=== PATIENT | male | born 1935 | race Caucasian/White ===

== ENCOUNTER 2017-12-08 12:46 | Inpatient (IN) | payer OTHER ==
[2017-12-08 13:51] LABS: Absolute Lymphocytes (CBC) 1.2 K/uL (0.7-4.9); Absolute Monocytes 0.6 K/uL (0.1-1.3); Absolute Neutrophil 3.5 K/uL (1.8-8.0); Eosinophils % 0.8 % (0-4.4); Hematocrit 43.1 % (39.6-49.0); Lymphocytes % 22.5 % (15.3-44.8); MCH 30.4 pg (27.0-35.0); MCV 91.9 fL (80-100); MPV 6.5 fL (7.6-11.3); RBC Red Blood Cell Count 4.69 M/uL (4.33-5.43)
[2017-12-08 13:57] LABS: Albumin 3.7 g/dL (3.2-5.5); Bilirubin Direct 0.2 mg/dL (0-0.2); Bilirubin Total 0.8 mg/dL (0.3-1.2); Magnesium 1.9 mg/dL (1.8-2.5)
[2017-12-08 13:59] LABS: Protime INR 1.08
[2017-12-08 14:00] LABS: CKMB Creatine Kinase MB 1.2 ng/ml (0.3-4.0)
--- NOTE | 2017-12-08 14:28 | EKG ---
Test Date: 2017-12-08 Test Time: 13:14:16 Mother'S Helper: DANE MEASUREMENT RESULTS: Intervals: Rate: 88 IA: 222 QRSD: 142 QT: 430 QTc: 520 [place]: P: 69 IA: 222 QRS: -45 T: 91 INTERPRETIVE STATEMENTS: Sinus rhythm with marked sinus arrhythmia with 1st degree AV block Left axis deviation Left bundle branch block Abnormal ECG Compared to ECG 07/06/2015 02:46:15 First degree AV block now present Left-axis deviation now present Left bundle-branch block now present Atrial premature complex(es) no longer present Electronically Signed On 12-08-17 14:27:32 RISK MANAGEMENT SPECIALIST by Chon Penn
[2017-12-08] MEDS ORDERED: VALPROATE SODIUM INJ 500 MG in NA CHLORIDE 0.9% 100 ML IV ONE ×2 (15:00→19:00)
[2017-12-08] MEDS ORDERED: VALPROATE NA 500 MG/5 ML INJ IV ONE (15:08)
[2017-12-08] MEDS ORDERED: FOLIC ACID 5 MG/ML VIAL ONE (15:09)
--- NOTE | 2017-12-08 15:10 | RAD REPORT ---
EXAM DESCRIPTION: RAD - Chest Single View - 12/08/2017 1:43 pm CLINICAL HISTORY: Cough, shortness of breath COMPARISON: February 2017 TECHNIQUE: AP portable chest image was obtained 1337 hour . FINDINGS: Lung volumes are low accentuating heart, vasculature and lung markings. No peripheral mass , consolidation or significant failure. The very poor inspiratory effort could mask early stages of i nterstitial edema or infiltrate. Vasculature within normal limits. Heart size within normal limits fo r shallow inspiration. No measurable pleural effusion and no pneumothorax. No gross bony abnormality seen. No acute aortic findings suspected. IMPRESSION: Significantly limited examination due to poor inspiratory effort. True or significant change from the prior study is doubtful.
[2017-12-08 15:20] LABS: Urine Blood NEGATIVE (NEG); Urine Glucose NEGATIVE (NEG); Urine Protein 2+ (NEG); Urine pH 5.5 (5.0-7.0)
--- NOTE | 2017-12-08 15:51 | ER ---
Nurse's Notes [facility] Name: Caleb Lemus Age: 82 yrs Sex: Male : 1935 Arrival Date: 12/08/2017 Time: 12:50 Bed 4 Private MD: Bruno Valadez V Diagnosis: Aphasia;Epileptic seizures related to external causes;Weakness Presentation: 12/08 12:51 Presenting complaint: states: "pt was confused that started 48 hours, still could hj not speak, went to [facility] and they ran a head CT and showed negative findings; visited neurology today, states, soul probably be seizure, was sent here for eval; reports frontal headache; pt on triage pt was A\\T\\O x 0;. Transition of care: patient was not received from another setting of care. Onset of symptoms was December 08, 2017. Care prior to arrival: None. 12:51 Method Of Arrival: Ambulatory hj 12:51 Acuity: WILLY 3 hj Triage Assessment: 12:58 General: Appears in no apparent distress. uncomfortable, Behavior is calm, cooperative, hj appropriate for age. Pain: Complains of pain in head. Neuro: Level of Consciousness is awake, alert, obeys commands, Oriented to none. Historical: - Allergies: 12:58 PENICILLINS; hj 12:58 Morphine; hj 12:58 Codeine; hj 12:58 Clindamycin; hj 12:58 Fentanyl; hj 12:58 Hydromorphone; hj - PMHx: 12:58 Hypertension; CHF; hj - PSHx: 12:58 Knee surgery; feet; Hernia repair; hj - Immunization history:: Adult Immunizations up to date. - Social history:: Smoking status: Patient/guardian denies using alcohol, tobacco products. - Family history:: not pertinent. Screenin:30 Abuse screen: Denies threats or abuse. Nutritional screening: No deficits noted. tl3 Tuberculosis screening: No symptoms or risk factors identified. Fall Risk Secondary diagnosis (15 points) seizures. Assessment: 13:30 General: Appears in no apparent distress. comfortable, well groomed, well developed, tl3 well nourished, Behavior is calm, cooperative, pt not able to always access the right words for questions asked, two word answers are generally correct. 13:30 Neuro: Level of Consciousness is awake, alert, obeys commands. Cardiovascular: Heart tl3 tones S1 S2 present Capillary refill < 3 seconds. Respiratory: Airway is patent Trachea midline Respiratory effort is even, unlabored, Respiratory pattern is regular, symmetrical, Breath sounds are clear bilaterally. GI: No signs and/or symptoms were reported involving the gastrointestinal system. Abdomen is round Bowel sounds present X 4 quads. : No signs and/or symptoms were reported regarding the genitourinary system. EENT: No signs and/or symptoms were reported regarding the EENT system. Oral mucosa is moist. Derm: No signs and/or symptoms reported regarding the dermatologic system. Musculoskeletal: No signs and/or symptoms reported regarding the musculoskeletal system. 14:43 Reassessment: Patient appears in no apparent distress at this time. No changes from tl3 previously documented assessment. Patient and/or family updated on plan of care and expected duration. Pain level reassessed. Patient is alert, oriented x 3, equal unlabored respirations, skin warm/dry/pink. Dr Castellanos at bedside. 16:20 Reassessment: Patient appears in no apparent distress at this time. No changes from tl3 previously documented assessment. Patient and/or family updated on plan of care and expected duration. Pain level reassessed. Patient is alert, oriented x 3, equal unlabored respirations, skin warm/dry/pink. 18:01 Reassessment: Patient appears in no apparent distress at this time. No changes from tl3 previously documented assessment. Patient and/or family updated on plan of care and expected duration. Pain level reassessed. Patient is alert, oriented x 3, equal unlabored respirations, skin warm/dry/pink. pt returned from MRI, resting quietly, family at bedside. 18:04 Reassessment: attempting to call report twice, no answer. tl3 18:12 Reassessment: attempting to call report no answer. tl3 19:19 Reassessment: Patient appears in no apparent distress at this time. No changes from ak1 previously documented assessment. Patient and/or family updated on plan of care and expected duration. Pain level reassessed. Patient is alert, oriented x 3, equal unlabored respirations, skin warm/dry/pink. pt and family informed of wait for shift change prior to going up to room 218. General:. 19:54 Reassessment: report called to Lea HARE, pt is alert, resting quietly, family at bedside, IV intact. Vital Signs: 12:59 BP 100 / 66; Pulse 85; Resp 18; Temp 97.8(O); Pulse Ox 95% on R/A; Weight 99.79 kg; hj Height 5 ft. 6 in. (167.64 cm); 13:30 BP 120 / 75; Pulse 82; Resp 16; Pulse Ox 95% on R/A; tl3 14:43 BP 141 / 98; Pulse 80; Resp 15; Pulse Ox 94% on R/A; tl3 16:39 BP 154 / 101; Pulse 71; Resp 18; Pulse Ox 95% on R/A; tl3 18:01 BP 125 / 89; Pulse 68; Resp 18; Pulse Ox 95% on R/A; tl3 18:18 BP 125 / 75; Pulse 59; Resp 16; Pulse Ox 99% ; tl3 12:59 Body Mass Index 35.51 (99.79 kg, 167.64 cm) hj Tal Coma Score: 12:58 Eye Response: spontaneous(4). Verbal Response: confused(4). Motor Response: obeys commands(6). Total: 14. ED Course: 12:50 Patient arrived in ED. mr 12:50 Bruno Valadez MD is Private Physician. mr 12:57 Triage completed. hj 12:59 Arm band placed on right wrist. hj 13:09 Bruce Castellanos MD is Attending Physician. megan 13:30 Patient has correct armband on for positive identification. Placed in gown. Bed in low tl3 position. Call light in reach. Side rails up X2. Adult w/ patient. Seizure precautions initiated. 13:30 No provider procedures requiring assistance completed. Urine collected: clean catch tl3 specimen, clear. 13:33 Mell Alvares, RN is Primary Nurse. tl3 13:33 EKG done, by telegraph repeater technician. reviewed by Bruce Castellanos MD. at1 13:34 equipment maintenance supervisor on. Pulse ox on. NIBP on. family at bedside. Door closed. Lights tl3 dimmed. Warm blanket given. 13:34 Inserted saline lock: 20 gauge in left antecubital area, using aseptic technique. Blood tl3 collected. 13:38 X-ray completed. Portable x-ray completed in exam room. Patient tolerated procedure jb2 well. 13:43 XRAY Chest (1 view) In Process Unspecified. EDMS 15:48 Bruno Valadez MD is Hospitalizing Provider. megan 16:36 Patient moved to MRI via stretcher. tl3 17:07 MRI completed. Patient tolerated well. Patient moved back from MRI. ka 19:00 Patient admitted, IV remains in place. ak1 19:08 Report given to PAYAM Beard. tl3 Administered Medications: 13:46 Drug: NS 0.9% 1000 ml Route: IV; Rate: 75 ml/hr; Site: left antecubital; Delivery: tl3 Primary tubing; 19:30 Follow up: IV Intake: 500ml tl3 14:59 Drug: foLIC Acid 1 mg Route: IVPB; Infused Over: 3 mins; Site: left antecubital; tl3 15:24 Follow up: Response: No adverse reaction tl3 14:59 Drug: NS 0.9% 500 ml Route: IV; Rate: bolus; Site: left antecubital; tl3 15:24 Follow up: Response: No adverse reaction; IV Status: Completed infusion; IV Intake: tl3 500ml 15:25 Drug: Depacon 500 mg Volume: 5 ml; Route: IV; Rate: calculated rate; Site: left tl3 antecubital; Delivery: Primary tubing; 16:25 Follow up: Response: No adverse reaction; IV Status: Completed infusion tl3 18:17 Drug: Aspirin Chewable Tablet 162 mg Route: PO; tl3 Intake: 15:24 IV: 500ml; Total: 500ml. tl3 19:30 IV: 500ml; Total: 1000ml. tl3 Outcome: 15:50 Decision to Hospitalize by Provider. megan 16:38 Condition: stable tl3 19:01 Instructed on the need for admit. ak1 19:54 Admitted to Tele accompanied by camille, family with patient, via stretcher, room 218, bb with chart, Report called to Lea HARE 20:07 Patient left the ED. bb Signatures: Dispatcher [employer] EDBruce Sharpe MD MD cha Rivera, Maria mr [email or web address] Madisyn Nolasco, RN RN Taryn acevedo, synchronous motor assembler EKG Tat1 Mary Villarreal RN RN ak1 Joshua Lucero RN RN Barrett, Gilda ka Dia, Mell, RN RN tl3
--- NOTE | 2017-12-08 15:51 | EDPHYS ---
Physician Documentation [facility] Name: Caleb Lemus Age: 82 yrs Sex: Male : 1935 Arrival Date: 12/08/2017 Time: 12:50 Bed 4 Private MD: Bruno Valadez V ED Physician Bruce Castellanos HPI: 12/08 14:43 This 82 yrs old Male presents to ER via Ambulatory with complaints of megan Probable Seizure. 14:43 This 82 yrs old Male presents to ER via Ambulatory with complaints of megan Probable Seizure. 14:43 The patient presents. Character of seizure(s): Loss of consciousness: the patient did megan not lose consciousness. Seizure onset: the onset is not known. Context: the seizure(s) was witnessed, by family. Seizure Hx: the patient has no previous seizure history. Associated injury: The patient did not suffer any apparent associated injury. Current symptoms: dysphasia. The patient has not experienced similar symptoms in the past. Historical: - Allergies: 12:58 PENICILLINS; hj 12:58 Morphine; hj 12:58 Codeine; hj 12:58 Clindamycin; hj 12:58 Fentanyl; hj 12:58 Hydromorphone; hj - PMHx: 12:58 Hypertension; CHF; hj - PSHx: 12:58 Knee surgery; feet; Hernia repair; hj - Immunization history:: Adult Immunizations up to date. - Social history:: Smoking status: Patient/guardian denies using alcohol, tobacco products. - Family history:: not pertinent. ROS: 14:43 Constitutional: Negative for fever, chills, and weight loss, Eyes: Negative for injury, megan pain, redness, and discharge, ENT: Negative for injury, pain, and discharge, Neck: Negative for injury, pain, and swelling, Cardiovascular: Negative for chest pain, palpitations, and edema, Respiratory: Negative for shortness of breath, cough, wheezing, and pleuritic chest pain, Abdomen/GI: Negative for abdominal pain, nausea, vomiting, diarrhea, and constipation, Back: Negative for injury and pain, : Negative for injury, bleeding, discharge, and swelling, MS/Extremity: Negative for injury and deformity, Skin: Negative for injury, rash, and discoloration, Psych: Negative for depression, anxiety, suicide ideation, homicidal ideation, and hallucinations, Allergy/Immunology: Negative for hives, rash, and allergies, Endocrine: Negative for neck swelling, polydipsia, polyuria, polyphagia, and marked weight changes, Hematologic/Lymphatic: Negative for swollen nodes, abnormal bleeding, and unusual bruising. 14:43 Neuro: Positive for altered mental status, dizziness, speech changes, weakness. Exam: 14:43 Constitutional: This is a well developed, well nourished patient who is awake, alert, megan and in no acute distress. Head/Face: Normocephalic, atraumatic. Eyes: Pupils equal round and reactive to light, extra-ocular motions intact. Lids and lashes normal. Conjunctiva and sclera are non-icteric and not injected. Cornea within normal limits. Periorbital areas with no swelling, redness, or edema. ENT: Nares patent. No nasal discharge, no septal abnormalities noted. Tympanic membranes are normal and external auditory canals are clear. Oropharynx with no redness, swelling, or masses, exudates, or evidence of obstruction, uvula midline. Mucous membranes moist. Neck: Trachea midline, no thyromegaly or masses palpated, and no cervical lymphadenopathy. Supple, full range of motion without nuchal rigidity, or vertebral point tenderness. No Meningismus. Chest/axilla: Normal chest wall appearance and motion. Nontender with no deformity. No lesions are appreciated. Cardiovascular: Regular rate and rhythm with a normal S1 and S2. No gallops, murmurs, or rubs. Normal PMI, no JVD. No pulse deficits. Respiratory: Lungs have equal breath sounds bilaterally, clear to auscultation and percussion. No rales, rhonchi or wheezes noted. No increased work of breathing, no retractions or nasal flaring. Abdomen/GI: Soft, non-tender, with normal bowel sounds. No distension or tympany. No guarding or rebound. No evidence of tenderness throughout. Back: No spinal tenderness. No costovertebral tenderness. Full range of motion. Male : Normal genitalia with no discharge or lesions. Skin: Warm, dry with normal turgor. Normal color with no rashes, no lesions, and no evidence of cellulitis. Psych: Awake, alert, with orientation to person, place and time. Behavior, mood, and affect are within normal limits. 14:43 Musculoskeletal/extremity: Extremities: all appear grossly normal, with no appreciated pain with palpation, grossly normal except: ROM: full active range of motion, full passive range of motion, Circulation is intact in all extremities. Sensation intact. Compartment Syndrome exam of affected extremity: is normal. no pain, no numbness, no tingling, no sensation deficit, no palor, no weak pulses, DVT Exam: No signs of deep vein thrombosis. no pain, no swelling, no tenderness, negative Homans' sign noted on exam, no appreciated bluish discoloration, no erythema, no increased warmth. Vital Signs: 12:59 BP 100 / 66; Pulse 85; Resp 18; Temp 97.8(O); Pulse Ox 95% on R/A; Weight 99.79 kg; Height 5 ft. 6 in. (167.64 cm); 13:30 BP 120 / 75; Pulse 82; Resp 16; Pulse Ox 95% on R/A; tl3 14:43 BP 141 / 98; Pulse 80; Resp 15; Pulse Ox 94% on R/A; tl3 16:39 BP 154 / 101; Pulse 71; Resp 18; Pulse Ox 95% on R/A; tl3 18:01 BP 125 / 89; Pulse 68; Resp 18; Pulse Ox 95% on R/A; tl3 18:18 BP 125 / 75; Pulse 59; Resp 16; Pulse Ox 99% ; tl3 12:59 Body Mass Index 35.51 (99.79 kg, 167.64 cm) Tal Coma Score: 12:58 Eye Response: spontaneous(4). Verbal Response: confused(4). Motor Response: obeys commands(6). Total: 14. MDM: 13:09 Patient medically screened. [facility] 14:48 Data reviewed: vital signs, nurses notes, EMS record, lab test result(s), EKG, [facility] radiologic studies, CT scan, MRI, plain films. 12/08 13:11 Order name: Basic Metabolic Panel; Complete Time: 14:38 [facility] 12/08 13:11 Order name: BNP; Complete Time: 14:38 [facility] 12/08 13:11 Order name: CBC with Diff; Complete Time: 14:38 [facility] 12/08 13:11 Order name: Ckmb; Complete Time: 14:38 [facility] 12/08 13:11 Order name: CPK; Complete Time: 14:38 [facility] 12/08 13:11 Order name: LFT's; Complete Time: 14:38 [facility] 12/08 13:11 Order name: Magnesium; Complete Time: 14:38 [facility] 12/08 13:11 Order name: PT-INR; Complete Time: 14:38 [facility] 12/08 13:11 Order name: Ptt, Activated; Complete Time: 14:38 [facility] 12/08 13:11 Order name: Troponin (emerg Dept Use Only); Complete Time: 14:38 [facility] 12/08 13:11 Order name: Lipase; Complete Time: 14:38 [facility] 12/08 13:11 Order name: Urine Culture [facility] 12/08 15:17 Order name: Urine Dipstick--Ancillary (enter results); Complete Time: 15:41 12/08 16:04 Order name: Basic Metabolic Panel [facility] 12/08 13:11 Order name: XRAY Chest (1 view); Complete Time: 15:41 [facility] 12/08 14:38 Order name: MRI Stroke Protocol [facility] 12/08 16:04 Order name: Basic Metabolic Panel [facility] 12/08 16:04 Order name: Troponin I [facility] 12/08 16:05 Order name: CBC with Automated Diff [facility] 12/08 16:05 Order name: CBC with Automated Diff [facility] 12/08 16:05 Order name: Chest Single View [facility] 12/08 16:05 Order name: Chest Single View [facility] 12/08 16:06 Order name: Troponin I [facility] 12/08 16:06 Order name: Troponin I [facility] 12/08 17:14 Order name: MRI; Complete Time: 17:31 [facility] 12/08 13:11 Order name: EKG; Complete Time: 13:12 [facility] 12/08 13:11 Order name: Cardiac monitoring; Complete Time: 13:33 [facility] 12/08 13:11 Order name: EKG - Nurse/Tech; Complete Time: 13:33 [facility] 12/08 13:11 Order name: IV Saline Lock; Complete Time: 13:33 [facility] 12/08 13:11 Order name: Labs collected and sent; Complete Time: 13:34 [facility] 12/08 13:11 Order name: O2 Per Protocol; Complete Time: 13:34 [facility] 12/08 13:11 Order name: O2 Sat Monitoring; Complete Time: 13:34 [facility] 12/08 13:11 Order name: Urine Dipstick-Ancillary (obtain specimen); Complete Time: 14:46 [facility] 12/08 13:11 Order name: Seizure Precautions; Complete Time: 14:46 [facility] 12/08 16:05 Order name: Carb Control (ADA) [address] EDAK 12/08 16:05 Order name: CONS Physician Consult [facility] 12/08 16:06 Order name: EKG Electrocardiogram [facility] 12/08 16:06 Order name: EKG Electrocardiogram [facility] 12/08 16:06 Order name: EKG Electrocardiogram [facility] 12/08 16:06 Order name: EKG Electrocardiogram EDAK Administered Medications: 13:46 Drug: NS 0.9% 1000 ml Route: IV; Rate: 75 ml/hr; Site: left antecubital; Delivery: tl3 Primary tubing; 19:30 Follow up: IV Intake: 500ml tl3 14:59 Drug: foLIC Acid 1 mg Route: IVPB; Infused Over: 3 mins; Site: left antecubital; tl3 15:24 Follow up: Response: No adverse reaction tl3 14:59 Drug: NS 0.9% 500 ml Route: IV; Rate: bolus; Site: left antecubital; tl3 15:24 Follow up: Response: No adverse reaction; IV Status: Completed infusion; IV Intake: tl3 500ml 15:25 Drug: Depacon 500 mg Volume: 5 ml; Route: IV; Rate: calculated rate; Site: left tl3 antecubital; Delivery: Primary tubing; 16:25 Follow up: Response: No adverse reaction; IV Status: Completed infusion tl3 18:17 Drug: Aspirin Chewable Tablet 162 mg Route: PO; tl3 Disposition: 12/08/17 15:50 Hospitalization ordered by Bruno Valadez for Inpatient Admission. Preliminary diagnosis are Aphasia, Epileptic seizures related to external causes, Weakness. - Bed requested for Telemetry/MedSurg (Inpatient). - Status is Inpatient Admission. bb - Condition is Fair. - Problem is new. - Symptoms have improved. UTI on Admission? No Signatures: Dispatcher [employer] EDAK Bruce Castellanos MD MD cha Ballard, Brenda, RN RN Lana Gould Henry, RN RN hj Lowrey, Tammy, RN RN tl3
[2017-12-08] MEDS ORDERED: ONDANSETRON 4 MG/2 ML VIAL IV PRN (16:00)
[2017-12-08] MEDS ORDERED: ACETAMINOPHEN 500 MG TAB PO PRN (16:00)
[2017-12-08] MEDS: NA CHLORIDE 0.9% 1,000 ML IV SCH (17:00)
--- NOTE | 2017-12-08 17:13 | RAD REPORT ---
EXAM DESCRIPTION: MRI - Brain Wo Cont - 12/08/2017 4:48 pm CLINICAL HISTORY: Seizure, headache COMPARISON: 07/06/2015, 09/24/2009 TECHNIQUE: Multi-sequence, multiplanar MR imaging of the brain was performed without contrast. FINDINGS: No intracranial hemorrhage, hydrocephalus or extra-axial fluid collections.Moderate genera lized brain atrophy is present with moderate periventricular and deep white matter chronic microvascu lar ischemic changes. No edema or shift of midline structures. No findings to suspect brain mass. DWI is negative for acute CVA. Postsurgical changes are present in the sella turcica, stable since comparative study. Mastoid air cells and paranasal sinuses are clear. IMPRESSION: No acute or concerning intracranial abnormalities. Postsurgical changes involving the sella turcica, the stable since 07/06/2015 and more remote studies .
[2017-12-08] MEDS ORDERED: ASPIRIN 81 MG CHEWABLE TABLET ONE (18:35)
[2017-12-08] MEDS: DIVALPROEX DR 500MG TAB PO SCH (21:00)
--- NOTE | 2017-12-08 21:17 | P.HP ---
Certification for Inpatient Patient admitted to: Inpatient With expected LOS: >2 Midnights Practitioner: I am a practitioner with admitting privileges, knowledge of patient current condition, hospital course, and medical plan of care. Services: Services provided to patient in accordance with Admission requirements found in Title 42 Section 412.3 of the Code of Federal Regulations Patient History Date of Service: 12/08/17 Reason for admission: LOST SPEECH AND COMPREHENSION History of Present Illness: MR. MORENO HAS LOST ABILITY TO COMPRHEND AND COULD NOT SPEAK FOR TWO DAYS. HIS TOOK HIM TO [facility] ER WITH NO DIAGNOSIS. SHE HAS BEEN IN [facility] WITH HIM FOR FULL EVAL. NOTHING HAS PANNED OUT AND NOW HE IS HERE FOR THE SAME EPISODE. HIS MRI DOES NOT SHOW STROKE. Allergies codeine Allergy (Verified 05/04/14 12:00) Rash fentanyl Allergy (Verified 08/04/14 20:16) confusion hydromorphone [Hydromorphone] Allergy (Verified 08/04/14 20:15) Anaphylaxis morphine Allergy (Verified 05/04/14 12:00) Anaphylaxis Penicillins Allergy (Verified 05/04/14 12:00) Hives clindamycin Adverse Reaction (Verified 05/04/14 12:00) Nausea/Vomiting opiates Allergy (Uncoded 07/06/15 05:10) Unknown Home Medications: Atorvastatin Calcium [Lipitor*] 40 mg PO BEDTIME #30 tab 08/20/14 Metoprolol Tartrate [Lopressor*] 12.5 mg PO BID 6AM 6PM #60 tab 08/20/14 Dipyridamole/Aspirin [Aggrenox Extend Release] 1 cap PO BID #60 cap 07/07/15 - Past Medical/Surgical History Diabetic: No -: HX OF CVA -: CAD -: HTN -: GOUT -: DYSLIPIDEMIA -: RENAL CYST -: PVC -: 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 moist/pink, EOMI, Sclerae nonicteric Neck: Supple, 2+ carotid pulse no bruit, No LAD, Without JVD or thyroid abnormality Respiratory: Clear to auscultation bilaterally, Normal air movement Cardiovascular: Regular rate/rhythm, Normal S1 S2 Gastrointestinal: Normal bowel sounds, No tenderness Musculoskeletal: No tenderness Integumentary: No rashes Neurological: Normal speech (BUT LIMITED SENTENCES. TOLD ME HE HAD JIBBERISH SPEECH BEFORE DEPAKOTE.), Normal strength at 5/5 x4 extr, Normal tone , Other (HE IS ALERT BUT NOT ABLE TO RCOGNIZE HIS AND OTHER FAMIY. HE IS NOT ORIENTED TO TIME , PLACE AND PERSON. HE HAS LOST ABILTY TO COMPREHEND SIMPELE QUESTIONS.) Lymphatics: No axilla or inguinal lymphadenopathy - Studies Laboratory Data (last 24 hrs) 12/08/17 13:26: PT 12.7 H, INR 1.08, APTT 26.9 12/08/17 13:26: WBC 5.5, Hgb 14.3, Hct 43.1, Plt Count 286 12/08/17 13:26: B-Natriuretic Peptide 135 H 12/08/17 13:26: Sodium 135, Potassium 4.0, BUN 14, Creatinine 0.87, Glucose 140 H, Magnesium 1.9, Total Bilirubin 0.8, AST 17, ALT 10, Alkaline Phosphatase 54, Lipase 20 L Assessment and Plan - Problems (Diagnosis) (1) Altered mental status Current Visit: Yes Status: Acute Plan: HIS MRI IS NEGATIVE FRONTAL LOBE STATUS EPILEPTICUS IS LIKELY HE MAY BENEFIT FROM [facility] SEIZURE MEDS HIS NEUROLOGIST DR. HOWELL HAS BEEN AWARE. - Advance Directives Does patient have a Living Will: No Does patient have a Durable POA for Healthcare: Yes
[2017-12-08 22:56] VITALS: BMI 34.4
[2017-12-09] MEDS: NA CHLORIDE 0.9% 1,000 ML IV SCH ×2 (03:00→14:07)
[2017-12-09 05:08] LABS: Absolute Lymphocytes (CBC) 1.2 K/uL (0.7-4.9); Absolute Monocytes 0.6 K/uL (0.1-1.3); Absolute Neutrophil 2.8 K/uL (1.8-8.0); Basophils % 1.1 % (0-1.3); Eosinophils % 1.9 % (0-4.4); Hematocrit 39.4 % (39.6-49.0); Lymphocytes % 25.2 % (15.3-44.8); MCH 31.7 pg (27.0-35.0); MCV 91.7 fL (80-100); MPV 6.4 fL (7.6-11.3); Monocytes % 12.6 % (3.3-12.3)
[2017-12-09 05:24] LABS: BUN Blood Urea Nitrogen 13 mg/dL (6-20); Bicarbonate 27 mEq/L (21-31); Glucose Level 99 mg/dL (65-120); Sodium Level 137 mEq/L (135-145)
--- NOTE | 2017-12-09 08:35 | EKG ---
Test Date: 2017-12-09 Test Time: 07:57:32 Parachute Harness Rigger: JOHNNY MEASUREMENT RESULTS: Intervals: Rate: 69 VA: 212 QRSD: 144 QT: 494 QTc: 529 Fletcher: P: VA: 212 QRS: -28 T: 98 INTERPRETIVE STATEMENTS: Sinus rhythm with 1st degree AV block with premature atrial complexes Left bundle branch block Abnormal ECG Compared to ECG 12/08/2017 13:14:16 Atrial premature complex(es) now present Sinus arrhythmia no longer present Left-axis deviation no longer present Electronically Signed On 12-09-17 08:34:53 MATCHING MACHINE OPERATOR by Gary Chapin
[2017-12-09] MEDS: DIVALPROEX DR 500MG TAB PO SCH ×2 (08:39→21:06)
[2017-12-09] MEDS: TAMSULOSIN 0.4 MG SR CAP PO SCH (08:39)
[2017-12-09] MEDS: FOLIC ACID 1 MG TABLET PO SCH (08:39)
[2017-12-09] MEDS: DONEPEZIL HCL 5 MG TAB PO SCH (08:39)
--- NOTE | 2017-12-09 08:42 | RAD REPORT ---
EXAM DESCRIPTION: RAD - Chest Single View - 12/09/2017 6:26 am CLINICAL HISTORY: Chest pain COMPARISON: December 08 TECHNIQUE: AP portable chest image was obtained 0613 hours . FINDINGS: Lung ricardo are relatively low but similar to the comparison. No new mass, infiltrate or f ailure finding. Lung markings are fractionally less prominent. Trachea is midline. Heart and vasculat ure are normal. No measurable pleural effusion and no pneumothorax. No gross bony abnormality seen. N o acute aortic findings suspected. IMPRESSION: No worrisome or progressive cardiopulmonary finding. Shallow inspiration exam shows slightly decreased prominence of the lung markings.
[2017-12-09] MEDS: DIPYRIDAMOLE/ASPIRIN CAP ER PO SCH ×2 (08:43→21:06)
[2017-12-09] MEDS ORDERED: INFLUENZA VACCINE (for 3y+) 0.5 ML DOSE IMVAC ONE (09:00)
[2017-12-09] MEDS: METOPROLOL TAR 25 MG TAB PO SCH (16:52)
[2017-12-09] MEDS ORDERED: VALPROATE SODIUM INJ 500 MG in NA CHLORIDE 0.9% 100 ML IV ONE (18:45)
--- NOTE | 2017-12-09 21:25 | P.PN ---
Subjective Date of Service: 12/09/17 Chief Complaint: LOST SPEECH AND COMPREHENSION Subjective: Improving (LOT MORE AWAKE, RECOGNIZED PEOPLE) Review of Systems 10-point ROS is otherwise unremarkable General: Weakness, Malaise Physical Examination - Vital Signs Temperature: 97.5 F Blood Pressure: 102/68 Pulse: 67 Respirations: 20 Pulse Ox (%): 0 - Physical Exam General: Oriented x3, Mild distress, Obese HEENT: Atraumatic, PERRLA, EOMI Neck: Supple, JVD not distended Respiratory: Clear to auscultation bilaterally, Normal air movement Cardiovascular: Regular rate/rhythm, Normal S1 S2 Gastrointestinal: Normal bowel sounds, No tenderness Musculoskeletal: No tenderness Integumentary: No rashes Neurological: Normal speech, Normal tone, Normal affect Lymphatics: No axilla or inguinal lymphadenopathy - Studies Medications List Reviewed: Yes Assessment And Plan - Current Problems (Diagnosis) (1) Altered mental status Onset Date: 12/09/17 Current Visit: Yes Status: Acute Plan: HIS MRI IS NEGATIVE FRONTAL LOBE STATUS EPILEPTICUS IS LIKELY HE MAY BENEFIT FROM [facility] SEIZURE MEDS HIS NEUROLOGIST DR. HOWELL HAS BEEN AWARE. AIME HOWELL WORKED EEG TODAY WILL DC HIM I AM.
[2017-12-10 01:49] VITALS: O2SAT 95
[2017-12-10] MEDS: METOPROLOL TAR 25 MG TAB PO SCH (06:21)
[2017-12-10] MEDS: TAMSULOSIN 0.4 MG SR CAP PO SCH (09:00)
[2017-12-10] MEDS: DIPYRIDAMOLE/ASPIRIN CAP ER PO SCH (09:00)
[2017-12-10] MEDS: DONEPEZIL HCL 5 MG TAB PO SCH (09:00)
[2017-12-10] MEDS: FOLIC ACID 1 MG TABLET PO SCH (09:01)
[2017-12-10] MEDS: DIVALPROEX DR 500MG TAB PO SCH (09:01)
[2017-12-10 11:05] VITALS: BP 135/76; TEMP 96.9
--- NOTE | 2017-12-10 11:16 | EEG ---
CHART: [id number] TEST ID#: [id number] DATE OF STUDY: 12/09/2017 THE EEG WAS RECORDED PORTABLE IN THE PATIENT'S ROOM ON A 17 CHANNEL MACHINE. ELECTRODES WERE APPLIED IN THE USUAL MANNER USING THE INTERNATIONAL 10-20 SYSTEM. THE WAKING BACKGROUND RHYTHM IN THIS RECORD CONSISTS OF WELL DEVELOPED AND WELL ORGANIZED WAVES OF 8.5 HZ., MAXIMAL IN THE POSTERIOR HEAD REGIONS WHICH ATTENUATE NORMALLY WITH EYE OPENING. LOW-VOLTAGE 18-22 HZ ACTIVITY IS EXPRESSED IN THE FRONTAL REGIONS. THERE ARE NO FOCAL OR LATERALIZING FEATURES. NO EPILEPTIFORM ACTIVITY APPEARS. SLEEP OCCURRED NATURALLY. IN ADDITION NORMAL SLEEP PATTERNS ARE PRESENT. HYPERVENTILATION WAS NOT PERFORMED. PHOTIC STIMULATION PRODUCED FAIR DRIVING BILATERALLY. IMPRESSION: NORMAL EEG FOR THE AGE OF THE PATIENT IN [place], DROWSINESS AND SLEEP.
--- NOTE | 2017-12-10 20:33 | P.DS ---
Admission Date: 12/08/17 Discharge Date: 12/10/17 Disposition: ROUTINE DISCHARGE Discharge Condition: FAIR Reason for Admission: LOST SPEECH AND COMPREHENSION - Problems (1) Altered mental status Onset Date: 12/09/17 Status: Acute Brief History of Present Illness: MR. MORENO HAS LOST ABILITY TO COMPRHEND AND COULD NOT SPEAK FOR TWO DAYS. HIS TOOK HIM TO [facility] ER WITH NO DIAGNOSIS. SHE HAS BEEN IN [facility] WITH HIM FOR FULL EVAL. NOTHING HAS PANNED OUT AND NOW HE IS HERE FOR THE SAME EPISODE. HIS MRI DOES NOT SHOW STROKE. PATIENT IS LOT MORE AWAKE. BACK TO HIS BASELINE. HE IS NOT POST ICTAL ANY LONGER. HE IS DCED HOME ON DEPAKOTE FOR FRONTAL LOBE SEIZURES LIKE SYMPTOMS. Vital Signs/Physical Exam: Temp Pulse Resp BP Pulse Ox 96.9 F 64 18 135/76 97 12/10/17 08:00 12/10/17 08:00 12/10/17 08:00 12/10/17 08:00 12/10/17 08:00 Laboratory Data at Discharge: WBC 4.8 K/uL (4.3-10.9) 12/09/17 04:25 Hgb 13.6 g/dL (13.6-17.9) 12/09/17 04:25 Hct 39.4 % (39.6-49.0) L 12/09/17 04:25 Plt Count 241 K/uL (152-406) 12/09/17 04:25 PT 12.7 SECONDS (9.5-12.5) H 12/08/17 13:26 INR 1.08 12/08/17 13:26 APTT 26.9 SECONDS (24.3-36.9) 12/08/17 13:26 Sodium 137 mEq/L (135-145) 12/09/17 04:25 Potassium 4.0 mEq/L (3.6-5.0) 12/09/17 04:25 BUN 13 mg/dL (6-20) 12/09/17 04:25 Creatinine 0.75 mg/dL (0.61-1.24) 12/09/17 04:25 Glucose 99 mg/dL (65-120) 12/09/17 04:25 Magnesium 1.9 mg/dL (1.8-2.5) 12/08/17 13:26 Total Bilirubin 0.8 mg/dL (0.3-1.2) 12/08/17 13:26 AST 17 IU/L (10-42) 12/08/17 13:26 ALT 10 IU/L (10-60) 12/08/17 13:26 Alkaline Phosphatase 54 IU/L (42-121) 12/08/17 13:26 Troponin I < 0.03 ng/mL (<0.03) 12/08/17 21:43 B-Natriuretic Peptide 135 pg/ml (<=100) H 12/08/17 13:26 Lipase 20 U/L (22-51) L 12/08/17 13:26 Home Medications: Atorvastatin Calcium [Lipitor*] 40 mg PO BEDTIME #30 tab 08/20/14 Metoprolol Tartrate [Lopressor*] 12.5 mg PO BID 6AM 6PM #60 tab 08/20/14 Dipyridamole/Aspirin [Aggrenox Extend Release] 1 cap PO BID #60 cap 07/07/15 Donepezil HCl [Donepezil HCl] 5 mg PO DAILY 12/09/17 Tamsulosin HCl [Tamsulosin HCl] 0.4 mg PO DAILY 12/09/17 Divalproex Sodium [Depakote ER] 500 mg PO BID #60 tab.sr.24h 12/10/17 New Medications: Divalproex Sodium [Depakote ER] 500 mg PO BID #60 tab.sr.24h
== END 2017-12-10 10:57 | disposition home or self-care (01) | DRG 101 ==
LOC: ER 12:46 → ERHOLD 15:52 → 2ND 19:33
PROVIDERS: ADMIT Internal Medicine; ATTEND Internal Medicine
DX: R56.9 Unspecified convulsions (principal); E66.9 Obesity, unspecified; I25.10 Atherosclerotic heart disease of native coronary artery without angina pectoris; I10 Essential (primary) hypertension; Z86.73 Personal history of transient ischemic attack (TIA), and cerebral infarction without residual deficits; I25.2 Old myocardial infarction; Z68.35 Body mass index [BMI] 35.0-35.9, adult; M10.9 Gout, unspecified; E78.5 Hyperlipidemia, unspecified; Z86.711 Personal history of pulmonary embolism; Z88.0 Allergy status to penicillin
CPT/HCPCS: 36415; 70551; 71045; 80048; 80076; 81003; 82550; 82553; 83690; 83735; 83880; 84484; 85025; 85610; 85730; 87077; 87086; 87088; 87186; 93005; 95819; 96365; 96375; 99285; J7030

== ENCOUNTER 2018-03-10 12:44 | Inpatient (IN) | payer OTHER ==
[2018-03-10 16:10] VITALS: BMI 35.5
[2018-03-10] MEDS ORDERED: METOPROLOL TAR 25 MG TAB PO ONE (20:34)
[2018-03-10] MEDS: DIVALPROEX DR 250 MG TAB PO SCH (20:40)
[2018-03-10 23:01] LABS: Urine Appearance CLEAR; Urine Bilirubin NEGATIVE (NEG); Urine Blood NEGATIVE (NEG); Urine Color YELLOW; Urine Glucose NEGATIVE (NEG); Urine Protein NEGATIVE (NEG)
[2018-03-11 00:11] LABS: Urine Bacteria <20 /HPF (NONE SEEN); Urine Culture Reflex Order NOT NEEDED; Urine RBC NONE SEEN /HPF (NONE SEEN)
[2018-03-11] MEDS ORDERED: METOPROLOL TAR 25 MG TAB PO SCH ×2 (06:00)
[2018-03-11 06:26] LABS: Absolute Lymphocytes (CBC) 1.2 K/uL (0.7-4.9); Absolute Monocytes 0.6 K/uL (0.1-1.3); Basophils % 1.3 % (0-1.3); Hematocrit 42.8 % (39.6-49.0); Lymphocytes % 29.4 % (15.3-44.8); MCH 29.8 pg (27.0-35.0); MCV 89.9 fL (80-100); MPV 6.5 fL (7.6-11.3); Monocytes % 15.4 % (3.3-12.3); RBC Red Blood Cell Count 4.76 M/uL (4.33-5.43)
[2018-03-11 06:53] LABS: Albumin 3.4 g/dL (3.2-5.5); BUN Blood Urea Nitrogen 12 mg/dL (6-20); Bicarbonate 34 mEq/L (21-31); Glucose Level 102 mg/dL (65-120); Magnesium 1.9 mg/dL (1.8-2.5); Potassium 4.2 mEq/L (3.6-5.0); Prealbumin 21.5 mg/dl (18-38); Sodium Level 137 mEq/L (135-145)
[2018-03-11] MEDS: METOPROLOL TAR 25 MG TAB PO SCH ×2 (07:18→20:08)
[2018-03-11] MEDS: DIVALPROEX DR 250 MG TAB PO SCH (07:19)
[2018-03-11 07:23] LABS: Blood Morphology Comment NOT SEEN (NOT SEEN); Platelet Estimate ADEQ; Urine White Blood Cell Casts OK
--- NOTE | 2018-03-11 17:08 | P.HP ---
Certification for Inpatient Patient admitted to: Inpatient With expected LOS: >2 Midnights Practitioner: I am a practitioner with admitting privileges, knowledge of patient current condition, hospital course, and medical plan of care. Services: Services provided to patient in accordance with Admission requirements found in Title 42 Section 412.3 of the Code of Federal Regulations Patient History Date of Service: 03/11/18 Reason for admission: DIFFUSE WEAKNESS History of Present Illness: MR. MORENO HAS MYOPATHY FOR LONG DURATION. FULL RIVERA HAS BEEN DONE BY MANY NEUROLOGISTS. LATELY HE GETS EPISODES OF DISORIENTATION. HE WAS GIVEN DEPAKOT ON LAST VISIT TO ER HERE HE HAD STIFFNESS IN ADDITION TO ABSENCE SEIZURES LIKE PICTURE. HE BECAME LETHARGIC PER AND SHE REDUCED THE DOSE TO HALF. HE HAS NOT BEEN ABLE TO WALK WITH WALKER SINCE HE CAME BACK FROM MULTIPLE ADMISSIONS LATELY TO MANY HOSPITALS. HE DOES NOT HAVE STROKE PER MRI. WANTS DR. NICOLE TO OPINE ON HIS DISORIENTATION TO TIME, PLACE AND PERSON. Allergies clindamycin Allergy (Verified 03/10/18 14:19) Nausea/Vomiting codeine Allergy (Verified 03/10/18 14:19) Rash egg Allergy (Verified 03/10/18 14:19) Rash fentanyl Allergy (Verified 03/10/18 14:19) confusion hydromorphone [Hydromorphone] Allergy (Verified 03/10/18 14:19) Anaphylaxis methadone Allergy (Verified 03/10/18 14:19) Anaphylaxis morphine Allergy (Verified 03/10/18 14:19) Anaphylaxis Penicillins Allergy (Verified 03/10/18 14:19) Hives opiates Allergy (Uncoded 03/10/18 14:19) Anaphylaxis Home Medications: Divalproex Sodium [Depakote ER] 250 mg PO BID 03/10/18 Metoprolol Tartrate [Lopressor*] 25 mg PO DAILY 03/10/18 - Past Medical/Surgical History Has patient received pneumonia vaccine in the past: Yes Diabetic: No -: Muscular dystrophy -: HTN -: Seizure -: GOUT -: DYSLIPIDEMIA -: RENAL CYST -: PVC -: 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 -: Pulmonary Embolism -: [place] STEMI -: Non sustained V-tach -: 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 -: Stainless steel surgery knees -: hernia surgery -: CATARACT -: Cardiac catheterization 08/04/14 - Family History Father History Unknown: Yes Notes: Unknown family history as per Mother History Unknown: Yes Notes: Unknown family history as per - Social History Smoking Status: Never smoker Alcohol use: Yes CD- Drugs: No Caffeine use: No Place of Residence: Home Review of Systems 10-point ROS is otherwise unremarkable General: Weakness, Malaise Neurological: Weakness, Incoordination, Confusion Physical Examination - Vital Signs Temperature: 96.7 F Blood Pressure: 97/65 Pulse: 75 Respirations: 16 Pulse Ox (%): 94 - Physical Exam General: Alert, Mild distress, Obese HEENT: Atraumatic, PERRLA, Mucous membr. moist/pink, EOMI, Sclerae nonicteric Neck: Supple, 2+ carotid pulse no bruit, No LAD, Without JVD or thyroid abnormality Respiratory: Clear to auscultation bilaterally, Normal air movement Cardiovascular: Regular rate/rhythm, Normal S1 S2 Gastrointestinal: Normal bowel sounds, No tenderness Musculoskeletal: No tenderness Integumentary: No rashes Neurological: Normal speech, Other ( ABOVE DISORIENTED. HE IS WAITING IN [place] TO MEET SOMEONE. BUT ACTUALLY HE IS IN [facility].) Lymphatics: No axilla or inguinal lymphadenopathy - Studies Laboratory Data (last 24 hrs) 03/11/18 06:01: Sodium 137, Potassium 4.2, BUN 12, Creatinine 0.72, Glucose 102 , Magnesium 1.9 03/11/18 06:01: WBC 3.9 L, Hgb 14.2, Hct 42.8, Plt Count 190 Assessment and Plan - Problems (Diagnosis) (1) Non-refractory atypical absence seizures Current Visit: Yes Status: Acute Plan: DR. NICOLE CONSULT START THIAMINE EEG HAS BEEN DONE . (2) Altered mental status Onset Date: 12/09/17 Current Visit: No Status: Chronic Plan: THIAMINE PO DAILY. DR. NICOLE TO INVESTIGATE IF THIS IS SEIZURES OR NOT. Qualifiers: Altered mental status type: disorientation Qualified Code(s): R41.0 - Disorientation, unspecified (3) Muscular dystrophies Onset Date: 08/10/14 Current Visit: No Status: Chronic - Advance Directives Does patient have a Living Will: No Does patient have a Durable POA for Healthcare: No
[2018-03-11] MEDS: THIAMINE HCL 100 MG TABLET PO SCH (18:40)
[2018-03-11] MEDS ORDERED: TRAZODONE 50 MG TABLET PO PRN (19:24)
[2018-03-11] MEDS: DIVALPROEX ER 250 MG TAB PO SCH (20:09)
[2018-03-11] MEDS: MELATONIN 3 MG TABLET PO PRN (20:09)
--- NOTE | 2018-03-12 08:29 | RAD REPORT ---
EXAM DESCRIPTION: CT - Head Brain Wo Cont - 03/12/2018 8:04 am CLINICAL HISTORY: Altered mental status, seizure history COMPARISON: MRI November 2017, CT head June 2015 TECHNIQUE: Axial 5 mm thick images of the head were obtained without IV contrast. All CT scans are performed using dose optimization technique as appropriate and may include automated exposure control or mA/KV adjustment according to patient size. FINDINGS: No intracranial hemorrhage, mass, edema or shift of mid-line structures. No acute cortical based infarction identified. Patient has prominent atrophy and prominent chronic ischemic change. Ve ntricular size is in proportion to volume loss. Physiologic and arterial calcifications are present. Patient has a dilated sella turcica with fat and soft tissue attenuation filling the sella. This is a long-standing, stable finding. No acute component identifiable. No abnormal extra-axial fluid collec tions. Ventricles are in proportion to volume loss. Mastoid air cells and visualized portions of the paranasal sinuses are clear. No acute bony findings. IMPRESSION: Prominent atrophy and chronic ischemic change with no acute intracranial process seen. The above detailed findings are stable from prior imaging.
[2018-03-12] MEDS: THIAMINE HCL 100 MG TABLET PO SCH (08:46)
[2018-03-12] MEDS: METOPROLOL TAR 25 MG TAB PO SCH ×2 (08:46→19:23)
[2018-03-12] MEDS: DIVALPROEX ER 250 MG TAB PO SCH ×2 (08:46→19:23)
--- NOTE | 2018-03-12 10:01 | P.RH.PN ---
Estimated Length of Stay: 16 Expected Discharge Date: 03/26/18 Discharge Disposition Plan: Home Family Support: Yes Fdc Goal: Mobility, Transfers, Self Care Vital Signs: Last Vital Signs Temp 98.1 F 03/11/18 20:15 Pulse 71 03/11/18 20:15 Resp 18 03/11/18 20:15 BP 118/62 03/11/18 21:00 Pulse Ox 92 03/11/18 20:15 Laboratory: Laboratory Last Values WBC 3.9 K/uL (4.3-10.9) L 03/11/18 06:01 RBC 4.76 M/uL (4.33-5.43) 03/11/18 06:01 Hgb 14.2 g/dL (13.6-17.9) 03/11/18 06:01 Hct 42.8 % (39.6-49.0) 03/11/18 06:01 MCV 89.9 fL (80-100) 03/11/18 06:01 MCH 29.8 pg (27.0-35.0) 03/11/18 06:01 MCHC 33.2 g/dL (32.0-36.0) 03/11/18 06:01 RDW 14.7 % (12.1-15.2) 03/11/18 06:01 Plt Count 190 K/uL (152-406) 03/11/18 06:01 MPV 6.5 fL (7.6-11.3) L 03/11/18 06:01 Neutrophils % 51.9 % (41.7-73.7) 03/11/18 06:01 Lymphocytes % 29.4 % (15.3-44.8) 03/11/18 06:01 Monocytes % 15.4 % (3.3-12.3) H 03/11/18 06:01 Eosinophils % 2.0 % (0-4.4) 03/11/18 06:01 Basophils % 1.3 % (0-1.3) 03/11/18 06:01 Absolute Neutrophils 2.0 K/uL (1.8-8.0) 03/11/18 06:01 Absolute Lymphocytes 1.2 K/uL (0.7-4.9) 03/11/18 06:01 Absolute Monocytes 0.6 K/uL (0.1-1.3) 03/11/18 06:01 Absolute Eosinophils 0.1 K/uL (0-0.5) 03/11/18 06:01 Absolute Basophils 0.1 K/uL (0-0.5) 03/11/18 06:01 Morphology Comment Not seen (NOT SEEN) 03/11/18 06:01 Sodium 137 mEq/L (135-145) 03/11/18 06:01 Potassium 4.2 mEq/L (3.6-5.0) 03/11/18 06:01 Chloride 98 mEq/L (101-111) L 03/11/18 06:01 Carbon Dioxide 34 mEq/L (21-31) H 03/11/18 06:01 BUN 12 mg/dL (6-20) 03/11/18 06:01 Creatinine 0.72 mg/dL (0.61-1.24) 03/11/18 06:01 Estimated GFR > 90 mL/min (=/>90) 03/11/18 06:01 Glucose 102 mg/dL (65-120) 03/11/18 06:01 Calcium 9.0 mg/dL (8.5-10.5) 03/11/18 06:01 Magnesium 1.9 mg/dL (1.8-2.5) 03/11/18 06:01 Albumin 3.4 g/dL (3.2-5.5) 03/11/18 06:01 Prealbumin 21.5 mg/dl (18-38) 03/11/18 06:01 Urine Color Yellow 03/10/18 22:38 Urine Appearance Clear 03/10/18 22:38 Urine pH 7.0 (5.0-7.0) 03/10/18 22:38 Ur Specific Llewellyn 1.010 (1.005-1.030) 03/10/18 22:38 Urine Ketones Negative (NEG) 03/10/18 22:38 Urine Blood Negative (NEG) 03/10/18 22:38 Urine Nitrite Negative (NEG) 03/10/18 22:38 Urine Bilirubin Negative (NEG) 03/10/18 22:38 Urine Urobilinogen 1.0 mg/dL (0.2-1.0) 03/10/18 22:38 Ur Leukocyte Esterase Negative (NEG) 03/10/18 22:38 Urine RBC None seen /HPF (NONE SEEN) 03/10/18 22:38 Urine WBC <5 /HPF (<5) 03/10/18 22:38 Ur Squamous Epith Cells ELECTRONICS SCALE TESTER 03/10/18 22:38 Urine Bacteria <20 /HPF (NONE SEEN) 03/10/18 22:38 Urine Culture Reflexed Not needed 03/10/18 22:38 Urine Glucose Negative (NEG) 03/10/18 22:38 Urine Total Protein Negative (NEG) 03/10/18 22:38 Valproic Acid 37.7 ug/ml (50-100) L 03/11/18 14:40 Weight: 226 lb 14.4 oz Wound Present: No Closed Surgical Incision Present: No Negative Pressure Wound Therapy Present: No Physician Update: His blood work is essentially normal. However, given the possiblity of chronic alcohol use had liver function studies, thiamine, folate, ammonia level and vitamin B12 levels should be ordered by primary care physician Dr. Valadez. He did well but he is debilitated and requires minimum assistance with activities of daily living. Functional Improvement: Patient is currently SBA w/ gait and CGA w/ transfers. Patient presents w/ cognition deficits and expressive issues. Functional Improvement Occupational Therapy: PATIENT HAS GREAT DIFFICULTIES WITH ORIENTATION, COGNITION, INITIATION, PROBLEM SOLVING, AND SLOW PROCESSING. Speech Therapy Update: Patient presents with a significant cognitive linguistic impairment. Pt. scored 3 of [address] [facility] Mental Status Examination (UMS). Significant deficits were noted with immediate recall, short term memory, orientation, attention, problem solving, verbal expression, and auditory comprehension. Pragmatic language deficits were also noted via reduced affect and atypical eyecontact. Safety awareness is significantly reduced and he frequently attempts to stand without locking breaks. Summary: Patient's care plan and roasterman goals have been reviewed and revised as necessary. Please see the Rehabilitation Signature page for all necessary signatures.
--- NOTE | 2018-03-12 12:57 | P.PN ---
Subjective Date of Service: 03/12/18 Chief Complaint: DIFFUSE WEAKNESS Subjective: Improving Review of Systems 10-point ROS is otherwise unremarkable General: Weakness Neurological: Weakness, Incoordination, Confusion (LOT BETTER TODAY. HE IS ORIENTED TODAY. HE DID NOT REMEMBER MY NAME. BUT HE KNOW TIME PLACE , PRESIDENT ETC) Physical Examination - Vital Signs Temperature: 96.7 F Blood Pressure: 169/93 Pulse: 61 Respirations: 18 Pulse Ox (%): 94 - Physical Exam General: Alert, Obese HEENT: Atraumatic, PERRLA, EOMI Neck: Supple, JVD not distended Respiratory: Clear to auscultation bilaterally, Normal air movement Cardiovascular: Regular rate/rhythm, Normal S1 S2 Gastrointestinal: Normal bowel sounds, No tenderness Musculoskeletal: No tenderness Integumentary: No rashes Neurological: Normal speech, Abnormal gait (NOT WALKE DMUCH FOR LONG TIME) Lymphatics: No axilla or inguinal lymphadenopathy - Studies Medications List Reviewed: Yes Assessment And Plan - Current Problems (Diagnosis) (1) Non-refractory atypical absence seizures Current Visit: Yes Status: Acute Plan: DR. NICOLE CONSULT START THIAMINE EEG HAS BEEN DONE . DR NICOLE IS AWARE OF HISTORY. (2) Altered mental status Onset Date: 12/09/17 Current Visit: No Status: Chronic Plan: THIAMINE PO DAILY. DR. NICOLE TO INVESTIGATE IF THIS IS SEIZURES OR NOT. Qualifiers: Altered mental status type: disorientation Qualified Code(s): R41.0 - Disorientation, unspecified (3) Muscular dystrophies Onset Date: 08/10/14 Current Visit: No Status: Chronic
[2018-03-12 15:09] LABS: Albumin 3.3 g/dL (3.2-5.5); Bilirubin Direct 0.2 mg/dL (0-0.2); Bilirubin Total 0.6 mg/dL (0.3-1.2); Protein, Total 6.5 g/dL (6.0-8.3)
[2018-03-12] MEDS: MELATONIN 3 MG TABLET PO PRN (22:10)
[2018-03-12] MEDS: LACOSAMIDE 50 MG TABLET PO SCH (22:10)
--- NOTE | 2018-03-13 01:03 | CON ---
Reason: Confusion. History: An 83-year-old gentleman who I have seen intermittently since 2002. 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 He has a remote history of seizures dating back for 10+ years and he gets episodes of disorientation. He does have a history of alcohol use. He was placed on Depakote recently, but felt like it made him tired and lethargic, so she cut the dose down to 250 twice daily. Brain MRI done this year when he had a seizure-like episode was negative for stroke. Multiple EEGs including 1 today demonstrated generalized slowing but no epileptiform abnormalities. Depakote level 37. Had another confusional episode yesterday, he is much better today. Consultation was requested. Past Medical History: Neurologic history is noted, hypertension. Allergies: CLINDAMYCIN, CODEINE, FENTANYL, METHADONE, MORPHINE, PENICILLIN, OPIATES. Social History: . Does drink. Does not smoke. Requiring increasing assistance with activities of daily living. Family History: Negative for muscle disease. Review of Systems: General: Good health given his other active issues. Eyes: Denies. Ears, Nose, and Throat: No dysphagia. Cardiovascular: Hypertension. Pulmonary: Negative. Gastrointestinal: Negative. Genitourinary: Negative. Musculoskeletal: Proximal muscle weakness as alluded to. Neurologic: As noted. Psychiatric: Negative. Endocrine: Negative. Hematologic: Negative. Physical Examination: Vital Signs: 97.6, 61, 18, 140/83. General: Pleasant gentleman, lying in bed, awake, alert, lucid, knows my name, knows he is in the hospital, knows it is Thursday. Can identify objects, parts of objects, colors. Speech is fluent. No aphasia. Repetition is intact. HEENT: Pupils reactive. Ocular motion full. Lewis full. Facial strength, sensation normal. Tongue protrudes evenly. Soft palate elevates symmetrically bilaterally. Extremities: Examination of his extremities reveals 4/5 weakness to the deltoids and 5 minus hip flexor weakness, otherwise full strength. Sensation intact. Reflexes are trace. Toes are downgoing. No [id number] ataxia. Pertinent Laboratory Data: White count 3.9; hemoglobin, hematocrit, and platelets normal. Thiamine level pending. B12 normal. Folate normal. Depakote 37. Impression: Possible seizures. EEG today; generalized slowing [address] scan negative for acute events. Plan: Thiamine level seems reasonable. He is on oral thiamine replacement, would continue. We will check a prolactin, but it may be a little bit far out from the episode that he had yesterday. Did review the ER evaluation on admission, when his problem was being managed by looks like a different neurologist, Dr. Dowling. The patient is having side effects on Depakote. It should be changed to a different agent. I think Vimpat would probably give reasonable anticonvulsant control without excessive sedation. We will start that tonight and titrate that up over the weekend in the Depakote similarly ammonia level was normal, so was likely not to be Depakote induced hyperammonemia. If he has another event, prolactin level during the event will probably give us more information and we can compare that back to the baseline 1 being drawn this evening. Thank you for the consult. We will continue to follow with you. JACINDA Voice ID: [id number] Report ID: [id number] TYLER
[2018-03-13] MEDS: THIAMINE HCL 100 MG TABLET PO SCH (07:56)
[2018-03-13] MEDS: METOPROLOL TAR 25 MG TAB PO SCH ×2 (07:56→20:02)
[2018-03-13] MEDS: DIVALPROEX ER 250 MG TAB PO SCH ×2 (07:56→20:03)
[2018-03-13] MEDS: LACOSAMIDE 50 MG TABLET PO SCH ×2 (07:57→20:03)
--- NOTE | 2018-03-13 17:28 | PN ---
Reason: Possible seizures. History: The patient is stable, awake, lucid. No rash on the Vimpat. Denies any dizziness or other side effects on that medication. No new complaints. Physical Examination: General: He is awake, alert, oriented. Identifies 6/6 objects accurately. HEENT: Pupils reactive. Ocular motion full. Lewis full. Neurologic: Proximal weakness unchanged. Sensation decreased distally. Reflexes suppressed. Toes are downgoing. Cerebellar exam demonstrates no ataxia. Impression: Possible seizures. Plan: We will continue to titrate anti-epileptic drugs, increase the Vimpat to 100 twice daily, star ting this evening and decrease the Depakote to 250 at night. We will stop the Depakote completely he re in the next 2-3 days, 100-200 mg twice daily. Vimpat should be adequate anticonvulsant dose. Thank you for the consult. We will continue to follow with you. JACINDA Voice ID: [id number] Report ID: [id number]
[2018-03-13] MEDS: MELATONIN 3 MG TABLET PO PRN (20:03)
--- NOTE | 2018-03-13 21:28 | P.PN ---
Subjective Date of Service: 03/13/18 Chief Complaint: DIFFUSE WEAKNESS Subjective: Improving Review of Systems 10-point ROS is otherwise unremarkable General: Weakness Physical Examination - Vital Signs Temperature: 97.3 F Blood Pressure: 149/65 Pulse: 64 Respirations: 16 Pulse Ox (%): 95 - Physical Exam General: Alert, In no apparent distress HEENT: Atraumatic, PERRLA, EOMI Neck: Supple, JVD not distended Respiratory: Clear to auscultation bilaterally, Normal air movement Cardiovascular: Regular rate/rhythm, Normal S1 S2 Gastrointestinal: Normal bowel sounds, No tenderness Musculoskeletal: No tenderness Integumentary: No rashes Neurological: Abnormal strength (LIMB GIRDLE DYSTROPHY. GETS WEAK OFF AND ON) Lymphatics: No axilla or inguinal lymphadenopathy - Studies Microbiology Data (last 24 hrs): 03/10/18 22:38 Clean Catch Urine [place] Count - Final <10,000 CFU/ML. 03/10/18 22:38 Clean Catch Urine - Final Medications List Reviewed: Yes Assessment And Plan - Current Problems (Diagnosis) (1) Non-refractory atypical absence seizures Current Visit: Yes Status: Acute Plan: DR. NICOLE CONSULT START THIAMINE EEG HAS BEEN DONE . DR NICOLE IS AWARE OF HISTORY. (2) Altered mental status Onset Date: 12/09/17 Current Visit: No Status: Chronic Plan: THIAMINE PO DAILY. DR. NICOLE TO INVESTIGATE IF THIS IS SEIZURES OR NOT. 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
[2018-03-14] MEDS: METOPROLOL TAR 25 MG TAB PO SCH ×2 (07:52→20:00)
[2018-03-14] MEDS: LACOSAMIDE 50 MG TABLET PO SCH ×2 (07:52→20:29)
[2018-03-14] MEDS: THIAMINE HCL 100 MG TABLET PO SCH (07:52)
--- NOTE | 2018-03-14 09:58 | P.PN ---
Subjective Date of Service: 03/14/18 Chief Complaint: DIFFUSE WEAKNESS Subjective: No new changes (CONFUSION OFF AND ON, GETS DISORIENTED WITH PLACE AND PERSON) Review of Systems 10-point ROS is otherwise unremarkable General: Weakness (CHRONIC) Physical Examination - Vital Signs Temperature: 97.8 F Blood Pressure: 142/83 Pulse: 69 Respirations: 16 Pulse Ox (%): 95 - Physical Exam General: Alert, In no apparent distress, Obese HEENT: Atraumatic, PERRLA, EOMI Neck: Supple, JVD not distended Respiratory: Clear to auscultation bilaterally, Normal air movement Cardiovascular: Regular rate/rhythm, Normal S1 S2 Gastrointestinal: Normal bowel sounds, No tenderness Musculoskeletal: No tenderness Integumentary: No rashes Neurological: Normal speech, Other (TRANSIENT RECURRENT DISORIENTATION), Abnormal tone (CHR) Lymphatics: No axilla or inguinal lymphadenopathy - Studies Microbiology Data (last 24 hrs): 03/10/18 22:38 Clean Catch Urine [place] Count - Final <10,000 CFU/ML. 03/10/18 22:38 Clean Catch Urine - Final Medications List Reviewed: Yes Assessment And Plan - Current Problems (Diagnosis) (1) Non-refractory atypical absence seizures Current Visit: Yes Status: Acute Plan: DR. NICOLE CONSULT START THIAMINE EEG HAS BEEN DONE . DR INCOLE IS AWARE OF HISTORY. DR. NICOLE AND DR BRICENO ARE WORKING ON THIS IF HE HAS SEIZURES OR NOT. HE DOES SEEM LIKE HE HAS RECURRENT EPISODES LIKE SEIZURES WOULD DO- ATYPICAL. (2) Altered mental status Onset Date: 12/09/17 Current Visit: No Status: Chronic Plan: THIAMINE PO DAILY. DR. NICOLE TO INVESTIGATE IF THIS IS SEIZURES OR NOT. 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
[2018-03-14] MEDS: DIVALPROEX ER 250 MG TAB PO SCH (20:29)
[2018-03-14] MEDS: MELATONIN 3 MG TABLET PO PRN (20:29)
[2018-03-15] MEDS: METOPROLOL TAR 25 MG TAB PO SCH ×2 (08:23→19:48)
[2018-03-15] MEDS: LACOSAMIDE 50 MG TABLET PO SCH ×2 (08:24→19:49)
[2018-03-15] MEDS: THIAMINE HCL 100 MG TABLET PO SCH (08:24)
--- NOTE | 2018-03-15 08:41 | EEG ---
CHART: [id number] TEST ID#: [id number] DATE OF STUDY: 03/12/2018 THE EEG WAS RECORDED PORTABLE IN THE PATIENTS ROOM ON A 17 CHANNEL MACHINE. ELECTRODES WERE APPLIED IN THE USUAL MANNER USING THE INTERNATIONAL 10-20 SYSTEM. THE WAKING BACKGROUND RHYTHM IN THIS RECORD CONSISTS OF FAIRLY WELL DEVELOPED AND FAIRLY WELL ORGANIZED WAVES OF 8 HZ., MAXIMAL IN THE POSTERIOR HEAD REGIONS WHICH ATTENUATE NORMALLY WITH EYE OPENING. IN DROWSINESS THE BACKGROUND DROPS TO 7 HZ. THERE ARE NO FOCAL OR LATERALIZING FEATURES. NO EPILEPTIFORM ACTIVITY APPEARS. SLEEP OCCURRED NATURALLY. HYPERVENTILATION WAS NOT PERFORMED. PHOTIC STIMULATION PRODUCED FAIR DRIVING BILATERALLY. IMPRESSION: ABNORMAL EEG BECAUSE OF GENERALIZED SLOWING OF THE BACKGROUND. THE ABOVE SUGGEST DIFFUSE CEREBRAL DYSFUNCTION.
[2018-03-15] MEDS: DIVALPROEX ER 250 MG TAB PO SCH (21:01)
[2018-03-15] MEDS: MELATONIN 3 MG TABLET PO PRN (21:01)
[2018-03-16] MEDS: THIAMINE HCL 100 MG TABLET PO SCH (07:56)
[2018-03-16] MEDS: METOPROLOL TAR 25 MG TAB PO SCH ×2 (07:56→20:23)
[2018-03-16] MEDS: LACOSAMIDE 50 MG TABLET PO SCH ×2 (07:58→20:24)
[2018-03-16] MEDS: MELATONIN 3 MG TABLET PO PRN (20:23)
[2018-03-16] MEDS: DIVALPROEX ER 250 MG TAB PO SCH (20:23)
[2018-03-17 06:33] LABS: Absolute Lymphocytes (CBC) 1.6 K/uL (0.7-4.9); Absolute Monocytes 0.7 K/uL (0.1-1.3); Absolute Neutrophil 2.4 K/uL (1.8-8.0); Basophils % 0.8 % (0-1.3); Eosinophils % 2.5 % (0-4.4); Hematocrit 44.7 % (39.6-49.0); Lymphocytes % 33.9 % (15.3-44.8); MCH 29.8 pg (27.0-35.0); MPV 6.7 fL (7.6-11.3); Monocytes % 13.9 % (3.3-12.3); RBC Red Blood Cell Count 5.02 M/uL (4.33-5.43)
[2018-03-17 06:59] LABS: Albumin 3.6 g/dL (3.2-5.5); BUN Blood Urea Nitrogen 13 mg/dL (6-20); Bicarbonate 31 mEq/L (21-31); Glucose Level 102 mg/dL (65-120); Potassium 4.3 mEq/L (3.6-5.0); Prealbumin 23.1 mg/dl (18-38); Sodium Level 136 mEq/L (135-145)
[2018-03-17] MEDS: THIAMINE HCL 100 MG TABLET PO SCH (07:14)
[2018-03-17] MEDS: METOPROLOL TAR 25 MG TAB PO SCH ×2 (07:14→19:33)
[2018-03-17] MEDS: LACOSAMIDE 50 MG TABLET PO SCH ×2 (07:14→19:51)
[2018-03-17] MEDS: MELATONIN 3 MG TABLET PO PRN (19:51)
--- NOTE | 2018-03-17 21:33 | P.PN ---
Subjective Date of Service: 03/17/18 Chief Complaint: DIFFUSE WEAKNESS Subjective: Improving (recognized me today. I had give him my name yesterday. I have taken care of him for about 10 years.) Review of Systems 10-point ROS is otherwise unremarkable Physical Examination - Vital Signs Temperature: 98.0 F Blood Pressure: 116/69 Pulse: 82 Respirations: 20 Pulse Ox (%): 94 - Physical Exam General: Mild distress, Obese HEENT: Atraumatic, PERRLA, EOMI Neck: Supple, JVD not distended Respiratory: Clear to auscultation bilaterally, Normal air movement Cardiovascular: Regular rate/rhythm, Normal S1 S2 Gastrointestinal: Normal bowel sounds, No tenderness Musculoskeletal: No tenderness Integumentary: No rashes Neurological: Abnormal strength (no changes in diffuse weakness since admission. ) Lymphatics: No axilla or inguinal lymphadenopathy - Studies Laboratory Data (last 24 hrs) 03/17/18 05:58: Sodium 136, Potassium 4.3, BUN 13, Creatinine 0.76, Glucose 102 , Magnesium 2.0 03/17/18 05:58: WBC 4.8 D, Hgb 15.0, Hct 44.7, Plt Count 195 Medications List Reviewed: Yes Assessment And Plan - Current Problems (Diagnosis) (1) Non-refractory atypical absence seizures Onset Date: 03/15/18 Current Visit: Yes Status: Acute Plan: DR. NICOLE CONSULT START THIAMINE EEG HAS BEEN DONE . DR NICOLE IS AWARE OF HISTORY. DR. NICOLE AND DR BRICENO ARE WORKING ON THIS IF HE HAS SEIZURES OR NOT. HE DOES SEEM LIKE HE HAS RECURRENT EPISODES LIKE SEIZURES WOULD DO- ATYPICAL. DR. NICOLE GAVE NWE MEDS- LACOSAMIDE. BP HAS COME DOWN WITHOUT ANY NEEW MEDS. (2) Altered mental status Onset Date: 12/09/17 Current Visit: No Status: Chronic Plan: THIAMINE PO DAILY. DR. NICOLE TO INVESTIGATE IF THIS IS SEIZURES OR NOT. 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
--- NOTE | 2018-03-17 21:34 | P.PN ---
Subjective Date of Service: 03/15/18 Chief Complaint: DIFFUSE WEAKNESS Subjective: Improving (NOTE DONE LATE, SAW PATIENT DAILY.) Review of Systems 10-point ROS is otherwise unremarkable General: Weakness Neurological: Incoordination, Confusion Physical Examination - Vital Signs Temperature: 98.0 F Blood Pressure: 116/69 Pulse: 82 Respirations: 20 Pulse Ox (%): 94 - Physical Exam General: Alert, Confused, Obese HEENT: Atraumatic, PERRLA, EOMI Neck: Supple, JVD not distended Respiratory: Clear to auscultation bilaterally, Normal air movement Cardiovascular: Regular rate/rhythm, Normal S1 S2 Gastrointestinal: Normal bowel sounds, No tenderness Musculoskeletal: No tenderness Integumentary: No rashes Neurological: Normal speech, Abnormal strength, Abnormal tone Lymphatics: No axilla or inguinal lymphadenopathy - Studies Laboratory Data (last 24 hrs) 03/17/18 05:58: Sodium 136, Potassium 4.3, BUN 13, Creatinine 0.76, Glucose 102 , Magnesium 2.0 03/17/18 05:58: WBC 4.8 D, Hgb 15.0, Hct 44.7, Plt Count 195 Medications List Reviewed: Yes Assessment And Plan - Current Problems (Diagnosis) (1) Non-refractory atypical absence seizures Onset Date: 03/15/18 Current Visit: Yes Status: Acute Plan: DR. NICOLE CONSULT START THIAMINE EEG HAS BEEN DONE . DR NICOLE IS AWARE OF HISTORY. DR. NICOLE AND DR BRICENO ARE WORKING ON THIS IF HE HAS SEIZURES OR NOT. HE DOES SEEM LIKE HE HAS RECURRENT EPISODES LIKE SEIZURES WOULD DO- ATYPICAL. DR. NICOLE GAVE NWE MEDS- LACOSAMIDE. BP HAS COME DOWN WITHOUT ANY NEEW MEDS. (2) Altered mental status Onset Date: 12/09/17 Current Visit: No Status: Chronic Plan: THIAMINE PO DAILY. DR. NICOLE TO INVESTIGATE IF THIS IS SEIZURES OR NOT. 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
--- NOTE | 2018-03-17 21:35 | P.PN ---
Subjective Date of Service: 03/17/18 Chief Complaint: CONFUSION OFF AND ON Subjective: No C/O voiced Review of Systems 10-point ROS is otherwise unremarkable General: Weakness Physical Examination - Vital Signs Temperature: 98.0 F Blood Pressure: 116/69 Pulse: 82 Respirations: 20 Pulse Ox (%): 94 - Physical Exam General: Alert, Mild distress, Confused, Obese HEENT: Atraumatic, PERRLA, EOMI Neck: Supple, JVD not distended Respiratory: Clear to auscultation bilaterally, Normal air movement Cardiovascular: Regular rate/rhythm, Normal S1 S2 Gastrointestinal: Normal bowel sounds, No tenderness Musculoskeletal: No tenderness Integumentary: No rashes Neurological: Normal speech, Dementia Lymphatics: No axilla or inguinal lymphadenopathy - Studies Laboratory Data (last 24 hrs) 03/17/18 05:58: Sodium 136, Potassium 4.3, BUN 13, Creatinine 0.76, Glucose 102 , Magnesium 2.0 03/17/18 05:58: WBC 4.8 D, Hgb 15.0, Hct 44.7, Plt Count 195 Medications List Reviewed: Yes Assessment And Plan - Current Problems (Diagnosis) (1) Non-refractory atypical absence seizures Onset Date: 03/15/18 Current Visit: Yes Status: Acute Plan: DR. NICOLE CONSULT START THIAMINE EEG HAS BEEN DONE . DR NICOLE IS AWARE OF HISTORY. DR. NICOEL AND DR BRICENO ARE WORKING ON THIS IF HE HAS SEIZURES OR NOT. HE DOES SEEM LIKE HE HAS RECURRENT EPISODES LIKE SEIZURES WOULD DO- ATYPICAL. DR. NICOLE GAVE NWE MEDS- LACOSAMIDE. BP HAS COME DOWN WITHOUT ANY NEEW MEDS. UNCLEAR ONLY SYMPTOMS ARE CONFUSION THAT IS SPORADIC (2) Altered mental status Onset Date: 12/09/17 Current Visit: No Status: Chronic Plan: THIAMINE PO DAILY. DR. NICOLE TO INVESTIGATE IF THIS IS SEIZURES OR NOT. 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
--- NOTE | 2018-03-18 00:17 | PN ---
Date of Progress Note: 03/17/2018 Time: 1909. Reason: Confusional episode, possible seizures. Interval History: The patient is stable. He recognizes me. He forgot my name, but he knows he is i n the hospital. He knows the month. He knows the day of the week. He does not seem nearly as drows y on the Vimpat as he was on the Depakote. Reviewed symptom complex with his as well over the p corey. We will stop the Depakote today. Continue the Vimpat 100 twice daily. Check a Vimpat level i n the morning that is thinned out and will not be back in any kind of timely fashion. The patient brown s never had a prolonged EEG, so I suggested that once he is discharged from the hospital, he gets guillermo eduled for a 48 to 72 hour outpatient ambulatory EEG to help further characterize the episodes in mor e detail. Physical Examination: General: In exam he is awake, alert, oriented, pleasant, lucid. Knows he is in the hospital. Knows the month. Knows the day of the week. HEENT: Pupils reactive. Ocular motion full. Lewis full. Neurologic: Bilateral deltoid weakness is unchanged. Reflexes suppressed. Toes bilaterally downgoi ng. Impression: 1.Generalized disability in rehab. Continue rehab. 2.Confusional episodes, possible seizures. Plan as eluted. 3.History limb-girdle muscular dystrophy. As well continue rehab. We will continue to follow with you. JACINDA Voice ID: [id number] Report ID: [id number]
[2018-03-18] MEDS: ASPIRIN EC 81 MG TAB PO SCH (07:46)
[2018-03-18] MEDS: METOPROLOL TAR 25 MG TAB PO SCH ×2 (07:46→19:23)
[2018-03-18] MEDS: THIAMINE HCL 100 MG TABLET PO SCH (07:46)
[2018-03-18] MEDS: LACOSAMIDE 50 MG TABLET PO SCH ×2 (07:46→19:22)
--- NOTE | 2018-03-18 09:54 | P.RH.PN ---
Estimated Length of Stay: 17 Expected Discharge Date: 03/26/18 Discharge Disposition Plan: Home Family Support: Yes Intermediate Goal: Mobility, Transfers, Self Care Vital Signs: Last Vital Signs Temp 97.8 F 03/18/18 07:27 Pulse 71 03/18/18 07:46 Resp 16 03/18/18 07:27 BP 167/84 H 03/18/18 07:46 Pulse Ox 97 03/18/18 07:27 Laboratory: Laboratory Last Values WBC 4.8 K/uL (4.3-10.9) D 03/17/18 05:58 RBC 5.02 M/uL (4.33-5.43) 03/17/18 05:58 Hgb 15.0 g/dL (13.6-17.9) 03/17/18 05:58 Hct 44.7 % (39.6-49.0) 03/17/18 05:58 MCV 89.0 fL (80-100) 03/17/18 05:58 MCH 29.8 pg (27.0-35.0) 03/17/18 05:58 MCHC 33.5 g/dL (32.0-36.0) 03/17/18 05:58 RDW 15.1 % (12.1-15.2) 03/17/18 05:58 Plt Count 195 K/uL (152-406) 03/17/18 05:58 MPV 6.7 fL (7.6-11.3) L 03/17/18 05:58 Neutrophils % 48.9 % (41.7-73.7) 03/17/18 05:58 Lymphocytes % 33.9 % (15.3-44.8) 03/17/18 05:58 Monocytes % 13.9 % (3.3-12.3) H 03/17/18 05:58 Eosinophils % 2.5 % (0-4.4) 03/17/18 05:58 Basophils % 0.8 % (0-1.3) 03/17/18 05:58 Absolute Neutrophils 2.4 K/uL (1.8-8.0) 03/17/18 05:58 Absolute Lymphocytes 1.6 K/uL (0.7-4.9) 03/17/18 05:58 Absolute Monocytes 0.7 K/uL (0.1-1.3) 03/17/18 05:58 Absolute Eosinophils 0.1 K/uL (0-0.5) 03/17/18 05:58 Absolute Basophils 0.0 K/uL (0-0.5) 03/17/18 05:58 Morphology Comment Not seen (NOT SEEN) 03/11/18 06:01 Sodium 136 mEq/L (135-145) 03/17/18 05:58 Potassium 4.3 mEq/L (3.6-5.0) 03/17/18 05:58 Chloride 100 mEq/L (101-111) L 03/17/18 05:58 Carbon Dioxide 31 mEq/L (21-31) 03/17/18 05:58 BUN 13 mg/dL (6-20) 03/17/18 05:58 Creatinine 0.76 mg/dL (0.61-1.24) 03/17/18 05:58 Estimated GFR > 90 mL/min (=/>90) 03/17/18 05:58 Glucose 102 mg/dL (65-120) 03/17/18 05:58 Calcium 9.4 mg/dL (8.5-10.5) 03/17/18 05:58 Magnesium 2.0 mg/dL (1.8-2.5) 03/17/18 05:58 Total Bilirubin 0.6 mg/dL (0.3-1.2) 03/12/18 13:42 Direct Bilirubin 0.2 mg/dL (0-0.2) 03/12/18 13:42 AST 25 IU/L (10-42) 03/12/18 13:42 ALT 15 IU/L (10-60) 03/12/18 13:42 Alkaline Phosphatase 41 IU/L (42-121) L 03/12/18 13:42 Ammonia 30 umol/L (10-45) 03/12/18 13:42 Serum Total Protein 6.5 g/dL (6.0-8.3) 03/12/18 13:42 Albumin 3.6 g/dL (3.2-5.5) 03/17/18 05:58 Globulin 3.2 g/dL (2.3-3.5) 03/12/18 13:42 Albumin/Globulin Ratio 1.0 (1.1-1.8) L 03/12/18 13:42 Prealbumin 23.1 mg/dl (18-38) 03/17/18 05:58 Vitamin B12 678 pg/ml (180-914) 03/12/18 13:42 Serum Folate 11.0 ng/ml (>5.21) 03/12/18 13:42 Prolactin 5.9 ng/mL () 03/12/18 19:50 Urine Color Yellow 03/10/18 22:38 Urine Appearance Clear 03/10/18 22:38 Urine pH 7.0 (5.0-7.0) 03/10/18 22:38 Ur Specific [place] 1.010 (1.005-1.030) 03/10/18 22:38 Urine Ketones Negative (NEG) 03/10/18 22:38 Urine Blood Negative (NEG) 03/10/18 22:38 Urine Nitrite Negative (NEG) 03/10/18 22:38 Urine Bilirubin Negative (NEG) 03/10/18 22:38 Urine Urobilinogen 1.0 mg/dL (0.2-1.0) 03/10/18 22:38 Ur Leukocyte Esterase Negative (NEG) 03/10/18 22:38 Urine RBC None seen /HPF (NONE SEEN) 03/10/18 22:38 Urine WBC <5 /HPF (<5) 03/10/18 22:38 Ur Squamous Epith Cells BABY COUNSELOR 03/10/18 22:38 Urine Bacteria <20 /HPF (NONE SEEN) 03/10/18 22:38 Urine Culture Reflexed Not needed 03/10/18 22:38 Urine Glucose Negative (NEG) 03/10/18 22:38 Urine Total Protein Negative (NEG) 03/10/18 22:38 Valproic Acid 37.7 ug/ml (50-100) L 03/11/18 14:40 Miscellaneous Test Sent 03/12/18 13:42 Weight: 223 lb 6.4 oz Wound Present: No Closed Surgical Incision Present: No Negative Pressure Wound Therapy Present: No Physician Update: He is medically managed by Dr. Valadez and Dr. Zimmerman. He is doing fairly well with physical and occupational therapy. His blood work is essentially normal. Functional Improvement: Patient is currently SBA w/ gait and CGA w/ transfers. Patient presents w/ cognition deficits and expressive issues. Functional Improvement Occupational Therapy: PATIENT HAS GREAT DIFFICULTIES WITH ORIENTATION, COGNITION, INITIATION, PROBLEM SOLVING, AND SLOW PROCESSING. Speech Therapy Update: Patient presents with a significant cognitive linguistic impairment. Pt. scored 3 of 30 points on the [facility] Mental Status Examination (SLUMS). Significant deficits were noted with immediate recall, short term memory, orientation, attention, problem solving, verbal expression, and auditory comprehension. Pragmatic language deficits were also noted via reduced affect and atypical eyecontact. Safety awareness is significantly reduced and he frequently attempts to stand without locking breaks. Summary: Patient's care plan and usp goals have been reviewed and revised as necessary. Please see the Rehabilitation Signature page for all necessary signatures.
[2018-03-18] MEDS: MELATONIN 3 MG TABLET PO PRN (19:22)
--- NOTE | 2018-03-18 21:41 | P.PN ---
Subjective Date of Service: 03/18/18 Chief Complaint: LOT MORE CLEAR TODAY Subjective: Improving (HE READILY RECOGNIZED PEOPLE TODAY.) Review of Systems 10-point ROS is otherwise unremarkable General: Weakness, Malaise Physical Examination - Vital Signs Temperature: 98.0 F Blood Pressure: 168/82 Pulse: 62 Respirations: 16 Pulse Ox (%): 96 - Physical Exam General: Alert HEENT: Atraumatic, PERRLA, EOMI Neck: Supple, JVD not distended Respiratory: Clear to auscultation bilaterally, Normal air movement Cardiovascular: Regular rate/rhythm, Normal S1 S2 Gastrointestinal: Normal bowel sounds, No tenderness Musculoskeletal: No tenderness Integumentary: No rashes Neurological: Normal speech, Normal tone, Normal affect Lymphatics: No axilla or inguinal lymphadenopathy - Studies Medications List Reviewed: Yes Assessment And Plan - Current Problems (Diagnosis) (1) Non-refractory atypical absence seizures Onset Date: 03/15/18 Current Visit: Yes Status: Acute Plan: DR. NICOLE CONSULT START THIAMINE EEG HAS BEEN DONE . DR NICOLE IS AWARE OF HISTORY. DR. NICOLE AND DR BRICENO ARE WORKING ON THIS IF HE HAS SEIZURES OR NOT. HE DOES SEEM LIKE HE HAS RECURRENT EPISODES LIKE SEIZURES WOULD DO- ATYPICAL. DR. NICOLE GAVE NWE MEDS- LACOSAMIDE. BP HAS COME DOWN WITHOUT ANY NEEW MEDS. UNCLEAR ONLY SYMPTOMS ARE CONFUSION THAT IS SPORADIC NEW ANTISEIZURE MEDICINE SEEMS TO WORK GREAT ] HE HAS CLEAR THOUGHTS, AND LOT BETTER COGNITIVE FUNCTION NOW. (2) Altered mental status Onset Date: 12/09/17 Current Visit: No Status: Chronic Plan: THIAMINE PO DAILY. DR. NICOLE TO INVESTIGATE IF THIS IS SEIZURES OR NOT. 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
[2018-03-19] MEDS: LOSARTAN POTASSIUM 50 MG TABLET PO SCH (08:03)
[2018-03-19] MEDS: THIAMINE HCL 100 MG TABLET PO SCH (08:03)
[2018-03-19] MEDS: METOPROLOL TAR 25 MG TAB PO SCH ×2 (08:03→19:14)
[2018-03-19] MEDS: ASPIRIN EC 81 MG TAB PO SCH (08:03)
[2018-03-19] MEDS: LACOSAMIDE 50 MG TABLET PO SCH ×2 (08:03→19:13)
--- NOTE | 2018-03-19 09:22 | RAD REPORT ---
EXAM DESCRIPTION: RAD - Barium Swallow Modified - 03/19/2018 9:05 am CLINICAL HISTORY: Evaluate for aspiration. COMPARISON: None. TECHNIQUE: The patient was given liquid, semi-solid and solid forms of barium. Lateral view fluorosc opic imaging was performed in conjunction with speech pathology service. FINDINGS: LARYNGEAL PENETRATION NOT CLEARED WITH NECTAR ASPIRATION: NO COUGH WITH THIN MILD TO MODERATE PHARYNGEAL RESIDUE: VALLECULAR, PYRIFORM WITH THIN AND NECTAR DELAYED SWALLOW REFLEX REDUCED HYOLARYNGEAL EXCURSION
[2018-03-19] MEDS: MELATONIN 3 MG TABLET PO PRN (19:17)
--- NOTE | 2018-03-20 03:40 | P.PN ---
Subjective Date of Service: 03/19/18 Chief Complaint: LOT MORE CLEAR TODAY Subjective: Improving (MR TIFFANIE IS LOT MORE TALKTIVE AND CLEAR TODAY. I SAW HIM AT [facility].) Review of Systems 10-point ROS is otherwise unremarkable Physical Examination - Vital Signs Temperature: 97.4 F Blood Pressure: 106/54 Pulse: 75 Respirations: 16 Pulse Ox (%): 94 - Physical Exam General: Alert, In no apparent distress, Obese HEENT: Atraumatic, PERRLA, EOMI Neck: Supple, JVD not distended Respiratory: Clear to auscultation bilaterally, Normal air movement Cardiovascular: Regular rate/rhythm, Normal S1 S2 Gastrointestinal: Normal bowel sounds, No tenderness Musculoskeletal: No tenderness Integumentary: No rashes Neurological: Normal speech, Abnormal strength (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 NICOLE CONSULT START THIAMINE EEG HAS BEEN DONE . DR NICOLE IS AWARE OF HISTORY. DR. NICOLE AND DR BRICENO ARE WORKING ON THIS IF HE HAS SEIZURES OR NOT. HE DOES SEEM LIKE HE HAS RECURRENT EPISODES LIKE SEIZURES WOULD DO- ATYPICAL. DR. NICOLE GAVE NWE MEDS- LACOSAMIDE. BP HAS COME DOWN WITHOUT ANY NEEW MEDS. UNCLEAR ONLY SYMPTOMS ARE CONFUSION THAT IS SPORADIC NEW ANTISEIZURE MEDICINE SEEMS TO WORK GREAT ] HE HAS CLEAR THOUGHTS, AND LOT BETTER COGNITIVE FUNCTION NOW. (2) Altered mental status Onset Date: 12/09/17 Current Visit: No Status: Chronic Plan: THIAMINE PO DAILY. DR. NICOLE TO INVESTIGATE IF THIS IS SEIZURES OR NOT. 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 NO CHANGES THERAPY MAY HELP TEMPORARILY.
[2018-03-20] MEDS: THIAMINE HCL 100 MG TABLET PO SCH (07:04)
[2018-03-20] MEDS: ASPIRIN EC 81 MG TAB PO SCH (07:04)
[2018-03-20] MEDS: LOSARTAN POTASSIUM 50 MG TABLET PO SCH (07:04)
[2018-03-20] MEDS: METOPROLOL TAR 25 MG TAB PO SCH ×2 (07:04→19:41)
[2018-03-20] MEDS: LACOSAMIDE 50 MG TABLET PO SCH ×2 (07:04→19:41)
--- NOTE | 2018-03-20 11:23 | P.PN ---
Subjective Date of Service: 03/20/18 Chief Complaint: STABLE , NO CHANGES Subjective: Improving (FAILED BARIUM SWALLOW. WILL BE ON THICKENED LIQUIDS NOW) Review of Systems 10-point ROS is otherwise unremarkable General: Weakness (CHRONIC UNCHANGED.) Physical Examination - Vital Signs Temperature: 96.8 F Blood Pressure: 144/86 Pulse: 73 Respirations: 16 Pulse Ox (%): 96 - Physical Exam General: Alert, Mild distress, Obese HEENT: Atraumatic, PERRLA, EOMI Neck: Supple, JVD not distended Respiratory: Clear to auscultation bilaterally, Normal air movement Cardiovascular: Regular rate/rhythm, Normal S1 S2 Gastrointestinal: Normal bowel sounds, No tenderness Musculoskeletal: No tenderness Integumentary: No rashes Neurological: Normal speech, Normal affect, Other (DIFFUSE WASTING OF MUSCLE MASS, GENERAL AND NOT CHANGED.), Abnormal tone, Abnormal reflexes (NEG) Lymphatics: No axilla or inguinal lymphadenopathy - Studies Medications List Reviewed: Yes Assessment And Plan - Current Problems (Diagnosis) (1) Non-refractory atypical absence seizures Onset Date: 03/15/18 Current Visit: Yes Status: Acute Plan: DR. NICOLE CONSULT START THIAMINE EEG HAS BEEN DONE . DR NICOLE IS AWARE OF HISTORY. DR. NICOLE AND DR BRICENO ARE WORKING ON THIS IF HE HAS SEIZURES OR NOT. HE DOES SEEM LIKE HE HAS RECURRENT EPISODES LIKE SEIZURES WOULD DO- ATYPICAL. DR. NICOLE GAVE NWE MEDS- LACOSAMIDE. BP HAS COME DOWN WITHOUT ANY NEEW MEDS. UNCLEAR ONLY SYMPTOMS ARE CONFUSION THAT IS SPORADIC NEW ANTISEIZURE MEDICINE SEEMS TO WORK GREAT ] HE HAS CLEAR THOUGHTS, AND LOT BETTER COGNITIVE FUNCTION NOW. (2) Altered mental status Onset Date: 12/09/17 Current Visit: No Status: Chronic Plan: THIAMINE PO DAILY. DR. NICOLE TO INVESTIGATE IF THIS IS SEIZURES OR NOT. IMPROVED CLINICALLY AFTER NEW SEIZURE MEDS. 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 NO CHANGES THERAPY MAY HELP TEMPORARILY. NO SIGNS OF CARDIAC ISSUES ON EXAMINATION. (4) Dysphagia Current Visit: Yes Status: Acute Plan: FROM [facility]. WILL BE ON THICKED LIQUIDS. 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
[2018-03-20] MEDS: ACETAMINOPHEN 325 MG TABLET PO PRN (18:15)
[2018-03-20] MEDS: MELATONIN 3 MG TABLET PO PRN ×2 (19:41→21:56)
[2018-03-21] MEDS ORDERED: ENSURE ENLIVE 237 ML CAN PO SCH (08:00)
[2018-03-21] MEDS: ASPIRIN EC 81 MG TAB PO SCH (08:18)
[2018-03-21] MEDS: THIAMINE HCL 100 MG TABLET PO SCH (08:18)
[2018-03-21] MEDS: METOPROLOL TAR 25 MG TAB PO SCH ×2 (08:18→20:00)
[2018-03-21] MEDS: ENSURE ENLIVE 237 ML CAN PO SCH (08:19)
[2018-03-21] MEDS: LACOSAMIDE 50 MG TABLET PO SCH ×2 (08:19→20:28)
[2018-03-21] MEDS: LOSARTAN POTASSIUM 50 MG TABLET PO SCH (08:20)
--- NOTE | 2018-03-21 12:16 | P.PN ---
Subjective Date of Service: 03/21/18 Chief Complaint: STABLE , NO CHANGES Subjective: No C/O voiced Review of Systems 10-point ROS is otherwise unremarkable General: Weakness Neurological: Weakness, Incoordination (NOT WALKE ALONE FOR LONG DURATION, HAS WHEELCHAIR.) Physical Examination - Vital Signs Temperature: 96.9 F Blood Pressure: 146/103 Pulse: 74 Respirations: 20 Pulse Ox (%): 94 - Physical Exam General: Alert, In no apparent distress, Obese HEENT: Atraumatic, PERRLA, EOMI Neck: Supple, JVD not distended Respiratory: Clear to auscultation bilaterally, Normal air movement Cardiovascular: Regular rate/rhythm, Normal S1 S2 Gastrointestinal: Normal bowel sounds, No tenderness Musculoskeletal: No tenderness Integumentary: No rashes Neurological: Normal speech, Abnormal tone (WASTED MUSCLES, BUT MASS IS STILL OKAY) Lymphatics: No axilla or inguinal lymphadenopathy - Studies Medications List Reviewed: Yes Assessment And Plan - Current Problems (Diagnosis) (1) Non-refractory atypical absence seizures Onset Date: 03/15/18 Current Visit: Yes Status: Acute Plan: DR. NICOLE CONSULT START THIAMINE EEG HAS BEEN DONE . DR NICOLE IS AWARE OF HISTORY. DR. NICOLE AND DR BRICENO ARE WORKING ON THIS IF HE HAS SEIZURES OR NOT. HE DOES SEEM LIKE HE HAS RECURRENT EPISODES LIKE SEIZURES WOULD DO- ATYPICAL. DR. NICOLE GAVE NWE MEDS- LACOSAMIDE. BP HAS COME DOWN WITHOUT ANY NEEW MEDS. UNCLEAR ONLY SYMPTOMS ARE CONFUSION THAT IS SPORADIC NEW ANTISEIZURE MEDICINE SEEMS TO WORK GREAT ] HE HAS CLEAR THOUGHTS, AND LOT BETTER COGNITIVE FUNCTION NOW. ALTERED MENTAL STATUS HAS IMPROVED. IT SEEMS LIKE HE HAS NORMAL REACTION TIME AND ANSWERS. (2) Altered mental status Onset Date: 12/09/17 Current Visit: No Status: Chronic Plan: THIAMINE PO DAILY. DR. NICOLE TO INVESTIGATE IF THIS IS SEIZURES OR NOT. IMPROVED CLINICALLY AFTER NEW SEIZURE MEDS. 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 NO CHANGES THERAPY MAY HELP TEMPORARILY. NO SIGNS OF CARDIAC ISSUES ON EXAMINATION. (4) Dysphagia Current Visit: Yes Status: Acute Plan: FROM [facility]. WILL BE ON THICKED LIQUIDS. 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
[2018-03-21] MEDS: SUMATRIPTAN SUCCI 50 MG TAB PO PRN (14:33)
[2018-03-21] MEDS ORDERED: NAPROXEN 250 MG TAB PO SCH (20:00)
[2018-03-21] MEDS: MELATONIN 3 MG TABLET PO PRN (20:28)
[2018-03-22] MEDS: THIAMINE HCL 100 MG TABLET PO SCH (07:54)
[2018-03-22] MEDS: ASPIRIN EC 81 MG TAB PO SCH (07:54)
[2018-03-22] MEDS: METOPROLOL TAR 25 MG TAB PO SCH ×2 (07:54→19:13)
[2018-03-22] MEDS: LOSARTAN POTASSIUM 50 MG TABLET PO SCH (07:55)
[2018-03-22] MEDS: LACOSAMIDE 50 MG TABLET PO SCH ×2 (07:55→19:44)
[2018-03-22] MEDS: ENSURE ENLIVE 237 ML CAN PO SCH (08:27)
[2018-03-22] MEDS: SUMATRIPTAN SUCCI 50 MG TAB PO PRN (10:08)
--- NOTE | 2018-03-22 18:22 | P.PN ---
Subjective Date of Service: 03/22/18 Chief Complaint: STABLE , NO CHANGES Subjective: Improving (MENTALLY.) Review of Systems 10-point ROS is otherwise unremarkable Physical Examination - Vital Signs Temperature: 97.8 F Blood Pressure: 145/74 Pulse: 62 Respirations: 16 Pulse Ox (%): 95 - Physical Exam General: Alert, In no apparent distress, Obese HEENT: Atraumatic, PERRLA, EOMI Neck: Supple, JVD not distended Respiratory: Clear to auscultation bilaterally, Normal air movement Cardiovascular: Regular rate/rhythm, Normal S1 S2 Gastrointestinal: Normal bowel sounds, No tenderness Musculoskeletal: No tenderness Integumentary: No rashes Neurological: Other (NO CHANGES.) Lymphatics: No axilla or inguinal lymphadenopathy - Studies Medications List Reviewed: Yes Assessment And Plan - Current Problems (Diagnosis) (1) Non-refractory atypical absence seizures Onset Date: 03/15/18 Current Visit: Yes Status: Acute Plan: DR. NICOLE CONSULT START THIAMINE EEG HAS BEEN DONE . DR NICOLE IS AWARE OF HISTORY. DR. NICOLE AND DR BRICENO ARE WORKING ON THIS IF HE HAS SEIZURES OR NOT. HE DOES SEEM LIKE HE HAS RECURRENT EPISODES LIKE SEIZURES WOULD DO- ATYPICAL. DR. NICOLE GAVE NWE MEDS- LACOSAMIDE. BP HAS COME DOWN WITHOUT ANY NEEW MEDS. UNCLEAR ONLY SYMPTOMS ARE CONFUSION THAT IS SPORADIC NEW ANTISEIZURE MEDICINE SEEMS TO WORK GREAT ] HE HAS CLEAR THOUGHTS, AND LOT BETTER COGNITIVE FUNCTION NOW. ALTERED MENTAL STATUS HAS IMPROVED. IT SEEMS LIKE HE HAS NORMAL REACTION TIME AND ANSWERS. STABLE, MENTALLY LOT BETTER. (2) Altered mental status Onset Date: 12/09/17 Current Visit: No Status: Chronic Plan: THIAMINE PO DAILY. DR. NICOLE TO INVESTIGATE IF THIS IS SEIZURES OR NOT. IMPROVED CLINICALLY AFTER NEW SEIZURE MEDS. 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 NO CHANGES THERAPY MAY HELP TEMPORARILY. NO SIGNS OF CARDIAC ISSUES ON EXAMINATION. (4) Dysphagia Current Visit: Yes Status: Acute Plan: FROM [facility]. WILL BE ON THICKED LIQUIDS. 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
[2018-03-22] MEDS: MELATONIN 3 MG TABLET PO PRN (19:44)
[2018-03-23] MEDS: METOPROLOL TAR 25 MG TAB PO SCH ×2 (07:54→20:05)
[2018-03-23] MEDS: THIAMINE HCL 100 MG TABLET PO SCH (07:58)
[2018-03-23] MEDS: ASPIRIN EC 81 MG TAB PO SCH (07:58)
[2018-03-23] MEDS: LACOSAMIDE 50 MG TABLET PO SCH ×2 (07:58→20:04)
[2018-03-23] MEDS: LOSARTAN POTASSIUM 50 MG TABLET PO SCH (07:58)
[2018-03-23] MEDS: ENSURE ENLIVE 237 ML CAN PO SCH (07:59)
--- NOTE | 2018-03-23 18:30 | P.PN ---
Subjective Date of Service: 03/23/18 Chief Complaint: STABLE , NO CHANGES Subjective: No new changes, No C/O voiced Review of Systems 10-point ROS is otherwise unremarkable General: Weakness Physical Examination - Vital Signs Temperature: 97.2 F Blood Pressure: 145/88 Pulse: 72 Respirations: 18 Pulse Ox (%): 96 - Physical Exam General: Alert, Mild distress HEENT: Atraumatic, PERRLA, EOMI Neck: Supple, JVD not distended Respiratory: Clear to auscultation bilaterally, Normal air movement Cardiovascular: Regular rate/rhythm, Normal S1 S2 Gastrointestinal: Normal bowel sounds, No tenderness Musculoskeletal: No tenderness Integumentary: No rashes Neurological: Normal speech, Abnormal strength, Abnormal tone Lymphatics: No axilla or inguinal lymphadenopathy - Studies Medications List Reviewed: Yes Assessment And Plan - Current Problems (Diagnosis) (1) Non-refractory atypical absence seizures Onset Date: 03/15/18 Current Visit: Yes Status: Acute Plan: DR. NICOLE CONSULT START THIAMINE EEG HAS BEEN DONE . DR NICOLE IS AWARE OF HISTORY. DR. NICOLE AND DR BRICENO ARE WORKING ON THIS IF HE HAS SEIZURES OR NOT. HE DOES SEEM LIKE HE HAS RECURRENT EPISODES LIKE SEIZURES WOULD DO- ATYPICAL. DR. NICOLE GAVE NWE MEDS- LACOSAMIDE. BP HAS COME DOWN WITHOUT ANY NEEW MEDS. UNCLEAR ONLY SYMPTOMS ARE CONFUSION THAT IS SPORADIC NEW ANTISEIZURE MEDICINE SEEMS TO WORK GREAT ] HE HAS CLEAR THOUGHTS, AND LOT BETTER COGNITIVE FUNCTION NOW. ALTERED MENTAL STATUS HAS IMPROVED. IT SEEMS LIKE HE HAS NORMAL REACTION TIME AND ANSWERS. STABLE, MENTALLY LOT BETTER. (2) Altered mental status Onset Date: 12/09/17 Current Visit: No Status: Chronic Plan: THIAMINE PO DAILY. DR. NICOLE TO INVESTIGATE IF THIS IS SEIZURES OR NOT. IMPROVED CLINICALLY AFTER NEW SEIZURE MEDS. 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 NO CHANGES THERAPY MAY HELP TEMPORARILY. NO SIGNS OF CARDIAC ISSUES ON EXAMINATION. (4) Dysphagia Current Visit: Yes Status: Acute Plan: FROM [facility]. WILL BE ON THICKED LIQUIDS. HE HAS NO SYMPTOMS FROM FAILED MBS NO CHANGES TOLERATES FOOD SO FAR
[2018-03-23] MEDS: ACETAMINOPHEN 325 MG TABLET PO PRN (20:05)
[2018-03-23] MEDS: MELATONIN 3 MG TABLET PO PRN (20:05)
--- NOTE | 2018-03-24 08:49 | FAST ---
ENCOUNTER DATE AND TIME: 03/23/2018 08:00 (CDT) NAME Caleb Lemus DATE OF : 1935 DATE OF ADMISSION: 03/10/2018 12:44 (CDT) PHONE: AGE: 83 N# [id number] GENDER: Male ENCOUNTER PHYSICIAN: Dr. Wes Crawford M.D. ADMISSION DIAGNOSIS: - Debility 16 - Debility (16) Muscular Dystrophy. EATING: Activity did not occur on this shift EATING - SCORE: 0-UNK GROOMING: Activity did not occur on this shift GROOMING - SCORE: 0-UNK BATHING: Activity did not occur on this shift BATHING - SCORE: 0-UNK DRESSING - UPPER BODY: Activity did not occur on this shift Patient is not dressing in public clothing ARTICLES SCORE Total number of steps: 0 DRESSING - UPPER BODY - SCORE: 0-UNK DRESSING - LOWER BODY: Activity did not occur on this shift Patient is not dressing in public clothing ARTICLES SCORE Total number of steps: 0 DRESSING - LOWER BODY - SCORE: 0-UNK TOILETING: Activity did not occur on this shift TOILETING - SCORE: 0-UNK BLADDER MANAGEMENT: Activity did not occur on this shift BLADDER MANAGEMENT - SCORE: 7-IND BOWEL MANAGEMENT: Activity did not occur on this shift BOWEL MANAGEMENT - SCORE: 7-IND TRANSFERS: BED, CHAIR, WHEELCHAIR: TRANSFERS: BED, CHAIR, WHEELCHAIR - STEP 1: Does the patient require assistance with bed, chair, or wheelchair transfers? Yes. TRANSFERS: BED, CHAIR, WHEELCHAIR - STEP 2: Does the patient require the assistance of a helper? Yes. TRANSFERS: BED, CHAIR, WHEELCHAIR - STEP 3: How much assistance does the patient require from the helper? Only supervision TRANSFERS: BED, CHAIR, WHEELCHAIR - SCORE: 5-SUP TRANSFERS: TOILET: Activity did not occur on this shift TRANSFERS: TOILET - SCORE: 0-UNK TRANSFERS: SHOWER: Activity did not occur on this shift TRANSFERS: SHOWER - SCORE: 0-UNK TRANSFERS: TUB: Activity did not occur on this shift TRANSFERS: TUB - SCORE: 0-UNK LOCOMOTION: WALK: LOCOMOTION: WALK - STEP 1: Does the patient need help to walk 150 feet? Yes. LOCOMOTION: WALK - STEP 2: How much assistance does the patient require to walk a minimum of 150 feet? Only incidental help such as contact guarding or steadying LOCOMOTION: WALK - SCORE: 4-MIN LOCOMOTION: WHEELCHAIR: LOCOMOTION: WHEELCHAIR - STEP 1: Does the patient need help to go 150 feet in a wheelchair? Yes. LOCOMOTION: WHEELCHAIR - STEP 2: How much assistance does the patient need from the helper? Only supervision, cuing, or coaxing LOCOMOTION: WHEELCHAIR - SCORE: 5-SUP LOCOMOTION: STAIRS: LOCOMOTION: STAIRS - STEP 1: Does the patient need help to go up and down 12 to 14 stairs? Yes. LOCOMOTION: STAIRS - STEP 2: How much assistance does the patient need from the helper to go a minimum of 12 to 14 stairs? Only in cidental help such as contact guarding or steadying LOCOMOTION: STAIRS - SCORE: 4-MIN COMPREHENSION: COMPREHENSION - SCORE: 0-UNK EXPRESSION EXPRESSION - SCORE: 0-UNK SOCIAL INTERACTION: SOCIAL INTERACTION - SCORE: 0-UNK PROBLEM SOLVING: PROBLEM SOLVING - SCORE: 0-UNK MEMORY: MEMORY - SCORE: 0-UNK SIGNATURE PANEL: The following modified sections: Transfers: Bed, Chair, Wheelchair - Score, Transfers: Toilet - Score , Locomotion: Walk - Score, Locomotion: Wheelchair - Score, Locomotion: Stairs - Score were [electron [email or web address]] signed by Dennis Ceravntes PTA on ThuMar 24 2018 07:50:00 GMT-0500 (Central Daylight Time)
[2018-03-24] MEDS: ASPIRIN EC 81 MG TAB PO SCH (09:05)
[2018-03-24] MEDS: THIAMINE HCL 100 MG TABLET PO SCH (09:05)
[2018-03-24] MEDS: ACETAMINOPHEN 325 MG TABLET PO PRN (09:06)
[2018-03-24] MEDS: METOPROLOL TAR 25 MG TAB PO SCH ×2 (09:06→20:00)
[2018-03-24] MEDS: LACOSAMIDE 50 MG TABLET PO SCH ×2 (09:06→20:11)
[2018-03-24] MEDS: LOSARTAN POTASSIUM 50 MG TABLET PO SCH (09:07)
[2018-03-24] MEDS: ENSURE ENLIVE 237 ML CAN PO SCH (09:07)
--- NOTE | 2018-03-24 12:41 | FAST ---
ENCOUNTER DATE AND TIME: 03/24/2018 08:00 (CDT) NAME Caleb Lemus DATE OF : 1935 DATE OF ADMISSION: 03/10/2018 12:44 (CDT) PHONE: AGE: 83 N# [id number] GENDER: Male ENCOUNTER PHYSICIAN: Dr. Wes Crawford M.D. ADMISSION DIAGNOSIS: - Debility 16 - Debility (16) Muscular Dystrophy. EATING: Activity did not occur on this shift EATING - SCORE: 0-UNK GROOMING: Activity did not occur on this shift GROOMING - SCORE: 0-UNK BATHING: Activity did not occur on this shift BATHING - SCORE: 0-UNK DRESSING - UPPER BODY: Activity did not occur on this shift Patient is not dressing in public clothing ARTICLES SCORE Total number of steps: 0 DRESSING - UPPER BODY - SCORE: 0-UNK DRESSING - LOWER BODY: Activity did not occur on this shift Patient is not dressing in public clothing ARTICLES SCORE Total number of steps: 0 DRESSING - LOWER BODY - SCORE: 0-UNK TOILETING: Activity did not occur on this shift TOILETING - SCORE: 0-UNK BLADDER MANAGEMENT: Activity did not occur on this shift BLADDER MANAGEMENT - SCORE: 7-IND BOWEL MANAGEMENT: Activity did not occur on this shift BOWEL MANAGEMENT - SCORE: 7-IND TRANSFERS: BED, CHAIR, WHEELCHAIR: TRANSFERS: BED, CHAIR, WHEELCHAIR - STEP 1: Does the patient require assistance with bed, chair, or wheelchair transfers? Yes. TRANSFERS: BED, CHAIR, WHEELCHAIR - STEP 2: Does the patient require the assistance of a helper? Yes. TRANSFERS: BED, CHAIR, WHEELCHAIR - STEP 3: How much assistance does the patient require from the helper? Steadying/guiding assistance TRANSFERS: BED, CHAIR, WHEELCHAIR - SCORE: 4-MIN TRANSFERS: TOILET: Activity did not occur on this shift TRANSFERS: TOILET - SCORE: 0-UNK TRANSFERS: SHOWER: Activity did not occur on this shift TRANSFERS: SHOWER - SCORE: 0-UNK TRANSFERS: TUB: Activity did not occur on this shift TRANSFERS: TUB - SCORE: 0-UNK LOCOMOTION: WALK: LOCOMOTION: WALK - STEP 1: Does the patient need help to walk 150 feet? Yes. LOCOMOTION: WALK - STEP 2: How much assistance does the patient require to walk a minimum of 150 feet? Only incidental help such as contact guarding or steadying LOCOMOTION: WALK - SCORE: 4-MIN LOCOMOTION: WHEELCHAIR: LOCOMOTION: WHEELCHAIR - STEP 1: Does the patient need help to go 150 feet in a wheelchair? Yes. LOCOMOTION: WHEELCHAIR - STEP 2: How much assistance does the patient need from the helper? Only supervision, cuing, or coaxing LOCOMOTION: WHEELCHAIR - SCORE: 5-SUP LOCOMOTION: STAIRS: Activity did not occur on this shift LOCOMOTION: STAIRS - SCORE: 0-UNK COMPREHENSION: COMPREHENSION - SCORE: 0-UNK EXPRESSION EXPRESSION - SCORE: 0-UNK SOCIAL INTERACTION: SOCIAL INTERACTION - SCORE: 0-UNK PROBLEM SOLVING: PROBLEM SOLVING - SCORE: 0-UNK MEMORY: MEMORY - SCORE: 0-UNK SIGNATURE PANEL: The following modified sections: Transfers: Bed, Chair, Wheelchair - Score, Transfers: Toilet - Score , Locomotion: Walk - Score, Locomotion: Wheelchair - Score, Locomotion: Stairs - Score were [electron elizabeth] signed by Krystle Frias PTA on ThuMar 24 2018 11:41:44 T-0500 (Central Daylight Time)
--- NOTE | 2018-03-24 17:03 | FAST ---
ENCOUNTER DATE AND TIME: 03/24/2018 08:00 (CDT) NAME Caleb Lemus DATE OF : 1935 DATE OF ADMISSION: 03/10/2018 12:44 (CDT) PHONE: AGE: 83 N# [id number] GENDER: Male ENCOUNTER PHYSICIAN: Dr. Wes Crawford M.D. ADMISSION DIAGNOSIS: - Debility 16 - Debility (16) Muscular Dystrophy. EATING: Activity did not occur on this shift EATING - SCORE: 0-UNK GROOMING: Comb/brush hair Wash, rinse, and dry face Wash, rinse, and dry hands GROOMING - STEP 1: Does the patient require assistance when grooming? Yes. GROOMING - STEP 2: Does the patient require the assistance of a helper? No. The patient only requires an assistive devic e, OR takes more than reasonable time to groom, OR there is a concern for safety as the patient groom s GROOMING - SCORE: 6-MITRA BATHING: Abdomen Buttocks Chest Left arm Left lower leg and foot Left upper leg Perineal area Right arm Right lower leg and foot Right upper leg BATHING - STEP 1: Does the patient require assistance when bathing? Yes. BATHING - STEP 2: Does the patient require the assistance of a helper? Yes. BATHING - STEP 3: How much assistance does the patient require from the helper? Only supervision, cuing, coaxing, instr uctions, encouragement BATHING - SCORE: 5-SUP DRESSING - UPPER BODY: Button down shirt or blouse - NOT tucked in (four steps) ARTICLES SCORE Total number of steps: 4 DRESSING - UPPER BODY - STEP 1: Does the patient require help when dressing above the waist? Yes. DRESSING - UPPER BODY - STEP 2: Does the patient require the assistance of a helper? No. Patient only requires an assistive device, s uch as a button hook, velcro, or trampoline team coach. OR s/he takes more than reasonable time as s/he dresses the upper body. OR there is a concern for safety when s/he dresses the upper body DRESSING - UPPER BODY - SCORE: 6-MITRA DRESSING - LOWER BODY: Slip-on shoe - Left foot (one step) Slip-on shoe - Right foot (one step) Underwear (three steps) Zippered pants (four steps) ARTICLES SCORE Total number of steps: 9 DRESSING - LOWER BODY - STEP 1: Does the patient require help when dressing below the waist? Yes. DRESSING - LOWER BODY - STEP 2: Does the patient require the assistance of a helper? Yes. DRESSING - LOWER BODY - STEP 3: Does the helper touch the patient while dressing? No. DRESSING - LOWER BODY - SCORE: 5-SUP TOILETING: Activity did not occur on this shift TOILETING - SCORE: 0-UNK BLADDER MANAGEMENT: Activity did not occur on this shift BLADDER MANAGEMENT - SCORE: 7-IND BOWEL MANAGEMENT: Activity did not occur on this shift BOWEL MANAGEMENT - SCORE: 7-IND TRANSFERS: BED, CHAIR, WHEELCHAIR: Activity did not occur on this shift TRANSFERS: BED, CHAIR, WHEELCHAIR - SCORE: 0-UNK TRANSFERS: TOILET: Activity did not occur on this shift TRANSFERS: TOILET - SCORE: 0-UNK TRANSFERS: SHOWER: TRANSFERS: SHOWER - STEP 1: Does the patient require assistance with shower transfers? Yes. TRANSFERS: SHOWER - STEP 2: Does the patient require the assistance of a helper? Yes. TRANSFERS: SHOWER - STEP 3: How much assistance does the patient require from the helper? Only supervision, cuing, coaxing, or he lp to set out transfer equipment or to lock brakes and/or lift foot rests TRANSFERS: SHOWER - SCORE: 5-SUP TRANSFERS: TUB: Activity did not occur on this shift TRANSFERS: TUB - SCORE: 0-UNK LOCOMOTION: WALK: Activity did not occur on this shift LOCOMOTION: WALK - SCORE: 0-UNK LOCOMOTION: WHEELCHAIR: Activity did not occur on this shift LOCOMOTION: WHEELCHAIR - SCORE: 0-UNK LOCOMOTION: STAIRS: Activity did not occur on this shift LOCOMOTION: STAIRS - SCORE: 0-UNK COMPREHENSION: COMPREHENSION - SCORE: 0-UNK EXPRESSION EXPRESSION - SCORE: 0-UNK SOCIAL INTERACTION: SOCIAL INTERACTION - SCORE: 0-UNK PROBLEM SOLVING: PROBLEM SOLVING - SCORE: 0-UNK MEMORY: MEMORY - SCORE: 0-UNK SIGNATURE PANEL: The following modified sections: Eating - Score, Grooming - Score, Bathing - Score, Dressing - Upper Body - Score, Dressing - Lower Body - Score, Toileting - Score, Transfers: Bed, Chair, Wheelchair - S core, Transfers: Toilet - Score, Transfers: Shower - Score, Transfers: Tub - Score, Comprehension - S core, Expression - Score, Social Interaction - Score, Problem Solving - Score, Memory - Score were [e lectronically] signed by BAYRON Sauceda on ThuMar 24 2018 16:03:25 [facility]-0500 ([facility] Time)
--- NOTE | 2018-03-24 18:56 | R.PN ---
ENCOUNTER DATE AND TIME: 03/24/2018 17:52 (CDT) NAME Caleb Lemus DATE OF : 1935 DATE OF ADMISSION: 03/10/2018 12:44 (CDT) Muscular DystrophyCHIEF COMPLAINT: Diffuse weakness and fatigue SUBJECTIVE: Pt denied any Shortness of Breath. Pt denied any depression. Ambulated 500' using a rolling walker with standby assistance. Self-propelled wheelchair 250' with st andby assistance. Up and down 15 steps with contact guard assistance. Mr. Lemus has persistently elevated blood pressures. Will increase metoprolol to 25 mg bid from 12.5 mg bid. VITAL SIGNS Temperature: 97.2 F SBP/DBP: 183/83 Pulse: 59 Resp: 16 MEDICATION ALLERGIES: Morphine Sulfate Codeine Penicillin G sodium Trileptal Neurontin Lyrica ENVIRONMENTAL ALLERGIES: None Known - Substance Allergies None Known - Other Allergies None Known NURSING: - Shower allowing shower PRECAUTIONS: - Fall Precaution Bed and chair alarm ACTIVITIES OOB only with supervision THERAPIES: - Occupational Therapy Evaluate and Treat. - Physical Therapy Evaluate and Treat. - Speech Therapy Cognitive Training. PHYSICAL EXAM - Gen Alert and awake Lying in bed No apparent distress Oriented to: person, time, and place - Skin No breakdowns No abnormalities - Eyes No abnormalities - ENMT No abnormalities - Neck No abnormalities - CVS RRR - Chest Clear - Abd +BS No abnormalities - No abnormalities - Ext no edema - MSK 4+/5 weakness in both lower extremities. - Neuro No focal deficits, his cognitive assessment test 01/08. - Psych No abnormalities ASSESSMENT: Pt. is a 83 yo Right-handed white male.On 03/09/2018 he was admitted to [facility] with diagnosis Muscular Dystrophy.His impairment category is Debility 16 - Debility (16).Pre-mor bidly, Pt. was independent/mod-I in Locomotion, Sphincter Control, Transfers Control, Communication, Social Cognition, and Self-Care; and he had good Sphincter Control.Currently, he has deficits of [place] motion, Endurance, Safety Awareness, Transfers Control, Communication, Social Cognition, Balance, and Self-Care.Pt. is now referred to [facility] for acute in-patient rehabilitati on in order to maximize patient's functional independence in activities of daily living, strength, RO M, and mobility.- Rehab Goal Patient has realistic goal of being discharged at assistance level 6-Humberto to reside at Home with Fam rudolph/Relatives. MDM/PLAN: - Diet Type Continue Regular - Physical Therapy Gait dysfunction - to improve, our physical therapists will perform initial evaluation of pt's statu s upon admission and devise an individualized program for Gait Training, and Wheel Chair mobility Inability to transfer - to improve, our physical therapists will perform initial evaluation of pt's status upon admission and devise an individualized program for Bed mobility Need for home safety evaluation - to improve, our physical therapists will perform initial evaluatio n of pt's status upon admission and devise an individualized program for Home Evaluation Need in caregiver upon discharge - to improve, our physical therapists will perform initial evaluati on of pt's status upon admission and devise an individualized program for Caregiver Training New precaution - to improve, our physical therapists will perform initial evaluation of pt's status upon admission and devise an individualized program for Patient precaution education Poor balance - to improve, our physical therapists will perform initial evaluation of pt's status up on admission and devise an individualized program for Balance Training Poor endurance - to improve, our physical therapists will perform initial evaluation of pt's status upon admission and devise an individualized program for Endurance Training Weakness - to improve, our physical therapists will perform initial evaluation of pt's status upon a dmission and devise an individualized program for Aquatic Therapy, Neuromuscular Reeducation, and Str engthening Achieving independence - to improve, our physical therapists will perform initial evaluation of pt's status upon admission and devise an individualized program for Community Reintegration Activities - Diet - Liquid Texture Continue Regular - Tube Feed Continue N/A - Fall Precaution Bed and chair alarm - Diet - Solid Texture Continue Regular - Shower allowing shower - Occupational Therapy ADL deficits - to improve, our occupation therapists will perform initial evaluation of pt's status upon admission and devise an individualized program for Bathing, Bed mobility, Community Reintegratio n, Cooking, Dressing, Eating, Fine Motor Skills, Grooming, Homemaking, Kitchen Mobility, Laundry, Pat ient Education, Safety Awareness, Splinting - Positioning, Transfers(Toilet, Tub, Shower), and Wheel Chair Management Cognitive deficits - to improve, our occupation therapists will perform initial evaluation of pt's s tatus upon admission and devise an individualized program for Cognition - orientation Need for manager intensive care - to improve, our occupation therapists will perform initial evaluation of pt's status upon admission and devise an individualized program for Caregiver Training Weakness - to improve, our occupation therapists will perform initial evaluation of pt's status upon admission and devise an individualized program for Aquatic Therapy, Balance, Endurance, UE ROM, and UE strengthening FUNCTIONAL STATUS: UPDATED AT WEEKLY TEAM CONFERENCE - Bladder Same accident frequency: 7-Ind - No accidents in the past 7 days - Bowel Same accident frequency: 7-Ind - No accidents in the past 7 days - Walking Same score based on distance walked: 0(N/A) - Wheelchair Same score based on distance traveled: 0(N/A) FUNCTIONAL STATUS: - Self-Care A. Eating Humberto B. Grooming Humberto C. Bathing Dalia D. Dressing - Upper sup E. Dressing - Lower Dalia F. Toileting Dalia - Sphincter Control G: Bladder control Ind H: Bowel control Ind - Transfers Control I. Bed/Chair/Wheelchair Dalia J. Toilet Dalia K. Tub/Shower Dalia - Locomotion L. Walk/Wheelchair (C) Dalia L. Walk/Wheelchair (W) Daila M. Stairs ADNO - Communication N. Comprehension (B) sup O. Expression (B) sup - Social Cognition P. Social Interaction sup Q. Problem Solving sup R. Memory sup - Endurance Fair - Balance Fair - Safety Awareness Fair CURRENT FUNC. DEFICITS: Locomotion, Endurance, Safety Awareness, Transfers Control, Communication, Social Cognition, Balance, and Self-Care SIGNATURE PANEL: (CDT)
--- NOTE | 2018-03-24 19:14 | FAST ---
ENCOUNTER DATE AND TIME: 03/24/2018 08:00 (CDT) NAME Caleb Lemus DATE OF : 1935 DATE OF ADMISSION: 03/10/2018 12:44 (CDT) PHONE: AGE: 83 N# [id number] GENDER: Male ENCOUNTER PHYSICIAN: Dr. Wes Crawford M.D. ADMISSION DIAGNOSIS: - Debility 16 - Debility (16) Muscular Dystrophy. EATING: Activity did not occur on this shift EATING - SCORE: 0-UNK GROOMING: Activity did not occur on this shift GROOMING - SCORE: 0-UNK BATHING: Activity did not occur on this shift BATHING - SCORE: 0-UNK DRESSING - UPPER BODY: Activity did not occur on this shift Patient is not dressing in public clothing ARTICLES SCORE Total number of steps: 0 DRESSING - UPPER BODY - SCORE: 0-UNK DRESSING - LOWER BODY: Activity did not occur on this shift Patient is not dressing in public clothing ARTICLES SCORE Total number of steps: 0 DRESSING - LOWER BODY - SCORE: 0-UNK TOILETING: Activity did not occur on this shift TOILETING - SCORE: 0-UNK BLADDER MANAGEMENT: Activity did not occur on this shift BLADDER MANAGEMENT - SCORE: 7-IND BOWEL MANAGEMENT: Activity did not occur on this shift BOWEL MANAGEMENT - SCORE: 7-IND TRANSFERS: BED, CHAIR, WHEELCHAIR: Activity did not occur on this shift TRANSFERS: BED, CHAIR, WHEELCHAIR - SCORE: 0-UNK TRANSFERS: TOILET: Activity did not occur on this shift TRANSFERS: TOILET - SCORE: 0-UNK TRANSFERS: SHOWER: Activity did not occur on this shift TRANSFERS: SHOWER - SCORE: 0-UNK TRANSFERS: TUB: Activity did not occur on this shift TRANSFERS: TUB - SCORE: 0-UNK LOCOMOTION: WALK: Activity did not occur on this shift LOCOMOTION: WALK - SCORE: 0-UNK LOCOMOTION: WHEELCHAIR: Activity did not occur on this shift LOCOMOTION: WHEELCHAIR - SCORE: 0-UNK LOCOMOTION: STAIRS: Activity did not occur on this shift LOCOMOTION: STAIRS - SCORE: 0-UNK COMPREHENSION: COMPREHENSION - STEP 1: Does the patient require help to understand complex and abstract ideas (such as current events, finan lynette, discharge planning, medical issues, relationships, etc)? Yes. COMPREHENSION - STEP 2: Does the patient require help to understand questions or statements about basic needs or ideas (such as hunger, thirst, sleep, safety, daily schedule, room location, or discomfort) half or more of the t los? No. COMPREHENSION - STEP 3: How often does the patient need help to understand directions and conversation about basic needs? Les s than 10% of the time COMPREHENSION - SCORE: 5-SUP EXPRESSION EXPRESSION - STEP 1: Does the patient require help expressing complex and abstract ideas (such as current events, finances , discharge planning, medical issues, relationships, etc)? Yes. EXPRESSION - STEP 2: Does the patient require help to express basic necessities or ideas (such as hunger, thirst, sleep, s afety, daily schedule, room location, or discomfort) half or more of the time? No. EXPRESSION - STEP 3: How often does the patient need help to express directions and conversation about basic needs? Less t hilliard 10% of the time EXPRESSION - SCORE: 5-SUP SOCIAL INTERACTION: SOCIAL INTERACTION - STEP 1: Does the patient require a helper to interact with others in social and therapeutic situations? No. SOCIAL INTERACTION - STEP 2: Does the patient need extra time in social situations, OR does s/he interact with staff, other patien ts, and family members ONLY in structured environments, OR does s/he require medication for social in teraction? Yes, patient needs extra time SOCIAL INTERACTION - SCORE: 6-MITRA PROBLEM SOLVING: PROBLEM SOLVING - STEP 1: Does the patient need help to solve complex problems such as managing a checking account or confronti ng interpersonal problems? Yes. PROBLEM SOLVING - STEP 2: Does the patient solve basic routine problems half or more of the time? No. PROBLEM SOLVING - STEP 3: Does the patient need help to solve problems all the time or is s/he unable to solve problems? No. Abdoulaye ibrahim can sometimes solve problems PROBLEM SOLVING - SCORE: 2-MAX MEMORY: MEMORY - STEP 1: Does the patient need help to remember frequently encountered people, daily routines, and executing r equests? Yes. MEMORY - STEP 2: How often does the patient need help to remember frequently encountered people, daily routines, and e xecuting requests? More than 50% of the time MEMORY - STEP 3: Does the patient need help to remember all of the time OR does s/he not effectively recognize and rem ember? No. Patient does not need help all the time MEMORY - SCORE: 2-MAX SIGNATURE PANEL: The following modified sections: Comprehension - Score, Expression - Score, Social Interaction - Scor e, Problem Solving - Score, Memory - Score were [electronically] signed by JULIO Mathis on Thu 18:14:53 T-0500 (Central Daylight Time)
[2018-03-24] MEDS: MELATONIN 3 MG TABLET PO PRN (20:11)
--- NOTE | 2018-03-24 21:28 | P.PN ---
Subjective Date of Service: 03/24/18 Chief Complaint: STABLE , NO CHANGES Subjective: Improving (GETTING PT.) Review of Systems 10-point ROS is otherwise unremarkable Neurological: Weakness, Confusion (LOT BETTER.) Physical Examination - Vital Signs Temperature: 97.8 F Blood Pressure: 118/66 Pulse: 83 Respirations: 16 Pulse Ox (%): 93 - Physical Exam General: Alert, In no apparent distress, Obese HEENT: Atraumatic, PERRLA, EOMI Neck: Supple, JVD not distended Respiratory: Clear to auscultation bilaterally, Normal air movement Cardiovascular: Regular rate/rhythm, Normal S1 S2 Gastrointestinal: Normal bowel sounds, No tenderness Musculoskeletal: No tenderness Integumentary: No rashes Neurological: Normal speech, Abnormal strength, Abnormal tone (NO CHANGES) Lymphatics: No axilla or inguinal lymphadenopathy - Studies Medications List Reviewed: Yes Assessment And Plan - Current Problems (Diagnosis) (1) Non-refractory atypical absence seizures Onset Date: 03/15/18 Current Visit: Yes Status: Acute Plan: DR. NICOLE CONSULT START THIAMINE EEG HAS BEEN DONE . DR NICOLE IS AWARE OF HISTORY. DR. NICOLE AND DR BRICENO ARE WORKING ON THIS IF HE HAS SEIZURES OR NOT. HE DOES SEEM LIKE HE HAS RECURRENT EPISODES LIKE SEIZURES WOULD DO- ATYPICAL. DR. NICOLE GAVE NWE MEDS- LACOSAMIDE. BP HAS COME DOWN WITHOUT ANY NEEW MEDS. UNCLEAR ONLY SYMPTOMS ARE CONFUSION THAT IS SPORADIC NEW ANTISEIZURE MEDICINE SEEMS TO WORK GREAT ] HE HAS CLEAR THOUGHTS, AND LOT BETTER COGNITIVE FUNCTION NOW. ALTERED MENTAL STATUS HAS IMPROVED. IT SEEMS LIKE HE HAS NORMAL REACTION TIME AND ANSWERS. STABLE, MENTALLY LOT BETTER. (2) Altered mental status Onset Date: 12/09/17 Current Visit: No Status: Chronic Plan: THIAMINE PO DAILY. DR. NICOLE TO INVESTIGATE IF THIS IS SEIZURES OR NOT. IMPROVED CLINICALLY AFTER NEW SEIZURE MEDS. 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 NO CHANGES THERAPY MAY HELP TEMPORARILY. NO SIGNS OF CARDIAC ISSUES ON EXAMINATION. (4) Dysphagia Current Visit: Yes Status: Acute Plan: FROM [facility]. WILL BE ON THICKED LIQUIDS. HE HAS NO SYMPTOMS FROM FAILED MBS NO CHANGES TOLERATES FOOD SO FAR
--- NOTE | 2018-03-25 03:31 | FAST ---
SHIFT START DATE/TIME: 03/24/2018 19:00 (CDT) SHIFT END DATE/TIME: 03/25/2018 07:00 (CDT) NAME Caleb Lemus DATE OF : 1935 DATE OF ADMISSION: 03/10/2018 12:44 (CDT) PHONE: AGE: 83 [facility]# [id number] GENDER: Male ENCOUNTER PHYSICIAN: Dr. Wes Crawford M.D. ADMISSION DIAGNOSIS: - Debility 16 - Debility (16) Muscular Dystrophy. EATING: Activity did not occur on this shift EATING - SCORE: 0-UNK GROOMING: Wash, rinse, and dry hands GROOMING - STEP 1: Does the patient require assistance when grooming? Yes. GROOMING - STEP 2: Does the patient require the assistance of a helper? Yes. GROOMING - STEP 3: How much assistance does the patient require from the helper? Only prior equipment preparation/set up from the helper GROOMING - SCORE: 5-SUP BATHING: Activity did not occur on this shift BATHING - SCORE: 0-UNK DRESSING - UPPER BODY: Patient is not dressing in public clothing ARTICLES SCORE Total number of steps: 0 DRESSING - UPPER BODY - SCORE: 0-UNK DRESSING - LOWER BODY: Patient is not dressing in public clothing ARTICLES SCORE Total number of steps: 0 DRESSING - LOWER BODY - SCORE: 0-UNK TOILETING: TOILETING - STEP 1: Does the patient require assistance with toileting? Yes. TOILETING - STEP 2: Does the patient require the assistance of a helper? Yes. TOILETING - STEP 3: How much assistance does the patient require from the helper? Hands-on assistance from the helper TOILETING - STEP 4: Of the 3 tasks: 1) Adjusting clothing prior to use, 2) Cleansing of perineal area, 3) Adjusting clot jessica after use; How many tasks does the patient perform WITHOUT assistance of the helper? Three tasks with steadying assistance from the helper TOILETING - SCORE: 4-MIN BLADDER MANAGEMENT: BLADDER MANAGEMENT - STEP 1: Does the patient control the bladder completely and intentionally without equipment or devices or med ications, and is always continent? No. BLADDER MANAGEMENT - STEP 2: Does the patient require the assistance of a helper? Yes. BLADDER MANAGEMENT - STEP 3: How much assistance does the patient require from the helper? Patient requires contact assistance fro m the helper BLADDER MANAGEMENT - STEP 4: How much contact assistance does the patient require from the helper? Patient requires minimal assist ance to maintain an external device - by positioning, and the patient performs 75% or more of bladder management tasks, while the helper provides less than 25% of the assistance to position patient on / off bedpan BLADDER MANAGEMENT - SCORE: 4-MIN BOWEL MANAGEMENT: Activity did not occur on this shift BOWEL MANAGEMENT - SCORE: 7-IND TRANSFERS: BED, CHAIR, WHEELCHAIR: TRANSFERS: BED, CHAIR, WHEELCHAIR - STEP 1: Does the patient require assistance with bed, chair, or wheelchair transfers? Yes. TRANSFERS: BED, CHAIR, WHEELCHAIR - STEP 2: Does the patient require the assistance of a helper? Yes. TRANSFERS: BED, CHAIR, WHEELCHAIR - STEP 3: How much assistance does the patient require from the helper? Steadying/guiding assistance TRANSFERS: BED, CHAIR, WHEELCHAIR - SCORE: 4-MIN TRANSFERS: TOILET: TRANSFERS: TOILET - STEP 1: Does the patient require assistance with toilet transfers? Yes. TRANSFERS: TOILET - STEP 2: Does the patient require the assistance of a helper? Yes. TRANSFERS: TOILET - STEP 3: How much assistance does the patient require from the helper? Patient performs half or more of the tr ansferring tasks TRANSFERS: TOILET - STEP 4: Does the patient need only incidental help such as contact guard or steadying during toilet transfer? No. Patient needs more than incidental help TRANSFERS: TOILET - SCORE: 3-MOD TRANSFERS: SHOWER: Activity did not occur on this shift TRANSFERS: SHOWER - SCORE: 0-UNK TRANSFERS: TUB: Activity did not occur on this shift TRANSFERS: TUB - SCORE: 0-UNK LOCOMOTION: WALK: Activity did not occur on this shift LOCOMOTION: WALK - SCORE: 0-UNK LOCOMOTION: WHEELCHAIR: Activity did not occur on this shift LOCOMOTION: WHEELCHAIR - SCORE: 0-UNK COMPREHENSION: COMPREHENSION: TYPE: Both COMPREHENSION - STEP 1: Does the patient require help to understand complex and abstract ideas (such as current events, finan lynette, discharge planning, medical issues, relationships, etc)? Yes. COMPREHENSION - STEP 2: Does the patient require help to understand questions or statements about basic needs or ideas (such as hunger, thirst, sleep, safety, daily schedule, room location, or discomfort) half or more of the t los? No. COMPREHENSION - STEP 3: How often does the patient need help to understand directions and conversation about basic needs? Les s than 10% of the time COMPREHENSION - SCORE: 5-SUP EXPRESSION EXPRESSION: TYPE: Both EXPRESSION - STEP 1: Does the patient require help expressing complex and abstract ideas (such as current events, finances , discharge planning, medical issues, relationships, etc)? Yes. EXPRESSION - STEP 2: Does the patient require help to express basic necessities or ideas (such as hunger, thirst, sleep, s afety, daily schedule, room location, or discomfort) half or more of the time? No. EXPRESSION - STEP 3: How often does the patient need help to express directions and conversation about basic needs? Less t hilliard 10% of the time EXPRESSION - SCORE: 5-SUP SOCIAL INTERACTION: SOCIAL INTERACTION - STEP 1: Does the patient require a helper to interact with others in social and therapeutic situations? Yes. SOCIAL INTERACTION - STEP 2: Does the patient interact appropriately half or more of the time? Yes. SOCIAL INTERACTION - STEP 3: How often does the patient need help to interact appropriately? Less than 10% of the time SOCIAL INTERACTION - SCORE: 5-SUP PROBLEM SOLVING: PROBLEM SOLVING - STEP 1: Does the patient need help to solve complex problems such as managing a checking account or confronti ng interpersonal problems? Yes. PROBLEM SOLVING - STEP 2: Does the patient solve basic routine problems half or more of the time? Yes. PROBLEM SOLVING - STEP 3: How often does the patient need help to solve basic routine problems? Less than 10% of the time PROBLEM SOLVING - SCORE: 5-SUP MEMORY: MEMORY - STEP 1: Does the patient need help to remember frequently encountered people, daily routines, and executing r equests? Yes. MEMORY - STEP 2: How often does the patient need help to remember frequently encountered people, daily routines, and e xecuting requests? Less than 10% of the time MEMORY - SCORE: 5-SUP
[2018-03-25 06:32] LABS: Absolute Lymphocytes (CBC) 1.3 K/uL (0.7-4.9); Absolute Monocytes 0.6 K/uL (0.1-1.3); Absolute Neutrophil 2.7 K/uL (1.8-8.0); Basophils % 0.9 % (0-1.3); Eosinophils % 2.8 % (0-4.4); Hematocrit 41.3 % (39.6-49.0); Lymphocytes % 27.8 % (15.3-44.8); MCH 29.9 pg (27.0-35.0); MCV 89.6 fL (80-100); MPV 6.7 fL (7.6-11.3); Monocytes % 11.8 % (3.3-12.3)
[2018-03-25 07:11] LABS: Albumin 3.4 g/dL (3.2-5.5); BUN Blood Urea Nitrogen 17 mg/dL (6-20); Bicarbonate 33 mEq/L (21-31); Glucose Level 114 mg/dL (65-120); Potassium 4.3 mEq/L (3.6-5.0); Prealbumin 19.4 mg/dl (18-38); Sodium Level 138 mEq/L (135-145)
[2018-03-25] MEDS: METOPROLOL TAR 25 MG TAB PO SCH ×2 (07:46→20:00)
[2018-03-25] MEDS: ENSURE ENLIVE 237 ML CAN PO SCH (07:46)
[2018-03-25] MEDS: LOSARTAN POTASSIUM 50 MG TABLET PO SCH (07:46)
[2018-03-25] MEDS: ASPIRIN EC 81 MG TAB PO SCH (07:46)
[2018-03-25] MEDS: THIAMINE HCL 100 MG TABLET PO SCH (07:46)
[2018-03-25] MEDS: LACOSAMIDE 50 MG TABLET PO SCH ×2 (07:46→20:12)
--- NOTE | 2018-03-25 13:11 | P.PN ---
Subjective Date of Service: 03/25/18 Chief Complaint: STABLE , NO CHANGES Subjective: Improving (DC PLAN IN AM.) Review of Systems 10-point ROS is otherwise unremarkable Physical Examination - Vital Signs Temperature: 97.1 F Blood Pressure: 154/76 Pulse: 62 Respirations: 16 Pulse Ox (%): 95 - Physical Exam General: Alert, In no apparent distress, Obese HEENT: Atraumatic, PERRLA, EOMI Neck: Supple, JVD not distended Respiratory: Clear to auscultation bilaterally, Normal air movement Cardiovascular: Regular rate/rhythm, Normal S1 S2 Gastrointestinal: Normal bowel sounds, No tenderness Musculoskeletal: No tenderness Integumentary: No rashes Neurological: Normal speech, Normal tone, Normal affect, Abnormal tone (NO CHANGES.) Lymphatics: No axilla or inguinal lymphadenopathy - Studies Laboratory Data (last 24 hrs) 03/25/18 06:02: Sodium 138, Potassium 4.3, BUN 17, Creatinine 0.73, Glucose 114 03/25/18 06:02: WBC 4.7, Hgb 13.8, Hct 41.3, Plt Count 207 Medications List Reviewed: Yes Assessment And Plan - Current Problems (Diagnosis) (1) Non-refractory atypical absence seizures Onset Date: 03/15/18 Current Visit: Yes Status: Acute Plan: DR. NICOLE CONSULT START THIAMINE EEG HAS BEEN DONE . DR NICOLE IS AWARE OF HISTORY. DR. NICOLE AND DR BRICENO ARE WORKING ON THIS IF HE HAS SEIZURES OR NOT. HE DOES SEEM LIKE HE HAS RECURRENT EPISODES LIKE SEIZURES WOULD DO- ATYPICAL. DR. NICOLE GAVE NWE MEDS- LACOSAMIDE. BP HAS COME DOWN WITHOUT ANY NEEW MEDS. UNCLEAR ONLY SYMPTOMS ARE CONFUSION THAT IS SPORADIC NEW ANTISEIZURE MEDICINE SEEMS TO WORK GREAT ] HE HAS CLEAR THOUGHTS, AND LOT BETTER COGNITIVE FUNCTION NOW. ALTERED MENTAL STATUS HAS IMPROVED. IT SEEMS LIKE HE HAS NORMAL REACTION TIME AND ANSWERS. STABLE, MENTALLY LOT BETTER. (2) Altered mental status Onset Date: 12/09/17 Current Visit: No Status: Chronic Plan: THIAMINE PO DAILY. DR. NICOLE TO INVESTIGATE IF THIS IS SEIZURES OR NOT. IMPROVED CLINICALLY AFTER NEW SEIZURE MEDS. 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 NO CHANGES THERAPY MAY HELP TEMPORARILY. NO SIGNS OF CARDIAC ISSUES ON EXAMINATION. (4) Dysphagia Current Visit: Yes Status: Acute Plan: FROM [facility]. WILL BE ON THICKED LIQUIDS. HE HAS NO SYMPTOMS FROM FAILED MBS NO CHANGES TOLERATES FOOD SO FAR
--- NOTE | 2018-03-25 15:39 | FAST ---
ENCOUNTER DATE AND TIME: 03/25/2018 08:00 (CDT) NAME Caleb Lemus DATE OF : 1935 DATE OF ADMISSION: 03/10/2018 12:44 (CDT) PHONE: AGE: 83 N# [id number] GENDER: Male ENCOUNTER PHYSICIAN: Dr. Wes Crawford M.D. ADMISSION DIAGNOSIS: - Debility 16 - Debility (16) Muscular Dystrophy. EATING: Activity did not occur on this shift EATING - SCORE: 0-UNK GROOMING: Comb/brush hair Wash, rinse, and dry face Wash, rinse, and dry hands GROOMING - STEP 1: Does the patient require assistance when grooming? Yes. GROOMING - STEP 2: Does the patient require the assistance of a helper? No. The patient only requires an assistive devic e, OR takes more than reasonable time to groom, OR there is a concern for safety as the patient groom s GROOMING - SCORE: 6-MITRA BATHING: Abdomen Buttocks Chest Left arm Left lower leg and foot Left upper leg Perineal area Right arm Right lower leg and foot Right upper leg BATHING - STEP 1: Does the patient require assistance when bathing? Yes. BATHING - STEP 2: Does the patient require the assistance of a helper? Yes. BATHING - STEP 3: How much assistance does the patient require from the helper? Only supervision, cuing, coaxing, instr uctions, encouragement BATHING - SCORE: 5-SUP DRESSING - UPPER BODY: Button down shirt or blouse - NOT tucked in (four steps) ARTICLES SCORE Total number of steps: 4 DRESSING - UPPER BODY - STEP 1: Does the patient require help when dressing above the waist? Yes. DRESSING - UPPER BODY - STEP 2: Does the patient require the assistance of a helper? No. Patient only requires an assistive device, s uch as a button hook, velcro, or adult neuropsychologist. OR s/he takes more than reasonable time as s/he dresses the upper body. OR there is a concern for safety when s/he dresses the upper body DRESSING - UPPER BODY - SCORE: 6-MITRA DRESSING - LOWER BODY: Slip-on shoe - Left foot (one step) Slip-on shoe - Right foot (one step) Underwear (three steps) Zippered pants (four steps) ARTICLES SCORE Total number of steps: 9 DRESSING - LOWER BODY - STEP 1: Does the patient require help when dressing below the waist? Yes. DRESSING - LOWER BODY - STEP 2: Does the patient require the assistance of a helper? Yes. DRESSING - LOWER BODY - STEP 3: Does the helper touch the patient while dressing? No. DRESSING - LOWER BODY - SCORE: 5-SUP TOILETING: Activity did not occur on this shift TOILETING - SCORE: 0-UNK BLADDER MANAGEMENT: Activity did not occur on this shift BLADDER MANAGEMENT - SCORE: 7-IND BOWEL MANAGEMENT: Activity did not occur on this shift BOWEL MANAGEMENT - SCORE: 7-IND TRANSFERS: BED, CHAIR, WHEELCHAIR: Activity did not occur on this shift TRANSFERS: BED, CHAIR, WHEELCHAIR - SCORE: 0-UNK TRANSFERS: TOILET: Activity did not occur on this shift TRANSFERS: TOILET - SCORE: 0-UNK TRANSFERS: SHOWER: TRANSFERS: SHOWER - STEP 1: Does the patient require assistance with shower transfers? Yes. TRANSFERS: SHOWER - STEP 2: Does the patient require the assistance of a helper? Yes. TRANSFERS: SHOWER - STEP 3: How much assistance does the patient require from the helper? Only supervision, cuing, coaxing, or he lp to set out transfer equipment or to lock brakes and/or lift foot rests TRANSFERS: SHOWER - SCORE: 5-SUP TRANSFERS: TUB: Activity did not occur on this shift TRANSFERS: TUB - SCORE: 0-UNK LOCOMOTION: WALK: Activity did not occur on this shift LOCOMOTION: WALK - SCORE: 0-UNK LOCOMOTION: WHEELCHAIR: Activity did not occur on this shift LOCOMOTION: WHEELCHAIR - SCORE: 0-UNK LOCOMOTION: STAIRS: Activity did not occur on this shift LOCOMOTION: STAIRS - SCORE: 0-UNK COMPREHENSION: COMPREHENSION - SCORE: 0-UNK EXPRESSION EXPRESSION - SCORE: 0-UNK SOCIAL INTERACTION: SOCIAL INTERACTION - SCORE: 0-UNK PROBLEM SOLVING: PROBLEM SOLVING - SCORE: 0-UNK MEMORY: MEMORY - SCORE: 0-UNK SIGNATURE PANEL: The following modified sections: Eating - Score, Grooming - Score, Bathing - Score, Dressing - Upper Body - Score, Dressing - Lower Body - Score, Toileting - Score, Transfers: Bed, Chair, Wheelchair - S core, Transfers: Toilet - Score, Transfers: Shower - Score, Transfers: Tub - Score, Comprehension - S core, Expression - Score, Social Interaction - Score, Problem Solving - Score, Memory - Score were [e lectronically] signed by BAYRON Sauceda on ThuMar 25 2018 14:39:25 [facility]-0500 (Critical access hospital Time)
--- NOTE | 2018-03-25 16:13 | FAST ---
ENCOUNTER DATE AND TIME: 03/25/2018 08:00 (CDT) NAME Caleb Lemus DATE OF : 1935 DATE OF ADMISSION: 03/10/2018 12:44 (CDT) PHONE: AGE: 83 N# [id number] GENDER: Male ENCOUNTER PHYSICIAN: Dr. Wes Crawford M.D. ADMISSION DIAGNOSIS: - Debility 16 - Debility (16) Muscular Dystrophy. EATING: Activity did not occur on this shift EATING - SCORE: 0-UNK GROOMING: Activity did not occur on this shift GROOMING - SCORE: 0-UNK BATHING: Activity did not occur on this shift BATHING - SCORE: 0-UNK DRESSING - UPPER BODY: Activity did not occur on this shift Patient is not dressing in public clothing ARTICLES SCORE Total number of steps: 0 DRESSING - UPPER BODY - SCORE: 0-UNK DRESSING - LOWER BODY: Activity did not occur on this shift Patient is not dressing in public clothing ARTICLES SCORE Total number of steps: 0 DRESSING - LOWER BODY - SCORE: 0-UNK TOILETING: Activity did not occur on this shift TOILETING - SCORE: 0-UNK BLADDER MANAGEMENT: Activity did not occur on this shift BLADDER MANAGEMENT - SCORE: 7-IND BOWEL MANAGEMENT: Activity did not occur on this shift BOWEL MANAGEMENT - SCORE: 7-IND TRANSFERS: BED, CHAIR, WHEELCHAIR: TRANSFERS: BED, CHAIR, WHEELCHAIR - STEP 1: Does the patient require assistance with bed, chair, or wheelchair transfers? Yes. TRANSFERS: BED, CHAIR, WHEELCHAIR - STEP 2: Does the patient require the assistance of a helper? Yes. TRANSFERS: BED, CHAIR, WHEELCHAIR - STEP 3: How much assistance does the patient require from the helper? Only supervision TRANSFERS: BED, CHAIR, WHEELCHAIR - SCORE: 5-SUP TRANSFERS: TOILET: Activity did not occur on this shift TRANSFERS: TOILET - SCORE: 0-UNK TRANSFERS: SHOWER: Activity did not occur on this shift TRANSFERS: SHOWER - SCORE: 0-UNK TRANSFERS: TUB: Activity did not occur on this shift TRANSFERS: TUB - SCORE: 0-UNK LOCOMOTION: WALK: LOCOMOTION: WALK - STEP 1: Does the patient need help to walk 150 feet? Yes. LOCOMOTION: WALK - STEP 2: How much assistance does the patient require to walk a minimum of 150 feet? Only supervision, cuing, or coaxing LOCOMOTION: WALK - SCORE: 5-SUP LOCOMOTION: WHEELCHAIR: LOCOMOTION: WHEELCHAIR - STEP 1: Does the patient need help to go 150 feet in a wheelchair? Yes. LOCOMOTION: WHEELCHAIR - STEP 2: How much assistance does the patient need from the helper? Only supervision, cuing, or coaxing LOCOMOTION: WHEELCHAIR - SCORE: 5-SUP LOCOMOTION: STAIRS: Activity did not occur on this shift LOCOMOTION: STAIRS - SCORE: 0-UNK COMPREHENSION: COMPREHENSION - SCORE: 0-UNK EXPRESSION EXPRESSION - SCORE: 0-UNK SOCIAL INTERACTION: SOCIAL INTERACTION - SCORE: 0-UNK PROBLEM SOLVING: PROBLEM SOLVING - SCORE: 0-UNK MEMORY: MEMORY - SCORE: 0-UNK SIGNATURE PANEL: The following modified sections: Transfers: Bed, Chair, Wheelchair - Score, Transfers: Toilet - Score , Locomotion: Walk - Score, Locomotion: Wheelchair - Score, Locomotion: Stairs - Score were [electron ically] signed by Dennis Cervantes PTA on ThuMar 25 2018 15:13:33 T-0500 (Central Daylight Time)
--- NOTE | 2018-03-25 18:01 | R.PN ---
ENCOUNTER DATE AND TIME: 03/25/2018 16:58 (CDT) NAME Caleb Lemus DATE OF : 1935 DATE OF ADMISSION: 03/10/2018 12:44 (CDT) Muscular DystrophyCHIEF COMPLAINT: Diffuse weakness and fatigue SUBJECTIVE: Pt denied any Shortness of Breath. Pt denied any depression. Ambulated 250' using a rolling walker with standby assistance. Self-propelled wheelchair 160' with st andby assistance. Up and down 15 steps with contact guard assistance. Mr. Lemus has persistently elevated blood pressures. Will increase metoprolol to 25 mg bid from 12.5 mg bid. VITAL SIGNS Temperature: 97.2 F SBP/DBP: 154/76 Pulse: 62 Resp: 16 MEDICATION ALLERGIES: Morphine Sulfate Codeine Penicillin G sodium Trileptal Neurontin Lyrica ENVIRONMENTAL ALLERGIES: None Known - Substance Allergies None Known - Other Allergies None Known NURSING: - Shower allowing shower PRECAUTIONS: - Fall Precaution Bed and chair alarm ACTIVITIES OOB only with supervision THERAPIES: - Occupational Therapy Evaluate and Treat. - Physical Therapy Evaluate and Treat. - Speech Therapy Cognitive Training. PHYSICAL EXAM - Gen Alert and awake Lying in bed No apparent distress Oriented to: person, time, and place - Skin No breakdowns No abnormalities - Eyes No abnormalities - ENMT No abnormalities - Neck No abnormalities - CVS RRR - Chest Clear - Abd +BS No abnormalities - No abnormalities - Ext no edema - MSK 4+/5 weakness in both lower extremities. - Neuro No focal deficits, his cognitive assessment test 01/08. - Psych No abnormalities ASSESSMENT: Pt. is a 83 yo Right-handed white male.On 03/09/2018 he was admitted to [facility] with diagnosis Muscular Dystrophy.His impairment category is Debility 16 - Debility (16).Pre-mor bidly, Pt. was independent/mod-I in Locomotion, Sphincter Control, Transfers Control, Communication, Social Cognition, and Self-Care; and he had good Sphincter Control.Currently, he has deficits of [place] motion, Endurance, Safety Awareness, Transfers Control, Communication, Social Cognition, Balance, and Self-Care.Pt. is now referred to [facility] for acute in-patient rehabilitati on in order to maximize patient's functional independence in activities of daily living, strength, RO M, and mobility.- Rehab Goal Patient has realistic goal of being discharged at assistance level 6-Humberto to reside at Home with Fam rudolph/Relatives. MDM/PLAN: - Diet Type Continue Regular - Physical Therapy Gait dysfunction - to improve, our physical therapists will perform initial evaluation of pt's statu s upon admission and devise an individualized program for Gait Training, and Wheel Chair mobility Inability to transfer - to improve, our physical therapists will perform initial evaluation of pt's status upon admission and devise an individualized program for Bed mobility Need for home safety evaluation - to improve, our physical therapists will perform initial evaluatio n of pt's status upon admission and devise an individualized program for Home Evaluation Need in caregiver upon discharge - to improve, our physical therapists will perform initial evaluati on of pt's status upon admission and devise an individualized program for Caregiver Training New precaution - to improve, our physical therapists will perform initial evaluation of pt's status upon admission and devise an individualized program for Patient precaution education Poor balance - to improve, our physical therapists will perform initial evaluation of pt's status up on admission and devise an individualized program for Balance Training Poor endurance - to improve, our physical therapists will perform initial evaluation of pt's status upon admission and devise an individualized program for Endurance Training Weakness - to improve, our physical therapists will perform initial evaluation of pt's status upon a dmission and devise an individualized program for Aquatic Therapy, Neuromuscular Reeducation, and Str engthening Achieving independence - to improve, our physical therapists will perform initial evaluation of pt's status upon admission and devise an individualized program for Community Reintegration Activities - Diet - Liquid Texture Continue Regular - Tube Feed Continue N/A - Fall Precaution Bed and chair alarm - Diet - Solid Texture Continue Regular - Shower allowing shower - Occupational Therapy ADL deficits - to improve, our occupation therapists will perform initial evaluation of pt's status upon admission and devise an individualized program for Bathing, Bed mobility, Community Reintegratio n, Cooking, Dressing, Eating, Fine Motor Skills, Grooming, Homemaking, Kitchen Mobility, Laundry, Pat ient Education, Safety Awareness, Splinting - Positioning, Transfers(Toilet, Tub, Shower), and Wheel Chair Management Cognitive deficits - to improve, our occupation therapists will perform initial evaluation of pt's s tatus upon admission and devise an individualized program for Cognition - orientation Need for career development facilitator - to improve, our occupation therapists will perform initial evaluation of pt's status upon admission and devise an individualized program for Caregiver Training Weakness - to improve, our occupation therapists will perform initial evaluation of pt's status upon admission and devise an individualized program for Aquatic Therapy, Balance, Endurance, UE ROM, and UE strengthening FUNCTIONAL STATUS: UPDATED AT WEEKLY TEAM CONFERENCE - Bladder Same accident frequency: 7-Ind - No accidents in the past 7 days - Bowel Same accident frequency: 7-Ind - No accidents in the past 7 days - Walking Same score based on distance walked: 0(N/A) - Wheelchair Same score based on distance traveled: 0(N/A) FUNCTIONAL STATUS: - Self-Care A. Eating Humberto B. Grooming Humberto C. Bathing Dalia D. Dressing - Upper sup E. Dressing - Lower Dalia F. Toileting Dalia - Sphincter Control G: Bladder control Ind H: Bowel control Ind - Transfers Control I. Bed/Chair/Wheelchair Dalia J. Toilet Dalia K. Tub/Shower Dalia - Locomotion L. Walk/Wheelchair (C) Dalia L. Walk/Wheelchair (W) Dalia M. Stairs ADNO - Communication N. Comprehension (B) sup O. Expression (B) sup - Social Cognition P. Social Interaction sup Q. Problem Solving sup R. Memory sup - Endurance Fair - Balance Fair - Safety Awareness Fair CURRENT FUNC. DEFICITS: Locomotion, Endurance, Safety Awareness, Transfers Control, Communication, Social Cognition, Balance, and Self-Care SIGNATURE PANEL: (CDT)
[2018-03-25] MEDS: MELATONIN 3 MG TABLET PO PRN (20:12)
[2018-03-26] MEDS: LOSARTAN POTASSIUM 50 MG TABLET PO SCH (07:26)
[2018-03-26] MEDS: THIAMINE HCL 100 MG TABLET PO SCH (07:26)
[2018-03-26] MEDS: LACOSAMIDE 50 MG TABLET PO SCH (07:26)
[2018-03-26] MEDS: METOPROLOL TAR 25 MG TAB PO SCH (07:26)
[2018-03-26] MEDS: ASPIRIN EC 81 MG TAB PO SCH (07:26)
[2018-03-26] MEDS: ENSURE ENLIVE 237 ML CAN PO SCH (07:27)
[2018-03-26 09:11] VITALS: TEMP 96.9
--- NOTE | 2018-03-26 09:59 | P.RH.PN ---
Estimated Length of Stay: 17 Expected Discharge Date: 03/26/18 Discharge Disposition Plan: Home Family Support: Yes Group Home Goal: Mobility, Transfers, Self Care Vital Signs: Last Vital Signs Temp 96.9 F 03/26/18 07:25 Pulse 69 03/26/18 07:26 Resp 18 03/26/18 07:25 BP 196/88 H 03/26/18 07:26 Pulse Ox 98 03/26/18 07:25 Laboratory: Laboratory Last Values WBC 4.7 K/uL (4.3-10.9) 03/25/18 06:02 RBC 4.60 M/uL (4.33-5.43) 03/25/18 06:02 Hgb 13.8 g/dL (13.6-17.9) 03/25/18 06:02 Hct 41.3 % (39.6-49.0) 03/25/18 06:02 MCV 89.6 fL (80-100) 03/25/18 06:02 MCH 29.9 pg (27.0-35.0) 03/25/18 06:02 MCHC 33.4 g/dL (32.0-36.0) 03/25/18 06:02 RDW 15.3 % (12.1-15.2) H 03/25/18 06:02 Plt Count 207 K/uL (152-406) 03/25/18 06:02 MPV 6.7 fL (7.6-11.3) L 03/25/18 06:02 Neutrophils % 56.7 % (41.7-73.7) 03/25/18 06:02 Lymphocytes % 27.8 % (15.3-44.8) 03/25/18 06:02 Monocytes % 11.8 % (3.3-12.3) 03/25/18 06:02 Eosinophils % 2.8 % (0-4.4) 03/25/18 06:02 Basophils % 0.9 % (0-1.3) 03/25/18 06:02 Absolute Neutrophils 2.7 K/uL (1.8-8.0) 03/25/18 06:02 Absolute Lymphocytes 1.3 K/uL (0.7-4.9) 03/25/18 06:02 Absolute Monocytes 0.6 K/uL (0.1-1.3) 03/25/18 06:02 Absolute Eosinophils 0.1 K/uL (0-0.5) 03/25/18 06:02 Absolute Basophils 0.0 K/uL (0-0.5) 03/25/18 06:02 Morphology Comment Not seen (NOT SEEN) 03/11/18 06:01 ESR Westergren 15 mm/HR (0-20) 03/24/18 06:00 Sodium 138 mEq/L (135-145) 03/25/18 06:02 Potassium 4.3 mEq/L (3.6-5.0) 03/25/18 06:02 Chloride 99 mEq/L (101-111) L 03/25/18 06:02 Carbon Dioxide 33 mEq/L (21-31) H 03/25/18 06:02 BUN 17 mg/dL (6-20) 03/25/18 06:02 Creatinine 0.73 mg/dL (0.61-1.24) 03/25/18 06:02 Estimated GFR > 90 mL/min (=/>90) 03/25/18 06:02 Glucose 114 mg/dL (65-120) 03/25/18 06:02 Calcium 9.0 mg/dL (8.5-10.5) 03/25/18 06:02 Magnesium 2.0 mg/dL (1.8-2.5) 03/17/18 05:58 Total Bilirubin 0.6 mg/dL (0.3-1.2) 03/12/18 13:42 Direct Bilirubin 0.2 mg/dL (0-0.2) 03/12/18 13:42 AST 25 IU/L (10-42) 03/12/18 13:42 ALT 15 IU/L (10-60) 03/12/18 13:42 Alkaline Phosphatase 41 IU/L (42-121) L 03/12/18 13:42 Ammonia 30 umol/L (10-45) 03/12/18 13:42 C-Reactive Protein 10.0 mg/L (<10.0) 03/24/18 06:00 Serum Total Protein 6.5 g/dL (6.0-8.3) 03/12/18 13:42 Albumin 3.4 g/dL (3.2-5.5) 03/25/18 06:02 Globulin 3.2 g/dL (2.3-3.5) 03/12/18 13:42 Albumin/Globulin Ratio 1.0 (1.1-1.8) L 03/12/18 13:42 Prealbumin 19.4 mg/dl (18-38) 03/25/18 06:02 Vitamin B12 678 pg/ml (180-914) 03/12/18 13:42 Serum Folate 11.0 ng/ml (>5.21) 03/12/18 13:42 Prolactin 5.9 ng/mL () 03/12/18 19:50 Urine Color Yellow 03/10/18 22:38 Urine Appearance Clear 03/10/18 22:38 Urine pH 7.0 (5.0-7.0) 03/10/18 22:38 Ur Specific [place] 1.010 (1.005-1.030) 03/10/18 22:38 Urine Ketones Negative (NEG) 03/10/18 22:38 Urine Blood Negative (NEG) 03/10/18 22:38 Urine Nitrite Negative (NEG) 03/10/18 22:38 Urine Bilirubin Negative (NEG) 03/10/18 22:38 Urine Urobilinogen 1.0 mg/dL (0.2-1.0) 03/10/18 22:38 Ur Leukocyte Esterase Negative (NEG) 03/10/18 22:38 Urine RBC None seen /HPF (NONE SEEN) 03/10/18 22:38 Urine WBC <5 /HPF (<5) 03/10/18 22:38 Ur Squamous Epith Cells AIRPORT ELECTRICIAN 03/10/18 22:38 Urine Bacteria <20 /HPF (NONE SEEN) 03/10/18 22:38 Urine Culture Reflexed Not needed 03/10/18 22:38 Urine Glucose Negative (NEG) 03/10/18 22:38 Urine Total Protein Negative (NEG) 03/10/18 22:38 Valproic Acid 37.7 ug/ml (50-100) L 03/11/18 14:40 Miscellaneous Test Sent 03/18/18 06:50 Weight: 223 lb 14.4 oz Wound Present: No Closed Surgical Incision Present: No Negative Pressure Wound Therapy Present: No Physician Update: He is doing well medicall with blood work being esssentially normal. He does well using a rolling walker at standby assistance level. He responds to verbal ques and uses adaptive equipment. He will be discharged home today with outpatient therapy. Comment: abrasions noted to face and both arms from patient scratching. sites scabbed. Bandaid on L arm. Functional Improvement: pt demonstrated progress; however, he did not meet functional goals primarily due to lack of cognitive alertness and safety. pt ambulates better with RW thatn rollator and is recommended to use RW at this time. Functional Improvement Occupational Therapy: PATIENT HAS GREAT DIFFICULTIES WITH ORIENTATION, COGNITION, INITIATION, PROBLEM SOLVING, AND SLOW PROCESSING. Speech Therapy Update: Pt. tolerating honey thickend liquids well and has begun to perform independent practice between sessions. Pt. continues to require Direct supervision to follow instructions to perform tasks adequately. Pt. requires a single cue to utilize dysphagia strategies with meals. Pt. continues to require maximal cuing to recall and utilize basic safety strategies (i.e. press the call button, and lock your breaks). 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 Please see the Rehabilitation Signature page for all necessary signatures.
[2018-03-26 11:09] VITALS: BP 93/54
--- NOTE | 2018-03-26 12:06 | FAST ---
SHIFT START DATE/TIME: 03/26/2018 07:00 (CDT) SHIFT END DATE/TIME: 03/26/2018 19:00 (CDT) NAME Caleb Lemus DATE OF : 1935 DATE OF ADMISSION: 03/10/2018 12:44 (CDT) PHONE: AGE: 83 [facility]# [id number] GENDER: Male ENCOUNTER PHYSICIAN: Dr. Wes Crawford M.D. ADMISSION DIAGNOSIS: - Debility 16 - Debility (16) Muscular Dystrophy. EATING: EATING - STEP 1: Does the patient require assistance when eating? Yes. EATING - STEP 2: Does the patient require the assistance of a helper? Yes. EATING - STEP 3: Does the patient perform half or more of the eating tasks? Yes. EATING - STEP 4: Does the patient need only supervision, cuing, coaxing OR help to apply an orthosis OR help to cut fo od, open containers, pour liquids, or butter bread? Yes. EATING - SCORE: 5-SUP GROOMING: Comb/brush hair Oral care Wash, rinse, and dry face GROOMING - STEP 1: Does the patient require assistance when grooming? Yes. GROOMING - STEP 2: Does the patient require the assistance of a helper? Yes. GROOMING - STEP 3: How much assistance does the patient require from the helper? Only prior equipment preparation/set up from the helper GROOMING - SCORE: 5-SUP BATHING: Activity did not occur on this shift BATHING - SCORE: 0-UNK DRESSING - UPPER BODY: Activity did not occur on this shift ARTICLES SCORE Total number of steps: 0 DRESSING - UPPER BODY - SCORE: 0-UNK DRESSING - LOWER BODY: Slip-on shoe - Left foot (one step) Slip-on shoe - Right foot (one step) Zippered pants (four steps) ARTICLES SCORE Total number of steps: 6 DRESSING - LOWER BODY - STEP 1: Does the patient require help when dressing below the waist? Yes. DRESSING - LOWER BODY - STEP 2: Does the patient require the assistance of a helper? Yes. DRESSING - LOWER BODY - STEP 3: Does the helper touch the patient while dressing? Yes. DRESSING - LOWER BODY - STEP 4: How many of the total steps does the patient complete on his/her own? 4 DRESSING - LOWER BODY - SCORE: 3-MOD TOILETING: TOILETING - STEP 1: Does the patient require assistance with toileting? Yes. TOILETING - STEP 2: Does the patient require the assistance of a helper? Yes. TOILETING - STEP 3: How much assistance does the patient require from the helper? Only supervision TOILETING - SCORE: 5-SUP BLADDER MANAGEMENT: BLADDER MANAGEMENT - STEP 1: Does the patient control the bladder completely and intentionally without equipment or devices or med ications, and is always continent? Yes. BLADDER MANAGEMENT - SCORE: 7-IND BLADDER MANAGEMENT - FREQUENCY OF ACCIDENTS: BLADDER MANAGEMENT(FA) - STEP 1: How many accidents has the patient had during the current shift? 0 BOWEL MANAGEMENT: BOWEL MANAGEMENT - STEP 1: Does the patient control bowels completely and intentionally without equipment devices or medications AND is always continent? Yes. BOWEL MANAGEMENT - SCORE: 7-IND BOWEL MANAGEMENT - FREQUENCY OF ACCIDENTS: BOWEL MANAGEMENT(FA) - STEP 1: How many accidents has the patient had during the current shift? 0 TRANSFERS: BED, CHAIR, WHEELCHAIR: TRANSFERS: BED, CHAIR, WHEELCHAIR - STEP 1: Does the patient require assistance with bed, chair, or wheelchair transfers? Yes. TRANSFERS: BED, CHAIR, WHEELCHAIR - STEP 2: Does the patient require the assistance of a helper? Yes. TRANSFERS: BED, CHAIR, WHEELCHAIR - STEP 3: How much assistance does the patient require from the helper? Steadying/guiding assistance TRANSFERS: BED, CHAIR, WHEELCHAIR - SCORE: 4-MIN TRANSFERS: TOILET: TRANSFERS: TOILET - STEP 1: Does the patient require assistance with toilet transfers? Yes. TRANSFERS: TOILET - STEP 2: Does the patient require the assistance of a helper? Yes. TRANSFERS: TOILET - STEP 3: How much assistance does the patient require from the helper? Only supervision, cuing, coaxing, OR he lp to set out transfer equipment or to lock brakes and/or lift foot rests TRANSFERS: TOILET - SCORE: 5-SUP TRANSFERS: SHOWER: Activity did not occur on this shift TRANSFERS: SHOWER - SCORE: 0-UNK TRANSFERS: TUB: Activity did not occur on this shift TRANSFERS: TUB - SCORE: 0-UNK LOCOMOTION: WALK: Activity did not occur on this shift LOCOMOTION: WALK - SCORE: 0-UNK LOCOMOTION: WHEELCHAIR: Activity did not occur on this shift LOCOMOTION: WHEELCHAIR - SCORE: 0-UNK COMPREHENSION: COMPREHENSION - SCORE: 0-UNK EXPRESSION EXPRESSION - SCORE: 0-UNK SOCIAL INTERACTION: SOCIAL INTERACTION - SCORE: 0-UNK PROBLEM SOLVING: PROBLEM SOLVING - SCORE: 0-UNK MEMORY: MEMORY - SCORE: 0-UNK SIGNATURE PANEL: The following modified sections: Eating - Score, Grooming - Score, Bathing - Score, Dressing - Upper Body - Score, Dressing - Lower Body - Score, Toileting - Score, Bladder Management - Score, Bowel Man agement - Score, Transfers: Bed, Chair, Wheelchair - Score, Transfers: Toilet - Score, Transfers: Beverly wer - Score, Transfers: Tub - Score, Locomotion: Walk - Score, Locomotion: Wheelchair - Score, Compre hension - Score, Expression - Score, Social Interaction - Score, Problem Solving - Score, Memory - Sc ore were [electronically] signed by Yessy Caldwell CNA on ThuMar 26 2018 11:06:49 T-0500 (Cent[place] Daylight Time)
--- NOTE | 2018-04-19 19:21 | R.DS ---
FACILITY [facility] MR# [id number] NAME Caleb Lemus ADDRESS [address], [address] [facility] [place] [address] PHONE DATE OF 1935 AGE 83 SSN# [id number] GENDER Male DEXTERITY Right-handed MARITAL STATUS RACE White ENCOUNTER PHYSICIAN Dr. Wes Crawford M.D. REFERRING DOCTOR Bruno Valadez REFERRING FACILITY [facility] DISCHARGE DIAGNOSIS: - Debility 16 - Debility (16) Muscular Dystrophy. 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 is a 83 yo Right-handed white male.On 03/09/2018 he was admitted to [facility] with diagnosis Muscular Dystrophy.His impairment category is Debility 16 - Debility (16).Pre-mor bidly, Pt. was independent/mod-I in Self-Care and Sphincter Control; and he had good Sphincter Contro l.Currently, he has deficits of Locomotion, Endurance, Safety Awareness, Transfers Control, Communica tion, Social Cognition, Balance, and Self-Care.Pt. is now referred to [facility] for acute in-patient rehabilitation in order to maximize patient's functional independence in acti vities of daily living, strength, ROM, and mobility.- Rehab Goal Patient has realistic goal of being discharged at assistance level 6-Humberto to reside at Home with Fam rudolph/Relatives. HOSPITAL COURSE: On 03/09/2018 the following precautions were added for the patient: Fall Precaution - Bed and chair a larm. On 03/11/2018 the following precautions were added for the patient: Fall Precaution - Bed and chair alarm. On 03/15/2018 the following precautions were removed for the patient: Fall Precaution - Bed and priscilla r alarm. On 03/16/2018 the following precautions were added for the patient: Fall Precaution - Bed and chair alarm. The following precautions were removed for the patient: Fall Precaution - Bed and chair alarm, and F all Precaution - Bed and chair alarm. DIET - LIQUID TEXTURE: On 03/09/2018 Pt was upgraded to Regular Diet - Liquid Texture. DIET - SOLID TEXTURE: On 03/09/2018 Pt was upgraded to Regular Diet - Solid Texture. DIET TYPE: On 03/09/2018 Pt was upgraded to Regular Diet Type. FALL PRECAUTION: TUBE FEED: On 03/09/2018 Pt was changed to N/A Tube Feed. DISCHARGE PHYSICAL EXAM - Gen Alert and awake Lying in bed No apparent distress Oriented to: person, time, and place - Skin No breakdowns No abnormalities - Eyes No abnormalities - ENMT No abnormalities - Neck No abnormalities - CVS RRR - Chest Clear - Abd +BS No abnormalities - No abnormalities - Ext no edema - MSK 4+/5 weakness in both lower extremities. - Neuro No focal deficits, his cognitive assessment test 01/08. - Psych No abnormalities FUNCTIONAL STATUS: - Self-Care A. Eating 6-Humberto 6-Humberto B. Grooming 6-Humberto 7-Ind C. Bathing 4-Dalia 5-sup D. Dressing - Upper 5-sup 6-Humberto E. Dressing - Lower 4-Dalia 5-sup F. Toileting 4-Dalia 5-sup - Sphincter Control G: Bladder control 7-Ind 7-Ind H: Bowel control 7-Ind 7-Ind - Transfers Control I. Bed/Chair/Wheelchair 4-Dalia 5-sup J. Toilet 4-Dalia 5-sup K. Tub/Shower 4-Dalia 5-sup - Locomotion L. Walk/Wheelchair (C) 4-Dalia 5-sup L. Walk/Wheelchair (W) 4-Dalia 6-Humberto M. Stairs 0-ADNO 5-sup - Communication N. Comprehension (B) 5-sup 5-sup O. Expression (B) 5-sup 5-sup - Social Cognition P. Social Interaction 5-sup 5-sup Q. Problem Solving 5-sup 5-sup R. Memory 5-sup 5-sup - Endurance Fair - Balance Fair - Safety Awareness Fair DISCHARGE INSTRUCTIONS: - N/A Aspirin 81 mg daily. DISCHARGE PLAN, FOLLOW UP CARE PROVISIONS: - Estimated Length of Stay (days) 13. - Consensus on plan Discharge plan has been discussed with primary caregiver. Patient/Family is in agreement with the conner n. Primary caregiver is in agreement with the plan. - Patient/Family Goals Return home with assistance. - Planned Living Setting Upon Discharge Home, to live with Family/Relatives. SIGNATURE PANEL: (CDT)
== END 2018-03-26 12:00 | disposition home or self-care (01) | DRG 101 ==
LOC: 5TH 12:44
PROVIDERS: ADMIT Psychiatry & Neurology Neurology with Special Qualifications in Child Neurology; ATTEND Psychiatry & Neurology Neurology with Special Qualifications in Child Neurology
DX: G40.89 Other seizures (principal); G71.0 Muscular dystrophy; R41.0 Disorientation, unspecified; R53.81 Other malaise; R13.10 Dysphagia, unspecified
CPT/HCPCS: 36415; 70450; 74230; 80048; 80076; 80164; 81001; 82040; 82140; 82607; 82746; 83735; 84134; 84146; 85025; 85652; 86140; 87086; 87088; 95819; 97542

== ENCOUNTER 2018-03-27 10:50 | Emergency (ER) | payer OTHER ==
[2018-03-27] MEDS ORDERED: FUROSEMIDE 20 MG/ 2ML VIAL ONE (11:56)
[2018-03-27 12:16] LABS: Absolute Monocytes 0.7 K/uL (0.1-1.3); Absolute Neutrophil 4.8 K/uL (1.8-8.0); Basophils % 0.5 % (0-1.3); Eosinophils % 0.6 % (0-4.4); Hematocrit 41.2 % (39.6-49.0); MCH 30.2 pg (27.0-35.0); MCV 89.3 fL (80-100); MPV 6.8 fL (7.6-11.3); Monocytes % 11.1 % (3.3-12.3); RBC Red Blood Cell Count 4.62 M/uL (4.33-5.43)
[2018-03-27 12:18] LABS: Albumin 3.6 g/dL (3.2-5.5); Bilirubin Direct 0.3 mg/dL (0-0.2); Bilirubin Total 1.1 mg/dL (0.3-1.2); Magnesium 2.1 mg/dL (1.8-2.5); Protein, Total 7.3 g/dL (6.0-8.3); Protime INR 1.02
[2018-03-27 12:37] LABS: Potassium 4.3 mEq/L (3.6-5.0)
--- NOTE | 2018-03-27 12:40 | RAD REPORT ---
EXAM DESCRIPTION: Rubens Single View03/27/2018 11:49 am CLINICAL HISTORY: sob COMPARISON: November 2017 FINDINGS: The lungs appear clear of acute infiltrate. The heart is mildly enlarged. Pacemaker leads are in place. IMPRESSION: No acute abnormalities displayed
--- NOTE | 2018-03-27 13:30 | RAD REPORT ---
EXAM DESCRIPTION: CT - Head Brain Wo Cont - 03/27/2018 1:18 pm CLINICAL HISTORY: Seizure with fall and head injury. COMPARISON: March 12, 2018 TECHNIQUE: Computed axial tomography of the head was obtained. IV contrast was not requested. All CT scans are performed using dose optimization technique as appropriate and may include automated exposure control or mA/KV adjustment according to patient size. FINDINGS: An intracranial bleed is not seen . The ventricles are normal in caliber. 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 No extra-axial fluid collection is noted. Mild to moderate low-density areas within periventricular, deep and subcortical white matter likely represent ischemic changes secondary to small vessel disease . The sella turcica is enlarged. It contains fat. It is unchanged in appearance from multiple prior exa ms. Fluid within the sinuses/ mastoids is not seen. IMPRESSION: No acute intracranial abnormality is seen. If patient's symptoms persist MRI of the bra in would be recommended.
[2018-03-27 13:55] LABS: Urine Blood 2+ (NEG); Urine Glucose NEGATIVE (NEG); Urine Protein 3+ (NEG); Urine pH 7.5 (5.0-7.0)
[2018-03-27 14:04] LABS: Urine Bacteria >50 /HPF (NONE SEEN)
[2018-03-27 14:05] LABS: Urine Culture Reflex Order REFLEXED
[2018-03-27] MEDS ORDERED: CEFTRIAXONE/SWI 1gm 1 GM/10 ML SYR ONE (14:16)
--- NOTE | 2018-03-27 14:17 | EDPHYS ---
Physician Documentation [facility] Name: Caleb Lemus Age: 83 yrs Sex: Male : 1935 Arrival Date: 03/27/2018 Time: 10:54 Bed 17 Private MD: Bruno Valadez V ED Physician John Carter HPI: 03/27 12:11 This 83 yrs old Male presents to ER via Wheelchair with complaints of Fall jr8 Injury. 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 Now has speech problems that they think is seizures on/off. Today was having episode but became generally weak in lower extremities and could not walk. stated that this has never occurred before. Can normally do all daily activities with supervision . Severity of symptoms: At their worst the symptoms were moderate in the emergency department the symptoms have improved. The patient has not experienced similar symptoms in the past. The patient has not recently seen a physician. Historical: - Allergies: 11:03 Clindamycin; sv 11:03 Codeine; sv 11:03 Fentanyl; sv 11:03 Hydromorphone; sv 11:03 Morphine; sv 11:03 PENICILLINS; sv 11:03 narcotics; sv 11:03 Methadone; sv - PMHx: 11:03 CHF; Hypertension; sv - PSHx: 11:03 Knee surgery; feet; Hernia repair; pacemaker with defibrillator; sv - Immunization history:: Adult Immunizations up to date. - Social history:: Smoking status: Patient/guardian denies using tobacco, . - Ebola Screening: : No symptoms or risks identified at this time. ROS: 12:11 Eyes: Negative for injury, pain, redness, and discharge, ENT: Negative for injury, jr8 pain, and discharge, Neck: Negative for injury, pain, and swelling, Cardiovascular: Negative for chest pain, palpitations, and edema, Respiratory: Negative for shortness of breath, cough, wheezing, and pleuritic chest pain, Abdomen/GI: Negative for abdominal pain, nausea, vomiting, diarrhea, and constipation, Back: Negative for injury and pain, MS/Extremity: Negative for injury and deformity, Skin: Negative for injury, rash, and discoloration. 12:11 Neuro: Positive for altered mental status, seizure activity, weakness, Negative for headache, loss of consciousness, numbness, speech changes, syncope, near syncope, tingling, tinnitus, tremor. Exam: 12:11 Eyes: Pupils equal round and reactive to light, extra-ocular motions intact. Lids and jr8 lashes normal. Conjunctiva and sclera are non-icteric and not injected. Cornea within normal limits. Periorbital areas with no swelling, redness, or edema. ENT: Nares patent. No nasal discharge, no septal abnormalities noted. Tympanic membranes are normal and external auditory canals are clear. Oropharynx with no redness, swelling, or masses, exudates, or evidence of obstruction, uvula midline. Mucous membranes moist. Neck: Trachea midline, no thyromegaly or masses palpated, and no cervical lymphadenopathy. Supple, full range of motion without nuchal rigidity, or vertebral point tenderness. No Meningismus. Cardiovascular: Regular rate and rhythm with a normal S1 and S2. No gallops, murmurs, or rubs. Normal PMI, no JVD. No pulse deficits. Respiratory: Lungs have equal breath sounds bilaterally, clear to auscultation and percussion. No rales, rhonchi or wheezes noted. No increased work of breathing, no retractions or nasal flaring. Abdomen/GI: Soft, non-tender, with normal bowel sounds. No distension or tympany. No guarding or rebound. No evidence of tenderness throughout. Back: No spinal tenderness. No costovertebral tenderness. Full range of motion. Skin: Warm, dry with normal turgor. Normal color with no rashes, no lesions, and no evidence of cellulitis. MS/ Extremity: Pulses equal, no cyanosis. Neurovascular intact. Full, normal range of motion. Neuro: Awake and alert, GCS 15, oriented to person, place, time, and situation. Cranial nerves II-XII grossly intact. Motor strength 5/5 in all extremities. Sensory grossly intact. Cerebellar exam normal. Normal gait. Vital Signs: 11:00 BP 132 / 117; Pulse 92; Resp 18; Temp 99.9; Pulse Ox 94% on R/A; Weight 101.15 kg; sv Height 5 ft. 6 in. (167.64 cm); Pain 0/10; 14:11 BP 136 / 91; Pulse 97; Resp 20; Pulse Ox 97% on R/A; aj 14:32 BP 134 / 89; Pulse 89; Resp 19; Pulse Ox 99% on R/A; aj 11:00 Body Mass Index 35.99 (101.15 kg, 167.64 cm) sv MDM: 11:05 Patient medically screened. jr8 14:13 Data reviewed: vital signs, nurses notes, lab test result(s), radiologic studies, CT jr8 scan, and as a result, I will discharge patient. Data interpreted: Pulse oximetry: on room air is 97 %. Interpretation: normal. Counseling: I had a detailed discussion with the patient and/or guardian regarding: the historical points, exam findings, and any diagnostic results supporting the discharge/admit diagnosis, lab results, radiology results, the need for outpatient follow up, a family practitioner, a neurologist, to return to the emergency department if symptoms worsen or persist or if there are any questions or concerns that arise at home. 14:13 ED course: Discussed with patient and that he has urinary tract infection. This jr8 can contribute to both AMS and increased seizures. Will treat with antibiotics and see how he does. If worse to come back. Otherwise Dr. Valadez wants him to f/u on out patient basis with him and Dr. Zimmerman . 03/27 11:25 Order name: Basic Metabolic Panel; Complete Time: 12:59 03/27 11:25 Order name: BNP; Complete Time: 12:25 03/27 11:25 Order name: CBC with Diff; Complete Time: 12:25 03/27 11:25 Order name: CPK; Complete Time: 12:59 03/27 11:25 Order name: LFT's; Complete Time: 12:59 03/27 11:25 Order name: Magnesium; Complete Time: 12:59 03/27 11:25 Order name: PT-INR; Complete Time: 12:40 03/27 11:25 Order name: XRAY Chest (1 view); Complete Time: 12:43 03/27 11:25 Order name: Urine Microscopic Only; Complete Time: 14:17 03/27 12:44 Order name: CT Head Brain wo Cont; Complete Time: 13:31 03/27 13:47 Order name: Urine Dipstick--Ancillary (enter results); Complete Time: 13:56 em1 03/27 14:06 Order name: Urine Culture [facility] 03/27 11:25 Order name: Cardiac monitoring; Complete Time: 11:43 [facility] 03/27 11:25 Order name: EKG - Nurse/Tech [facility] 03/27 11:25 Order name: IV Saline Lock; Complete Time: 11:43 [facility] 03/27 11:25 Order name: Labs collected and sent; Complete Time: 11:43 [facility] 03/27 11:25 Order name: O2 Per Protocol; Complete Time: 11:43 [facility] 03/27 11:25 Order name: O2 Sat Monitoring; Complete Time: 11:44 [facility] 03/27 11:25 Order name: Urine Dipstick-Ancillary (obtain specimen); Complete Time: 13:46 jr Administered Medications: 14:21 Drug: Rocephin 1 grams Route: IV; Rate: calculated rate; Site: right forearm; aj Disposition: 19:01 Co-signature as Attending Physician, John Carter MD. Disposition: 03/27/18 14:16 Discharged to Home. Impression: Urinary tract infection, site not specified. - Condition is Stable. - Discharge Instructions: Urinary Tract Infection. - Prescriptions for Cipro 500 mg Oral Tablet - take 1 tablet by ORAL route every 12 hours for 10 days; 20 tablet. - Medication Reconciliation Form, Thank You Letter, Antibiotic Education, Prescription Opioid Use form. - Follow up: Bruno Valadez MD; When: 2 - 3 days; Reason: Recheck today's complaints, Continuance of care, Re-evaluation by your physician. - Problem is new. - Symptoms are resolved. Signatures: Dispatcher [facility] Wendy Mendez RN RN sv Myers, Amanda, RN RN aj Roszak, Josh, PA PA jr8 John Carter MD MD Corrections: (The following items were deleted from the chart) 14:35 14:16 03/27/2018 14:16 Discharged to Home. Impression: Urinary tract infection, site aj not specified. Condition is Stable. Forms are Medication Reconciliation Form, Thank You Letter, Antibiotic Education, Prescription Opioid Use. Follow up: Bruno Valadez; When: 2 - 3 days; Reason: Recheck today's complaints, Continuance of care, Re-evaluation by your physician. Problem is new. Symptoms are resolved. jr8
--- NOTE | 2018-03-27 14:17 | ER ---
Nurse's Notes [facility] Name: Caleb Lemus Age: 83 yrs Sex: Male : 1935 Arrival Date: 03/27/2018 Time: 10:54 Bed 17 Private MD: Bruno Valadez V Diagnosis: Urinary tract infection, site not specified Presentation: 03/27 11:01 Presenting complaint: states: "He's been falling, twice today and once yesterday. sv He's having seizures right now if you talk to him." Spouse reports he was recently discharged from a rehab place for a brain injury d/t methadone adverse reaction. Transition of care: patient was not received from another setting of care. Onset of symptoms was March 26, 2018. Care prior to arrival: None. 11:01 Method Of Arrival: Wheelchair sv 11:01 Acuity: WILLY 3 sv 14:34 Risk Assessment: Do you want to hurt yourself or someone else? Patient reports no aj desire to harm self or others. Initial Sepsis Screen: Does the patient meet any 2 criteria? No. Patient's initial sepsis screen is negative. Does the patient have a suspected source of infection? No. Patient's initial sepsis screen is negative. Historical: - Allergies: 11:03 Clindamycin; sv 11:03 Codeine; sv 11:03 Fentanyl; sv 11:03 Hydromorphone; sv 11:03 Morphine; sv 11:03 PENICILLINS; sv 11:03 narcotics; sv 11:03 Methadone; sv - PMHx: 11:03 CHF; Hypertension; sv - PSHx: 11:03 Knee surgery; feet; Hernia repair; pacemaker with defibrillator; sv - Immunization history:: Adult Immunizations up to date. - Social history:: Smoking status: Patient/guardian denies using tobacco, . - Ebola Screening: : No symptoms or risks identified at this time. Screenin:19 Abuse screen: Denies threats or abuse. Denies injuries from another. Nutritional aj screening: No deficits noted. Tuberculosis screening: No symptoms or risk factors identified. Fall Risk None identified. Assessment: 11:19 General: Appears in no apparent distress. comfortable, Behavior is calm, cooperative, aj appropriate for age. Pain: Denies pain. Neuro: Level of Consciousness is awake, obeys commands, Oriented to person, place, Airline Pilot Flight Instructor are equal bilaterally Moves all extremities. Full function Gait is shuffling, Speech is normal, Facial symmetry appears normal. Respiratory: Airway is patent Respiratory effort is even, unlabored, Respiratory pattern is regular, symmetrical. Derm: Skin is pink, warm \\T\\ dry. normal. 14:32 Reassessment: Patient appears in no apparent distress at this time. No changes from aj previously documented assessment. Patient and/or family updated on plan of care and expected duration. Pain level reassessed. Patient is alert, oriented x 3, equal unlabored respirations, skin warm/dry/pink. Patient denies pain at this time. Vital Signs: 11:00 BP 132 / 117; Pulse 92; Resp 18; Temp 99.9; Pulse Ox 94% on R/A; Weight 101.15 kg; sv Height 5 ft. 6 in. (167.64 cm); Pain 0/10; 14:11 BP 136 / 91; Pulse 97; Resp 20; Pulse Ox 97% on R/A; aj 14:32 BP 134 / 89; Pulse 89; Resp 19; Pulse Ox 99% on R/A; aj 11:00 Body Mass Index 35.99 (101.15 kg, 167.64 cm) sv ED Course: 10:54 Patient arrived in ED. sb2 10:54 Bruno Valadez MD is Private Physician. sb2 11:02 Triage completed. sv 11:05 Brett Dan PA is PHCP. jr8 11:05 John Carter MD is Attending Physician. jr8 11:13 Taryn Hassan, PAYAM is Primary Nurse. aj 11:19 Patient has correct armband on for positive identification. aj 11:43 Inserted saline lock: 20 gauge in right forearm, using aseptic technique. Blood aj collected. 11:45 X-ray completed. Portable x-ray completed in exam room. Patient tolerated procedure bb2 well. 11:49 XRAY Chest (1 view) In Process Unspecified. EDMS 12:[address] via stretcher. cw1 13:18 CT Head Brain wo Cont In Process Unspecified. EDMS 13:25 CT completed. Patient moved back from CT. cw1 14:15 Bruno Valadez MD is Referral Physician. jr8 14:32 No provider procedures requiring assistance completed. IV discontinued, intact, aj bleeding controlled, No redness/swelling at site. Pressure dressing applied. Administered Medications: 14:21 Drug: Rocephin 1 grams Route: IV; Rate: calculated rate; Site: right forearm; aj Outcome: 14:16 Discharge ordered by MD. fernandez 14:32 Discharged to home via wheelchair, with family. bereket 14:32 Condition: good 14:32 Discharge instructions given to patient, family, Instructed on discharge instructions, follow up and referral plans. medication usage, Demonstrated understanding of instructions, follow-up care, medications, Prescriptions given X 1. 14:35 Patient left the ED. aj Addendum: 03/31/2018 14:20 Addendum: Culture Results: Positive urine culture. No further action required. Bacteria s s sensitive to prescribed antibiotic. Signatures: Dispatcher [employer] Wendy Rueda RN RN sv Myers, Amanda, RN RN aj Smirch, Shelby, RN RN ss Woodley, Crystal cw1 Brett Dan PA PA jr8 Leigh Ann Phan bb2 [place] sb2
[2018-03-27 15:25] VITALS: TEMP 99.9
[2018-03-27 15:27] VITALS: BP 134/89; O2SAT 99
== END 2018-03-27 14:35 | disposition home or self-care (01) ==
LOC: ER 10:50
DX: N39.0 Urinary tract infection, site not specified (principal); I10 Essential (primary) hypertension; Z95.810 Presence of automatic (implantable) cardiac defibrillator; Z88.0 Allergy status to penicillin; Z88.3 Allergy status to other anti-infective agents; Z88.5 Allergy status to narcotic agent; Z88.6 Allergy status to analgesic agent; Z88.8 Allergy status to other drugs, medicaments and biological substances
CPT/HCPCS: 36415; 70450; 71045; 80048; 80076; 82550; 83735; 83880; 85025; 85610; 87077 ×2; 87086; 87088; 87186 ×2; 96374; 99284; J0696; J1940; 81003; 81015

== ENCOUNTER 2019-05-17 19:58 | Inpatient (IN) | payer OTHER ==
--- NOTE | 2019-05-17 15:07 | R.PREADM ---
SCREENING DATE AND TIME 05/17/2019 11:02 (CDT) ANTICIPATED REHAB ADMISSION DATE 05/19/2019 REFERRING FACILITY [facility] REFERRAL DATE AND TIME 05/17/2019 11:02 (CDT) ACUTE ADMIT DATE 04/27/2019 Previous Rehabilitation(s): No. REFERRING PHYSICIAN [facility] CLINICAL LIAISON Gladis Acevedo PHYSICIAN REVIEWER Dr. Wes Crawford M.D. [facility]# [id number] [id number] NAME CALEB LEMUS ADDRESS [address] [place] [address] PHONE [facility] [id number] DATE OF 1935 AGE 84 SSN# [id number] GENDER male MARITAL STATUS RACE white ADMIT FROM [facility] - [facility]) PRE-HOSPITAL LIVING SETTING 01 - Home (private home/apt. board/care, assisted living, chcf, transitional living) HOME TYPE AND DETAILS Type of home: single family house # of steps to enter the residence: 0 # of steps within the residence: 0 # of levels in the residence: 1 PRE-HOSPITAL LIVING WITH Family/Relatives FAMILY SUPPORT Yes PRIMARY FAMILY CONTACT NAME Alan Lemus PRIMARY FAMILY CONTACT PHONE PHONE PRIMARY FAMILY CONTACT ON ADM.? no IS PRIMARY FAMILY CONTACT AUTH. REP.? no 1ST EMERGENCY CONTACT Alan Lemus 1ST CONTACT PHONE PHONE 1ST CONTACT ON ADM. no IS 1ST CONTACT AUTH. REP.? no PHONE 2ND CONTACT ON ADM.? no PATIENT EMPLOYMENT STATUS Retired (for age) PATIENT EMPLOYER No Employer PAYOR INFORMATION: 1ST PAYOR NAME MEDICARE 1ST PAYOR PHONE 1ST PAYOR INJURY/ILLNESS DUE TO ACCIDENT? No ANOTHER LIBERTARIAN RESPONSIBLE? No PRIMARY REHAB/ACUTE DIAGNOSIS: closed left acetabular fx ONSET DATE 04/20/2019 REHAB IMPAIRMENT CATEGORY (RAMU): 07 Fracture of LE (FracLE) MEETS 60% rule AFFECTED EXTREMITIES: LLE PRIMARY DIAGNOSIS-RELATED SURGERIES: Emergency Unilateral Hip Fracture - performed by [facility] on 04/20/2019 COMORBID REHAB/ACUTE DIAGNOSES: - Non-Tiered Malignant neoplasm of pituitary gland (C75.1) - N/A Cereb infrc due to unsp occls or stenos of right cereblr art SUMMARY OF ACUTE HOSPITALIZATION: Pt. is a 84 yo Right-handed white male. On 04/20/2019 he was admitted to [facility] and underwent emergency surgery for closed left acet abular fx (Unilateral Hip Fracture) by [facility]. Pre-morbidly, Pt. was independent/mod-I in Self-Care and Sphincter Control; and he had good Sphincter Control. Currently, he has deficits of Transfers Control, Locomotion, Communication, Social Cognition, Enduran ce, Balance, Safety Awareness, and Self-Care. Pt. is now referred to [facility] for acute in-patient rehabilitation in order to maximize patient's functional independence in activities of daily living, strength, ROM, and mobi lity. Patient has realistic goal of being discharged at assistance level 6-Humberto to reside at Home with Fam rudolph/Relatives. Caleb Lemus is an 84 old male that lives in a single rogers house with his . He needs assistance from his with ADLs and IADLs. On 04/21/2019, he had mechanical fall and had a closed left acetabular fracture and Right Inferior Cerebellar Hemisphere Infarct and was admitted to [facility] and treated. They discharged him to [facility] to continue therapy. He is now medically stable but in need of 24- hour nursing, doctor supervision and oversite while receiving participate in 3hours of therapy a day/15 hours per week and receive care with an intensive interdisciplinary approach. 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) Vascular dementia with behavioral disturbance (F01.51) Epilepsy, unspecified, not intractable, without status epilepticus (G40.909) Anoxic brain damage, not elsewhere classified (G93.1) Encephalopathy, unspecified (G93.40) Patient's other noncompliance with medication regimen (Z91.14) Squamous cell carcinoma of skin, unspecified (C44.92) Encounter for antineoplastic radiation therapy (Z51.0) Fracture of unspecified part of neck of unspecified femur, sequela (S72.009S) Unspecified fracture of left acetabulum, sequela (S32.402S) History of falling (Z91.81) 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 (I63.341) Other seizures (G40.89) Muscle weakness (generalized) (M62.81) Other abnormalities of gait and mobility (R26.89) Other lack of coordination (R27.8) Cognitive communication deficit (R41.841) Left bundle-branch block, unspecified (I44.7) Presence of cardiac pacemaker (Z95.0) Presence of automatic (implantable) cardiac defibrillator (Z95.810) Essential (primary) hypertension (I10) Hyperglycemia, unspecified (R73.9) Hyperlipidemia, unspecified (E78.5) Personal history of pulmonary embolism (Z86.711) Unilateral primary osteoarthritis, 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) Transient cerebral ischemic attack, unspecified (G45.9) MEDICATION ALLERGIES: CODEINE hydromorphone opioid analgesic methadone clindamycin ENVIRONMENTAL ALLERGIES: - Substance Allergies None Known - Other Allergies None Known CODE STATUS: Full code WEIGHT/HEIGHT/BMI: WEIGHT 219 lbs HEIGHT 5' 9" BMI 32.3 DIET: - Diet Type Regular - Diet - Solid Texture Regular - Diet - Liquid Texture Regular - Tube Feed N/A REVIEW OF SYSTEMS: - Gen Alert and awake Lying in bed No apparent distress Oriented to: person, time, and place - Vital Signs Vital signs stable, afebrile - CVS RRR VITAL SIGNS Temperature: 97.6 F SBP/DBP: 144/77 Pulse: 76 Resp: 16 Vital signs stable, afebrile MEDICATIONS/TREATMENT: Other- See attached MAR (Medication Administration Record). CURRENT SPHINCTER CONTROL: Pre-hospital bladder status: incontinent # of bladder accidents in the last 7 days prior to screenin Pre-hospital bowel status: incontinent # of bowel accidents in the last 7 days prior to screenin Last Bowel Movement Date: 05/17/2019 DETAILED CURRENT FUNCTIONAL STATUS: - Bladder Bladder control device used: diaper accident frequency: Ind - No accidents in the past 7 days - Bowel Bowel control device used: diaper accident frequency: Ind - No accidents in the past 7 days - Walking score based on distance walked: 0(N/A) - Wheelchair score based on distance traveled: 0(N/A) FUNCTIONAL STATUS: - Self-Care A. Eating Ind Ind B. Grooming sup modA C. Bathing Dalia maxA D. Dressing - Upper sup modA E. Dressing - Lower Dalia maxA F. Toileting Dep Dep - Sphincter Control G: Bladder control Ind Dep H: Bowel control Ind Dep - Transfers Control I. Bed/Chair/Wheelchair Dalia maxA J. Toilet Dalia Dep K. Tub/Shower Dalia maxA - Locomotion L. Walk/Wheelchair (B) Dep Dep M. Stairs ADNO ADNO - Communication N. Comprehension (B) Dalia maxA O. Expression (B) Dalia modA - Social Cognition P. Social Interaction modA modA Q. Problem Solving modA modA R. Memory modA modA - Endurance Poor - Balance Poor - Safety Awareness Poor CURRENT FUNC. DEFICITS: Transfers Control, Locomotion, Communication, Social Cognition, Endurance, Balance, Safety Awareness, and Self-Care THERAPY NOTES FROM ACUTE CARE: Attached. SPECIAL NEEDS: - Safety Concerns Skin breakdown precautions needed due to skin breakdown risk PRECAUTIONS: - Posterior Hip Precaution No adduction across midline No external rotation No hip flexion >90 degrees No internal rotation No wheel chair propulsion - Weight Bearing Precaution TTWB left LE PATIENT NEEDS ACTIVE AND ONGOING THERAPEUTIC INTERVENTION OF MULTIPLE THERAPY DISCIPLINES, INCLUDING: - Dietary and Nutrition Adequate Nutrition. Nutritional Education. Nutritional Supplements. PATIENT NEEDS CLOSE MEDICAL SUPERVISION BY A REHABILITATION PHYSICIAN FOR: Bowel and Bladder Management Coordination of Treatment Team Medical and Co-Morbidity Management Post-Op Complications PATIENT REQUIRES 24X7 REHAB NURSING FOR MEDICAL AND FUNCTIONAL MGT. OF THE FOLLOWING DEFICITS: ADL's Ambulation Bowel and Bladder Management Cognition Communication Disease Management Medication Management Patient/Family Education Providing Safe Environment Transfers PATIENT REQUIRES INTENSIVE, COORDINATED INTERDISCIPLINARY APPROACH TO REHAB: Arranging Home Equipment/Services Discharge Planning Family Intervention/Training Deburrer Machine/Case Management PATIENT REHAB POTENTIAL: Katelyn LEMUS is able and expected to receive 3 hours of individualized therapy daily on at least 5 of edmund ry 7 days Katelyn LEMUS's prognosis for significant practical improvement within a reasonable period of time appears Good Expected level of measurable improvement will be of a practical value to Katelyn LEMUS's functional capaci ty or adaptations to impairments Has a viable Discharge Plan Medically appropriate; condition is sufficiently stable to participate in intensive rehab program DISCHARGE PLAN: - Estimated Length of Stay (days) 14. - Consensus on plan Discharge plan has been discussed with primary caregiver. Patient/Family is in agreement with the conner n. Primary caregiver is in agreement with the plan. - Patient/Family Goals Return home with assistance. - Planned Living Setting Upon Discharge Home, to live with Family/Relatives. Transitional Living. RECOMMENDED CARE LEVEL: IRF RECOMMENDATION DETAILS: Recommended Admission to Comprehensive Rehabilitation Program to Increase Functional [place] SCREENER'S COMPLETENESS CONFIRMATION: - Screening Confirmation The patient data collection on this preadmission screening form is finished PHYSICIANS REVIEW AND ADMISSION DETERMINATION Admit - Based on my review of the Pre-Admission Screening results, in my medical judgment and experie nce, I concur with the findings and recommend admission to [facility], as this patient requires an IRF level of care. SIGNATURE PANEL: Clinical Liaison - [electronically] signed by Gladis Acevedo on 05/17/2019 at 12:14 (CDT) Laborer Operator - /__/____ at __:__ Physician Reviewer - [electronically] signed by Dr. Wes Crawford M.D. on 05/17/2019 at 15:10 (CDT )
--- OUTSIDE RECORDS SUMMARY | 2019-05-17 20:01 | XMS REPORT | Summary of Care ---
:1935 Author Organization [facility] Address [address] [place] [address]- phone Encounter HQ Encntr_alias(FIN) [id number] Date(s): 09/29/18 - 09/29/18 [facility] [address] [place] [address]- [phone] Attending Physician: Robson Zimmerman MD Referring Physician: Robson Zimmerman MD Vital Signs No data available for this section Problem List Condition Effective Dates Status Health Status Informant Cardiac pacemaker(Confirmed) Active Complex partial seizures(Confirmed) Active HTN - Hypertension(Confirmed) Active LGMD (limb-girdle muscular Active dystrophy)(Confirmed) Allergies, Adverse Reactions, Alerts Substance Reaction Severity Status penicillins Active clindamycin Active morphine Active Medications No data available for this section Results No data available for this section Immunizations No data available for this section Procedures No data available for this section Social History Social History Type Response Smoking Status Never smoker; Exposure to Tobacco Smoke None; Cigarette Smoking Last 365 Days No; Reg Smoking Cessation Counseling No entered on: 06/30/18 Assessment and Plan No data available for this section
--- OUTSIDE RECORDS SUMMARY | 2019-05-17 20:01 | XMS REPORT | Continuity of Care Document ---
:1935 Author Organization [facility] Care Team Providers Name Role Phone [facility] Unavailable Unavailable Problems Problem Status Onset Classification Date Comments Source Date Reported Cardiac Active Problem 04/18/2019 [facility] Complex partial Active Problem 04/18/2019 [facility] seizures [facility] HTN - Active Problem 04/18/2019 [facility] Hypertension [facility] LGMD (Confirmed) Active Problem 04/18/2019 [facility] Medications No Data Provided for This Section Allergies, Adverse Reactions, Alerts Substance Category Reaction Severity Reaction Status Date Comments Source type Reported penicillins Assertion Drug Active [facility] allergy [facility] clindamycin Assertion Drug Active [facility] morphine Assertion Drug Active [facility] Neuro Immunizations No Data Provided for This Section Results No Data Provided for This Section Pathology Reports No Data Provided for This Section Diagnostic Reports No Data Provided for This Section Consultation Notes No Data Provided for This Section Discharge Summaries No Data Provided for This Section History and Physicals No Data Provided for This Section Vital Signs No Data Provided for This Section Encounters Location Location Encounter Encounter Reason Attending ADM DC Status Source Details Type Number For Provider Date Date Visit Outpatient [id number] THONY 03/31 Active [facility] [place] Outpatient [id number] THONY 05/19 Active [facility] [place] Outpatient [id number] THONY 06/30 Active [facility] [place] Out[facility] [id number] THONY 09/29 [facility] [place] [facility] [id number] Thony 09/29 09/29 [facility] [place] Procedures No Data Provided for This Section Assessment and Plan No Data Provided for This Section Plan of Care No Data Provided for This Section Social History Social History Date Source Social History TypeResponse 06/30/2018 [facility] Smoking Status Never smoker; Exposure to Tobacco Smoke None; Cigarette Smoking Last 365 Days No; Reg Smoking Cessation Counseling No entered on: 06/30/18 Family History No Data Provided for This Section Advance Directives No Data Provided for This Section Functional Status No Data Provided for This Section
--- OUTSIDE RECORDS SUMMARY | 2019-05-17 20:01 | XMS REPORT ---
:1935 [facility] Address [address] [place] [address] Dr. Stauffer [address] [place] [address] Care Team Providers Name Role Phone Unavailable Unavailable Unavailable Problems This patient has no known problems. Allergies, Adverse Reactions, Alerts This patient has no known allergies or adverse reactions. Medications This patient has no known medications.
--- NOTE | 2019-05-17 22:15 | PAPE ---
PATIENT: [facility] MR# [id number] REFERRING DOCTOR [facility] EVALUATION DATE AND TIME 05/17/2019 22:12 (CDT) NAME ERICA MORENO DATE OF 1935 AGE 84 PHONE SSN# [id number] GENDER male EVALUATING PHYSICIAN Dr. Shade Guerrero ADMISSION DIAGNOSIS: closed left acetabular fx ONSET DATE 04/20/2019 SECONDARY/COMORBID DIAGNOSES TIERED: - Non-Tiered Malignant neoplasm of pituitary gland (C75.1) - N/A Cereb infrc due to unsp occls or stenos of right cereblr art POST-ADMISSION FUNCTIONAL/MEDICAL STATUS: - Bladder Same Bladder control device used: diaper Same accident frequency: Ind - No accidents in the past 7 days - Bowel Same Bowel control device used: diaper Same accident frequency: Ind - No accidents in the past 7 days - Walking Same score based on distance walked: 0(N/A) - Wheelchair Same score based on distance traveled: 0(N/A) STATUS CHANGE EVALUATION: No change in Functional or Medical Status is identified compared with Pre-Admission screening. PRE-ADMISSION FUNCTIONAL/MEDICAL STATUS: - Bladder Bladder control device used: diaper accident frequency: 7-Ind - No accidents in the past 7 days - Bowel Bowel control device used: diaper accident frequency: 7-Ind - No accidents in the past 7 days - Walking score based on distance walked: 0(N/A) - Wheelchair score based on distance traveled: 0(N/A) PATIENT NEEDS CLOSE MEDICAL SUPERVISION BY A REHABILITATION PHYSICIAN FOR: Bowel and Bladder Management Coordination of Treatment Team Medical and Co-Morbidity Management Post-Op Complications PATIENT REQUIRES 24X7 REHAB NURSING FOR MEDICAL AND FUNCTIONAL MGT. OF THE FOLLOWING DEFICITS: ADL's Ambulation Bowel and Bladder Management Cognition Communication Disease Management Medication Management Patient/Family Education Providing Safe Environment Transfers PATIENT REQUIRES INTENSIVE, COORDINATED INTERDISCIPLINARY APPROACH TO REHAB: Arranging Home Equipment/Services Discharge Planning Family Intervention/Training Director Of Premium Seat Sales/Case Management LIST OF IDENTIFIED AND POTENTIAL PROBLEMS: Alteration in leisure activities Bladder, Incontinence Bowel, Incontinence Infection, Actual or Potential Mobility Impaired Pain, Alteration in Comfort Self Care Deficit Skin Integrity, Actual or Potential Urinary Tract Infection (UTI), Actual or Potential PATIENT COULD BE AT RISK FOR COMPLICATIONS FROM ADVERSE MEDICAL CONDITIONS DUE TO HIS/HER COMORBIDITI ES AND THE RIGORS OF THE INTENSIVE REHABILLITATION PROGRAM. METHODS OR INTERVENTIONS TO AVOID COMPLIC ATIONS INCLUDE: - Infection Clinical staff to assess and manage the signs and symptoms of infection including fever, redness, war mth, etc. - Urinary Tract Infection - Falls Patient will be evaluated for Fall Precautions and will be placed on Fall Precautions as indicated pe r protocol. - Skin Breakdown Nursing will assess skin daily using assessment tool and will place on Skin Breakdown Precautions as indicated per protocol. - Pain Clinical staff may employ non-medication methods such as massage, distraction, decrease stimulus, etc . as needed. Clinical staff will assess patient's pain level every shift per protocol to assess and e nsure pain management effectiveness. Medications will be given and the pain level re-assessed. PRELIMINARY PLAN OF CARE: - Physical Therapy Patient needs Physical Therapy for a daily minimum of 1.5 hours at least 5 out of 7 days, to improve: Mobility, Strengthening, Transfers, Stretching, ROM, Endurance, Ability to manage stairs, Gait, and Balance. - Speech Therapy Patient needs Speech Therapy for a daily minimum of 1 hours at least 5 out of 7 days, to improve: Swa llowing, Cognition, Language Skills, and Compensatory Strategies. - Rehabilitation Nursing Patient requires 24x7 Rehabilitation Nursing for: Pain Issues, Identifying and preventing risk factor s, Monitoring and reporting current medical conditions, Assisting with ambulation and transfer, Yusra ting with all ADL-s, Teaching patients about disease process and medications, Family teaching, Provid ing safe environment, Bowel and Bladder Issues, Skin Integrity, and Medication Management. Patient needs Director Of Premium Seat Sales and/or Case Management for: Discharge Planning, Arranging Home Equipmen t or Services, and Family Interventions. - Dietary and Nutrition Services Patient needs Dietary and Nutrition Services for: Adequate Nutrition, Nutritional Supplements, and Nu tritional Education. - Occupational Therapy Patient needs Occupational Therapy for a daily minimum of 1.5 hours at least 5 out of 7 days, to impr ove Activities of Daily Living, including: Eating, Grooming, Bathing, Dressing, Toileting, Toilet Tra nsfers, Community Reintegration, Higher functional activities, Adaptive Equipment, Splinting, Househo ld Tasks, and Other activities as determined. POTENTIAL FUNCTIONAL GOALS FOR PATIENT TO ACHIEVE BY DISCHARGE: - Safety Precaution Patient will remain free from falls or injury at time of discharge. - Bed Mobility Patient will perform bed mobility at 4-Dalia level of assistance. - Transfers Patient will complete transfers from bed to chair at 4-Dalia level of assistance. - Mobility Patient will ambulate 150 ft with 4-Dalia level of assistance with RW. PATIENT REHAB POTENTIAL Katelyn MORENO is able and expected to receive 3 hours of individualized therapy daily on at least 5 of edmund ry 7 days Katelyn MORENO's prognosis for significant practical improvement within a reasonable period of time appears Good Expected level of measurable improvement will be of a practical value to Katelyn MORENO's functional capaci ty or adaptations to impairments Has a viable Discharge Plan Medically appropriate; condition is sufficiently stable to participate in intensive rehab program DISCHARGE PLAN: - Estimated Length of Stay (days) 14. - Consensus on plan Discharge plan has been discussed with primary caregiver. Patient/Family is in agreement with the conner n. Primary caregiver is in agreement with the plan. - Patient/Family Goals Return home with assistance. - Planned Living Setting Upon Discharge Home, to live with Family/Relatives. Transitional Living. CONCLUSION ON REHABILITATION NECESSITY: I have evaluated patient's pre-admission functional status and, comparing it to the patient's post-ad mission functional status now, I conclude that the pre-admission assessment was accurate. Patient's c ondition on admission supports the medical necessity of admission to IRF. It is safe to proceed with patient's therapy program. SIGNATURE PANEL: (CDT)
--- NOTE | 2019-05-17 22:20 | R.HP ---
FACILITY: [facility] ENCOUNTER DATE AND TIME: 05/17/2019 22:17 (CDT) MR#: [id number] NAME CALEB LEMUS ADDRESS: [address] [place] [address] CITY: [facility] [id number] PHONE: DATE OF : 1935 AGE: 84 SSN# [id number] GENDER: Male DEXTERITY Right-handed MARITAL STATUS RACE White PRE-HOSPITAL LIVING SETTING 01 - Home (private home/apt. board/care, assisted living, residential, transitional living) PRE-HOSPITAL LIVING WITH Family/Relatives ENCOUNTER PHYSICIAN: Dr. Shade Guerrero REFERRING DOCTOR: Angy River DATE OF ADMISSION: 05/17/2019 22:18 (CDT) REFERRING FACILITY [facility] HOME TYPE AND DETAILS: Type of home: single family house # of steps to enter the residence: 0 # of steps within the residence: 0 # of levels in the residence: 1 ADMISSION DIAGNOSIS: closed left acetabular fx ONSET DATE: 04/20/2019 PRIMARY DIAGNOSIS-RELATED SURGERIES: Emergency Unilateral Hip Fracture - performed by Angy River on 04/20/2019 SECONDARY/COMORBID DIAGNOSES (TIERED): - Non-Tiered Malignant neoplasm of pituitary gland (C75.1) - N/A Cereb infrc due to unsp occls or stenos of right cereblr art HISTORY OF PRESENT ILLNESS (HPI): Pt. is a 84 yo Right-handed white male. On 04/20/2019 he was admitted to [facility] and underwent emergency surgery for closed left acet abular fx (Unilateral Hip Fracture) by Angy River. Pre-morbidly, Pt. was independent/mod-I in Self-Care and Sphincter Control; and he had good Sphincter Control. Currently, he has deficits of Transfers Control, Locomotion, Communication, Social Cognition, Enduran ce, Balance, Safety Awareness, and Self-Care. Pt. is now referred to [facility] for acute in-patient rehabilitation in order to maximize patient's functional independence in activities of daily living, strength, ROM, and mobi lity. Patient has realistic goal of being discharged at assistance level 6-Humberto to reside at Home with Fam rudolph/Relatives. Caleb Lemus is an 84 old male that lives in a single rogers house with his . He needs assistance from his with ADLs and IADLs. On 04/21/2019, he had mechanical fall and had a closed left acetabular fracture and Right Inferior Cerebellar Hemisphere Infarct and was admitted to [facility] and treated. They discharged him to [facility] to continue therapy. He is now medically stable but in need of 24- hour nursing, doctor supervision and oversite while receiving participate in 3hours of therapy a day/15 hours per week and receive care with an intensive interdisciplinary approach. 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) Unspecified fracture of left pubis, subsequent encounter for fracture with routine healing (S32.502D) 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) Vascular dementia with behavioral disturbance (F01.51) Epilepsy, unspecified, not intractable, without status epilepticus (G40.909) Anoxic brain damage, not elsewhere classified (G93.1) Encephalopathy, unspecified (G93.40) Patient's other noncompliance with medication regimen (Z91.14) Squamous cell carcinoma of skin, unspecified (C44.92) Encounter for antineoplastic radiation therapy (Z51.0) Fracture of unspecified part of neck of unspecified femur, sequela (S72.009S) Unspecified fracture of left acetabulum, sequela (S32.402S) History of falling (Z91.81) 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 (I63.341) Other seizures (G40.89) Muscle weakness (generalized) (M62.81) Other abnormalities of gait and mobility (R26.89) Other lack of coordination (R27.8) Cognitive communication deficit (R41.841) Left bundle-branch block, unspecified (I44.7) Presence of cardiac pacemaker (Z95.0) Presence of automatic (implantable) cardiac defibrillator (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 SOCIAL HISTORY: - Home Living Family/Relatives REVIEW OF SYSTEMS: - Gen No Chills No Fatigue No Fever - Eyes No Double Vision No itchiness - ENMT No Difficulty Swallowing - CVS No Chest Discomfort No Chest Pain No Fatigue No Weight Gain - Resp No Cough No Shortness of Breath - GI Continent No Abdominal Pain No Constipation No Diarrhea - Continent No Kidney Pain No Painful Urination No Urinary Urgency - MSK No Joint Pain No Muscle Cramps No Stiffness - Skin No Itching No Rash No Suspicious Lesions - Neuro No Coordination Difficulty No Difficulty with Concentration No Memory Loss No Seizures No Weakness - Psych No Anxiety No Depression No HIV Exposure No Persistent Infections No Seasonal Allergies - Endo No Cold/Heat Intolerance No Excessive Hunger No Excessive Thirst No Excessive Urination PHYSICAL EXAM - Gen Alert and awake Lying in bed No apparent distress Oriented to: person, time, and place - Vital Signs Vital signs stable, afebrile - CVS RRR VITAL SIGNS Temperature: 97.6 F SBP/DBP: 144/77 Pulse: 76 Resp: 16 Vital signs stable, afebrile NURSING: - Shower allowing shower - Skin care per protocol PRECAUTIONS: - Posterior Hip Precaution No adduction across midline No external rotation No hip flexion >90 degrees No internal rotation No wheel chair propulsion - Weight Bearing Precaution TTWB left LE ACTIVITIES OOB only with supervision FUNCTIONAL STATUS: - Self-Care A. Eating Ind Ind B. Grooming sup modA C. Bathing Dalia maxA D. Dressing - Upper sup modA E. Dressing - Lower Dalia maxA F. Toileting Dep Dep - Sphincter Control G: Bladder control Ind Dep H: Bowel control Ind Dep - Transfers Control I. Bed/Chair/Wheelchair Dalia maxA J. Toilet Dalia Dep K. Tub/Shower Dalia maxA - Locomotion L. Walk/Wheelchair (B) Dep Dep M. Stairs ADNO ADNO - Communication N. Comprehension (B) Dalia maxA O. Expression (B) Dalia modA - Social Cognition P. Social Interaction modA modA Q. Problem Solving modA modA R. Memory modA modA - Endurance Poor - Balance Poor - Safety Awareness Poor CURRENT FUNC. DEFICITS: Transfers Control, Locomotion, Communication, Social Cognition, Endurance, Balance, Safety Awareness, and Self-Care MEDICATIONS: - Other See attached MAR (Medication Administration Record) ASSESSMENT: Pt. is a 84 yo Right-handed white male.On 04/20/2019 he was admitted to [facility] and underwent emergency surgery for closed left acetabular fx (Unilateral Hip Fracture) by Angy River.Pre-m orbidly, Pt. was independent/mod-I in Self-Care and Sphincter Control; and he had good Sphincter Cont rol.Currently, he has deficits of Transfers Control, Locomotion, Communication, Social Cognition, End urance, Balance, Safety Awareness, and Self-Care.Pt. is now referred to [facility] for acute in-patient rehabilitation in order to maximize patient's functional independence in ac tivities of daily living, strength, ROM, and mobility.- Rehab Goal Patient has realistic goal of being discharged at assistance level 6-Humberto to reside at Home with Fam rudolph/Relatives. Caleb Lemus is an 84 old male that lives in a single rogers house with his . He needs assistance from his with ADLs and IADLs. On 04/21/2019, he had mechanical fall and had a closed left acetabular fracture and Right Inferior Cerebellar Hemisphere Infarct and was admitted to [facility] and treated. They discharged him to [facility] to continue therapy. He is now medically stable but in need of 24- hour nursing, doctor supervision and oversite while receiving participate in 3hours of therapy a day/15 hours per week and receive care with an intensive interdisciplinary approach.REHAB PLAN: - Physical Therapy Decreased range of motion - to improve, our physical therapists will perform initial evaluation of pt 's status upon admission and devise an individualized program for increasing patient's Range of Motio n. Gait dysfunction - to improve, our physical therapists will perform initial evaluation of pt's status upon admission and devise an individualized program for Gait Training, and Wheel Chair mobility Inability to transfer - to improve, our physical therapists will perform initial evaluation of pt's s tatus upon admission and devise an individualized program for Bed mobility Need for home safety evaluation - to improve, our physical therapists will perform initial evaluation of pt's status upon admission and devise an individualized program for Home Evaluation Need in caregiver upon discharge - to improve, our physical therapists will perform initial evaluatio n of pt's status upon admission and devise an individualized program for Caregiver Training New precaution - to improve, our physical therapists will perform initial evaluation of pt's status [place] admission and devise an individualized program for Patient precaution education Poor balance - to improve, our physical therapists will perform initial evaluation of pt's status upo n admission and devise an individualized program for Balance Training Poor endurance - to improve, our physical therapists will perform initial evaluation of pt's status [place] admission and devise an individualized program for Endurance Training Weakness - to improve, our physical therapists will perform initial evaluation of pt's status upon ad mission and devise an individualized program for Aquatic Therapy, Neuromuscular Reeducation, and Stre ngthening Achieving independence - to improve, our physical therapists will perform initial evaluation of pt's status upon admission and devise an individualized program for Community Reintegration Activities - Occupational Therapy ADL deficits - to improve, our occupation therapists will perform initial evaluation of pt's status u [place] admission and devise an individualized program for Bathing, Bed mobility, Community Reintegration , Cooking, Dressing, Eating, Fine Motor Skills, Grooming, Homemaking, Kitchen Mobility, Laundry, Deepali ent Education, Safety Awareness, Splinting - Positioning, Transfers(Toilet, Tub, Shower), and Wheel C hair Management Cognitive deficits - to improve, our occupation therapists will perform initial evaluation of pt's st atus upon admission and devise an individualized program for Cognition - orientation Need for child care center administrator - to improve, our occupation therapists will perform initial evaluation of pt's s tatus upon admission and devise an individualized program for Caregiver Training Weakness - to improve, our occupation therapists will perform initial evaluation of pt's status upon admission and devise an individualized program for Aquatic Therapy, Balance, Endurance, UE ROM, and U E strengthening MEDICAL PLAN: - Anterior Hip Precaution No abduction No active extension No adduction across midline No external rotation No hip flexion >90 degrees No internal rotation - Diet - Liquid Texture Start Regular - Tube Feed Start N/A - Diet Type Start Regular - Posterior Hip Precaution No adduction across midline No external rotation No hip flexion >90 degrees No internal rotation No wheel chair propulsion - Weight Bearing Precaution NWB left LE TTWB left LE - Skin care per protocol - Other See attached MAR (Medication Administration Record) - Diet - Solid Texture Regular - Shower shower DISCHARGE PLAN: - Estimated Length of Stay (days) 14. - Consensus on plan Discharge plan has been discussed with primary caregiver. Patient/Family is in agreement with the conner n. Primary caregiver is in agreement with the plan. - Patient/Family Goals Return home with assistance. - Planned Living Setting Upon Discharge Home, to live with Family/Relatives. Transitional Living. SIGNATURE PANEL: (CDT)
[2019-05-17 23:33] LABS: Urine Appearance CLEAR; Urine Bilirubin NEGATIVE (NEG); Urine Blood NEGATIVE (NEG); Urine Color YELLOW; Urine Glucose NEGATIVE (NEG); Urine Protein NEGATIVE (NEG); Urine Specific Gravity 1.015 (1.005-1.030)
[2019-05-18 00:29] LABS: Urine Bacteria <20 /HPF (NONE SEEN); Urine Culture Reflex Order NOT NEEDED; Urine Mucus LIGHT /HPF (NONE SEEN); Urine RBC NONE SEEN /HPF (NONE SEEN)
[2019-05-18 06:12] LABS: Basophils % 0.8 % (0-1.3); Hematocrit 37.1 % (39.6-49.0); MPV 6.3 fL (7.6-11.3)
[2019-05-18 06:28] LABS: Albumin 2.9 g/dL (3.4-5.0); BUN Blood Urea Nitrogen 9 mg/dL (7-18); Bicarbonate 30 mmol/L (21-32); Glucose Level 90 mg/dL (74-106); Magnesium 2.2 mg/dL (1.8-2.4); Potassium 4.1 mmol/L (3.5-5.1); Sodium Level 140 mmol/L (136-145)
[2019-05-18] MEDS ORDERED: IBUPROFEN 400 MG TAB PO PRN (07:11)
[2019-05-18] MEDS ORDERED: POLYETHYL GLY 3350 17 GM/DOSE PO PRN (07:24)
[2019-05-18] MEDS: METOPROLOL TAR 25 MG TAB PO SCH ×2 (07:30→17:29)
[2019-05-18] MEDS: DOCUSATE NA/SENNA CONC 1 TAB PO SCH ×2 (08:31→21:04)
[2019-05-18] MEDS: ACETAMINOPHEN 325 MG TABLET PO PRN (08:31)
[2019-05-18] MEDS: POTASSIUM CL SA 10 MEQ TAB PO SCH (08:32)
[2019-05-18] MEDS: CYANOCOBALAMIN 1,000 MCG TAB PO SCH (08:33)
[2019-05-18] MEDS: FUROSEMIDE 40 MG TABLET PO SCH (08:33)
[2019-05-18] MEDS: ASPIRIN 81 MG CHEWABLE TABLET PO SCH (08:33)
--- NOTE | 2019-05-18 18:10 | FAST ---
ENCOUNTER DATE AND TIME: 05/18/2019 08:00 (CDT) NAME ERICA MORENO DATE OF : 1935 DATE OF ADMISSION: 05/17/2019 22:18 (CDT) PHONE: AGE: 84 SSN# [id number] GENDER: Male ENCOUNTER PHYSICIAN: Dr. Shade Guerrero ADMISSION DIAGNOSIS: - Orthopaedic Disorders 08 - Unilateral Hip Fracture (05.22) closed left acetabular fx. EATING: Activity did not occur on this shift EATING - SCORE: 0-UNK GROOMING: Activity did not occur on this shift GROOMING - SCORE: 0-UNK BATHING: Activity did not occur on this shift BATHING - SCORE: 0-UNK DRESSING - UPPER BODY: Activity did not occur on this shift Patient is not dressing in public clothing ARTICLES SCORE Total number of steps: 0 DRESSING - UPPER BODY - SCORE: 0-UNK DRESSING - LOWER BODY: Activity did not occur on this shift Patient is not dressing in public clothing ARTICLES SCORE Total number of steps: 0 DRESSING - LOWER BODY - SCORE: 0-UNK TOILETING: Activity did not occur on this shift TOILETING - SCORE: 0-UNK BLADDER MANAGEMENT: Activity did not occur on this shift BLADDER MANAGEMENT - SCORE: 7-IND BOWEL MANAGEMENT: Activity did not occur on this shift BOWEL MANAGEMENT - SCORE: 7-IND TRANSFERS: BED, CHAIR, WHEELCHAIR: Patient requires more than one helper and/or the use of a mechanical lift is utilized TRANSFERS: BED, CHAIR, WHEELCHAIR - SCORE: 1-DEP TRANSFERS: TOILET: Activity did not occur on this shift TRANSFERS: TOILET - SCORE: 0-UNK TRANSFERS: SHOWER: Activity did not occur on this shift TRANSFERS: SHOWER - SCORE: 0-UNK TRANSFERS: TUB: Activity did not occur on this shift TRANSFERS: TUB - SCORE: 0-UNK LOCOMOTION: WALK: Activity did not occur on this shift LOCOMOTION: WALK - SCORE: 0-UNK LOCOMOTION: WHEELCHAIR: LOCOMOTION: WHEELCHAIR - STEP 1: Does the patient need help to go 150 feet in a wheelchair? Yes. LOCOMOTION: WHEELCHAIR - STEP 2: How much assistance does the patient need from the helper? Only supervision, cuing, or coaxing LOCOMOTION: WHEELCHAIR - SCORE: 5-SUP LOCOMOTION: STAIRS: Activity did not occur on this shift LOCOMOTION: STAIRS - SCORE: 0-UNK COMPREHENSION: COMPREHENSION - SCORE: 0-UNK EXPRESSION EXPRESSION - SCORE: 0-UNK SOCIAL INTERACTION: SOCIAL INTERACTION - SCORE: 0-UNK PROBLEM SOLVING: PROBLEM SOLVING - SCORE: 0-UNK MEMORY: MEMORY - SCORE: 0-UNK SIGNATURE PANEL: The following modified sections: Transfers: Bed, Chair, Wheelchair - Score, Transfers: Toilet - Score , Locomotion: Walk - Score, Locomotion: Wheelchair - Score, Locomotion: Stairs - Score were [electron ically] signed by Darien Bailey PT on ThuMay 18 2019 18:10:01 T-0500 (Central Daylight Time)
[2019-05-18] MEDS: PROMOD 30 ML DOSE PO SCH (21:04)
[2019-05-18] MEDS: ATORVASTATIN 40 MG TAB PO SCH (21:04)
--- NOTE | 2019-05-19 03:53 | FAST ---
SHIFT START DATE/TIME: 05/18/2019 19:00 (CDT) SHIFT END DATE/TIME: 05/19/2019 07:00 (CDT) NAME ERICA MORENO DATE OF : 1935 DATE OF ADMISSION: 05/17/2019 22:18 (CDT) PHONE: AGE: 84 SSN# [id number] GENDER: Male ENCOUNTER PHYSICIAN: Dr. Shade Guerrero ADMISSION DIAGNOSIS: - Orthopaedic Disorders 08 - Unilateral Hip Fracture (05.22) closed left acetabular fx. EATING: Activity did not occur on this shift EATING - SCORE: 0-UNK GROOMING: Activity did not occur on this shift GROOMING - SCORE: 0-UNK BATHING: Activity did not occur on this shift BATHING - SCORE: 0-UNK DRESSING - UPPER BODY: Activity did not occur on this shift ARTICLES SCORE Total number of steps: 0 DRESSING - UPPER BODY - SCORE: 0-UNK DRESSING - LOWER BODY: Activity did not occur on this shift ARTICLES SCORE Total number of steps: 0 DRESSING - LOWER BODY - SCORE: 0-UNK TOILETING: TOILETING - SCORE: 0-UNK BLADDER MANAGEMENT: BLADDER MANAGEMENT - STEP 1: Does the patient control the bladder completely and intentionally without equipment or devices or med ications, and is always continent? No. BLADDER MANAGEMENT - STEP 2: Does the patient require the assistance of a helper? Yes. BLADDER MANAGEMENT - STEP 3: How much assistance does the patient require from the helper? Patient requires contact assistance fro m the helper BLADDER MANAGEMENT - STEP 4: How much contact assistance does the patient require from the helper? Patient requires maximal assist ance, and only performs 25% to 49% of bladder management tasks BLADDER MANAGEMENT - SCORE: 2-MAX BLADDER MANAGEMENT - FREQUENCY OF ACCIDENTS: BLADDER MANAGEMENT(FA) - STEP 1: How many accidents has the patient had during the current shift? 0 BOWEL MANAGEMENT: Activity did not occur on this shift BOWEL MANAGEMENT - SCORE: 7-IND BOWEL MANAGEMENT - FREQUENCY OF ACCIDENTS: BOWEL MANAGEMENT(FA) - STEP 1: How many accidents has the patient had during the current shift? 0 TRANSFERS: BED, CHAIR, WHEELCHAIR: Activity did not occur on this shift TRANSFERS: BED, CHAIR, WHEELCHAIR - SCORE: 0-UNK TRANSFERS: TOILET: Activity did not occur on this shift TRANSFERS: TOILET - SCORE: 0-UNK TRANSFERS: SHOWER: Activity did not occur on this shift TRANSFERS: SHOWER - SCORE: 0-UNK TRANSFERS: TUB: Activity did not occur on this shift TRANSFERS: TUB - SCORE: 0-UNK LOCOMOTION: WALK: Activity did not occur on this shift LOCOMOTION: WALK - SCORE: 0-UNK LOCOMOTION: WHEELCHAIR: Activity did not occur on this shift LOCOMOTION: WHEELCHAIR - SCORE: 0-UNK COMPREHENSION: COMPREHENSION: TYPE: Both COMPREHENSION - STEP 1: Does the patient require help from a person or device, or need extra time to understand complex and a bstract ideas (such as current events, finances, discharge planning, medical issues, relationships, e tc)? Yes. COMPREHENSION - STEP 2: Does the patient require help to understand questions or statements about basic needs or ideas (such as hunger, thirst, sleep, safety, daily schedule, room location, or discomfort) half or more of the t los? Yes. COMPREHENSION - STEP 3: Is the patient basically able to understand and respond appropriately and consistently? Yes. COMPREHENSION - SCORE: 2-MAX EXPRESSION EXPRESSION: TYPE: Both EXPRESSION - STEP 1: Does the patient require help from a person or device, or need extra time expressing complex and abst ract ideas (such as current events, finances, discharge planning, medical issues, relationships, etc) ? Yes. EXPRESSION - STEP 2: Does the patient require help to express basic necessities or ideas (such as hunger, thirst, sleep, s afety, daily schedule, room location, or discomfort) half or more of the time? Yes. EXPRESSION - STEP 3: Is the patient basically unable to express or does s/he express inappropriately or inconsistently navdeep pite prompting? No. EXPRESSION - SCORE: 2-MAX SOCIAL INTERACTION: SOCIAL INTERACTION - STEP 1: Does the patient require a helper to interact with others in social and therapeutic situations? Yes. SOCIAL INTERACTION - STEP 2: Does the patient interact appropriately half or more of the time? Yes. SOCIAL INTERACTION - STEP 3: How often does the patient need help to interact appropriately? 10-24% of the time SOCIAL INTERACTION - SCORE: 4-MIN PROBLEM SOLVING: PROBLEM SOLVING - STEP 1: Does the patient need help from a person or device, or need extra time to solve complex problems such as managing a checking account or confronting interpersonal problems? Yes. PROBLEM SOLVING - STEP 2: Does the patient solve basic routine problems half or more of the time? No. PROBLEM SOLVING - STEP 3: Does the patient need help to solve problems all the time or is s/he unable to solve problems? Yes. P atient needs help to solve problems all the time or is unable to solve problems PROBLEM SOLVING - SCORE: 1-DEP MEMORY: MEMORY - STEP 1: Does the patient need help from a person or device, or need extra time to remember frequently encount ered people, daily routines, and executing requests? Yes. MEMORY - STEP 2: How often does the patient need help to remember frequently encountered people, daily routines, and e xecuting requests? More than 50% of the time MEMORY - STEP 3: Does the patient need help to remember all of the time OR does s/he not effectively recognize and rem ember? No. Patient does not need help all the time MEMORY - SCORE: 2-MAX SIGNATURE PANEL: The following modified sections: Eating - Score, Grooming - Score, Bathing - Score, Dressing - Upper Body - Score, Dressing - Lower Body - Score, Bladder Management - Score, Bowel Management - Score, Tr ansfers: Bed, Chair, Wheelchair - Score, Transfers: Toilet - Score, Transfers: Shower - Score, Transf ers: Tub - Score, Locomotion: Walk - Score, Locomotion: Wheelchair - Score, Comprehension - Score, Ex pression - Score, Social Interaction - Score, Problem Solving - Score, Memory - Score were [jeniffer lima] signed by Cira Humphrey RN on ThuMay 19 2019 03:52:26 GMT-0500 (Central Daylight Time)
[2019-05-19] MEDS: METOPROLOL TAR 25 MG TAB PO SCH ×2 (05:13→17:00)
[2019-05-19] MEDS: ASPIRIN 81 MG CHEWABLE TABLET PO SCH (07:52)
[2019-05-19] MEDS: DOCUSATE NA/SENNA CONC 1 TAB PO SCH ×2 (07:52→20:24)
[2019-05-19] MEDS: FUROSEMIDE 40 MG TABLET PO SCH (07:52)
[2019-05-19] MEDS: POTASSIUM CL SA 10 MEQ TAB PO SCH (07:52)
[2019-05-19] MEDS: CYANOCOBALAMIN 1,000 MCG TAB PO SCH (07:56)
[2019-05-19] MEDS: PROMOD 30 ML DOSE PO SCH ×2 (07:56→20:24)
--- NOTE | 2019-05-19 08:01 | RAD REPORT ---
EXAM DESCRIPTION: RAD - Hip Left 2 View - 05/19/2019 7:23 am CLINICAL HISTORY: Left hip pain FINDINGS: Mildly to moderately displaced fracture involves the left acetabulum. Osteoporosis. No dislocation
--- NOTE | 2019-05-19 09:57 | P.RH.PN ---
Estimated Length of Stay: 12 Expected Discharge Date: 05/28/19 Discharge Disposition Plan: Home Family Support: Yes Custodial Goal: Transfers Vital Signs: Last Vital Signs Temp 97 F 05/19/19 07:03 Pulse 84 05/19/19 07:52 Resp 20 05/19/19 07:03 BP 121/61 05/19/19 07:52 Pulse Ox 95 05/19/19 07:03 Laboratory: Laboratory Last Values WBC 3.8 K/uL (4.3-10.9) L 05/18/19 03:00 RBC 4.00 M/uL (4.33-5.43) L 05/18/19 03:00 Hgb 12.3 g/dL (13.6-17.9) L 05/18/19 03:00 Hct 37.1 % (39.6-49.0) L 05/18/19 03:00 MCV 92.7 fL (80-100) 05/18/19 03:00 MCH 30.8 pg (27.0-35.0) 05/18/19 03:00 MCHC 33.2 g/dL (32.0-36.0) 05/18/19 03:00 RDW 16.1 % (12.1-15.2) H 05/18/19 03:00 Plt Count 257 K/uL (152-406) 05/18/19 03:00 MPV 6.3 fL (7.6-11.3) L 05/18/19 03:00 Neutrophils % 55.3 % (41.7-73.7) 05/18/19 03:00 Lymphocytes % 27.0 % (15.3-44.8) 05/18/19 03:00 Monocytes % 13.8 % (3.3-12.3) H 05/18/19 03:00 Eosinophils % 3.1 % (0-4.4) 05/18/19 03:00 Basophils % 0.8 % (0-1.3) 05/18/19 03:00 Absolute Neutrophils 2.1 K/uL (1.8-8.0) 05/18/19 03:00 Absolute Lymphocytes 1.0 K/uL (0.7-4.9) 05/18/19 03:00 Absolute Monocytes 0.5 K/uL (0.1-1.3) 05/18/19 03:00 Absolute Eosinophils 0.1 K/uL (0-0.5) 05/18/19 03:00 Absolute Basophils 0.0 K/uL (0-0.5) 05/18/19 03:00 Sodium 140 mmol/L (136-145) 05/18/19 06:00 Potassium 4.1 mmol/L (3.5-5.1) 05/18/19 06:00 Chloride 105 mmol/L (98-107) 05/18/19 06:00 Carbon Dioxide 30 mmol/L (21-32) 05/18/19 06:00 BUN 9 mg/dL (7-18) 05/18/19 06:00 Creatinine 0.75 mg/dL (0.55-1.3) 05/18/19 06:00 Estimated GFR > 90 mL/min (=/>90) 05/18/19 06:00 Glucose 90 mg/dL (74-106) 05/18/19 06:00 Calcium 8.7 mg/dL (8.5-10.1) 05/18/19 06:00 Magnesium 2.2 mg/dL (1.8-2.4) 05/18/19 06:00 Albumin 2.9 g/dL (3.4-5.0) L 05/18/19 06:00 Prealbumin 12.0 mg/dL (20-40) L 05/18/19 06:00 Urine Color Yellow 05/17/19 21:00 Urine Appearance Clear 05/17/19 21:00 Urine pH 6.0 (5.0-7.0) 05/17/19 21:00 Ur Specific [place] 1.015 (1.005-1.030) 05/17/19 21:00 Urine Ketones Negative (NEG) 05/17/19 21:00 Urine Blood Negative (NEG) 05/17/19 21:00 Urine Nitrite Negative (NEG) 05/17/19 21:00 Urine Bilirubin Negative (NEG) 05/17/19 21:00 Urine Urobilinogen 1.0 mg/dL (0.2-1.0) 05/17/19 21:00 Ur Leukocyte Esterase Negative (NEG) 05/17/19 21:00 Urine RBC None seen /HPF (NONE SEEN) 05/17/19 21:00 Urine WBC <5 /HPF (<5) 05/17/19 21:00 Ur Squamous Epith Cells <5 /HPF (NONE SEEN) 05/17/19 21:00 Urine Bacteria <20 /HPF (NONE SEEN) 05/17/19 21:00 Urine Mucus Light /HPF (NONE SEEN) 05/17/19 21:00 Urine Culture Reflexed Not needed 05/17/19 21:00 Urine Glucose Negative (NEG) 05/17/19 21:00 Urine Total Protein Negative (NEG) 05/17/19 21:00 Weight: 229 lb 4.8 oz Wound Present: No Closed Surgical Incision Present: No Negative Pressure Wound Therapy Present: No Physician Update: Patient is surprisingly able to follow commands; memory impairments; flunctuates with his mentation; PT main goal is transfers Medical Issues: DVT Prophylaxis - Aspirin 81mg Daily PO Pain Issues: Tylenol 650mg Q4H PRN PO Functional Improvement: pt presents with moderate <-> severe strength deficits globally with the L LE exhibiting the greatest deficits. pt demonstrates poor balance and stability during functional mobility. pt exhibits difficulty maintaining TDWB at this time. pt does present with poor memory and difficulty retaining information. pt and pt's spouse will be trained on functional transfers and mobility to ensure safe home discharge. pt experiences poor tolerance to functional activity due to fatigue, and weakness. Skilled PT services are necessary to address the above mentioned impairments and functional limitations. Functional Improvement Occupational Therapy: Patient very participatory with therapy, has good rehab potential to improve functional trf, observing TDWB precautions. Spouse present and very supportive. Speech Therapy Update: MIN A for Auditory Comprehension, MIN to MOD A for Verbal Expression, SUPV to MOD I for Social Interaction, MOD A for Problem Solving, MAX A for MEMORY. Summary: Patient's care plan and intermodal dispatcher goals have been reviewed and revised as necessary. Please see the Rehabilitation Signature page for all necessary signatures.
[2019-05-19] MEDS: ACETAMINOPHEN 325 MG TABLET PO PRN (14:56)
--- NOTE | 2019-05-19 15:29 | FAST ---
ENCOUNTER DATE AND TIME: 05/19/2019 08:00 (CDT) NAME ERICA MORENO DATE OF : 1935 DATE OF ADMISSION: 05/17/2019 22:18 (CDT) PHONE: AGE: 84 SSN# [id number] GENDER: Male ENCOUNTER PHYSICIAN: Dr. Shade Guerrero ADMISSION DIAGNOSIS: - Orthopaedic Disorders 08 - Unilateral Hip Fracture (05.22) closed left acetabular fx. EATING: Activity did not occur on this shift EATING - SCORE: 0-UNK GROOMING: Activity did not occur on this shift GROOMING - SCORE: 0-UNK BATHING: Activity did not occur on this shift BATHING - SCORE: 0-UNK DRESSING - UPPER BODY: Activity did not occur on this shift Patient is not dressing in public clothing ARTICLES SCORE Total number of steps: 0 DRESSING - UPPER BODY - SCORE: 0-UNK DRESSING - LOWER BODY: Activity did not occur on this shift Patient is not dressing in public clothing ARTICLES SCORE Total number of steps: 0 DRESSING - LOWER BODY - SCORE: 0-UNK TOILETING: Activity did not occur on this shift TOILETING - SCORE: 0-UNK BLADDER MANAGEMENT: Activity did not occur on this shift BLADDER MANAGEMENT - SCORE: 7-IND BOWEL MANAGEMENT: Activity did not occur on this shift BOWEL MANAGEMENT - SCORE: 7-IND TRANSFERS: BED, CHAIR, WHEELCHAIR: TRANSFERS: BED, CHAIR, WHEELCHAIR - STEP 1: Does the patient require assistance of a person or device, or need extra time with bed, chair, or whe elchair transfers? Yes. TRANSFERS: BED, CHAIR, WHEELCHAIR - STEP 2: Does the patient require the assistance of a helper? Yes. TRANSFERS: BED, CHAIR, WHEELCHAIR - STEP 3: How much assistance does the patient require from the helper? Lifting of the patient TRANSFERS: BED, CHAIR, WHEELCHAIR - STEP 4: Does the helper lift the patient ONLY up? ONLY down? Up AND Down? Up AND Down. TRANSFERS: BED, CHAIR, WHEELCHAIR - SCORE: 2-MAX TRANSFERS: TOILET: Activity did not occur on this shift TRANSFERS: TOILET - SCORE: 0-UNK TRANSFERS: SHOWER: Activity did not occur on this shift TRANSFERS: SHOWER - SCORE: 0-UNK TRANSFERS: TUB: Activity did not occur on this shift TRANSFERS: TUB - SCORE: 0-UNK LOCOMOTION: WALK: Activity did not occur on this shift LOCOMOTION: WALK - SCORE: 0-UNK LOCOMOTION: WHEELCHAIR: LOCOMOTION: WHEELCHAIR - STEP 1: Does the patient need help to go 150 feet in a wheelchair? Yes. LOCOMOTION: WHEELCHAIR - STEP 2: How much assistance does the patient need from the helper? Only incidental help such as around corner s or over thresholds LOCOMOTION: WHEELCHAIR - SCORE: 4-MIN LOCOMOTION: STAIRS: Activity did not occur on this shift LOCOMOTION: STAIRS - SCORE: 0-UNK COMPREHENSION: COMPREHENSION - SCORE: 0-UNK EXPRESSION EXPRESSION - SCORE: 0-UNK SOCIAL INTERACTION: SOCIAL INTERACTION - SCORE: 0-UNK PROBLEM SOLVING: PROBLEM SOLVING - SCORE: 0-UNK MEMORY: MEMORY - SCORE: 0-UNK SIGNATURE PANEL: The following modified sections: Transfers: Bed, Chair, Wheelchair - Score, Transfers: Toilet - Score , Locomotion: Walk - Score, Locomotion: Wheelchair - Score, Locomotion: Stairs - Score were [electron ically] signed by Dennis Cervantes PTA on ThuMay 19 2019 15:28:52 GMT-0500 (Central Daylight Time)
[2019-05-19] MEDS: ATORVASTATIN 40 MG TAB PO SCH (20:24)
[2019-05-19] MEDS: APIXABAN 2.5 MG TABLET PO SCH (20:24)
--- NOTE | 2019-05-20 03:46 | FAST ---
SHIFT START DATE/TIME: 05/19/2019 19:00 (CDT) SHIFT END DATE/TIME: 05/20/2019 07:00 (CDT) NAME ERICA MORENO DATE OF : 1935 DATE OF ADMISSION: 05/17/2019 22:18 (CDT) PHONE: AGE: 84 SSN# [id number] GENDER: Male ENCOUNTER PHYSICIAN: Dr. Shade Guerrero ADMISSION DIAGNOSIS: - Orthopaedic Disorders 08 - Unilateral Hip Fracture (05.22) closed left acetabular fx. EATING: Activity did not occur on this shift EATING - SCORE: 0-UNK GROOMING: Activity did not occur on this shift GROOMING - SCORE: 0-UNK BATHING: Activity did not occur on this shift BATHING - SCORE: 0-UNK DRESSING - UPPER BODY: Activity did not occur on this shift ARTICLES SCORE Total number of steps: 0 DRESSING - UPPER BODY - SCORE: 0-UNK DRESSING - LOWER BODY: Activity did not occur on this shift ARTICLES SCORE Total number of steps: 0 DRESSING - LOWER BODY - SCORE: 0-UNK TOILETING: Activity did not occur on this shift TOILETING - SCORE: 0-UNK BLADDER MANAGEMENT: [place] removes incontinent device (Depends, pull ups, etc.); cleans the patient after accident / inco ntinent episode; and, applies new incontinent device. BLADDER MANAGEMENT - SCORE: 1-DEP BLADDER MANAGEMENT - FREQUENCY OF ACCIDENTS: BLADDER MANAGEMENT(FA) - STEP 1: How many accidents has the patient had during the current shift? 1 BOWEL MANAGEMENT: Activity did not occur on this shift BOWEL MANAGEMENT - SCORE: 7-IND BOWEL MANAGEMENT - FREQUENCY OF ACCIDENTS: BOWEL MANAGEMENT(FA) - STEP 1: How many accidents has the patient had during the current shift? 0 TRANSFERS: BED, CHAIR, WHEELCHAIR: Activity did not occur on this shift TRANSFERS: BED, CHAIR, WHEELCHAIR - SCORE: 0-UNK TRANSFERS: TOILET: Activity did not occur on this shift TRANSFERS: TOILET - SCORE: 0-UNK TRANSFERS: SHOWER: Activity did not occur on this shift TRANSFERS: SHOWER - SCORE: 0-UNK TRANSFERS: TUB: Activity did not occur on this shift TRANSFERS: TUB - SCORE: 0-UNK LOCOMOTION: WALK: Activity did not occur on this shift LOCOMOTION: WALK - SCORE: 0-UNK LOCOMOTION: WHEELCHAIR: Activity did not occur on this shift LOCOMOTION: WHEELCHAIR - SCORE: 0-UNK COMPREHENSION: COMPREHENSION: TYPE: Both COMPREHENSION - STEP 1: Does the patient require help from a person or device, or need extra time to understand complex and a bstract ideas (such as current events, finances, discharge planning, medical issues, relationships, e tc)? Yes. COMPREHENSION - STEP 2: Does the patient require help to understand questions or statements about basic needs or ideas (such as hunger, thirst, sleep, safety, daily schedule, room location, or discomfort) half or more of the t los? No. COMPREHENSION - STEP 3: How often does the patient need help to understand directions and conversation about basic needs? 25% - 49% of the time COMPREHENSION - SCORE: 3-MOD EXPRESSION EXPRESSION: TYPE: Both EXPRESSION - STEP 1: Does the patient require help from a person or device, or need extra time expressing complex and abst ract ideas (such as current events, finances, discharge planning, medical issues, relationships, etc) ? Yes. EXPRESSION - STEP 2: Does the patient require help to express basic necessities or ideas (such as hunger, thirst, sleep, s afety, daily schedule, room location, or discomfort) half or more of the time? No. EXPRESSION - STEP 3: How often does the patient need help to express directions and conversation about basic needs? 25-49% of the time EXPRESSION - SCORE: 3-MOD SOCIAL INTERACTION: SOCIAL INTERACTION - STEP 1: Does the patient require a helper to interact with others in social and therapeutic situations? Yes. SOCIAL INTERACTION - STEP 2: Does the patient interact appropriately half or more of the time? Yes. SOCIAL INTERACTION - STEP 3: How often does the patient need help to interact appropriately? Less than 10% of the time SOCIAL INTERACTION - SCORE: 5-SUP PROBLEM SOLVING: PROBLEM SOLVING - STEP 1: Does the patient need help from a person or device, or need extra time to solve complex problems such as managing a checking account or confronting interpersonal problems? Yes. PROBLEM SOLVING - STEP 2: Does the patient solve basic routine problems half or more of the time? No. PROBLEM SOLVING - STEP 3: Does the patient need help to solve problems all the time or is s/he unable to solve problems? Yes. P atient needs help to solve problems all the time or is unable to solve problems PROBLEM SOLVING - SCORE: 1-DEP MEMORY: MEMORY - STEP 1: Does the patient need help from a person or device, or need extra time to remember frequently encount ered people, daily routines, and executing requests? Yes. MEMORY - STEP 2: How often does the patient need help to remember frequently encountered people, daily routines, and e xecuting requests? More than 50% of the time MEMORY - STEP 3: Does the patient need help to remember all of the time OR does s/he not effectively recognize and rem ember? No. Patient does not need help all the time MEMORY - SCORE: 2-MAX SIGNATURE PANEL: The following modified sections: Eating - Score, Grooming - Score, Bathing - Score, Dressing - Upper Body - Score, Dressing - Lower Body - Score, Bladder Management - Score, Bowel Management - Score, Tr ansfers: Bed, Chair, Wheelchair - Score, Transfers: Toilet - Score, Transfers: Shower - Score, Transf ers: Tub - Score, Locomotion: Walk - Score, Locomotion: Wheelchair - Score, Comprehension - Score, Ex pression - Score, Social Interaction - Score, Problem Solving - Score, Memory - Score were [jeniffer lima] signed by Cira Humphrey RN on ThuMay 20 2019 03:44:58 GMT-0500 (Central Daylight Time)
[2019-05-20] MEDS: METOPROLOL TAR 25 MG TAB PO SCH ×2 (05:22→17:34)
[2019-05-20] MEDS: APIXABAN 2.5 MG TABLET PO SCH ×2 (09:18→19:23)
[2019-05-20] MEDS: FUROSEMIDE 40 MG TABLET PO SCH (09:18)
[2019-05-20] MEDS: CYANOCOBALAMIN 1,000 MCG TAB PO SCH (09:19)
[2019-05-20] MEDS: ASPIRIN 81 MG CHEWABLE TABLET PO SCH (09:19)
[2019-05-20] MEDS: DOCUSATE NA/SENNA CONC 1 TAB PO SCH ×2 (09:19→19:23)
[2019-05-20] MEDS: POTASSIUM CL SA 10 MEQ TAB PO SCH (09:19)
[2019-05-20] MEDS: PROMOD 30 ML DOSE PO SCH ×2 (09:20→19:23)
--- NOTE | 2019-05-20 15:27 | FAST ---
ENCOUNTER DATE AND TIME: 05/20/2019 08:00 (CDT) NAME ERICA MORENO DATE OF : 1935 DATE OF ADMISSION: 05/17/2019 22:18 (CDT) PHONE: AGE: 84 SSN# [id number] GENDER: Male ENCOUNTER PHYSICIAN: Dr. Shade Guerrero ADMISSION DIAGNOSIS: - Orthopaedic Disorders 08 - Unilateral Hip Fracture (05.22) closed left acetabular fx. EATING: Activity did not occur on this shift EATING - SCORE: 0-UNK GROOMING: Activity did not occur on this shift GROOMING - SCORE: 0-UNK BATHING: Activity did not occur on this shift BATHING - SCORE: 0-UNK DRESSING - UPPER BODY: Activity did not occur on this shift Patient is not dressing in public clothing ARTICLES SCORE Total number of steps: 0 DRESSING - UPPER BODY - SCORE: 0-UNK DRESSING - LOWER BODY: Activity did not occur on this shift Patient is not dressing in public clothing ARTICLES SCORE Total number of steps: 0 DRESSING - LOWER BODY - SCORE: 0-UNK TOILETING: Activity did not occur on this shift TOILETING - SCORE: 0-UNK BLADDER MANAGEMENT: Activity did not occur on this shift BLADDER MANAGEMENT - SCORE: 7-IND BOWEL MANAGEMENT: Activity did not occur on this shift BOWEL MANAGEMENT - SCORE: 7-IND TRANSFERS: BED, CHAIR, WHEELCHAIR: TRANSFERS: BED, CHAIR, WHEELCHAIR - STEP 1: Does the patient require assistance of a person or device, or need extra time with bed, chair, or whe elchair transfers? Yes. TRANSFERS: BED, CHAIR, WHEELCHAIR - STEP 2: Does the patient require the assistance of a helper? Yes. TRANSFERS: BED, CHAIR, WHEELCHAIR - STEP 3: How much assistance does the patient require from the helper? Steadying/guiding assistance TRANSFERS: BED, CHAIR, WHEELCHAIR - SCORE: 4-MIN TRANSFERS: TOILET: Activity did not occur on this shift TRANSFERS: TOILET - SCORE: 0-UNK TRANSFERS: SHOWER: Activity did not occur on this shift TRANSFERS: SHOWER - SCORE: 0-UNK TRANSFERS: TUB: Activity did not occur on this shift TRANSFERS: TUB - SCORE: 0-UNK LOCOMOTION: WALK: Activity did not occur on this shift LOCOMOTION: WALK - SCORE: 0-UNK LOCOMOTION: WHEELCHAIR: LOCOMOTION: WHEELCHAIR - STEP 1: Does the patient need help to go 150 feet in a wheelchair? Yes. LOCOMOTION: WHEELCHAIR - STEP 2: How much assistance does the patient need from the helper? Only incidental help such as around corner s or over thresholds LOCOMOTION: WHEELCHAIR - SCORE: 4-MIN LOCOMOTION: STAIRS: Activity did not occur on this shift LOCOMOTION: STAIRS - SCORE: 0-UNK COMPREHENSION: COMPREHENSION - SCORE: 0-UNK EXPRESSION EXPRESSION - SCORE: 0-UNK SOCIAL INTERACTION: SOCIAL INTERACTION - SCORE: 0-UNK PROBLEM SOLVING: PROBLEM SOLVING - SCORE: 0-UNK MEMORY: MEMORY - SCORE: 0-UNK SIGNATURE PANEL: The following modified sections: Transfers: Bed, Chair, Wheelchair - Score, Transfers: Toilet - Score , Locomotion: Walk - Score, Locomotion: Wheelchair - Score, Locomotion: Stairs - Score were [new johnson] signed by Dennis Cervantes PTA on ThuMay 20 2019 15:26:33 GMT-0500 (Central Daylight Time)
[2019-05-20] MEDS: ATORVASTATIN 40 MG TAB PO SCH (21:35)
--- NOTE | 2019-05-21 02:33 | FAST ---
SHIFT START DATE/TIME: 05/20/2019 19:00 (CDT) SHIFT END DATE/TIME: 05/21/2019 07:00 (CDT) NAME ERICA MORENO DATE OF : 1935 DATE OF ADMISSION: 05/17/2019 22:18 (CDT) PHONE: AGE: 84 SSN# [id number] GENDER: Male ENCOUNTER PHYSICIAN: Dr. Shade Guerrero ADMISSION DIAGNOSIS: - Orthopaedic Disorders 08 - Unilateral Hip Fracture (05.22) closed left acetabular fx. EATING: Activity did not occur on this shift EATING - SCORE: 0-UNK GROOMING: Activity did not occur on this shift GROOMING - SCORE: 0-UNK BATHING: Activity did not occur on this shift BATHING - SCORE: 0-UNK DRESSING - UPPER BODY: Patient is not dressing in public clothing ARTICLES SCORE Total number of steps: 0 DRESSING - UPPER BODY - SCORE: 0-UNK DRESSING - LOWER BODY: Patient is not dressing in public clothing ARTICLES SCORE Total number of steps: 0 DRESSING - LOWER BODY - SCORE: 0-UNK TOILETING: Activity did not occur on this shift TOILETING - SCORE: 0-UNK BLADDER MANAGEMENT: [place] removes incontinent device (Depends, pull ups, etc.); cleans the patient after accident / inco ntinent episode; and, applies new incontinent device. BLADDER MANAGEMENT - SCORE: 1-DEP BOWEL MANAGEMENT: Activity did not occur on this shift BOWEL MANAGEMENT - SCORE: 7-IND TRANSFERS: BED, CHAIR, WHEELCHAIR: Activity did not occur on this shift TRANSFERS: BED, CHAIR, WHEELCHAIR - SCORE: 0-UNK TRANSFERS: TOILET: Activity did not occur on this shift TRANSFERS: TOILET - SCORE: 0-UNK TRANSFERS: SHOWER: Activity did not occur on this shift TRANSFERS: SHOWER - SCORE: 0-UNK TRANSFERS: TUB: Activity did not occur on this shift TRANSFERS: TUB - SCORE: 0-UNK LOCOMOTION: WALK: Activity did not occur on this shift LOCOMOTION: WALK - SCORE: 0-UNK LOCOMOTION: WHEELCHAIR: Activity did not occur on this shift LOCOMOTION: WHEELCHAIR - SCORE: 0-UNK COMPREHENSION: COMPREHENSION: TYPE: Both COMPREHENSION - STEP 1: Does the patient require help from a person or device, or need extra time to understand complex and a bstract ideas (such as current events, finances, discharge planning, medical issues, relationships, e tc)? Yes. COMPREHENSION - STEP 2: Does the patient require help to understand questions or statements about basic needs or ideas (such as hunger, thirst, sleep, safety, daily schedule, room location, or discomfort) half or more of the t los? No. COMPREHENSION - STEP 3: How often does the patient need help to understand directions and conversation about basic needs? 25% - 49% of the time COMPREHENSION - SCORE: 3-MOD EXPRESSION EXPRESSION: TYPE: Both EXPRESSION - STEP 1: Does the patient require help from a person or device, or need extra time expressing complex and abst ract ideas (such as current events, finances, discharge planning, medical issues, relationships, etc) ? Yes. EXPRESSION - STEP 2: Does the patient require help to express basic necessities or ideas (such as hunger, thirst, sleep, s afety, daily schedule, room location, or discomfort) half or more of the time? No. EXPRESSION - STEP 3: How often does the patient need help to express directions and conversation about basic needs? 25-49% of the time EXPRESSION - SCORE: 3-MOD SOCIAL INTERACTION: SOCIAL INTERACTION - STEP 1: Does the patient require a helper to interact with others in social and therapeutic situations? Yes. SOCIAL INTERACTION - STEP 2: Does the patient interact appropriately half or more of the time? Yes. SOCIAL INTERACTION - STEP 3: How often does the patient need help to interact appropriately? Less than 10% of the time SOCIAL INTERACTION - SCORE: 5-SUP PROBLEM SOLVING: PROBLEM SOLVING - STEP 1: Does the patient need help from a person or device, or need extra time to solve complex problems such as managing a checking account or confronting interpersonal problems? Yes. PROBLEM SOLVING - STEP 2: Does the patient solve basic routine problems half or more of the time? No. PROBLEM SOLVING - STEP 3: Does the patient need help to solve problems all the time or is s/he unable to solve problems? Yes. P atient needs help to solve problems all the time or is unable to solve problems PROBLEM SOLVING - SCORE: 1-DEP MEMORY: MEMORY - STEP 1: Does the patient need help from a person or device, or need extra time to remember frequently encount ered people, daily routines, and executing requests? Yes. MEMORY - STEP 2: How often does the patient need help to remember frequently encountered people, daily routines, and e xecuting requests? More than 50% of the time MEMORY - STEP 3: Does the patient need help to remember all of the time OR does s/he not effectively recognize and rem ember? No. Patient does not need help all the time MEMORY - SCORE: 2-MAX
[2019-05-21] MEDS: METOPROLOL TAR 25 MG TAB PO SCH ×2 (05:04→17:17)
[2019-05-21] MEDS: POTASSIUM CL SA 10 MEQ TAB PO SCH (08:58)
[2019-05-21] MEDS: APIXABAN 2.5 MG TABLET PO SCH ×2 (08:59→21:50)
[2019-05-21] MEDS: DOCUSATE NA/SENNA CONC 1 TAB PO SCH ×2 (08:59→21:50)
[2019-05-21] MEDS: FUROSEMIDE 40 MG TABLET PO SCH (08:59)
[2019-05-21] MEDS: ASPIRIN 81 MG CHEWABLE TABLET PO SCH (08:59)
[2019-05-21] MEDS: PROMOD 30 ML DOSE PO SCH ×2 (09:01→21:52)
[2019-05-21] MEDS: CYANOCOBALAMIN 1,000 MCG TAB PO SCH (09:01)
--- NOTE | 2019-05-21 09:25 | FAST ---
SHIFT START DATE/TIME: 05/21/2019 07:00 (CDT) SHIFT END DATE/TIME: 05/21/2019 19:00 (CDT) NAME ERICA MORENO DATE OF : 1935 DATE OF ADMISSION: 05/17/2019 22:18 (CDT) PHONE: AGE: 84 SSN# [id number] GENDER: Male ENCOUNTER PHYSICIAN: Dr. Shade Guerrero ADMISSION DIAGNOSIS: - Orthopaedic Disorders 08 - Unilateral Hip Fracture (05.22) closed left acetabular fx. EATING: EATING - STEP 1: Does the patient require the assistance of a person or device, or need extra time when eating? Yes. EATING - STEP 2: Does the patient require the assistance of a helper? Yes. EATING - STEP 3: Does the patient perform half or more of the eating tasks? Yes. EATING - STEP 4: Does the patient need only supervision, cuing, coaxing OR help to apply an orthosis OR help to cut fo od, open containers, pour liquids, or butter bread? Yes. EATING - SCORE: 5-SUP GROOMING: Activity did not occur on this shift GROOMING - SCORE: 0-UNK BATHING: Activity did not occur on this shift BATHING - SCORE: 0-UNK DRESSING - UPPER BODY: Activity did not occur on this shift ARTICLES SCORE Total number of steps: 0 DRESSING - UPPER BODY - SCORE: 0-UNK DRESSING - UPPER BODY - COMMENTS: dressed patient DRESSING - LOWER BODY: Activity did not occur on this shift ARTICLES SCORE Total number of steps: 0 DRESSING - LOWER BODY - SCORE: 0-UNK DRESSING - LOWER BODY - COMMENTS: dressed patient TOILETING: TOILETING - STEP 1: Does the patient require the assistance of a person or device, or need extra time with toileting? Yes . TOILETING - STEP 2: Does the patient require the assistance of a helper? Yes. TOILETING - STEP 3: How much assistance does the patient require from the helper? Hands-on assistance from the helper TOILETING - STEP 4: Of the 3 tasks: 1) Adjusting clothing prior to use, 2) Cleansing of perineal area, 3) Adjusting clot jessica after use; How many tasks does the patient perform WITHOUT assistance of the helper? One task TOILETING - SCORE: 2-MAX BLADDER MANAGEMENT: BLADDER MANAGEMENT - STEP 1: Does the patient control the bladder completely and intentionally without equipment or devices or med ications, and is always continent? No. BLADDER MANAGEMENT - STEP 2: Does the patient require the assistance of a helper? No, patient requires and independently uses an a ssistive device, such as a urinal, bedpan, bedside commode, catheter, absorbent pad, or collecting de vice BLADDER MANAGEMENT - SCORE: 6-MITRA BOWEL MANAGEMENT: BOWEL MANAGEMENT - STEP 1: Does the patient control bowels completely and intentionally without equipment devices or medications AND is always continent? No. BOWEL MANAGEMENT - STEP 2: Does the patient require the assistance of a helper? No, patient requires and manages independently a n assistive device such as a bedpan, bedside commode, absorbent pad, incontinent device, or collectin g device BOWEL MANAGEMENT - SCORE: 6-MITRA TRANSFERS: BED, CHAIR, WHEELCHAIR: TRANSFERS: BED, CHAIR, WHEELCHAIR - STEP 1: Does the patient require assistance of a person or device, or need extra time with bed, chair, or whe elchair transfers? Yes. TRANSFERS: BED, CHAIR, WHEELCHAIR - STEP 2: Does the patient require the assistance of a helper? Yes. TRANSFERS: BED, CHAIR, WHEELCHAIR - STEP 3: How much assistance does the patient require from the helper? Lifting of the patient TRANSFERS: BED, CHAIR, WHEELCHAIR - STEP 4: Does the helper lift the patient ONLY up? ONLY down? Up AND Down? Up AND Down. TRANSFERS: BED, CHAIR, WHEELCHAIR - SCORE: 2-MAX TRANSFERS: TOILET: TRANSFERS: TOILET - STEP 1: Does the patient require the assistance of a person or device, or need extra time with toilet transfe rs? Yes. TRANSFERS: TOILET - STEP 2: Does the patient require the assistance of a helper? Yes. TRANSFERS: TOILET - STEP 3: How much assistance does the patient require from the helper? Patient performs less than half of the transferring tasks TRANSFERS: TOILET - STEP 4: Does the patient require total assistance for the toilet transfer such as the helper doing basically all the lifting? No. TRANSFERS: TOILET - SCORE: 2-MAX TRANSFERS: SHOWER: Activity did not occur on this shift TRANSFERS: SHOWER - SCORE: 0-UNK TRANSFERS: TUB: Activity did not occur on this shift TRANSFERS: TUB - SCORE: 0-UNK LOCOMOTION: WALK: Activity did not occur on this shift LOCOMOTION: WALK - SCORE: 0-UNK LOCOMOTION: WHEELCHAIR: Activity did not occur on this shift LOCOMOTION: WHEELCHAIR - SCORE: 0-UNK COMPREHENSION: COMPREHENSION: TYPE: Both COMPREHENSION - STEP 1: Does the patient require help from a person or device, or need extra time to understand complex and a bstract ideas (such as current events, finances, discharge planning, medical issues, relationships, e tc)? Yes. COMPREHENSION - STEP 2: Does the patient require help to understand questions or statements about basic needs or ideas (such as hunger, thirst, sleep, safety, daily schedule, room location, or discomfort) half or more of the t los? No. COMPREHENSION - STEP 3: How often does the patient need help to understand directions and conversation about basic needs? Les s than 10% of the time COMPREHENSION - SCORE: 5-SUP EXPRESSION EXPRESSION: TYPE: Both EXPRESSION - STEP 1: Does the patient require help from a person or device, or need extra time expressing complex and abst ract ideas (such as current events, finances, discharge planning, medical issues, relationships, etc) ? Yes. EXPRESSION - STEP 2: Does the patient require help to express basic necessities or ideas (such as hunger, thirst, sleep, s afety, daily schedule, room location, or discomfort) half or more of the time? No. EXPRESSION - STEP 3: How often does the patient need help to express directions and conversation about basic needs? Less t hilliard 10% of the time EXPRESSION - SCORE: 5-SUP SOCIAL INTERACTION: SOCIAL INTERACTION - STEP 1: Does the patient require a helper to interact with others in social and therapeutic situations? Yes. SOCIAL INTERACTION - STEP 2: Does the patient interact appropriately half or more of the time? Yes. SOCIAL INTERACTION - STEP 3: How often does the patient need help to interact appropriately? Less than 10% of the time SOCIAL INTERACTION - SCORE: 5-SUP PROBLEM SOLVING: PROBLEM SOLVING - STEP 1: Does the patient need help from a person or device, or need extra time to solve complex problems such as managing a checking account or confronting interpersonal problems? Yes. PROBLEM SOLVING - STEP 2: Does the patient solve basic routine problems half or more of the time? Yes. PROBLEM SOLVING - STEP 3: How often does the patient need help to solve basic routine problems? Less than 10% of the time PROBLEM SOLVING - SCORE: 5-SUP MEMORY: MEMORY - STEP 1: Does the patient need help from a person or device, or need extra time to remember frequently encount ered people, daily routines, and executing requests? Yes. MEMORY - STEP 2: How often does the patient need help to remember frequently encountered people, daily routines, and e xecuting requests? Less than 10% of the time MEMORY - SCORE: 5-SUP SIGNATURE PANEL: The following modified sections: Eating - Score, Grooming - Score, Bathing - Score, Dressing - Upper Body - Score, Dressing - Upper Body - Comments:, Dressing - Lower Body - Score, Dressing - Lower Body - Comments:, Toileting - Score, Bladder Management - Score, Bowel Management - Score, Transfers: Bed , Chair, Wheelchair - Score, Transfers: Toilet - Score, Transfers: Shower - Score, Transfers: Tub - S core, Locomotion: Walk - Score, Locomotion: Wheelchair - Score, Comprehension - Score, Expression - S core, Social Interaction - Score, Problem Solving - Score, Memory - Score were [electronically] ugo d by Dontrell Maradiaga on Sat May 21 2019 09:24:13 GMT-0500 (Central Daylight Time)
--- NOTE | 2019-05-21 10:03 | FAST ---
ENCOUNTER DATE AND TIME: 05/18/2019 08:00 (CDT) NAME ERICA MORENO DATE OF : 1935 DATE OF ADMISSION: 05/17/2019 22:18 (CDT) PHONE: AGE: 84 SSN# [id number] GENDER: Male ENCOUNTER PHYSICIAN: Dr. Shade Guerrero ADMISSION DIAGNOSIS: - Orthopaedic Disorders 08 - Unilateral Hip Fracture (.) closed left acetabular fx. EATING: Activity did not occur on this shift EATING - SCORE: 0-UNK GROOMING: Comb/brush hair Oral care Wash, rinse, and dry face Wash, rinse, and dry hands GROOMING - STEP 1: Does the patient require the assistance of a person or device, or need extra time when grooming? Yes. GROOMING - STEP 2: Does the patient require the assistance of a helper? Yes. GROOMING - STEP 3: How much assistance does the patient require from the helper? Only prior equipment preparation/set up from the helper GROOMING - SCORE: 5-SUP BATHING: Abdomen Buttocks Chest Left arm Left lower leg and foot Left upper leg Perineal area Right arm Right lower leg and foot Right upper leg BATHING - STEP 1: Does the patient require the assistance of a person or device, or need extra time when bathing? Yes. BATHING - STEP 2: Does the patient require the assistance of a helper? Yes. BATHING - STEP 3: How much assistance does the patient require from the helper? More than just incidental help BATHING - STEP 4: What percent of the body parts did the patient bathe WITHOUT the helper? Half or more of the body par ts BATHING - SCORE: 3-MOD DRESSING - UPPER BODY: T-shirt/pullover shirt (four steps) ARTICLES SCORE Total number of steps: 4 DRESSING - UPPER BODY - STEP 1: Does the patient require help from a person or device, or need extra time when dressing above the marg[address] st? Yes. DRESSING - UPPER BODY - STEP 2: Does the patient require the assistance of a helper? Yes. DRESSING - UPPER BODY - STEP 3: Does the helper touch the patient while dressing? No. DRESSING - UPPER BODY - SCORE: 5-SUP DRESSING - LOWER BODY: Elastic waist pants (three steps) Sock - Left foot (one step) Sock - Right foot (one step) Tied or buckled shoe - Right foot (two steps) Underwear (three steps) ARTICLES SCORE Total number of steps: 10 DRESSING - LOWER BODY - STEP 1: Does the patient require help from a person or device, or need extra time when dressing below the margo st? Yes. DRESSING - LOWER BODY - STEP 2: Does the patient require the assistance of a helper? Yes. DRESSING - LOWER BODY - STEP 3: Does the helper touch the patient while dressing? Yes. DRESSING - LOWER BODY - STEP 4: How many of the total steps does the patient complete on his/her own? 0 DRESSING - LOWER BODY - STEP 5: Does patient require total assistance for dressing below the waist such as the helper holding clothin g and performing basically all the activities? Yes. DRESSING - LOWER BODY - SCORE: 1-DEP TOILETING: Activity did not occur on this shift TOILETING - SCORE: 0-UNK BLADDER MANAGEMENT: Activity did not occur on this shift BLADDER MANAGEMENT - SCORE: 7-IND BOWEL MANAGEMENT: Activity did not occur on this shift BOWEL MANAGEMENT - SCORE: 7-IND TRANSFERS: BED, CHAIR, WHEELCHAIR: Activity did not occur on this shift TRANSFERS: BED, CHAIR, WHEELCHAIR - SCORE: 0-UNK TRANSFERS: TOILET: Activity did not occur on this shift TRANSFERS: TOILET - SCORE: 0-UNK TRANSFERS: SHOWER: TRANSFERS: SHOWER - STEP 1: Does the patient require the assistance of a person or device, or need extra time with shower transfe rs? Yes. TRANSFERS: SHOWER - STEP 2: Does the patient require the assistance of a helper? Yes. TRANSFERS: SHOWER - STEP 3: How much assistance does the patient require from the helper? More than incidental help TRANSFERS: SHOWER - STEP 4: How much more help does the patient require from the helper? Lifting the patient up AND down from the wheelchair onto the shower chair TRANSFERS: SHOWER - SCORE: 2-MAX TRANSFERS: TUB: Activity did not occur on this shift TRANSFERS: TUB - SCORE: 0-UNK LOCOMOTION: WALK: Activity did not occur on this shift LOCOMOTION: WALK - SCORE: 0-UNK LOCOMOTION: WHEELCHAIR: Activity did not occur on this shift LOCOMOTION: WHEELCHAIR - SCORE: 0-UNK LOCOMOTION: STAIRS: Activity did not occur on this shift LOCOMOTION: STAIRS - SCORE: 0-UNK COMPREHENSION: COMPREHENSION: TYPE: Both COMPREHENSION - STEP 1: Does the patient require help from a person or device, or need extra time to understand complex and a bstract ideas (such as current events, finances, discharge planning, medical issues, relationships, e tc)? Yes. COMPREHENSION - STEP 2: Does the patient require help to understand questions or statements about basic needs or ideas (such as hunger, thirst, sleep, safety, daily schedule, room location, or discomfort) half or more of the t los? No. COMPREHENSION - STEP 3: How often does the patient need help to understand directions and conversation about basic needs? Les s than 10% of the time COMPREHENSION - SCORE: 5-SUP EXPRESSION EXPRESSION: TYPE: Both EXPRESSION - STEP 1: Does the patient require help from a person or device, or need extra time expressing complex and abst ract ideas (such as current events, finances, discharge planning, medical issues, relationships, etc) ? Yes. EXPRESSION - STEP 2: Does the patient require help to express basic necessities or ideas (such as hunger, thirst, sleep, s afety, daily schedule, room location, or discomfort) half or more of the time? No. EXPRESSION - STEP 3: How often does the patient need help to express directions and conversation about basic needs? Less t hilliard 10% of the time EXPRESSION - SCORE: 5-SUP SOCIAL INTERACTION: SOCIAL INTERACTION - STEP 1: Does the patient require a helper to interact with others in social and therapeutic situations? No. SOCIAL INTERACTION - STEP 2: Does the patient need extra time in social situations, OR does s/he interact with staff, other patien ts, and family members ONLY in structured environments, OR does s/he require medication for social in teraction? Yes, patient needs extra time SOCIAL INTERACTION - SCORE: 6-MITRA PROBLEM SOLVING: PROBLEM SOLVING - STEP 1: Does the patient need help from a person or device, or need extra time to solve complex problems such as managing a checking account or confronting interpersonal problems? Yes. PROBLEM SOLVING - STEP 2: Does the patient solve basic routine problems half or more of the time? Yes. PROBLEM SOLVING - STEP 3: How often does the patient need help to solve basic routine problems? 10%-24% of the time PROBLEM SOLVING - SCORE: 4-MIN MEMORY: MEMORY - STEP 1: Does the patient need help from a person or device, or need extra time to remember frequently encount ered people, daily routines, and executing requests? Yes. MEMORY - STEP 2: How often does the patient need help to remember frequently encountered people, daily routines, and e xecuting requests? 10% - 24% of the time MEMORY - SCORE: 4-MIN SIGNATURE PANEL: The following modified sections: Memory - Score, Problem Solving - Score, Social Interaction - Score, Expression - Score, Comprehension - Score, Transfers: Bed, Chair, Wheelchair - Score, Transfers: Carl let - Score, Transfers: Tub - Score, Transfers: Shower - Score, Eating - Score, Grooming - Score, Bat jessica - Score, Dressing - Upper Body - Score, Dressing - Lower Body - Score, Toileting - Score were [e lectronically] signed by Monae Mott OT on ThuMay 21 2019 10:02:18 T-0500 (Central Daylight T los)
--- NOTE | 2019-05-21 13:35 | FAST ---
ENCOUNTER DATE AND TIME: 05/21/2019 08:00 (CDT) NAME ERICA MORENO DATE OF : 1935 DATE OF ADMISSION: 05/17/2019 22:18 (CDT) PHONE: AGE: 84 SSN# [id number] GENDER: Male ENCOUNTER PHYSICIAN: Dr. Shade Guerrero ADMISSION DIAGNOSIS: - Orthopaedic Disorders 08 - Unilateral Hip Fracture (05.22) closed left acetabular fx. EATING: Activity did not occur on this shift EATING - SCORE: 0-UNK GROOMING: Activity did not occur on this shift GROOMING - SCORE: 0-UNK BATHING: Activity did not occur on this shift BATHING - SCORE: 0-UNK DRESSING - UPPER BODY: Activity did not occur on this shift Patient is not dressing in public clothing ARTICLES SCORE Total number of steps: 0 DRESSING - UPPER BODY - SCORE: 0-UNK DRESSING - LOWER BODY: Activity did not occur on this shift Patient is not dressing in public clothing ARTICLES SCORE Total number of steps: 0 DRESSING - LOWER BODY - SCORE: 0-UNK TOILETING: Activity did not occur on this shift TOILETING - SCORE: 0-UNK BLADDER MANAGEMENT: Activity did not occur on this shift BLADDER MANAGEMENT - SCORE: 7-IND BOWEL MANAGEMENT: Activity did not occur on this shift BOWEL MANAGEMENT - SCORE: 7-IND TRANSFERS: BED, CHAIR, WHEELCHAIR: TRANSFERS: BED, CHAIR, WHEELCHAIR - STEP 1: Does the patient require assistance of a person or device, or need extra time with bed, chair, or whe elchair transfers? Yes. TRANSFERS: BED, CHAIR, WHEELCHAIR - STEP 2: Does the patient require the assistance of a helper? Yes. TRANSFERS: BED, CHAIR, WHEELCHAIR - STEP 3: How much assistance does the patient require from the helper? Lifting of the legs TRANSFERS: BED, CHAIR, WHEELCHAIR - STEP 4: How many legs does the patient require the helper to lift? one leg TRANSFERS: BED, CHAIR, WHEELCHAIR - SCORE: 4-MIN TRANSFERS: TOILET: Activity did not occur on this shift TRANSFERS: TOILET - SCORE: 0-UNK TRANSFERS: SHOWER: Activity did not occur on this shift TRANSFERS: SHOWER - SCORE: 0-UNK TRANSFERS: TUB: Activity did not occur on this shift TRANSFERS: TUB - SCORE: 0-UNK LOCOMOTION: WALK: Activity did not occur on this shift LOCOMOTION: WALK - SCORE: 0-UNK LOCOMOTION: WHEELCHAIR: LOCOMOTION: WHEELCHAIR - STEP 1: Does the patient need help to go 150 feet in a wheelchair? Yes. LOCOMOTION: WHEELCHAIR - STEP 2: How much assistance does the patient need from the helper? Only incidental help such as around corner s or over thresholds LOCOMOTION: WHEELCHAIR - SCORE: 4-MIN LOCOMOTION: STAIRS: Activity did not occur on this shift LOCOMOTION: STAIRS - SCORE: 0-UNK COMPREHENSION: COMPREHENSION - SCORE: 0-UNK EXPRESSION EXPRESSION - SCORE: 0-UNK SOCIAL INTERACTION: SOCIAL INTERACTION - SCORE: 0-UNK PROBLEM SOLVING: PROBLEM SOLVING - SCORE: 0-UNK MEMORY: MEMORY - SCORE: 0-UNK SIGNATURE PANEL: The following modified sections: Transfers: Bed, Chair, Wheelchair - Score, Transfers: Toilet - Score , Locomotion: Wheelchair - Score, Locomotion: Walk - Score, Locomotion: Stairs - Score were [electron ically] signed by Vince Irving PTA on Sat May 21 2019 13:34:27 T-0500 (Central Daylight Time)
[2019-05-21] MEDS: ATORVASTATIN 40 MG TAB PO SCH (21:50)
[2019-05-22] MEDS: METOPROLOL TAR 25 MG TAB PO SCH ×2 (05:15→17:00)
[2019-05-22] MEDS: POTASSIUM CL SA 10 MEQ TAB PO SCH (08:26)
[2019-05-22] MEDS: DOCUSATE NA/SENNA CONC 1 TAB PO SCH ×2 (08:26→20:35)
[2019-05-22] MEDS: APIXABAN 2.5 MG TABLET PO SCH ×2 (08:27→20:36)
[2019-05-22] MEDS: ASPIRIN 81 MG CHEWABLE TABLET PO SCH (08:27)
[2019-05-22] MEDS: FUROSEMIDE 40 MG TABLET PO SCH (08:27)
[2019-05-22] MEDS: CYANOCOBALAMIN 1,000 MCG TAB PO SCH (08:27)
[2019-05-22] MEDS: PROMOD 30 ML DOSE PO SCH ×2 (08:28→20:39)
--- NOTE | 2019-05-22 11:01 | FAST ---
SHIFT START DATE/TIME: 05/22/2019 07:00 (CDT) SHIFT END DATE/TIME: 05/22/2019 19:00 (CDT) NAME ERICA MORENO DATE OF : 1935 DATE OF ADMISSION: 05/17/2019 22:18 (CDT) PHONE: AGE: 84 SSN# [id number] GENDER: Male ENCOUNTER PHYSICIAN: Dr. Shade Guerrero ADMISSION DIAGNOSIS: - Orthopaedic Disorders 08 - Unilateral Hip Fracture (05.22) closed left acetabular fx. EATING: EATING - STEP 1: Does the patient require the assistance of a person or device, or need extra time when eating? Yes. EATING - STEP 2: Does the patient require the assistance of a helper? Yes. EATING - STEP 3: Does the patient perform half or more of the eating tasks? Yes. EATING - STEP 4: Does the patient need only supervision, cuing, coaxing OR help to apply an orthosis OR help to cut fo od, open containers, pour liquids, or butter bread? Yes. EATING - SCORE: 5-SUP GROOMING: Comb/brush hair Oral care Wash, rinse, and dry face Wash, rinse, and dry hands GROOMING - STEP 1: Does the patient require the assistance of a person or device, or need extra time when grooming? Yes. GROOMING - STEP 2: Does the patient require the assistance of a helper? Yes. GROOMING - STEP 3: How much assistance does the patient require from the helper? Cuing, coaxing, instructions, or encour agement for completion of grooming GROOMING - SCORE: 5-SUP BATHING: Activity did not occur on this shift BATHING - SCORE: 0-UNK DRESSING - UPPER BODY: Button down shirt or blouse - NOT tucked in (four steps) ARTICLES SCORE Total number of steps: 4 DRESSING - UPPER BODY - STEP 1: Does the patient require help from a person or device, or need extra time when dressing above the [address]? Yes. DRESSING - UPPER BODY - STEP 2: Does the patient require the assistance of a helper? Yes. DRESSING - UPPER BODY - STEP 3: Does the helper touch the patient while dressing? Yes. DRESSING - UPPER BODY - STEP 4: How many of the total steps does the patient complete on his/her own? 2 DRESSING - UPPER BODY - SCORE: 3-MOD DRESSING - LOWER BODY: ARTICLES SCORE Total number of steps: 8 DRESSING - LOWER BODY - STEP 1: Does the patient require help from a person or device, or need extra time when dressing below the marg[address] st? Yes. DRESSING - LOWER BODY - STEP 2: Does the patient require the assistance of a helper? Yes. DRESSING - LOWER BODY - STEP 3: Does the helper touch the patient while dressing? Yes. DRESSING - LOWER BODY - STEP 4: How many of the total steps does the patient complete on his/her own? 3 DRESSING - LOWER BODY - STEP 5: Does patient require total assistance for dressing below the waist such as the helper holding clothin g and performing basically all the activities? No. DRESSING - LOWER BODY - SCORE: 2-MAX TOILETING: TOILETING - STEP 1: Does the patient require the assistance of a person or device, or need extra time with toileting? Yes . TOILETING - STEP 2: Does the patient require the assistance of a helper? Yes. TOILETING - STEP 3: How much assistance does the patient require from the helper? Hands-on assistance from the helper TOILETING - STEP 4: Of the 3 tasks: 1) Adjusting clothing prior to use, 2) Cleansing of perineal area, 3) Adjusting clot jessica after use; How many tasks does the patient perform WITHOUT assistance of the helper? One task TOILETING - SCORE: 2-MAX BLADDER MANAGEMENT: BLADDER MANAGEMENT - STEP 1: Does the patient control the bladder completely and intentionally without equipment or devices or med ications, and is always continent? No. BLADDER MANAGEMENT - STEP 2: Does the patient require the assistance of a helper? No, patient requires and independently uses an a ssistive device, such as a urinal, bedpan, bedside commode, catheter, absorbent pad, or collecting de vice BLADDER MANAGEMENT - SCORE: 6-MITRA BOWEL MANAGEMENT: Activity did not occur on this shift BOWEL MANAGEMENT - SCORE: 7-IND TRANSFERS: BED, CHAIR, WHEELCHAIR: TRANSFERS: BED, CHAIR, WHEELCHAIR - STEP 1: Does the patient require assistance of a person or device, or need extra time with bed, chair, or whe elchair transfers? Yes. TRANSFERS: BED, CHAIR, WHEELCHAIR - STEP 2: Does the patient require the assistance of a helper? Yes. TRANSFERS: BED, CHAIR, WHEELCHAIR - STEP 3: How much assistance does the patient require from the helper? Lifting of the patient TRANSFERS: BED, CHAIR, WHEELCHAIR - STEP 4: Does the helper lift the patient ONLY up? ONLY down? Up AND Down? Up AND Down. TRANSFERS: BED, CHAIR, WHEELCHAIR - SCORE: 2-MAX TRANSFERS: TOILET: TRANSFERS: TOILET - STEP 1: Does the patient require the assistance of a person or device, or need extra time with toilet transfe rs? Yes. TRANSFERS: TOILET - STEP 2: Does the patient require the assistance of a helper? Yes. TRANSFERS: TOILET - STEP 3: How much assistance does the patient require from the helper? Patient performs less than half of the transferring tasks TRANSFERS: TOILET - STEP 4: Does the patient require total assistance for the toilet transfer such as the helper doing basically all the lifting? No. TRANSFERS: TOILET - SCORE: 2-MAX TRANSFERS: SHOWER: Activity did not occur on this shift TRANSFERS: SHOWER - SCORE: 0-UNK TRANSFERS: TUB: Activity did not occur on this shift TRANSFERS: TUB - SCORE: 0-UNK LOCOMOTION: WALK: Activity did not occur on this shift LOCOMOTION: WALK - SCORE: 0-UNK LOCOMOTION: WHEELCHAIR: Activity did not occur on this shift LOCOMOTION: WHEELCHAIR - SCORE: 0-UNK COMPREHENSION: COMPREHENSION: TYPE: Both COMPREHENSION - STEP 1: Does the patient require help from a person or device, or need extra time to understand complex and a bstract ideas (such as current events, finances, discharge planning, medical issues, relationships, e tc)? Yes. COMPREHENSION - STEP 2: Does the patient require help to understand questions or statements about basic needs or ideas (such as hunger, thirst, sleep, safety, daily schedule, room location, or discomfort) half or more of the t los? No. COMPREHENSION - STEP 3: How often does the patient need help to understand directions and conversation about basic needs? 10% - 24% of the time COMPREHENSION - SCORE: 4-MIN EXPRESSION EXPRESSION: TYPE: Both EXPRESSION - STEP 1: Does the patient require help from a person or device, or need extra time expressing complex and abst ract ideas (such as current events, finances, discharge planning, medical issues, relationships, etc) ? Yes. EXPRESSION - STEP 2: Does the patient require help to express basic necessities or ideas (such as hunger, thirst, sleep, s afety, daily schedule, room location, or discomfort) half or more of the time? No. EXPRESSION - STEP 3: How often does the patient need help to express directions and conversation about basic needs? 10-24% of the time EXPRESSION - SCORE: 4-MIN SOCIAL INTERACTION: SOCIAL INTERACTION - STEP 1: Does the patient require a helper to interact with others in social and therapeutic situations? Yes. SOCIAL INTERACTION - STEP 2: Does the patient interact appropriately half or more of the time? Yes. SOCIAL INTERACTION - STEP 3: How often does the patient need help to interact appropriately? 10-24% of the time SOCIAL INTERACTION - SCORE: 4-MIN PROBLEM SOLVING: PROBLEM SOLVING - STEP 1: Does the patient need help from a person or device, or need extra time to solve complex problems such as managing a checking account or confronting interpersonal problems? Yes. PROBLEM SOLVING - STEP 2: Does the patient solve basic routine problems half or more of the time? Yes. PROBLEM SOLVING - STEP 3: How often does the patient need help to solve basic routine problems? 10%-24% of the time PROBLEM SOLVING - SCORE: 4-MIN MEMORY: MEMORY - STEP 1: Does the patient need help from a person or device, or need extra time to remember frequently encount ered people, daily routines, and executing requests? Yes. MEMORY - STEP 2: How often does the patient need help to remember frequently encountered people, daily routines, and e xecuting requests? 10% - 24% of the time MEMORY - SCORE: 4-MIN SIGNATURE PANEL: The following modified sections: Eating - Score, Grooming - Score, Bathing - Score, Dressing - Upper Body - Score, Dressing - Lower Body - Score, Toileting - Score, Bladder Management - Score, Bowel Man agement - Score, Transfers: Bed, Chair, Wheelchair - Score, Transfers: Toilet - Score, Transfers: Beverly wer - Score, Transfers: Tub - Score, Locomotion: Walk - Score, Locomotion: Wheelchair - Score, Compre hension - Score, Expression - Score, Social Interaction - Score, Problem Solving - Score, Memory - Sc ore were [electronically] signed by Dontrell Maradiaga on ThuMay 22 2019 11:00:23 GMT-0500 (Central Daylight Time)
[2019-05-22] MEDS: ATORVASTATIN 40 MG TAB PO SCH (20:35)
[2019-05-22] MEDS ORDERED: MAGNES/ALUMIN/SIMET 30ML UCUP PO PRN (22:53)
[2019-05-22] MEDS ORDERED: MAGNES/ALUMIN/SIMET 30ML UCUP ONE (23:03)
[2019-05-22] MEDS ORDERED: ONDANSETRON 4 MG (ODT) TAB PO ONE (23:46)
[2019-05-23] MEDS: ACETAMINOPHEN 325 MG TABLET PO PRN ×2 (01:09→13:31)
--- NOTE | 2019-05-23 02:26 | FAST ---
SHIFT START DATE/TIME: 05/22/2019 19:00 (CDT) SHIFT END DATE/TIME: 05/23/2019 07:00 (CDT) NAME ERICA MORENO DATE OF : 1935 DATE OF ADMISSION: 05/17/2019 19:58 (CDT) PHONE: AGE: 84 SSN# [id number] GENDER: Male ENCOUNTER PHYSICIAN: Dr. Shade Guerrero ADMISSION DIAGNOSIS: - Orthopaedic Disorders 08 - Unilateral Hip Fracture (05.22) closed left acetabular fx. EATING: Activity did not occur on this shift EATING - SCORE: 0-UNK GROOMING: Activity did not occur on this shift GROOMING - SCORE: 0-UNK BATHING: Activity did not occur on this shift BATHING - SCORE: 0-UNK DRESSING - UPPER BODY: Patient is not dressing in public clothing ARTICLES SCORE Total number of steps: 0 DRESSING - UPPER BODY - SCORE: 0-UNK DRESSING - LOWER BODY: Patient is not dressing in public clothing ARTICLES SCORE Total number of steps: 0 DRESSING - LOWER BODY - SCORE: 0-UNK TOILETING: TOILETING - STEP 1: Does the patient require the assistance of a person or device, or need extra time with toileting? Yes . TOILETING - STEP 2: Does the patient require the assistance of a helper? Yes. TOILETING - STEP 3: How much assistance does the patient require from the helper? Hands-on assistance from the helper TOILETING - STEP 4: Of the 3 tasks: 1) Adjusting clothing prior to use, 2) Cleansing of perineal area, 3) Adjusting clot jessica after use; How many tasks does the patient perform WITHOUT assistance of the helper? Two tasks TOILETING - SCORE: 3-MOD BLADDER MANAGEMENT: BLADDER MANAGEMENT - STEP 1: Does the patient control the bladder completely and intentionally without equipment or devices or med ications, and is always continent? No. BLADDER MANAGEMENT - STEP 2: Does the patient require the assistance of a helper? Yes. BLADDER MANAGEMENT - STEP 3: How much assistance does the patient require from the helper? Only set-up of equipment - such as plac ing it within reach of the patient or emptying a device - to maintain either satisfactory voiding pat tern or managing an external device, such as an absorbent pad, ileal device, or catheter BLADDER MANAGEMENT - SCORE: 5-SUP BOWEL MANAGEMENT: BOWEL MANAGEMENT - STEP 1: Does the patient control bowels completely and intentionally without equipment devices or medications AND is always continent? No. BOWEL MANAGEMENT - STEP 2: Does the patient require the assistance of a helper? No, patient requires medication for control such as stool softeners, suppositories, laxatives, enemas, or OTC medications BOWEL MANAGEMENT - SCORE: 6-MITRA TRANSFERS: BED, CHAIR, WHEELCHAIR: TRANSFERS: BED, CHAIR, WHEELCHAIR - STEP 1: Does the patient require assistance of a person or device, or need extra time with bed, chair, or whe elchair transfers? Yes. TRANSFERS: BED, CHAIR, WHEELCHAIR - STEP 2: Does the patient require the assistance of a helper? Yes. TRANSFERS: BED, CHAIR, WHEELCHAIR - STEP 3: How much assistance does the patient require from the helper? Lifting of the patient TRANSFERS: BED, CHAIR, WHEELCHAIR - STEP 4: Does the helper lift the patient ONLY up? ONLY down? Up AND Down? Up AND Down. TRANSFERS: BED, CHAIR, WHEELCHAIR - SCORE: 2-MAX TRANSFERS: TOILET: Activity did not occur on this shift TRANSFERS: TOILET - SCORE: 0-UNK TRANSFERS: SHOWER: Activity did not occur on this shift TRANSFERS: SHOWER - SCORE: 0-UNK TRANSFERS: TUB: Activity did not occur on this shift TRANSFERS: TUB - SCORE: 0-UNK LOCOMOTION: WALK: Activity did not occur on this shift LOCOMOTION: WALK - SCORE: 0-UNK LOCOMOTION: WHEELCHAIR: Activity did not occur on this shift LOCOMOTION: WHEELCHAIR - SCORE: 0-UNK COMPREHENSION: COMPREHENSION: TYPE: Both COMPREHENSION - STEP 1: Does the patient require help from a person or device, or need extra time to understand complex and a bstract ideas (such as current events, finances, discharge planning, medical issues, relationships, e tc)? Yes. COMPREHENSION - STEP 2: Does the patient require help to understand questions or statements about basic needs or ideas (such as hunger, thirst, sleep, safety, daily schedule, room location, or discomfort) half or more of the t los? No. COMPREHENSION - STEP 3: How often does the patient need help to understand directions and conversation about basic needs? 25% - 49% of the time COMPREHENSION - SCORE: 3-MOD EXPRESSION EXPRESSION: TYPE: Both EXPRESSION - STEP 1: Does the patient require help from a person or device, or need extra time expressing complex and abst ract ideas (such as current events, finances, discharge planning, medical issues, relationships, etc) ? No. EXPRESSION - STEP 2: Does the patient need extra time, require an assistive device (such as augmentive communication syste m or a communication board), OR does s/he have mild difficulty expressing complex and abstract ideas (including mild dysarthria or mild word-find problems)? Yes. EXPRESSION - SCORE: 6-MITRA SOCIAL INTERACTION: SOCIAL INTERACTION - STEP 1: Does the patient require a helper to interact with others in social and therapeutic situations? No. SOCIAL INTERACTION - STEP 2: Does the patient need extra time in social situations, OR does s/he interact with staff, other patien ts, and family members ONLY in structured environments, OR does s/he require medication for social in teraction? Yes, patient needs extra time SOCIAL INTERACTION - SCORE: 6-MITRA PROBLEM SOLVING: PROBLEM SOLVING - STEP 1: Does the patient need help from a person or device, or need extra time to solve complex problems such as managing a checking account or confronting interpersonal problems? Yes. PROBLEM SOLVING - STEP 2: Does the patient solve basic routine problems half or more of the time? Yes. PROBLEM SOLVING - STEP 3: How often does the patient need help to solve basic routine problems? 25%-49% of the time PROBLEM SOLVING - SCORE: 3-MOD MEMORY: MEMORY - STEP 1: Does the patient need help from a person or device, or need extra time to remember frequently encount ered people, daily routines, and executing requests? Yes. MEMORY - STEP 2: How often does the patient need help to remember frequently encountered people, daily routines, and e xecuting requests? 10% - 24% of the time MEMORY - SCORE: 4-MIN SIGNATURE PANEL: The following modified sections: Eating - Score, Grooming - Score, Dressing - Upper Body - Score, Shay ssing - Lower Body - Score, Toileting - Score, Bladder Management - Score, Bowel Management - Score, Transfers: Bed, Chair, Wheelchair - Score, Transfers: Toilet - Score, Transfers: Shower - Score, Buck sfers: Tub - Score, Locomotion: Walk - Score, Locomotion: Wheelchair - Score, Comprehension - Score, Expression - Score, Social Interaction - Score, Problem Solving - Score, Memory - Score were [electro nically] signed by Giselle Dang CNA on ThuMay 23 2019 02:25:57 GMT-0500 (Central Daylight Time)
[2019-05-23] MEDS: METOPROLOL TAR 25 MG TAB PO SCH ×2 (05:25→17:37)
[2019-05-23 05:29] VITALS: BMI 34.3
--- NOTE | 2019-05-23 08:41 | P.CNS ---
Date of Consult: 05/23/19 Reason for Consult: Right great toenail pain Chief Complaint: The right great toe nail is loose Allergies clindamycin Allergy (Verified 05/17/19 21:44) Nausea/Vomiting codeine Allergy (Verified 05/17/19 21:44) Nausea/Vomiting fentanyl Allergy (Verified 05/17/19 21:44) confusion hydromorphone [Hydromorphone] Allergy (Verified 05/17/19 21:44) Anaphylaxis methadone Allergy (Verified 05/17/19 21:44) Anaphylaxis morphine Allergy (Verified 05/17/19 21:44) Anaphylaxis Penicillins Allergy (Verified 05/17/19 21:44) Hives opiates Allergy (Uncoded 05/17/19 21:44) Anaphylaxis Home Medications: Acetaminophen [Tylenol] 325 mg PO Q4HP PRN 05/17/19 Aspirin 81 mg PO DAILY 05/17/19 Atorvastatin Calcium [Lipitor] 40 mg PO BEDTIME 05/17/19 Cyanocobalamin (Vitamin B-12) [Vitamin B-12] 1,000 mcg PO DAILY 05/17/19 Furosemide [Lasix Oral Nydia] 40 mg PO DAILY 05/17/19 Ibuprofen 400 mg PO Q6HP PRN 05/17/19 Metoprolol Tartrate 12.5 mg PO BID 05/17/19 Potassium Chloride [K-Dur] 20 meq PO DAILY 05/17/19 Senosides [Senokot] 8.6 mg PO BID 05/17/19 - Past Medical/Surgical History Diabetic: No -: Muscular dystrophy -: HTN -: Seizure -: Non sustained V-tach -: DYSLIPIDEMIA -: RENAL CYST -: PVC -: 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 -: Pulmonary Embolism -: ND STEMI -: Stroke -: CHF -: 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 -: Stainless steel surgery knees -: Hernia surgery -: CATARACT -: Cardiac catheterization 08/04/14 - Family History Father Notes: Unknown family history as per Mother Notes: Unknown family history as per - Social History Smoking Status: Never smoker Alcohol use: Yes CD- Drugs: No Caffeine use: No Place of Residence: Home Review of Systems is unable to be obtained Physical Examination Temp Pulse Resp BP Pulse Ox 98 F 85 18 168/91 H 98 05/22/19 20:00 05/23/19 05:25 05/22/19 20:00 05/23/19 05:25 05/22/19 20:00 General: Demented, Confused Cardiovascular: No edema, Abnormal pulses Capillary refill: >2 Seconds Musculoskeletal: No clubbing, No swelling, No contractures, No erythema, No tenderness, No warmth Integumentary: Other (right hallux nail noted to be loosened with dried blood subungually. No drainage, no purulence, no signs of infection) - Problems (1) Contusion of right great toe with damage to nail Current Visit: Yes Status: Acute Plan: Bedside avulsion of right great toenail without anesthesia. No bleeding, no open wound noted. Procedure tolerated well by patient Physician Review: Patient Assessed, Agree with Above Assessment and Plan (30) Critical Care: No
[2019-05-23] MEDS: DOCUSATE NA/SENNA CONC 1 TAB PO SCH ×2 (08:51→19:59)
[2019-05-23] MEDS: APIXABAN 2.5 MG TABLET PO SCH ×2 (08:51→19:58)
[2019-05-23] MEDS: CYANOCOBALAMIN 1,000 MCG TAB PO SCH (08:51)
[2019-05-23] MEDS: FUROSEMIDE 40 MG TABLET PO SCH (08:51)
[2019-05-23] MEDS: ASPIRIN 81 MG CHEWABLE TABLET PO SCH (08:52)
[2019-05-23] MEDS: PROMOD 30 ML DOSE PO SCH ×2 (08:52→19:59)
[2019-05-23] MEDS: POTASSIUM CL SA 10 MEQ TAB PO SCH (08:52)
--- NOTE | 2019-05-23 08:54 | FAST ---
ENCOUNTER DATE AND TIME: 05/23/2019 08:00 (CDT) NAME ERICA MORENO DATE OF : 1935 DATE OF ADMISSION: 05/17/2019 19:58 (CDT) PHONE: AGE: 84 SSN# [id number] GENDER: Male ENCOUNTER PHYSICIAN: Dr. Shade Guerrero ADMISSION DIAGNOSIS: - Orthopaedic Disorders 08 - Unilateral Hip Fracture (.) closed left acetabular fx. EATING: EATING - STEP 1: Does the patient require the assistance of a person or device, or need extra time when eating? No. EATING - SCORE: 7-IND GROOMING: Comb/brush hair Oral care Wash, rinse, and dry face Wash, rinse, and dry hands GROOMING - STEP 1: Does the patient require the assistance of a person or device, or need extra time when grooming? Yes. GROOMING - STEP 2: Does the patient require the assistance of a helper? No. The patient only requires an assistive devic e, OR takes more than reasonable time to groom, OR there is a concern for safety as the patient groom s GROOMING - SCORE: 6-MITRA BATHING: Abdomen Buttocks Chest Left arm Left lower leg and foot Left upper leg Perineal area Right arm Right lower leg and foot Right upper leg BATHING - STEP 1: Does the patient require the assistance of a person or device, or need extra time when bathing? Yes. BATHING - STEP 2: Does the patient require the assistance of a helper? Yes. BATHING - STEP 3: How much assistance does the patient require from the helper? Only incidental help such as placement of a wash cloth in his/her hand a few times as s/he bathes OR help to bathe just one or two areas of the body BATHING - SCORE: 4-MIN DRESSING - UPPER BODY: T-shirt/pullover shirt (four steps) ARTICLES SCORE Total number of steps: 4 DRESSING - UPPER BODY - STEP 1: Does the patient require help from a person or device, or need extra time when dressing above the marg[address]? Yes. DRESSING - UPPER BODY - STEP 2: Does the patient require the assistance of a helper? Yes. DRESSING - UPPER BODY - STEP 3: Does the helper touch the patient while dressing? No. DRESSING - UPPER BODY - SCORE: 5-SUP DRESSING - LOWER BODY: Elastic waist pants (three steps) Slip-on shoe - Right foot (one step) Sock - Left foot (one step) Sock - Right foot (one step) Underwear (three steps) ARTICLES SCORE Total number of steps: 9 DRESSING - LOWER BODY - STEP 1: Does the patient require help from a person or device, or need extra time when dressing below the margo st? Yes. DRESSING - LOWER BODY - STEP 2: Does the patient require the assistance of a helper? Yes. DRESSING - LOWER BODY - STEP 3: Does the helper touch the patient while dressing? Yes. DRESSING - LOWER BODY - STEP 4: How many of the total steps does the patient complete on his/her own? 0 DRESSING - LOWER BODY - STEP 5: Does patient require total assistance for dressing below the waist such as the helper holding clothin g and performing basically all the activities? Yes. DRESSING - LOWER BODY - SCORE: 1-DEP TOILETING: Activity did not occur on this shift TOILETING - SCORE: 0-UNK BLADDER MANAGEMENT: Activity did not occur on this shift BLADDER MANAGEMENT - SCORE: 7-IND BOWEL MANAGEMENT: Activity did not occur on this shift BOWEL MANAGEMENT - SCORE: 7-IND TRANSFERS: BED, CHAIR, WHEELCHAIR: Activity did not occur on this shift TRANSFERS: BED, CHAIR, WHEELCHAIR - SCORE: 0-UNK TRANSFERS: TOILET: Activity did not occur on this shift TRANSFERS: TOILET - SCORE: 0-UNK TRANSFERS: SHOWER: TRANSFERS: SHOWER - STEP 1: Does the patient require the assistance of a person or device, or need extra time with shower transfe rs? Yes. TRANSFERS: SHOWER - STEP 2: Does the patient require the assistance of a helper? Yes. TRANSFERS: SHOWER - STEP 3: How much assistance does the patient require from the helper? More than incidental help TRANSFERS: SHOWER - STEP 4: How much more help does the patient require from the helper? Lifting the patient up AND down from the wheelchair onto the shower chair TRANSFERS: SHOWER - SCORE: 2-MAX TRANSFERS: TUB: Activity did not occur on this shift TRANSFERS: TUB - SCORE: 0-UNK LOCOMOTION: WALK: Activity did not occur on this shift LOCOMOTION: WALK - SCORE: 0-UNK LOCOMOTION: WHEELCHAIR: Activity did not occur on this shift LOCOMOTION: WHEELCHAIR - SCORE: 0-UNK LOCOMOTION: STAIRS: Activity did not occur on this shift LOCOMOTION: STAIRS - SCORE: 0-UNK COMPREHENSION: COMPREHENSION: TYPE: Both COMPREHENSION - STEP 1: Does the patient require help from a person or device, or need extra time to understand complex and a bstract ideas (such as current events, finances, discharge planning, medical issues, relationships, e tc)? Yes. COMPREHENSION - STEP 2: Does the patient require help to understand questions or statements about basic needs or ideas (such as hunger, thirst, sleep, safety, daily schedule, room location, or discomfort) half or more of the t los? No. COMPREHENSION - STEP 3: How often does the patient need help to understand directions and conversation about basic needs? Les s than 10% of the time COMPREHENSION - SCORE: 5-SUP EXPRESSION EXPRESSION: TYPE: Both EXPRESSION - STEP 1: Does the patient require help from a person or device, or need extra time expressing complex and abst ract ideas (such as current events, finances, discharge planning, medical issues, relationships, etc) ? Yes. EXPRESSION - STEP 2: Does the patient require help to express basic necessities or ideas (such as hunger, thirst, sleep, s afety, daily schedule, room location, or discomfort) half or more of the time? No. EXPRESSION - STEP 3: How often does the patient need help to express directions and conversation about basic needs? 10-24% of the time EXPRESSION - SCORE: 4-MIN SOCIAL INTERACTION: SOCIAL INTERACTION - STEP 1: Does the patient require a helper to interact with others in social and therapeutic situations? No. SOCIAL INTERACTION - STEP 2: Does the patient need extra time in social situations, OR does s/he interact with staff, other patien ts, and family members ONLY in structured environments, OR does s/he require medication for social in teraction? Yes, patient needs extra time SOCIAL INTERACTION - SCORE: 6-MITRA PROBLEM SOLVING: PROBLEM SOLVING - STEP 1: Does the patient need help from a person or device, or need extra time to solve complex problems such as managing a checking account or confronting interpersonal problems? Yes. PROBLEM SOLVING - STEP 2: Does the patient solve basic routine problems half or more of the time? Yes. PROBLEM SOLVING - STEP 3: How often does the patient need help to solve basic routine problems? 25%-49% of the time PROBLEM SOLVING - SCORE: 3-MOD MEMORY: MEMORY - STEP 1: Does the patient need help from a person or device, or need extra time to remember frequently encount ered people, daily routines, and executing requests? Yes. MEMORY - STEP 2: How often does the patient need help to remember frequently encountered people, daily routines, and e xecuting requests? 25% - 49% of the time MEMORY - SCORE: 3-MOD SIGNATURE PANEL: The following modified sections: Eating - Score, Grooming - Score, Bathing - Score, Dressing - Upper Body - Score, Dressing - Lower Body - Score, Toileting - Score, Transfers: Bed, Chair, Wheelchair - S core, Transfers: Toilet - Score, Transfers: Tub - Score, Transfers: Shower - Score, Comprehension - S core, Expression - Score, Social Interaction - Score, Problem Solving - Score, Memory - Score were [e lectronically] signed by Monae Mott OT on ThuMay 23 2019 08:53:37 T-0500 ([facility])
--- NOTE | 2019-05-23 09:00 | FAST ---
ENCOUNTER DATE AND TIME: 05/23/2019 08:00 (CDT) NAME ERICA MORENO DATE OF : 1935 DATE OF ADMISSION: 05/17/2019 19:58 (CDT) PHONE: AGE: 84 SSN# [id number] GENDER: Male ENCOUNTER PHYSICIAN: Dr. Shade Guerrero ADMISSION DIAGNOSIS: - Orthopaedic Disorders 08 - Unilateral Hip Fracture (05.22) closed left acetabular fx. EATING: Activity did not occur on this shift EATING - SCORE: 0-UNK GROOMING: Comb/brush hair GROOMING - STEP 1: Does the patient require the assistance of a person or device, or need extra time when grooming? Yes. GROOMING - STEP 2: Does the patient require the assistance of a helper? Yes. GROOMING - STEP 3: How much assistance does the patient require from the helper? More than incidental help GROOMING - STEP 4: How many grooming tasks does the patient perform WITHOUT the assistance of the helper? None. The help er performs all grooming tasks GROOMING - SCORE: 1-DEP BATHING: Activity did not occur on this shift BATHING - SCORE: 0-UNK DRESSING - UPPER BODY: Button down shirt or blouse - NOT tucked in (four steps) ARTICLES SCORE Total number of steps: 4 DRESSING - UPPER BODY - STEP 1: Does the patient require help from a person or device, or need extra time when dressing above the margo st? Yes. DRESSING - UPPER BODY - STEP 2: Does the patient require the assistance of a helper? Yes. DRESSING - UPPER BODY - STEP 3: Does the helper touch the patient while dressing? Yes. DRESSING - UPPER BODY - STEP 4: How many of the total steps does the patient complete on his/her own? 0 DRESSING - UPPER BODY - STEP 5: Does Patient require total assistance for dressing above the waist such as the helper holding clothin g and performing basically all the activities? Yes. DRESSING - UPPER BODY - SCORE: 1-DEP DRESSING - LOWER BODY: Elastic waist pants (three steps) Sock - Left foot (one step) Sock - Right foot (one step) Tied or buckled shoe - Right foot (two steps) Underwear (three steps) ARTICLES SCORE Total number of steps: 10 DRESSING - LOWER BODY - STEP 1: Does the patient require help from a person or device, or need extra time when dressing below the margo st? Yes. DRESSING - LOWER BODY - STEP 2: Does the patient require the assistance of a helper? Yes. DRESSING - LOWER BODY - STEP 3: Does the helper touch the patient while dressing? Yes. DRESSING - LOWER BODY - STEP 4: How many of the total steps does the patient complete on his/her own? 0 DRESSING - LOWER BODY - STEP 5: Does patient require total assistance for dressing below the waist such as the helper holding clothin g and performing basically all the activities? Yes. DRESSING - LOWER BODY - SCORE: 1-DEP TOILETING: Activity did not occur on this shift TOILETING - SCORE: 0-UNK BLADDER MANAGEMENT: Activity did not occur on this shift BLADDER MANAGEMENT - SCORE: 7-IND BOWEL MANAGEMENT: Activity did not occur on this shift BOWEL MANAGEMENT - SCORE: 7-IND TRANSFERS: BED, CHAIR, WHEELCHAIR: Activity did not occur on this shift TRANSFERS: BED, CHAIR, WHEELCHAIR - SCORE: 0-UNK TRANSFERS: TOILET: Activity did not occur on this shift TRANSFERS: TOILET - SCORE: 0-UNK TRANSFERS: SHOWER: Activity did not occur on this shift TRANSFERS: SHOWER - SCORE: 0-UNK TRANSFERS: TUB: Activity did not occur on this shift TRANSFERS: TUB - SCORE: 0-UNK LOCOMOTION: WALK: Activity did not occur on this shift LOCOMOTION: WALK - SCORE: 0-UNK LOCOMOTION: WHEELCHAIR: Activity did not occur on this shift LOCOMOTION: WHEELCHAIR - SCORE: 0-UNK LOCOMOTION: STAIRS: Activity did not occur on this shift LOCOMOTION: STAIRS - SCORE: 0-UNK COMPREHENSION: COMPREHENSION: TYPE: Both COMPREHENSION - STEP 1: Does the patient require help from a person or device, or need extra time to understand complex and a bstract ideas (such as current events, finances, discharge planning, medical issues, relationships, e tc)? Yes. COMPREHENSION - STEP 2: Does the patient require help to understand questions or statements about basic needs or ideas (such as hunger, thirst, sleep, safety, daily schedule, room location, or discomfort) half or more of the t los? Yes. COMPREHENSION - STEP 3: Is the patient basically able to understand and respond appropriately and consistently? No, patient i s basically UNABLE to understand, OR responds inappropriately/inconsistently despite prompting COMPREHENSION - SCORE: 1-DEP EXPRESSION EXPRESSION: TYPE: Both EXPRESSION - STEP 1: Does the patient require help from a person or device, or need extra time expressing complex and abst ract ideas (such as current events, finances, discharge planning, medical issues, relationships, etc) ? Yes. EXPRESSION - STEP 2: Does the patient require help to express basic necessities or ideas (such as hunger, thirst, sleep, s afety, daily schedule, room location, or discomfort) half or more of the time? Yes. EXPRESSION - STEP 3: Is the patient basically unable to express or does s/he express inappropriately or inconsistently navdeep pite prompting? Yes. Patient is basically unable to express. EXPRESSION - SCORE: 1-DEP SOCIAL INTERACTION: SOCIAL INTERACTION - STEP 1: Does the patient require a helper to interact with others in social and therapeutic situations? Yes. SOCIAL INTERACTION - STEP 2: Does the patient interact appropriately half or more of the time? No. SOCIAL INTERACTION - STEP 3: How often does the patient interact appropriately? Less than 25% of the time SOCIAL INTERACTION - SCORE: 1-DEP PROBLEM SOLVING: PROBLEM SOLVING - STEP 1: Does the patient need help from a person or device, or need extra time to solve complex problems such as managing a checking account or confronting interpersonal problems? Yes. PROBLEM SOLVING - STEP 2: Does the patient solve basic routine problems half or more of the time? No. PROBLEM SOLVING - STEP 3: Does the patient need help to solve problems all the time or is s/he unable to solve problems? Yes. P atient needs help to solve problems all the time or is unable to solve problems PROBLEM SOLVING - SCORE: 1-DEP MEMORY: MEMORY - STEP 1: Does the patient need help from a person or device, or need extra time to remember frequently encount ered people, daily routines, and executing requests? Yes. MEMORY - STEP 2: How often does the patient need help to remember frequently encountered people, daily routines, and e xecuting requests? More than 50% of the time MEMORY - STEP 3: Does the patient need help to remember all of the time OR does s/he not effectively recognize and rem ember? Yes. Patient needs help to remember ALL the time OR does not effectively recognize and remembe r MEMORY - SCORE: 1-DEP SIGNATURE PANEL: The following modified sections: Eating - Score, Grooming - Score, Bathing - Score, Dressing - Upper Body - Score, Toileting - Score, Dressing - Lower Body - Score, Transfers: Bed, Chair, Wheelchair - S core, Transfers: Toilet - Score, Transfers: Shower - Score, Transfers: Tub - Score, Comprehension - S core, Expression - Score, Social Interaction - Score, Problem Solving - Score, Memory - Score were [e lectronically] signed by Monae Mott OT on ThuMay 23 2019 09:00:10 GMT-0500 ([facility])
[2019-05-23] MEDS: CRANBERRY FRUIT EXTRACT 200 MG CAP PO SCH (19:57)
[2019-05-23] MEDS: ATORVASTATIN 40 MG TAB PO SCH (19:58)
--- NOTE | 2019-05-24 05:15 | FAST ---
SHIFT START DATE/TIME: 05/23/2019 19:00 (CDT) SHIFT END DATE/TIME: 05/24/2019 07:00 (CDT) NAME ERICA MORENO DATE OF : 1935 DATE OF ADMISSION: 05/17/2019 19:58 (CDT) PHONE: AGE: 84 SSN# [id number] GENDER: Male ENCOUNTER PHYSICIAN: Dr. Shade Guerrero ADMISSION DIAGNOSIS: - Orthopaedic Disorders 08 - Unilateral Hip Fracture (05.22) closed left acetabular fx. EATING: Activity did not occur on this shift EATING - SCORE: 0-UNK GROOMING: Activity did not occur on this shift GROOMING - SCORE: 0-UNK BATHING: Activity did not occur on this shift BATHING - SCORE: 0-UNK DRESSING - UPPER BODY: Activity did not occur on this shift ARTICLES SCORE Total number of steps: 0 DRESSING - UPPER BODY - SCORE: 0-UNK DRESSING - LOWER BODY: Activity did not occur on this shift ARTICLES SCORE Total number of steps: 0 DRESSING - LOWER BODY - SCORE: 0-UNK TOILETING: TOILETING - SCORE: 0-UNK BLADDER MANAGEMENT: [place] removes incontinent device (Depends, pull ups, etc.); cleans the patient after accident / inco ntinent episode; and, applies new incontinent device. BLADDER MANAGEMENT - SCORE: 1-DEP BLADDER MANAGEMENT - FREQUENCY OF ACCIDENTS: BLADDER MANAGEMENT(FA) - STEP 1: How many accidents has the patient had during the current shift? 2 BOWEL MANAGEMENT: Activity did not occur on this shift BOWEL MANAGEMENT - SCORE: 7-IND BOWEL MANAGEMENT - FREQUENCY OF ACCIDENTS: BOWEL MANAGEMENT(FA) - STEP 1: How many accidents has the patient had during the current shift? 0 TRANSFERS: BED, CHAIR, WHEELCHAIR: Activity did not occur on this shift TRANSFERS: BED, CHAIR, WHEELCHAIR - SCORE: 0-UNK TRANSFERS: TOILET: Activity did not occur on this shift TRANSFERS: TOILET - SCORE: 0-UNK TRANSFERS: SHOWER: Activity did not occur on this shift TRANSFERS: SHOWER - SCORE: 0-UNK TRANSFERS: TUB: Activity did not occur on this shift TRANSFERS: TUB - SCORE: 0-UNK LOCOMOTION: WALK: Activity did not occur on this shift LOCOMOTION: WALK - SCORE: 0-UNK LOCOMOTION: WHEELCHAIR: Activity did not occur on this shift LOCOMOTION: WHEELCHAIR - SCORE: 0-UNK COMPREHENSION: COMPREHENSION: TYPE: Both COMPREHENSION - STEP 1: Does the patient require help from a person or device, or need extra time to understand complex and a bstract ideas (such as current events, finances, discharge planning, medical issues, relationships, e tc)? Yes. COMPREHENSION - STEP 2: Does the patient require help to understand questions or statements about basic needs or ideas (such as hunger, thirst, sleep, safety, daily schedule, room location, or discomfort) half or more of the t los? Yes. COMPREHENSION - STEP 3: Is the patient basically able to understand and respond appropriately and consistently? No, patient i s basically UNABLE to understand, OR responds inappropriately/inconsistently despite prompting COMPREHENSION - SCORE: 1-DEP EXPRESSION EXPRESSION: TYPE: Both EXPRESSION - STEP 1: Does the patient require help from a person or device, or need extra time expressing complex and abst ract ideas (such as current events, finances, discharge planning, medical issues, relationships, etc) ? Yes. EXPRESSION - STEP 2: Does the patient require help to express basic necessities or ideas (such as hunger, thirst, sleep, s afety, daily schedule, room location, or discomfort) half or more of the time? Yes. EXPRESSION - STEP 3: Is the patient basically unable to express or does s/he express inappropriately or inconsistently navdeep pite prompting? Yes. Patient is basically unable to express. EXPRESSION - SCORE: 1-DEP SOCIAL INTERACTION: SOCIAL INTERACTION - STEP 1: Does the patient require a helper to interact with others in social and therapeutic situations? Yes. SOCIAL INTERACTION - STEP 2: Does the patient interact appropriately half or more of the time? Yes. SOCIAL INTERACTION - STEP 3: How often does the patient need help to interact appropriately? 25-49% of the time SOCIAL INTERACTION - SCORE: 3-MOD PROBLEM SOLVING: PROBLEM SOLVING - STEP 1: Does the patient need help from a person or device, or need extra time to solve complex problems such as managing a checking account or confronting interpersonal problems? Yes. PROBLEM SOLVING - STEP 2: Does the patient solve basic routine problems half or more of the time? No. PROBLEM SOLVING - STEP 3: Does the patient need help to solve problems all the time or is s/he unable to solve problems? Yes. P atient needs help to solve problems all the time or is unable to solve problems PROBLEM SOLVING - SCORE: 1-DEP MEMORY: MEMORY - STEP 1: Does the patient need help from a person or device, or need extra time to remember frequently encount ered people, daily routines, and executing requests? Yes. MEMORY - STEP 2: How often does the patient need help to remember frequently encountered people, daily routines, and e xecuting requests? More than 50% of the time MEMORY - STEP 3: Does the patient need help to remember all of the time OR does s/he not effectively recognize and rem ember? Yes. Patient needs help to remember ALL the time OR does not effectively recognize and remembe r MEMORY - SCORE: 1-DEP SIGNATURE PANEL: The following modified sections: Eating - Score, Grooming - Score, Bathing - Score, Dressing - Upper Body - Score, Dressing - Lower Body - Score, Bladder Management - Score, Bowel Management - Score, Tr ansfers: Bed, Chair, Wheelchair - Score, Transfers: Toilet - Score, Transfers: Shower - Score, Transf ers: Tub - Score, Locomotion: Walk - Score, Locomotion: Wheelchair - Score, Comprehension - Score, Ex pression - Score, Social Interaction - Score, Problem Solving - Score, Memory - Score were [jeniffer lima] signed by Cira Humphrey RN on ThuMay 24 2019 05:14:29 T-0500 ([facility] Day[facility] Time)
[2019-05-24] MEDS: METOPROLOL TAR 25 MG TAB PO SCH (05:17)
[2019-05-24 07:28] LABS: Absolute Lymphocytes (CBC) 1.1 K/uL (0.7-4.9); BUN Blood Urea Nitrogen 19 mg/dL (7-18); Basophils % 0.2 % (0-1.3); Bicarbonate 29 mmol/L (21-32); Glucose Level 105 mg/dL (74-106); Hematocrit 38.9 % (39.6-49.0); Lymphocytes % 4.5 % (15.3-44.8); MPV 6.6 fL (7.6-11.3); RBC Red Blood Cell Count 4.16 M/uL (4.33-5.43); Sodium Level 129 mmol/L (136-145)
[2019-05-24 07:40] VITALS: BP 129/94; TEMP 97.9
[2019-05-24] MEDS: CRANBERRY FRUIT EXTRACT 200 MG CAP PO SCH (08:00)
[2019-05-24] MEDS: CYANOCOBALAMIN 1,000 MCG TAB PO SCH (08:00)
[2019-05-24] MEDS: FUROSEMIDE 40 MG TABLET PO SCH (08:00)
[2019-05-24] MEDS: DOCUSATE NA/SENNA CONC 1 TAB PO SCH (08:00)
[2019-05-24] MEDS: POTASSIUM CL SA 10 MEQ TAB PO SCH (08:00)
[2019-05-24] MEDS: PROMOD 30 ML DOSE PO SCH (08:00)
[2019-05-24] MEDS ORDERED: VANCOMYCIN 1.75 GM in NA CHLORIDE 0.9% 500 ML IVPB SCH (09:00)
[2019-05-24] MEDS ORDERED: NA CHLORIDE 0.9% 1,000 ML IV SCH (09:00)
[2019-05-24] MEDS: ASPIRIN 81 MG CHEWABLE TABLET PO SCH (09:37)
[2019-05-24] MEDS: APIXABAN 2.5 MG TABLET PO SCH (09:38)
--- NOTE | 2019-05-24 10:21 | RAD REPORT ---
EXAM DESCRIPTION: RAD - Chest Single View - 05/24/2019 9:59 am CLINICAL HISTORY: r/o pnuemonia Chest pain. COMPARISON: Chest Pa And Lat (2 Views) dated 05/26/2018; Chest Single View dated 03/27/2018; Chest Sin gle View dated 12/09/2017; Chest Single View dated 12/08/2017 FINDINGS: Portable technique limits examination quality. The lungs are underinflated resulting in vascular crowding. The heart is mildly enlarged in size. Mul tilead pacer/defibrillator device is present. IMPRESSION: Underinflated lungs.
[2019-05-24] MEDS ORDERED: PIPER/TAZO/NS 3.375gm 3.375 GM/100 ML BAG IVPB SCH (12:00)
--- NOTE | 2019-05-24 13:10 | RAD REPORT ---
EXAM DESCRIPTION: CT - Head Brain Wo Cont - 05/24/2019 12:57 pm CLINICAL HISTORY: Alteration of awareness/confusion COMPARISON: March 2018 TECHNIQUE: Computed axial tomography of the head was obtained. IV contrast was not requested. All CT scans are performed using dose optimization technique as appropriate and may include automated exposure control or mA/KV adjustment according to patient size. FINDINGS: An intracranial bleed is not seen . The ventricles are normal in caliber. No extra-axial fluid collection is noted. A 5 centimeter low-density area has developed within the right cerebellum. 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 Mild to moderate low-density within periventricular, deep and subcortical white matter likely ischemic changes secondary to small vessel disease Fluid within the sinuses/ mastoids is not seen. 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 It has the appearance of being subacute. Exam was discussed with Dr. Crawford
[2019-05-24 13:43] LABS: Blood Morphology Comment NOT SEEN (NOT SEEN); Platelet Estimate ADEQ; Urine White Blood Cell Casts OK
[2019-05-24] MEDS ORDERED: Levofloxacin500mg IV 500 MG/100 ML BAG IV SCH (14:00)
--- NOTE | 2019-05-24 15:03 | P.CNS ---
Date of Consult: 05/24/19 Reason for Consult: Elevated WBC count, altered mentation Requesting Physician: Wes Crawford Primary Care Provider: Dr. Valadez Chief Complaint: Elevated WBC count, altered mentation History of Present Illness: This is an 84-year-old male with history of CVA admitted to rehab for further rehabilitation after mechanical fall leading to close left acetabular fracture and right inferior cerebellar hemisphere infarct. Hospitalist was consulted for leukocytosis along with further worsened altered mental status. Patient is a patient of Dr. Valadez initially was not sure in regards to will be seeing the patient therefore I evaluated the patient on the rehab floor. Allergies clindamycin Allergy (Verified 05/17/19 21:44) Nausea/Vomiting codeine Allergy (Verified 05/17/19 21:44) Nausea/Vomiting fentanyl Allergy (Verified 05/17/19 21:44) confusion hydromorphone [Hydromorphone] Allergy (Verified 05/17/19 21:44) Anaphylaxis methadone Allergy (Verified 05/17/19 21:44) Anaphylaxis morphine Allergy (Verified 05/17/19 21:44) Anaphylaxis Penicillins Allergy (Verified 05/17/19 21:44) Hives opiates Allergy (Uncoded 05/17/19 21:44) Anaphylaxis Home Medications: Acetaminophen [Tylenol] 325 mg PO Q4HP PRN 05/17/19 Aspirin 81 mg PO DAILY 05/17/19 Atorvastatin Calcium [Lipitor] 40 mg PO BEDTIME 05/17/19 Cyanocobalamin (Vitamin B-12) [Vitamin B-12] 1,000 mcg PO DAILY 05/17/19 Furosemide [Lasix Oral Nydia] 40 mg PO DAILY 05/17/19 Ibuprofen 400 mg PO Q6HP PRN 05/17/19 Metoprolol Tartrate 12.5 mg PO BID 05/17/19 Potassium Chloride [K-Dur] 20 meq PO DAILY 05/17/19 Senosides [Senokot] 8.6 mg PO BID 05/17/19 - Past Medical/Surgical History Diabetic: No -: Muscular dystrophy -: HTN -: Seizure -: Non sustained V-tach -: DYSLIPIDEMIA -: RENAL CYST -: PVC -: 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 -: Pulmonary Embolism -: [place] STEMI -: Stroke -: CHF -: 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 -: Stainless steel surgery knees -: Hernia surgery -: CATARACT -: Cardiac catheterization 08/04/14 - Family History Father Notes: Unknown family history as per Mother Notes: Unknown family history as per - Social History Smoking Status: Never smoker Alcohol use: Yes CD- Drugs: No Caffeine use: No Place of Residence: Home Review of Systems 10-point ROS is otherwise unremarkable Physical Examination Temp Pulse Resp BP Pulse Ox 97.9 F 99 H 18 129/94 H 99 05/24/19 07:39 05/24/19 07:39 05/24/19 07:39 05/24/19 07:39 05/24/19 07:39 General: Confused, Other (Barely following commands) HEENT: Atraumatic, PERRLA, Mucous membr. moist/pink, EOMI, Sclerae nonicteric Neck: Supple, 2+ carotid pulse no bruit, No LAD, Without JVD or thyroid abnormality Respiratory: Clear to auscultation bilaterally, Normal air movement Cardiovascular: Normal S1 S2, Irregular heart rate/rhythm (Tachycardic) Gastrointestinal: Normal bowel sounds, No tenderness Musculoskeletal: No tenderness Integumentary: No rashes Neurological: Abnormal speech, Abnormal strength, Abnormal tone, Abnormal affect Laboratory Data (last 24 hrs) 05/24/19 07:02: Sodium 129 L, Potassium 4.0, BUN 19 H, Creatinine 0.74, Glucose 105 05/24/19 07:02: WBC 25.1 H* D, Hgb 12.9 L, Hct 38.9 L, Plt Count 266 - Problems (1) Encephalopathy Status: Acute (2) SIRS (systemic inflammatory response syndrome) Status: Acute (3) Altered mental status Onset Date: 12/09/17 Status: Chronic Qualifiers: Altered mental status type: disorientation Qualified Code(s): R41.0 - Disorientation, unspecified Conclusions/Impression: Recommend: -sepsis protocol -IV antibiotics with vancomycin and Levaquin -IV fluids -Close monitoring of vital signs, labs Dr. Valadez will take over patient starting tomorrow. Thank you for this consult.
--- NOTE | 2019-05-26 08:33 | FAST ---
ENCOUNTER DATE AND TIME: 05/23/2019 08:00 (CDT) NAME ERICA MORENO DATE OF : 1935 DATE OF ADMISSION: 05/17/2019 19:58 (CDT) PHONE: AGE: 84 SSN# [id number] GENDER: Male ENCOUNTER PHYSICIAN: Dr. Shade Guerrero ADMISSION DIAGNOSIS: - Orthopaedic Disorders 08 - Unilateral Hip Fracture (05.22) closed left acetabular fx. EATING: Activity did not occur on this shift EATING - SCORE: 0-UNK GROOMING: Activity did not occur on this shift GROOMING - SCORE: 0-UNK BATHING: Activity did not occur on this shift BATHING - SCORE: 0-UNK DRESSING - UPPER BODY: Activity did not occur on this shift Patient is not dressing in public clothing ARTICLES SCORE Total number of steps: 0 DRESSING - UPPER BODY - SCORE: 0-UNK DRESSING - LOWER BODY: Activity did not occur on this shift Patient is not dressing in public clothing ARTICLES SCORE Total number of steps: 0 DRESSING - LOWER BODY - SCORE: 0-UNK TOILETING: Activity did not occur on this shift TOILETING - SCORE: 0-UNK BLADDER MANAGEMENT: Activity did not occur on this shift BLADDER MANAGEMENT - SCORE: 7-IND BOWEL MANAGEMENT: Activity did not occur on this shift BOWEL MANAGEMENT - SCORE: 7-IND TRANSFERS: BED, CHAIR, WHEELCHAIR: Activity did not occur on this shift TRANSFERS: BED, CHAIR, WHEELCHAIR - SCORE: 0-UNK TRANSFERS: TOILET: Activity did not occur on this shift TRANSFERS: TOILET - SCORE: 0-UNK TRANSFERS: SHOWER: Activity did not occur on this shift TRANSFERS: SHOWER - SCORE: 0-UNK TRANSFERS: TUB: Activity did not occur on this shift TRANSFERS: TUB - SCORE: 0-UNK LOCOMOTION: WALK: Activity did not occur on this shift LOCOMOTION: WALK - SCORE: 0-UNK LOCOMOTION: WHEELCHAIR: Activity did not occur on this shift LOCOMOTION: WHEELCHAIR - SCORE: 0-UNK LOCOMOTION: STAIRS: Activity did not occur on this shift LOCOMOTION: STAIRS - SCORE: 0-UNK COMPREHENSION: COMPREHENSION - SCORE: 0-UNK EXPRESSION EXPRESSION - SCORE: 0-UNK SOCIAL INTERACTION: SOCIAL INTERACTION - SCORE: 0-UNK PROBLEM SOLVING: PROBLEM SOLVING - SCORE: 0-UNK MEMORY: MEMORY - SCORE: 0-UNK SIGNATURE PANEL: The following modified sections: Transfers: Bed, Chair, Wheelchair - Score, Transfers: Toilet - Score , Locomotion: Walk - Score, Locomotion: Wheelchair - Score, Locomotion: Stairs - Score were [electron ically] signed by Dennis Cervantes PTA on ThuMay 26 2019 08:31:32 GMT-0500 (Central Daylight Time)
--- NOTE | 2019-05-30 13:38 | EEG ---
CHART: [id number] TEST ID#: [id number] DATE OF STUDY: 05/24/2019 THE EEG WAS RECORDED PORTABLE IN THE PATIENTS ROOM ON A 17 CHANNEL MACHINE. ELECTRODES WERE APPLIED IN THE USUAL MANNER USING THE INTERNATIONAL 10-20 SYSTEM. THE WAKING BACKGROUND RHYTHM IN THIS RECORD CONSISTS OF POORLY DEVELOPED AND POORLY ORGANIZED WAVES OF 6-7 HZ., IN A WIDE DISTRIBUTION WHICH ATTENUATE POORLY WITH EYE OPENING. MODERATE VOLTAGE 4-5 HZ ACTIVITY IS DIFFUSELY EXPRESSED. MODERATE VOLTAGE 1.5-3 HZ ACTIVITY IS EXPRESSED IN THE FRONTAL REGIONS. THERE ARE NO FOCAL OR LATERALIZING FEATURES. NO EPILEPTIFORM ACTIVITY APPEARS. SLEEP OCCURRED NATURALLY. IN ADDITION NORMAL SLEEP PATTERNS ARE PRESENT. HYPERVENTILATION WAS NOT PERFORMED. PHOTIC STIMULATION PRODUCED NO DRIVING BILATERALLY. IMPRESSION: THIS IS A MODERATELY ABNORMAL ROUTINE EEG DUE TO THE PRESENCE OF MODERATE VOLTAGE SLOW (DELTA AND THETA) ACTIVITY DIFFUSELY EXPRESSED IN ALL REGIONS. THIS FINDING INDICATES THE PRESENCE OF A MODERATE BUT NON-SPECIFIC DISTURBANCE IN CEREBRAL ACTIVITY.
== END 2019-05-24 16:05 | disposition short-term general hospital (02) | DRG 560 ==
LOC: 5TH 19:58
PROVIDERS: ADMIT Psychiatry & Neurology Neurology with Special Qualifications in Child Neurology; ATTEND Hospitalist
PROC: 0HDRXZZ Extraction of Toe Nail, External Approach (ICD-10-PCS; principal; 2019-05-23)
DX: S32.402D Unspecified fracture of left acetabulum, subsequent encounter for fracture with routine healing (principal); I50.42 Chronic combined systolic (congestive) and diastolic (congestive) heart failure; G93.40 Encephalopathy, unspecified; R65.10 Systemic inflammatory response syndrome (SIRS) of non-infectious origin without acute organ dysfunction; I25.10 Atherosclerotic heart disease of native coronary artery without angina pectoris; I48.91 Unspecified atrial fibrillation; I11.0 Hypertensive heart disease with heart failure; G40.909 Epilepsy, unspecified, not intractable, without status epilepticus; Z95.810 Presence of automatic (implantable) cardiac defibrillator; Z86.711 Personal history of pulmonary embolism; Z85.89 Personal history of malignant neoplasm of other organs and systems; Z86.73 Personal history of transient ischemic attack (TIA), and cerebral infarction without residual deficits; Z88.0 Allergy status to penicillin; Z79.82 Long term (current) use of aspirin; I25.2 Old myocardial infarction; S90.211A Contusion of right great toe with damage to nail, initial encounter; G71.00 Muscular dystrophy, unspecified
CPT/HCPCS: 36415; 70450; 71045; 80048; 80202; 81001; 82040; 83615; 83735; 84134; 84145; 85025; 87040; 87077; 87086; 87088; 87186; 92507; 92523; 95816; 97110; 97116; 97161; 97530; J7030

== ENCOUNTER 2019-05-24 15:00 | Inpatient (IN) | payer OTHER ==
--- OUTSIDE RECORDS SUMMARY | 2019-05-24 16:25 | XMS REPORT | Continuity of Care Document ---
:1935 Author Organization Lat49 Care Team Providers Name Role Phone Lat49 Unavailable Unavailable Problems Problem Status Onset Classification [...] Number For Provider Date Date Visit Outpatient [id number] THONY 03/31 Active [facility] Outpatient [id number] THONY 05/19 Active [facility] Outpatient [id number] THONY 06/30 Active [facility] Outpatient [id number] THONY 09/29 [facility] [id number] Thony 09/29 09/29 [facility] Neu[facility] Pre-Reg [facility] Neuro [place] Procedures No Data Provided for This Section [...]
--- OUTSIDE RECORDS SUMMARY | 2019-05-24 16:26 | XMS REPORT ---
:1935 Author [facility] Address [address] [place] [address] [address]. [address] [place] [address] Care Team Providers Name Role Phone Unavailable Unavailable Unavailable Problems This patient has no known problems. Allergies, Adverse Reactions, Alerts This patient has no known allergies or adverse reactions. Medications This patient has no known medications.
[2019-05-24 17:16] VITALS: BMI 34.6
[2019-05-24 17:30] LABS: Absolute Lymphocytes (CBC) 1.2 K/uL (0.7-4.9); Basophils % 0.4 % (0-1.3); Hematocrit 37.1 % (39.6-49.0); Lymphocytes % 5.1 % (15.3-44.8); MPV 6.6 fL (7.6-11.3); RBC Red Blood Cell Count 4.01 M/uL (4.33-5.43)
[2019-05-24] MEDS ORDERED: POLYETHYL GLY 3350 17 GM/DOSE PO PRN (17:30)
[2019-05-24] MEDS ORDERED: MAGNES/ALUMIN/SIMET 30ML UCUP PO PRN (17:32)
--- NOTE | 2019-05-24 17:39 | P.HP ---
Certification for Inpatient Patient admitted to: Inpatient With expected LOS: >2 Midnights Practitioner: I am a practitioner with admitting privileges, knowledge of patient current condition, hospital course, and medical plan of care. Services: Services provided to patient in accordance with Admission requirements found in Title 42 Section 412.3 of the Code of Federal Regulations Patient History Date of Service: 05/24/19 Reason for admission: SEPSIS History of Present Illness: MR. MORENO WAS IN REHAB FOR BROKE FEMUR L SIDE THAT IS NOT REPAIRABLE. HE BECAME SEPTIC AND DEHYDRATED AND NOW IS SENT TO SECOND FLOOR. I KNOW MR. MORENO FOR LONG DURATION. HE DOES NOT COME TO OFFICE ROUTINELY. HE HAS SPENT LOT OF HIS TIME IN HOSPITALS FOR EPISODES THAT NOT ANYONE CAN EXPLAIN. HE GETS EPISODES WHERE HE QUITS TALKING AND RESPONDING BUT IS FULLY AWAKE. NEUROLOGISTS ARE NOT LABELING THIS SEIZURES. HE HAS BEEN TRIED ON DEPAKOT, GABAPENTIN WITH NO EFFECT BUT MORE SIDE EFFECTS. HIS IS VERY VERSE WITH DETAILS OF HIS HISTORY. HE WHILE IN REHAB BECAME NONVERBAL, DEHYRATED AND WBC ELEVATED UPTO 22K. I WAS NOT ASKED TO SEE HIM WHILE IN REHAB DID NOT WANT TO HAVE TOO MANY DOCTOR MAY BE TO SAVE COST. DR. BRICENO'S STAFF CALLED ME NOW WANTS ME TO TAKE CARE OF HIM ON THE ACUTE FLOOR WHERE HE IS BEING TRANSFERRED. PER HE IS MORE AWAKE THAN AM. Allergies clindamycin Allergy (Verified 05/17/19 21:44) Nausea/Vomiting codeine Allergy (Verified 05/17/19 21:44) Nausea/Vomiting fentanyl Allergy (Verified 05/17/19 21:44) confusion hydromorphone [Hydromorphone] Allergy (Verified 05/17/19 21:44) Anaphylaxis methadone Allergy (Verified 05/17/19 21:44) Anaphylaxis morphine Allergy (Verified 05/17/19 21:44) Anaphylaxis Penicillins Allergy (Verified 05/17/19 21:44) Hives opiates Allergy (Uncoded 05/17/19 21:44) Anaphylaxis Home Medications: Acetaminophen [Tylenol] 325 mg PO Q4HP PRN 05/17/19 Aspirin 81 mg PO DAILY 05/17/19 Atorvastatin Calcium [Lipitor] 40 mg PO BEDTIME 05/17/19 Cyanocobalamin (Vitamin B-12) [Vitamin B-12] 1,000 mcg PO DAILY 05/17/19 Furosemide [Lasix Oral Nydia] 40 mg PO DAILY 05/17/19 Ibuprofen 400 mg PO Q6HP PRN 05/17/19 Metoprolol Tartrate 12.5 mg PO BID 05/17/19 Potassium Chloride [K-Dur] 20 meq PO DAILY 05/17/19 Senosides [Senokot] 8.6 mg PO BID 05/17/19 - Past Medical/Surgical History Diabetic: No -: Muscular dystrophy -: HTN -: Seizure -: Non sustained V-tach -: DYSLIPIDEMIA -: RENAL CYST -: PVC -: 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 -: Pulmonary Embolism -: [place] STEMI -: Stroke -: CHF -: 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 -: Stainless steel surgery knees -: Hernia surgery -: CATARACT -: Cardiac catheterization 08/04/14 - Family History Father Notes: Unknown family history as per Mother Notes: Unknown family history as per - Social History Smoking Status: Never smoker Alcohol use: Yes CD- Drugs: No Caffeine use: No Place of Residence: Detention Review of Systems is unable to be obtained General: Weakness, Malaise Physical Examination - Physical Exam General: Mild distress, Confused (LEHARGIC.), Obese HEENT: Atraumatic, PERRLA, Mucous membr. moist/pink, EOMI, Sclerae nonicteric Neck: Supple, 2+ carotid pulse no bruit, No LAD, Without JVD or thyroid abnormality Respiratory: Clear to auscultation bilaterally, Normal air movement Cardiovascular: Regular rate/rhythm, Normal S1 S2 Gastrointestinal: Normal bowel sounds, No tenderness Musculoskeletal: No tenderness Integumentary: No rashes Neurological: Normal gait, Normal speech, Normal strength at 5/5 x4 extr, Normal tone, Normal affect Lymphatics: No axilla or inguinal lymphadenopathy - Studies Laboratory Data (last 24 hrs) 05/24/19 17:19: WBC 22.8 H*, Hgb 12.2 L, Hct 37.1 L, Plt Count 297 Assessment and Plan - Problems (Diagnosis) (1) Sepsis Current Visit: Yes Status: Acute Plan: HE GOT ABX VANCOMYCIN AND LEVAQUIN. MOST LIKELY THE SOURCE IS E FEACLIS FROM URINE CULTURE. LEVAQUIN SHOULD BE GOOD PER CULTURE. BC2 ARE DONE. CXR NEG. NO OTHER FOCAL FINDINGS. Qualifiers: Sepsis type: sepsis due to unspecified organism Sepsis acute organ dysfunction status: without acute organ dysfunction Qualified Code(s): A41.9 - Sepsis, unspecified organism (2) CVA (cerebral vascular accident) Current Visit: Yes Status: Acute Plan: 5 CM RIGHT CEREBELLUM INFARCT. DR. BRICENO ON CASE. HE IS ALREADY ON ELIQUIS 2.5 MG BID FOR LIFETIME BEING HIGH RISK FOR DVT. PROGNOSIS IS GUARDED. HE IS NOT A SURGICAL CANDIDATE FOR ANY INVASIVE EVALUATIONS AND TREATMENT. (3) Non-refractory atypical absence seizures Onset Date: 03/15/18 Current Visit: No Status: Chronic Plan: DR. BRICENO AND MANY OTHER NEUROLOGISTS HAVE DONE EVAL. 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 - Advance Directives Does patient have a Living Will: No Does patient have a Durable POA for Healthcare: Yes
[2019-05-24 17:46] LABS: BUN Blood Urea Nitrogen 20 mg/dL (7-18); Bicarbonate 30 mmol/L (21-32); Glucose Level 111 mg/dL (74-106); Potassium 3.7 mmol/L (3.5-5.1); Sodium Level 130 mmol/L (136-145)
[2019-05-24] MEDS: NA CHLORIDE 0.9% 1,000 ML IV SCH (17:58)
[2019-05-24] MEDS ORDERED: Levofloxacin 250mg IV 250 MG/50 ML BAG IV ONE (18:00)
[2019-05-24] MEDS: METOPROLOL TAR 25 MG TAB PO SCH (18:02)
[2019-05-24 18:06] LABS: Blood Morphology Comment NOT SEEN (NOT SEEN); Platelet Estimate ADEQ
[2019-05-24] MEDS: ATORVASTATIN 40 MG TAB PO SCH (21:00)
[2019-05-24] MEDS ORDERED: APIXABAN 2.5 MG TABLET PO SCH (21:00)
[2019-05-24] MEDS ORDERED: DOCUSATE NA/SENNA CONC 1 TAB PO SCH (21:00)
[2019-05-24] MEDS: CRANBERRY FRUIT EXTRACT 200 MG CAP PO SCH (21:13)
[2019-05-24] MEDS: PROMOD 30 ML DOSE PO SCH (22:15)
[2019-05-25] MEDS ORDERED: ONDANSETRON 4 MG/2 ML VIAL IV PRN (01:05)
[2019-05-25] MEDS: VANCOMYCIN 1.75 GM in NA CHLORIDE 0.9% 500 ML IVPB SCH ×2 (03:17→21:22)
[2019-05-25] MEDS: NA CHLORIDE 0.9% 1,000 ML IV SCH ×2 (03:21→21:22)
[2019-05-25] MEDS: METOPROLOL TAR 25 MG TAB PO SCH ×2 (06:11→17:18)
[2019-05-25 06:50] LABS: Absolute Lymphocytes (CBC) 0.9 K/uL (0.7-4.9); Basophils % 0.3 % (0-1.3); Hematocrit 34.5 % (39.6-49.0); MPV 6.8 fL (7.6-11.3); RBC Red Blood Cell Count 3.73 M/uL (4.33-5.43)
[2019-05-25 07:02] LABS: ALT/SGPT 15 U/L (12-78); AST/SGOT 19 U/L (15-37); Albumin 2.3 g/dL (3.4-5.0); Alkaline Phosphatase 85 U/L (45-117); BUN Blood Urea Nitrogen 27 mg/dL (7-18); Bicarbonate 30 mmol/L (21-32); Bilirubin Direct 0.3 mg/dL (0-0.2); Bilirubin Total 0.8 mg/dL (0.2-1.0); Glucose Level 109 mg/dL (74-106); Magnesium 2.3 mg/dL (1.8-2.4); Potassium 3.8 mmol/L (3.5-5.1); Protein, Total 6.4 g/dL (6.4-8.2); Sodium Level 133 mmol/L (136-145)
[2019-05-25] MEDS ORDERED: POTASSIUM CL SA 10 MEQ TAB PO SCH (09:00)
[2019-05-25] MEDS: ASPIRIN 81 MG CHEWABLE TABLET PO SCH (09:00)
[2019-05-25] MEDS: CYANOCOBALAMIN 1,000 MCG TAB PO SCH (09:00)
[2019-05-25] MEDS: PANTOPRAZOLE 40MG TABLET PO SCH ×2 (09:39→16:06)
[2019-05-25] MEDS: PROMOD 30 ML DOSE PO SCH ×2 (09:51→21:23)
[2019-05-25] MEDS: CRANBERRY FRUIT EXTRACT 200 MG CAP PO SCH ×2 (09:53→21:23)
[2019-05-25] MEDS ORDERED: KCL 20 MEQ/100 mL IVPB 20 MEQ/100 ML BAG IV SCH (10:00)
--- NOTE | 2019-05-25 10:35 | RAD REPORT ---
EXAM DESCRIPTION: US - Urinary Bladder - 05/25/2019 9:29 am CLINICAL HISTORY: RETENTION OF URINE. COMPARISON: No comparisons TECHNIQUE: Real-time sonographic evaluation of the urinary bladder with pre and postvoid volume norma urements was performed. FINDINGS: No evidence of bladder mass or ureterocele. Prevoid bladder volume is 90 mL. Postvoid blad cade volume is 20 mL. IMPRESSION: Mild postvoid residual is noted.
--- NOTE | 2019-05-25 10:39 | RAD REPORT ---
EXAM DESCRIPTION: US - Abdomen Exam Complete - 05/25/2019 9:28 am CLINICAL HISTORY: Abdominal pain. urosepsis COMPARISON: ABDOMINAL EXAM COMPLETE dated 08/13/2014 FINDINGS: Mildly heterogenous liver parenchymal pattern observed. No focal liver lesions or intrahep atic biliary dilatation is seen. Sludge and gallbladder stones are present. The gallbladder wall is mildly thickened measuring 4 mm. Common bile duct is normal in caliber measuring 5 millimeters. Both kidneys are normal in size, shape and echotexture. No hydronephrosis, focal lesion of concern or perinephric fluid. 4.4 cm superior left renal cyst. This has a benign appearance. The spleen is normal in size measuring 9.2 cm. The pancreas and aorta are obscured by bowel gas. The visualized aspects of the IVC are grossly normal. IMPRESSION: Sludge and gallbladder stones are present within the gallbladder with mild gallbladder w all thickening. No hydronephrosis seen.
[2019-05-25] MEDS: Levofloxacin 750mg IV 750 MG/150 ML BAG IV SCH (16:05)
[2019-05-25] MEDS ORDERED: Levofloxacin500mg IV 500 MG/100 ML BAG IV SCH (17:00)
[2019-05-25] MEDS: ATORVASTATIN 40 MG TAB PO SCH (21:23)
--- NOTE | 2019-05-25 21:33 | P.PN ---
Subjective Date of Service: 05/25/19 Chief Complaint: LOOKS BETTER BUT HAD DARK BROWN VOMIT LAST NIGHT Subjective: Improving MR. MORENO HAS FELT BETTER BUT HAD VOMITED DARK BROWN LAST NIGHT. HE IS ON ELIQUIS AND WE STOPPED TODAY. HE IS NOT SAYING MUCH, IS TALKING FOR HIM. Review of Systems 10-point ROS is otherwise unremarkable General: Weakness, Malaise Gastrointestinal: Vomiting Physical Examination - Vital Signs Temperature: 98.7 F Blood Pressure: 131/88 Pulse: 65 Respirations: 16 Pulse Ox (%): 95 - Physical Exam General: Oriented x1, Mild distress, Obese HEENT: Atraumatic, PERRLA, EOMI Neck: Supple, JVD not distended Respiratory: Clear to auscultation bilaterally, Normal air movement Cardiovascular: Regular rate/rhythm, Normal S1 S2 Gastrointestinal: Normal bowel sounds, No tenderness Musculoskeletal: No tenderness Integumentary: No rashes Neurological: Normal speech, Normal tone, Normal affect Lymphatics: No axilla or inguinal lymphadenopathy - Studies Laboratory Data (last 24 hrs) 05/25/19 06:09: Sodium 133 L, Potassium 3.8, BUN 27 H, Creatinine 0.66, Glucose 109 H, Magnesium 2.3, Total Bilirubin 0.8, AST 19, ALT 15, Alkaline Phosphatase 85 05/25/19 06:09: WBC 17.6 H D, Hgb 11.7 L, Hct 34.5 L, Plt Count 265 Medications List Reviewed: Yes Assessment And Plan - Current Problems (Diagnosis) (1) Sepsis Current Visit: Yes Status: Acute Plan: HE GOT ABX VANCOMYCIN AND LEVAQUIN. MOST LIKELY THE SOURCE IS E FEACLIS FROM URINE CULTURE. LEVAQUIN SHOULD BE GOOD PER CULTURE. BC2 ARE DONE. CXR NEG. NO OTHER FOCAL FINDINGS. Qualifiers: Sepsis type: sepsis due to unspecified organism Sepsis acute organ dysfunction status: without acute organ dysfunction Qualified Code(s): A41.9 - Sepsis, unspecified organism (2) CVA (cerebral vascular accident) Current Visit: Yes Status: Acute Plan: 5 CM RIGHT CEREBELLUM INFARCT. DR. BRICENO ON CASE. HE IS ALREADY ON ELIQUIS 2.5 MG BID FOR LIFETIME BEING HIGH RISK FOR DVT. PROGNOSIS IS GUARDED. HE IS NOT A SURGICAL CANDIDATE FOR ANY INVASIVE EVALUATIONS AND TREATMENT. (3) Non-refractory atypical absence seizures Onset Date: 03/15/18 Current Visit: No Status: Chronic Plan: DR. BRICENO AND MANY OTHER NEUROLOGISTS HAVE DONE EVAL. 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 (5) Hematemesis Current Visit: Yes Status: Acute Plan: I STARTED IV POROTONIX BID. CONSULTED DR. MCGARRY. DISCUSSED WITH . HAVE TO DC ALL ANTICOAG AND ANTIPLATELTES RISK OF BLEEDING IS HIGH. SHE UNDERSTANDS RISK OF NOT HAVING THESE AGENTS IS ANOTHER STROKE. Qualifiers: Nausea presence: with nausea Qualified Code(s): K92.0 - Hematemesis (6) Cholecystitis Current Visit: Yes Status: Acute Plan: NO PAIN. SONOGRAM POS. I WILL CONSULT DR. BUNCH. HE IS ON ABD ALREADY.
[2019-05-25] MEDS: ACETAMINOPHEN 325 MG TABLET PO PRN (23:42)
[2019-05-26] MEDS: METOPROLOL TAR 25 MG TAB PO SCH ×2 (06:02→17:13)
[2019-05-26] MEDS: PANTOPRAZOLE 40MG TABLET PO SCH ×2 (06:03→17:14)
[2019-05-26 06:16] LABS: Absolute Lymphocytes (CBC) 1.3 K/uL (0.7-4.9); Basophils % 0.7 % (0-1.3); Hematocrit 27.2 % (39.6-49.0); Lymphocytes % 9.4 % (15.3-44.8); MPV 6.9 fL (7.6-11.3); RBC Red Blood Cell Count 2.94 M/uL (4.33-5.43)
[2019-05-26 06:35] LABS: ALT/SGPT 14 U/L (12-78); AST/SGOT 23 U/L (15-37); Albumin 1.9 g/dL (3.4-5.0); Alkaline Phosphatase 76 U/L (45-117); BUN Blood Urea Nitrogen 34 mg/dL (7-18); Bicarbonate 28 mmol/L (21-32); Bilirubin Direct 0.2 mg/dL (0-0.2); Bilirubin Total 0.5 mg/dL (0.2-1.0); Glucose Level 108 mg/dL (74-106); Protein, Total 5.3 g/dL (6.4-8.2); Sodium Level 135 mmol/L (136-145)
[2019-05-26] MEDS: PROMOD 30 ML DOSE PO SCH ×2 (08:46→21:00)
[2019-05-26] MEDS: ACETAMINOPHEN 325 MG TABLET PO PRN ×2 (08:46→16:17)
[2019-05-26] MEDS: CRANBERRY FRUIT EXTRACT 200 MG CAP PO SCH ×2 (08:47→21:31)
[2019-05-26] MEDS: ASPIRIN 81 MG CHEWABLE TABLET PO SCH (08:47)
[2019-05-26] MEDS: CYANOCOBALAMIN 1,000 MCG TAB PO SCH (08:47)
[2019-05-26] MEDS: NA CHLORIDE 0.9% 1,000 ML IV SCH ×2 (09:17→18:49)
[2019-05-26] MEDS: VANCOMYCIN 1.75 GM in NA CHLORIDE 0.9% 500 ML IVPB SCH (15:01)
--- NOTE | 2019-05-26 15:05 | RAD REPORT ---
EXAM DESCRIPTION: NM - Hepatobiliary System Imagin - 05/26/2019 2:58 pm CLINICAL HISTORY: Cholecystitis COMPARISON: Ultrasound May 25 TECHNIQUE: The patient was administered 6.4 mCi Tc99m Choletec . Imaging of the right upper quadrant was performed initially for up to 60 minutes. FINDINGS: There is homogeneous uptake of radiopharmaceutical throughout the liver. There is no delay in visualization of the biliary tree or duodenum. Gallbladder did not visualize during the examination. At 1 hour there was insufficient radiopharmaceu tical in the liver to warrant any additional or prolonged imaging. Given the presence of sludge and s tones, nonvisualization of the gallbladder would be consistent with acute cholecystitis. Correlation is needed with clinical findings for acute cholecystitis. Poorly functioning gallbladder can show thi s presentation as well. IMPRESSION: Nonvisualization of the gallbladder. In the setting of acute symptoms this is most consi stent with acute cholecystitis. Ejection fraction is . Patient reported no pre-procedure pain, and no pain during or subsequent to synthetic CCK infusion.
--- NOTE | 2019-05-26 16:26 | CON ---
Date of Consultation: 05/26/2019 Reason: Cholecystitis. History Of Present Illness: The patient is an 84-year-old gentleman, who was transferred from the re hab floor to the regular floor because he became septic and dehydrated. He has urosepsis and he had an abdominal ultrasound, which showed slight thickening of the gallbladder with sludge suggestive of possible cholecystitis and I was consulted. He was on the rehab because he had left fractured femur and it was determined that he was too high risk surgery candidate and it was not repaired it was owen g to be healing secondarily; however, I have been told that it may not be healing well. In the meant los, he developed urosepsis. He was transferred to the regular floor and because of his lower abdomi nal pain, ultrasound was ordered, which showed evidence of chronic cholecystitis. He denies any naus ea or vomiting. Denies any upper abdominal pain. He does have some suprapubic pain. No diarrhea or constipation. No blood in his stool. No dysuria or hematuria. No sore throat, runny nose, cough, headaches, or dizziness. No chest pain. Review of Systems: Otherwise unremarkable. Past Medical History: Hypertension, muscular dystrophy, seizure disorder, history of ventricular tac hycardia, dyslipidemia, nasal cancer, pulmonary embolism, [place], stroke, CHF, pacemaker. Past Surgical History: Hernia surgery, knee surgery, cataract surgery, cardiac catheterization. Allergies: MULTIPLE INCLUDE CLINDAMYCIN, CODEINE, FENTANYL, HYDROMORPHONE, METHADONE, MORPHINE, PENI CILLIN, OPIATES. HE DOES NOT SMOKE. DRINKS ALCOHOL OCCASIONALLY. Family History: Unknown his. Physical Examination: VITAL SIGNS: Stable. He is afebrile. GENERAL: He is awake, alert, and oriented x3. HEAD AND NECK: No masses. CHEST: Clear. HEART: S1, S2. ABDOMEN: Soft, nondistended. Minimal tenderness in the right side of the abdomen, but no rebound ri gidity or guarding. No Lubin sign. EXTREMITIES: Adequately perfused. Nontender. Neuro: Nonfocal. Laboratory Data: White count is 14.3, improving from 22.8 couple days ago with a left shift, which i s also improving. Chemistry reviewed. Ultrasound of the abdomen reviewed, shows sludge in gallbladde r stones present within the gallbladder with mild gallbladder wall thickening. No hydronephrosis. N o pericholecystic fluid. The gallbladder wall is mildly thickened to 4 mm and common bile duct is no rmal at 5 mm. Assessment: Urosepsis likely chronic cholecystitis with cholelithiasis. I do not believe the patien t has acute cholecystitis, as his symptomology does not correlate with the ultrasound finding. Recommendation: Continue the antibiotics, vancomycin and Levaquin for the urosepsis, which will cove r gallbladder issues as well and we will go ahead and get a HIDA scan to rule out acute cholecystitis , but as the patient is high risk for surgical intervention for his hip, he will be high risk for any surgery requiring general anesthesia. Plan of care discussed in detail with the and patient yuli Valadez. LIZET/FEDE Voice ID: [id number] Report ID: [id number]
[2019-05-26] MEDS: Levofloxacin 750mg IV 750 MG/150 ML BAG IV SCH (18:00)
--- NOTE | 2019-05-26 18:11 | P.PN ---
Subjective Date of Service: 05/26/19 Chief Complaint: LOOKS BETTER BUT HAD DARK BROWN VOMIT LAST NIGHT Subjective: Improving MR. MORENO HAS FELT BETTER BUT HAD VOMITED DARK BROWN LAST NIGHT. HE IS ON ELIQUIS AND WE STOPPED TODAY. HE IS NOT SAYING MUCH, IS TALKING FOR HIM. HE IS TALKING NOW. HE HAS NO MORE VOMITING, OR BLEEDING. HE IS MUCH MORE AWAKE. Review of Systems 10-point ROS is otherwise unremarkable General: Weakness Physical Examination - Vital Signs Temperature: 97.8 F Blood Pressure: 122/69 Pulse: 105 Respirations: 20 Pulse Ox (%): 94 - Physical Exam General: Alert, Mild distress, Obese HEENT: Atraumatic, PERRLA, EOMI Neck: Supple, JVD not distended Respiratory: Clear to auscultation bilaterally, Normal air movement Cardiovascular: Regular rate/rhythm, Normal S1 S2 Gastrointestinal: Normal bowel sounds, No tenderness Musculoskeletal: No tenderness Integumentary: No rashes Neurological: Other (NON AMBULATORY.), Dementia Lymphatics: No axilla or inguinal lymphadenopathy - Studies Laboratory Data (last 24 hrs) 05/26/19 05:46: Sodium 135 L, Potassium 4.0, BUN 34 H, Creatinine 0.62, Glucose 108 H, Magnesium 2.0, Total Bilirubin 0.5, AST 23, ALT 14, Alkaline Phosphatase 76 05/26/19 05:46: WBC 14.3 H D, Hgb 9.0 L D, Hct 27.2 L D, Plt Count 214 Medications List Reviewed: Yes Assessment And Plan - Current Problems (Diagnosis) (1) Sepsis Current Visit: Yes Status: Acute Plan: HE GOT ABX VANCOMYCIN AND LEVAQUIN. MOST LIKELY THE SOURCE IS E FEACLIS FROM URINE CULTURE. LEVAQUIN SHOULD BE GOOD PER CULTURE. BC2 ARE DONE. CXR NEG. NO OTHER FOCAL FINDINGS. IMPROVED. STABLE MEDS. Qualifiers: Sepsis type: sepsis due to unspecified organism Sepsis acute organ dysfunction status: without acute organ dysfunction Qualified Code(s): A41.9 - Sepsis, unspecified organism (2) CVA (cerebral vascular accident) Current Visit: Yes Status: Acute Plan: 5 CM RIGHT CEREBELLUM INFARCT. DR. BRICENO ON CASE. HE IS ALREADY ON ELIQUIS 2.5 MG BID FOR LIFETIME BEING HIGH RISK FOR DVT. PROGNOSIS IS GUARDED. HE IS NOT A SURGICAL CANDIDATE FOR ANY INVASIVE EVALUATIONS AND TREATMENT. PLAVIX 75 MG DAILY. HE HAD RECENT STROKE. (3) Non-refractory atypical absence seizures Onset Date: 03/15/18 Current Visit: No Status: Chronic Plan: DR. BRICENO AND MANY OTHER NEUROLOGISTS HAVE DONE EVAL. 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 (5) Hematemesis Current Visit: Yes Status: Acute Plan: I STARTED IV POROTONIX BID. CONSULTED DR. MCGARRY. DISCUSSED WITH . HAVE TO DC ALL ANTICOAG AND ANTIPLATELTES RISK OF BLEEDING IS HIGH. SHE UNDERSTANDS RISK OF NOT HAVING THESE AGENTS IS ANOTHER STROKE. Qualifiers: Nausea presence: with nausea Qualified Code(s): K92.0 - Hematemesis (6) Cholecystitis Current Visit: Yes Status: Acute Plan: NO PAIN. SONOGRAM POS. I WILL CONSULT DR. BUNCH. HE IS ON ABD ALREADY. DR. BUNCH SAYS HE IS NOT IN A SHAPE FOR SURGERY. SYMPTOMS ARE NONSPECIFIC FOR GB.
[2019-05-26] MEDS: ATORVASTATIN 40 MG TAB PO SCH (21:30)
[2019-05-27] MEDS: ACETAMINOPHEN 325 MG TABLET PO PRN (02:57)
[2019-05-27 04:24] LABS: Absolute Lymphocytes (CBC) 0.7 K/uL (0.7-4.9); Basophils % 0.2 % (0-1.3); Hematocrit 21.4 % (39.6-49.0); Lymphocytes % 5.7 % (15.3-44.8); MPV 6.8 fL (7.6-11.3); RBC Red Blood Cell Count 2.32 M/uL (4.33-5.43)
[2019-05-27 04:47] LABS: ALT/SGPT 26 U/L (12-78); AST/SGOT 53 U/L (15-37); Albumin 1.7 g/dL (3.4-5.0); Alkaline Phosphatase 87 U/L (45-117); BUN Blood Urea Nitrogen 22 mg/dL (7-18); Bicarbonate 28 mmol/L (21-32); Bilirubin Direct 0.2 mg/dL (0-0.2); Bilirubin Total 0.5 mg/dL (0.2-1.0); Glucose Level 112 mg/dL (74-106); Potassium 3.7 mmol/L (3.5-5.1); Protein, Total 5.5 g/dL (6.4-8.2); Sodium Level 138 mmol/L (136-145)
[2019-05-27] MEDS: METOPROLOL TAR 25 MG TAB PO SCH ×2 (06:00→16:47)
[2019-05-27] MEDS ORDERED: POTASSIUM 25 MEQ EFFERV TAB PO ONE (06:00)
[2019-05-27] MEDS ORDERED: SODIUM CHLORIDE 0.9% 10ML INJ IV PRN (06:29)
[2019-05-27] MEDS: PANTOPRAZOLE 40 MG INJ IVP SCH ×2 (07:21→07:25)
[2019-05-27] MEDS: CRANBERRY FRUIT EXTRACT 200 MG CAP PO SCH ×2 (07:25→19:53)
[2019-05-27] MEDS: CYANOCOBALAMIN 1,000 MCG TAB PO SCH (07:25)
[2019-05-27] MEDS: PROMOD 30 ML DOSE PO SCH ×2 (07:25→19:53)
--- NOTE | 2019-05-27 09:55 | PN ---
Date of Progress Note: 05/27/2019 Subjective: Patient is awake, alert. No new complaints. Vital signs stable. Afebrile. Laboratory data reviewed. His H and H are 7 and 21.4 with a left shift. His white count is 13,000. He has 2 units ordered. Electrolytes reviewed. He is also scheduled for an EGD later today. His HIDA scan w as reviewed yesterday. Essentially it shows nonvisualization of the gallbladder; however, patient brown d no preprocedure pain and no pain during or subsequent to the synthetic CCK infusion. Poorly functi oning gallbladder can have this presentation as well as acute cholecystitis. Abdominal exam reveals minimal tenderness. No rebound, rigidity, or guarding in the right upper quadrant, but there is diff use tenderness on the patient. He is a little confused. Assessment: An 84-year-old gentleman with multiple medical problems with hip fracture, urosepsis, po ssible cholecystitis, and acute anemia. Recommendations: At this time, we will await the findings of the EGD, and after that, we will feed t he patient and see how he does with that. If he does have acute cholecystitis, it will be difficult from him to eat, and at that time, we can consider intervention, but patient was high risk for hip wilde rgery and the same risks would apply for the gallbladder surgery anesthetic amor. So this was discus sed in detail with Dr. Valadez as well, and we will continue the antibiotics at this time, follow the p atient clinically. LIZET/FEDE Voice ID: [id number] Report ID: [id number]
[2019-05-27] MEDS ORDERED: NA CHLORIDE 0.9% 250 ML ONE ×2 (10:59→20:58)
[2019-05-27] MEDS: NA CHLORIDE 0.9% 1,000 ML IV SCH (12:40)
[2019-05-27] MEDS ORDERED: LIDOCAINE 1% MPF 2 ML AMPULE ONE (14:45)
[2019-05-27] MEDS ORDERED: PROPOFOL 200 MG/20 ML VIAL IV ONE (14:45)
[2019-05-27] MEDS: Levofloxacin 750mg IV 750 MG/150 ML BAG IV SCH (16:56)
[2019-05-27] MEDS: PANTOPRAZOLE INJ 80 MG in NA CHLORIDE 0.9% 250 ML IV SCH (18:39)
--- NOTE | 2019-05-27 18:56 | P.PN ---
Subjective Date of Service: 05/27/19 Chief Complaint: LOOKS BETTER BUT HAD DARK BROWN VOMIT LAST NIGHT Subjective: Improving MR. MORENO HAS FELT BETTER BUT HAD VOMITED DARK BROWN LAST NIGHT. HE IS ON ELIQUIS AND WE STOPPED TODAY. HE IS NOT SAYING MUCH, IS TALKING FOR HIM. HE IS TALKING NOW. HE HAS NO MORE VOMITING, OR BLEEDING. HE IS MUCH MORE AWAKE. DENIES ANY PAIN Review of Systems 10-point ROS is otherwise unremarkable General: Weakness, Malaise Neurological: Confusion Physical Examination - Vital Signs Temperature: 98.6 F Blood Pressure: 123/64 Pulse: 105 Respirations: 16 Pulse Ox (%): 98 - Physical Exam General: Alert, In no apparent distress, Obese HEENT: Atraumatic, PERRLA, EOMI Neck: Supple, JVD not distended Respiratory: Clear to auscultation bilaterally, Normal air movement Cardiovascular: Regular rate/rhythm, Normal S1 S2 Gastrointestinal: Normal bowel sounds, No tenderness Musculoskeletal: No tenderness Integumentary: No rashes Neurological: Normal speech, Abnormal affect Lymphatics: No axilla or inguinal lymphadenopathy - Studies Laboratory Data (last 24 hrs) 05/27/19 04:15: Sodium 138, Potassium 3.7, BUN 22 H, Creatinine 0.53 L, Glucose 112 H, Magnesium 2.0, Total Bilirubin 0.5, AST 53 H, ALT 26, Alkaline Phosphatase 87 05/27/19 04:15: WBC 13.0 H, Hgb 7.0 L*, Hct 21.4 L D, Plt Count 228 Medications List Reviewed: Yes Assessment And Plan - Current Problems (Diagnosis) (1) Sepsis Current Visit: Yes Status: Acute Plan: HE GOT ABX VANCOMYCIN AND LEVAQUIN. MOST LIKELY THE SOURCE IS E FEACLIS FROM URINE CULTURE. LEVAQUIN SHOULD BE GOOD PER CULTURE. BC2 ARE DONE. CXR NEG. NO OTHER FOCAL FINDINGS. IMPROVED. STABLE MEDS. Qualifiers: Sepsis type: sepsis due to unspecified organism Sepsis acute organ dysfunction status: without acute organ dysfunction Qualified Code(s): A41.9 - Sepsis, unspecified organism (2) CVA (cerebral vascular accident) Current Visit: Yes Status: Acute Plan: 5 CM RIGHT CEREBELLUM INFARCT. DR. BRICENO ON CASE. HE IS ALREADY ON ELIQUIS 2.5 MG BID FOR LIFETIME BEING HIGH RISK FOR DVT. PROGNOSIS IS GUARDED. HE IS NOT A SURGICAL CANDIDATE FOR ANY INVASIVE EVALUATIONS AND TREATMENT. PLAVIX 75 MG DAILY. HE HAD RECENT STROKE. (3) Non-refractory atypical absence seizures Onset Date: 03/15/18 Current Visit: No Status: Chronic Plan: DR. BRICENO AND MANY OTHER NEUROLOGISTS HAVE DONE EVAL. 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 (5) Hematemesis Current Visit: Yes Status: Acute Plan: I STARTED IV POROTONIX BID. CONSULTED DR. MCGARRY. DISCUSSED WITH . HAVE TO DC ALL ANTICOAG AND ANTIPLATELTES RISK OF BLEEDING IS HIGH. SHE UNDERSTANDS RISK OF NOT HAVING THESE AGENTS IS ANOTHER STROKE. HEMOGLOBIN DROPPED I CALLED DR. MCGARRY TO GET HIM TO DO EGD. HE HAS MW. TEAR WITH CLOT ON IT. HE PUT CLIP ON IT. HE CAN'T TAKE ANY STROKE MEDS FOR NOW. IS AWARE. SHE DOES NOT WANT TO GIVE AGENTS LIKE THAT EVER. DID NOT LIKE WHEN I ASKED ABOUT LIVING WILL. SHE SAYS SHE DOES NOT BELIEVE IN IT. SHE WILL DECIDE AT THE MOMENT IF SOMETHING HAPPENS. I TOLD HER I ASK EVERYONE WITH AGE LIKE HIS ABOUT THE WISHES THAT DOES NOT MEAN HE IS DYING. HE HAS MANY MEDICAL ISSUES. Qualifiers: Nausea presence: with nausea Qualified Code(s): K92.0 - Hematemesis (6) Cholecystitis Current Visit: Yes Status: Acute Plan: NO PAIN. SONOGRAM POS. I WILL CONSULT DR. BUNCH. HE IS ON ABD ALREADY. DR. BUNCH SAYS HE IS NOT IN A SHAPE FOR SURGERY. SYMPTOMS ARE NONSPECIFIC FOR GB.
[2019-05-27] MEDS: ATORVASTATIN 40 MG TAB PO SCH (19:53)
[2019-05-28] MEDS: NA CHLORIDE 0.9% 1,000 ML IV SCH ×3 (02:00→15:20)
[2019-05-28] MEDS: PANTOPRAZOLE INJ 80 MG in NA CHLORIDE 0.9% 250 ML IV SCH ×3 (02:42→23:16)
[2019-05-28] MEDS: METOPROLOL TAR 25 MG TAB PO SCH ×2 (04:57→15:26)
[2019-05-28 05:18] LABS: ALT/SGPT 39 U/L (12-78); AST/SGOT 123 U/L (15-37); Albumin 1.7 g/dL (3.4-5.0); Alkaline Phosphatase 115 U/L (45-117); BUN Blood Urea Nitrogen 11 mg/dL (7-18); Bicarbonate 29 mmol/L (21-32); Bilirubin Direct 0.3 mg/dL (0-0.2); Bilirubin Total 0.6 mg/dL (0.2-1.0); Glucose Level 101 mg/dL (74-106); Magnesium 1.9 mg/dL (1.8-2.4); Potassium 3.2 mmol/L (3.5-5.1); Protein, Total 5.3 g/dL (6.4-8.2); Sodium Level 139 mmol/L (136-145)
[2019-05-28 05:40] LABS: Absolute Lymphocytes (CBC) 0.8 K/uL (0.7-4.9); Basophils % 2.5 % (0-1.3); Hematocrit 21.8 % (39.6-49.0); Lymphocytes % 6.1 % (15.3-44.8); MPV 7.4 fL (7.6-11.3); RBC Red Blood Cell Count 2.37 M/uL (4.33-5.43)
[2019-05-28 05:43] LABS: Blood Morphology Comment NOT SEEN (NOT SEEN); Platelet Estimate ADEQ; Urine White Blood Cell Casts OK
[2019-05-28] MEDS: KCL 20 MEQ/100 mL IVPB 20 MEQ/100 ML BAG IV SCH ×2 (06:26→09:00)
[2019-05-28] MEDS: PROMOD 30 ML DOSE PO SCH ×2 (09:00→21:22)
[2019-05-28] MEDS: CRANBERRY FRUIT EXTRACT 200 MG CAP PO SCH ×2 (09:00→21:21)
[2019-05-28] MEDS: CYANOCOBALAMIN 1,000 MCG TAB PO SCH (09:00)
--- NOTE | 2019-05-28 10:23 | P.PN ---
Subjective Date of Service: 05/28/19 Chief Complaint: STABLE, SLEEPY AND TALKED TODAY. Subjective: Improving MR. MORENO HAS FELT BETTER BUT HAD VOMITED DARK BROWN LAST NIGHT. HE IS ON ELIQUIS AND WE STOPPED TODAY. HE IS NOT SAYING MUCH, IS TALKING FOR HIM. HE IS TALKING NOW. HE HAS NO MORE VOMITING, OR BLEEDING. HE IS MUCH MORE AWAKE. DENIES ANY PAIN NO MORE HEMATEMESIS. Review of Systems 10-point ROS is otherwise unremarkable General: Weakness, Malaise Musculoskeletal: As per HPI Neurological: Confusion, As per HPI Physical Examination - Vital Signs Temperature: 98.6 F Blood Pressure: 113/58 Pulse: 104 Respirations: 18 Pulse Ox (%): 97 - Physical Exam General: Alert, In no apparent distress, Confused (DOES NOT KNOW ME. 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 ) Lymphatics: No axilla or inguinal lymphadenopathy - Studies Laboratory Data (last 24 hrs) 05/28/19 12:00: Potassium Cancelled 05/28/19 04:30: Sodium 139, Potassium 3.2 L, BUN 11, Creatinine 0.49 L, Glucose 101, Magnesium 1.9, Total Bilirubin 0.6, AST 123 H, ALT 39, Alkaline Phosphatase 115 05/28/19 04:30: WBC 13.4 H, Hgb 7.2 L*, Hct 21.8 L, Plt Count 228 05/28/19 02:30: Hgb Cancelled, Hct Cancelled Medications List Reviewed: Yes Assessment And Plan - Current Problems (Diagnosis) (1) Sepsis Current Visit: Yes Status: Acute Plan: HE GOT ABX VANCOMYCIN AND LEVAQUIN. MOST LIKELY THE SOURCE IS E FEACLIS FROM URINE CULTURE. LEVAQUIN SHOULD BE GOOD PER CULTURE. BC2 ARE DONE. CXR NEG. NO OTHER FOCAL FINDINGS. IMPROVED. STABLE MEDS. Qualifiers: Sepsis type: sepsis due to unspecified organism Sepsis acute organ dysfunction status: without acute organ dysfunction Qualified Code(s): A41.9 - Sepsis, unspecified organism (2) CVA (cerebral vascular accident) Current Visit: Yes Status: Acute Plan: 5 CM RIGHT CEREBELLUM INFARCT. DR. BRICENO ON CASE. HE IS ALREADY ON ELIQUIS 2.5 MG BID FOR LIFETIME BEING HIGH RISK FOR DVT. PROGNOSIS IS GUARDED. HE IS NOT A SURGICAL CANDIDATE FOR ANY INVASIVE EVALUATIONS AND TREATMENT. PLAVIX 75 MG DAILY. HE HAD RECENT STROKE. (3) Non-refractory atypical absence seizures Onset Date: 03/15/18 Current Visit: No Status: Chronic Plan: DR. BRICENO AND MANY OTHER NEUROLOGISTS HAVE DONE EVAL. 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 (5) Hematemesis Current Visit: Yes Status: Acute Plan: I STARTED IV POROTONIX BID. CONSULTED DR. MCGARRY. DISCUSSED WITH . HAVE TO DC ALL ANTICOAG AND ANTIPLATELTES RISK OF BLEEDING IS HIGH. SHE UNDERSTANDS RISK OF NOT HAVING THESE AGENTS IS ANOTHER STROKE. HEMOGLOBIN DROPPED I CALLED DR. MCGARRY TO GET HIM TO DO EGD. HE HAS MW. TEAR WITH CLOT ON IT. HE PUT CLIP ON IT. HE CAN'T TAKE ANY STROKE MEDS FOR NOW. IS AWARE. SHE DOES NOT WANT TO GIVE AGENTS LIKE THAT EVER. DID NOT LIKE WHEN I ASKED ABOUT LIVING WILL. SHE SAYS SHE DOES NOT BELIEVE IN IT. SHE WILL DECIDE AT THE MOMENT IF SOMETHING HAPPENS. I TOLD HER I ASK EVERYONE WITH AGE LIKE HIS ABOUT THE WISHES THAT DOES NOT MEAN HE IS DYING. HE HAS MANY MEDICAL ISSUES. Qualifiers: Nausea presence: with nausea Qualified Code(s): K92.0 - Hematemesis (6) Cholecystitis Current Visit: Yes Status: Acute Plan: NO PAIN. SONOGRAM POS. I WILL CONSULT DR. BUNCH. HE IS ON ABD ALREADY. DR. BUNCH SAYS HE IS NOT IN A SHAPE FOR SURGERY. SYMPTOMS ARE NONSPECIFIC FOR GB. (7) Femur fracture Current Visit: Yes Status: Acute Plan: ORTHO HAS ELECTED NOT REPAIR HIS CONDITION IS POOR. Qualifiers: Encounter type: subsequent encounter
[2019-05-28] MEDS ORDERED: NA CHLORIDE 0.9% 250 ML ONE (10:30)
[2019-05-28] MEDS: Levofloxacin 750mg IV 750 MG/150 ML BAG IV SCH (16:44)
[2019-05-28 20:03] LABS: Hematocrit 25.5 % (39.6-49.0)
[2019-05-28] MEDS: ATORVASTATIN 40 MG TAB PO SCH (21:21)
[2019-05-28] MEDS: ACETAMINOPHEN 325 MG TABLET PO PRN (21:21)
[2019-05-29] MEDS: METOPROLOL TAR 25 MG TAB PO SCH ×2 (05:36→16:04)
[2019-05-29] MEDS: NA CHLORIDE 0.9% 1,000 ML IV SCH ×2 (05:38→16:07)
[2019-05-29 07:40] LABS: ALT/SGPT 82 U/L (12-78); AST/SGOT 247 U/L (15-37); Albumin 1.7 g/dL (3.4-5.0); Alkaline Phosphatase 191 U/L (45-117); BUN Blood Urea Nitrogen 9 mg/dL (7-18); Bicarbonate 28 mmol/L (21-32); Bilirubin Direct 0.7 mg/dL (0-0.2); Bilirubin Total 1.2 mg/dL (0.2-1.0); Glucose Level 110 mg/dL (74-106); Magnesium 1.9 mg/dL (1.8-2.4); Potassium 3.3 mmol/L (3.5-5.1); Protein, Total 5.6 g/dL (6.4-8.2); Sodium Level 137 mmol/L (136-145)
[2019-05-29] MEDS ORDERED: POTASSIUM CL SA 10 MEQ TAB PO ONE ×2 (08:09→16:00)
[2019-05-29] MEDS: CYANOCOBALAMIN 1,000 MCG TAB PO SCH (08:44)
[2019-05-29] MEDS: CRANBERRY FRUIT EXTRACT 200 MG CAP PO SCH ×2 (08:44→20:53)
[2019-05-29] MEDS: PROMOD 30 ML DOSE PO SCH ×2 (08:44→20:54)
[2019-05-29 09:05] LABS: Absolute Lymphocytes (CBC) 1.1 K/uL (0.7-4.9); Basophils % 0.3 % (0-1.3); Lymphocytes % 7.1 % (15.3-44.8); MPV 7.4 fL (7.6-11.3); RBC Red Blood Cell Count 2.91 M/uL (4.33-5.43)
--- NOTE | 2019-05-29 11:17 | PN ---
Date of Progress Note: 05/29/2019 Subjective: Patient had an EGD on Thursday, which showed a La-Starkey tear. Started on clear liqui ds. He is tolerating that. He has no abdominal pain. Vital signs are stable. Afebrile. Laborator y data reviewed. Hemoglobin is 8.5. His abdomen is benign. There is no tenderness in the right upp er quadrant. Assessment: Chronic cholecystitis, urosepsis, hip fracture. Recommendations: Continue IV antibiotics at this time. No need for surgical intervention. Reconsul t Surgery p.r.n. /MODFranklin Voice ID: [id number] Report ID: [id number]
[2019-05-29] MEDS: PANTOPRAZOLE INJ 80 MG in NA CHLORIDE 0.9% 250 ML IV SCH ×2 (11:27→22:17)
[2019-05-29 11:33] LABS: Blood Morphology Comment NOTED (NOT SEEN); Platelet Estimate ADEQ; Polychromasia SLIGHT
--- NOTE | 2019-05-29 11:46 | RAD REPORT ---
EXAM DESCRIPTION: RAD - Hip Left 2 View - 05/29/2019 10:34 am CLINICAL HISTORY: Left hip fracture FINDINGS: No change in the mildly to moderately displaced left acetabular fracture. No dislocation
--- NOTE | 2019-05-29 11:47 | P.PN ---
Subjective Date of Service: 05/29/19 Chief Complaint: STABLE, SLEEPY AND TALKED TODAY. Subjective: No new changes MR. MORENO HAS FELT BETTER BUT HAD VOMITED DARK BROWN LAST NIGHT. HE IS ON ELIQUIS AND WE STOPPED TODAY. HE IS NOT SAYING MUCH, IS TALKING FOR HIM. HE IS TALKING NOW. HE HAS NO MORE VOMITING, OR BLEEDING. HE IS MUCH MORE AWAKE. DENIES ANY PAIN NO MORE HEMATEMESIS. HE DOES NOT HAVE ANY COMPLAINTS. IS NOT AT BEDSIDE TODAY. Review of Systems 10-point ROS is otherwise unremarkable General: Weakness, Malaise Physical Examination - Vital Signs Temperature: 98.9 F Blood Pressure: 103/60 Pulse: 95 Respirations: 18 Pulse Ox (%): 93 - Physical Exam General: Alert, Mild distress, Obese HEENT: Atraumatic, PERRLA, EOMI Neck: Supple, JVD not distended Respiratory: Clear to auscultation bilaterally, Normal air movement Cardiovascular: Regular rate/rhythm, Normal S1 S2 Gastrointestinal: Normal bowel sounds, Tenderness (DIFFUSE MILD TENDER. RUQ ALSO MOD.) Musculoskeletal: No tenderness Integumentary: No rashes Neurological: Normal speech, Normal tone, Normal affect Lymphatics: No axilla or inguinal lymphadenopathy - Studies Laboratory Data (last 24 hrs) 05/29/19 07:38: WBC 15.1 H, Hgb 8.6 L, Hct 26.0 L, Plt Count 259 05/29/19 06:20: Sodium 137, Potassium 3.3 L, BUN 9, Creatinine 0.52 L, Glucose 110 H, Magnesium 1.9, Total Bilirubin 1.2 H, AST 247 H D, ALT 82 H, Alkaline Phosphatase 191 H D 05/28/19 19:45: Hgb 8.5 L, Hct 25.5 L D 05/28/19 16:05: Potassium 4.0 Medications List Reviewed: Yes Assessment And Plan - Current Problems (Diagnosis) (1) Sepsis Current Visit: Yes Status: Acute Plan: HE GOT ABX VANCOMYCIN AND LEVAQUIN. MOST LIKELY THE SOURCE IS E FEACLIS FROM URINE CULTURE. LEVAQUIN SHOULD BE GOOD PER CULTURE. BC2 ARE DONE. CXR NEG. NO OTHER FOCAL FINDINGS. IMPROVED. STABLE MEDS. Qualifiers: Sepsis type: sepsis due to unspecified organism Sepsis acute organ dysfunction status: without acute organ dysfunction Qualified Code(s): A41.9 - Sepsis, unspecified organism (2) CVA (cerebral vascular accident) Current Visit: Yes Status: Acute Plan: 5 CM RIGHT CEREBELLUM INFARCT. DR. BRICENO ON CASE. HE IS ALREADY ON ELIQUIS 2.5 MG BID FOR LIFETIME BEING HIGH RISK FOR DVT. PROGNOSIS IS GUARDED. HE IS NOT A SURGICAL CANDIDATE FOR ANY INVASIVE EVALUATIONS AND TREATMENT. PLAVIX 75 MG DAILY. HE HAD RECENT STROKE. (3) Non-refractory atypical absence seizures Onset Date: 03/15/18 Current Visit: No Status: Chronic Plan: DR. BRICENO AND MANY OTHER NEUROLOGISTS HAVE DONE EVAL. 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 (5) Hematemesis Current Visit: Yes Status: Acute Plan: I STARTED IV POROTONIX BID. CONSULTED DR. MCGARRY. DISCUSSED WITH . HAVE TO DC ALL ANTICOAG AND ANTIPLATELTES RISK OF BLEEDING IS HIGH. SHE UNDERSTANDS RISK OF NOT HAVING THESE AGENTS IS ANOTHER STROKE. HEMOGLOBIN DROPPED I CALLED DR. MCGARRY TO GET HIM TO DO EGD. HE HAS MW. TEAR WITH CLOT ON IT. HE PUT CLIP ON IT. HE CAN'T TAKE ANY STROKE MEDS FOR NOW. IS AWARE. SHE DOES NOT WANT TO GIVE AGENTS LIKE THAT EVER. DID NOT LIKE WHEN I ASKED ABOUT LIVING WILL. SHE SAYS SHE DOES NOT BELIEVE IN IT. SHE WILL DECIDE AT THE MOMENT IF SOMETHING HAPPENS. I TOLD HER I ASK EVERYONE WITH AGE LIKE HIS ABOUT THE WISHES THAT DOES NOT MEAN HE IS DYING. HE HAS MANY MEDICAL ISSUES. Qualifiers: Nausea presence: with nausea Qualified Code(s): K92.0 - Hematemesis (6) Cholecystitis Current Visit: Yes Status: Acute Plan: NO PAIN. SONOGRAM POS. I WILL CONSULT DR. BUNCH. HE IS ON ABD ALREADY. DR. BUNCH SAYS HE IS NOT IN A SHAPE FOR SURGERY. SYMPTOMS ARE NONSPECIFIC FOR GB. I CALLED DR. BUNCH AND IS WAITING FOR PHONE BACK. HE MAY NOT RECOVER WITHOUT CHOLECYSTECTOMY. LFT HAVE WORSENED SOME. HE HAS CHOLESTASIS. HE MAY NEED ERCP BEFORE CHOLECYSTECTOMY. DR. TORRES DOES NOT COME TO THIS HOSPITAL ANY LONGER. (7) Femur fracture Current Visit: Yes Status: Acute Plan: ORTHO HAS ELECTED NOT REPAIR HIS CONDITION IS POOR. Qualifiers: Encounter type: subsequent encounter
[2019-05-29] MEDS: Levofloxacin 750mg IV 750 MG/150 ML BAG IV SCH (16:03)
[2019-05-29] MEDS: ACETAMINOPHEN 325 MG TABLET PO PRN (20:52)
[2019-05-29] MEDS: ATORVASTATIN 40 MG TAB PO SCH (20:53)
--- NOTE | 2019-05-30 01:05 | CON ---
Date of Consultation: 05/29/2019 Mr. Lemus is an 84-year-old male who is familiar with me from previous issues, also familiar with me for the issue that I am consulted on. He fell quite sometime ago having an acetabular fracture. He was seen and examined in the emergency room in [facility] where he was found to have a n acetabular fracture, which is felt to be outside the scope of [facility]. He was then transf erred to the [facility] for surgical evaluation and probable surgery. Unfort unately, they did not feel that his medical status would allow greater benefit than risk, therefore e lected to treat it nonoperatively. He has seen me once since that time in my office, where x-rays we re reviewed, which demonstrated a healing acetabular fracture without further displacement. He was s cheduled to come back to see me in my office. Unfortunately he did not attend as he was placed in e acute setting because of worsening medical condition. Apparently diagnosis of urosepsis. Also the re are some considerations of other medical problems, however, he has no further surgery by the gener al surgeon's plan, I am consulted to see him for continuity of care. On physical examination he has limited pain related to his left lower extremity. He has been touchdown weightbearing since I saw ms angel last. He does have some x-rays from the , but I think we will obtain additional x-rays. If the se x-rays do not demonstrate any displacement with further healing, I think we can allow him weightbe aring as tolerated. I will order these x-rays and we will review them most likely tomorrow in my off ice. We will be able to communicate with the hospital with regard to his weightbearing status at jose t time. All of his family's questions have otherwise been answered. SE/MODL Voice ID: [id number] Report ID: [id number]
[2019-05-30] MEDS: PANTOPRAZOLE INJ 80 MG in NA CHLORIDE 0.9% 250 ML IV SCH ×3 (04:56→21:39)
[2019-05-30] MEDS: METOPROLOL TAR 25 MG TAB PO SCH ×2 (05:27→17:13)
[2019-05-30 06:39] LABS: BUN Blood Urea Nitrogen 6 mg/dL (7-18); Bicarbonate 29 mmol/L (21-32); Glucose Level 118 mg/dL (74-106); Potassium 3.3 mmol/L (3.5-5.1); Sodium Level 138 mmol/L (136-145)
[2019-05-30] MEDS: CRANBERRY FRUIT EXTRACT 200 MG CAP PO SCH ×2 (08:36→21:41)
[2019-05-30] MEDS: CYANOCOBALAMIN 1,000 MCG TAB PO SCH (08:36)
[2019-05-30] MEDS: NA CHLORIDE 0.9% 1,000 ML IV SCH ×2 (08:37→21:40)
[2019-05-30] MEDS: PROMOD 30 ML DOSE PO SCH ×2 (08:40→21:42)
[2019-05-30] MEDS ORDERED: POTASSIUM CL SA 10 MEQ TAB PO ONE (09:00)
--- NOTE | 2019-05-30 11:25 | CON ---
Date of Consultation: 05/26/2019 Reason For Consultation: Anemia, history of hematemesis, drop in hemoglobin. History Of Presenting Illness: Patient is an 84-year-old gentleman with significant comorbidities wi th past medical history of muscular dystrophy, hypertension, seizure disorder, nonsustained ventricul ar tachycardia, dyslipidemia, history of nasal cancer status post chemo, history of pulmona ry embolism had a leg fracture and was not repairable and was having rehab, however, found to be septic, and was transferred for admission. On imaging, found to have distended gallbladder wi th multiple stones with a suspicion of cholecystitis. At that time, patient did have some mild upper abdominal pain. However, yesterday the patient had vomitus, which was dark in color. There is also associated drop in hemoglobin. No further episodes of any dark vomit. No cough. No hematemesis or melena. He is nauseous. Also, has had a HIDA scan, which is again suggestive of acute cholecystiti s. Allergies: MULTIPLE ALLERGIES IN THE CHART. Home Medications: As in the chart. Past Medical History: As above. Past Surgical History: Knee surgery, hernia surgery, cataract, cardiac catheterization. Family History: Noncontributory. Social History: No toxic or current toxic habits. Review of Systems: GI: As in HPI. Cardiorespiratory: As in HPI. Otherwise, negative. Physical Examination: General: Patient is awake, able to respond to simple questions. HEENT: Head atraumatic, normocephalic. Pupils equally reactive. Neck: Supple. Chest: Bilateral air entry. Abdomen: Obese, soft. Mild abdominal tenderness throughout, more in the upper part. Bowel sounds a re present. Extremities: Pedal edema plus. Laboratory Data: Reviewed. There is evidence of sepsis. As stated above, drop in hemoglobin and hematocrit as radiology as disc ussed above. Impression: 84-year-old gentleman with significant comorbidities with sepsis which likely source crow ears to be gallbladder, on broad-spectrum antibiotics. Surgery is on the case, had a self-limited ep isode of coffee-ground emesis. No further active bleeding, but there is a significant drop in his he moglobin, hematocrit, so we will need to exclude any source that could be a potential problem in the future. Plan: Continue current management. Broad-spectrum antibiotics. I will discuss the case with Anesth esia to see if okay with anesthesiologist. We will schedule for upper endoscopy. The risks and comp lications of which include, but are not limited to bleeding, infection, perforation, and anesthesia c omplication as well as cardiorespiratory arrest. Continue PPI. GI will follow. /FEDE Voice ID: [id number] Report ID: [id number]
--- NOTE | 2019-05-30 11:46 | CON ---
I am asked to evaluate Mr. Lemus's suitability for going through noncardiac surgery. Mr. Lemus has g allstones. He has a recent esophageal tear with extensive GI bleeding and I think the surgery that Marco Valadez wishes would happen is a cholecystectomy. A lot of things point to the fact that his gallst ones are not benign, but contributing to his overall picture of sepsis and illness, but not really pr epared to make a statement about that, but to see what his suitability is for going through general a nesthesia. Mr. Lemus has a multitude of medical problems including normal-pressure hydrocephalus, se joss dementia. He has a fractured acetabulum on the hip, treated medically. He has a defibrillator because of depressed ejection fraction. It has been in the 30s. About 3 years ago he was at [facility] in [place]. Cardiac cath was done then and least according to his there was no evidence of bloc ked arteries. He appeared to have a nonischemic cardiomyopathy at least according to the history we got from the . He has never had bypass surgery or stents. His defibrillator has not shocked and his is getting very frustrated and was tearful as I was trying to ask questions. The history o n Mr. Lemus comes from the old chart and from the . He is unable to provide any history. Allergies: HE IS ALLERGIC TO CLINDAMYCIN, CODEINE, FENTANYL, HYDROMORPHONE, METHADONE, MORPHINE, PEN ICILLINS, AND EVERY OPIATES THAT HAS BEEN TRIED APPARENTLY. Outpatient Medications: , metoprolol 12.5 b.i.d., Lasix, cyanocobalamin, atorvastatin, asp irin, ibuprofen, potassium chloride, and acetaminophen. Social History: He does not use tobacco. Physical Examination: General: He is 5 feet 7 inches, 221 pounds. He is not oriented to person or place. He tends to ans wer questions that were asked. He seems to hear, but his cognitive abilities are very diminished. I could not auscultate the back of his lungs. He was unable to sit up but from the side there did not seem to be crackles. Heart: Exam does not reveal a significant murmur. Abdomen: Soft. Extremities: Mild edema. Distal pulses are palpable. His electrocardiogram has not been done this hospital admission. Electrocardiogram from November 2017 reveals sinus rhythm, first-degree AV block, PACs, left bundle-b ranch block. His most recent chest x-ray was done on the 24 of May, so about 6 days ago. Lungs were under-in flated, but did not seem to be evidence of heart failure or pneumonia. The report does not mention a ny abnormalities. It does mention that there is a multilead defibrillator in the left pectoral regio n. Impression: Mr. Lemus is probably getting close to class 4 for going through surgery in which case i t almost makes no difference what the heart condition is but I suspect his heart condition is not jose t bad. I would recommend we do an EKG, defibrillator check, and echo, and try to get records from [facility]. If those are basically the same as what Mrs. Allan brown described to me, he would be an acceptable candidate to undergo a stage surgery to relieve his gallbladder septicemia. NELIA/FEDE Voice ID: [id number] Report ID: [id number]
--- NOTE | 2019-05-30 12:47 | EKG ---
Test Date: 2019-05-30 Test Time: 10:30:56 Poultice Machine Operator: MEASUREMENT RESULTS: Intervals: Rate: 120 FL: QRSD: 136 QT: 324 QTc: 457 Center: P: FL: QRS: -57 T: 47 INTERPRETIVE STATEMENTS: Atrial fibrillation with rapid ventricular response Left axis deviation Left bundle branch block Abnormal ECG Compared to ECG 12/09/2017 07:57:32 Left-axis deviation now present Sinus rhythm no longer present Electronically Signed On 05-30-19 12:46:47 CDT by Gary Chapin
--- NOTE | 2019-05-30 13:45 | ECHO ---
HEIGHT: 5 ft 7 in WEIGHT: 221 lb 0 oz DATE OF STUDY: 05/30/[address]: Gary Chapin MD 2-DIMENSIONAL: YES M.MODE: YES DOPPLER: YES COLOR FLOW: YES TDS: PORTABLE: DEFINITY: BUBBLE STUDY: DIAGNOSIS: CONGESTIVE HEART FAILURE CARDIAC HISTORY: CATHERIZATION: NO SURGERY: NO PROSTHETIC VALVE: NO PACEMAKER: YES MEASUREMENTS (cm) DIASTOLIC (NORMALS) SYSTOLIC (NORMALS) IVSd 0.8 (0.6-1.2) LA Diam 4.5 (1.9-4.0) LVEF 25-29% LVIDd 5.1 (3.5-5.7) LVIDs 4.6 (2.0-3.5) %FS 9% LVPWd 0.9 (0.6-1.2) Ao Diam 3.5 (2.0-3.7) 2 DIMENSIONAL ASSESSMENT: RIGHT ATRIUM: DILATED LEFT ATRIUM: DILATED RIGHT VENTRICLE: PACEMAKER CATHETER LEFT VENTRICLE: DILATED TRICUSPID VALVE: NORMAL MITRAL VALVE: MITRAL ANNULAR CALCIFICATION PULMONIC VALVE: NORMAL AORTIC VALVE: SCLEROSIS PERICARDIAL EFFUSION: NONE AORTIC ROOT: NORMAL LEFT VENTRICULAR WALL MOTION: GLOBAL HYPOKINESIS DOPPLER/COLOR FLOW: MILD AORTIC REGURGITATION, MITRAL REGURGITATION AND TRICUSPID REGURGITATION. ESTIMATED RIGHT VENTRICULAR SYSTOLIC PRESSURE 35 mmHg (NORMAL) NO AORTIC STENOSIS. COMMENTS: DEPRESSED LEFT VENTRICULAR EJECTION FRACTION. DILATED LEFT ATRIUM, RIGHT ATRIUM, AND LEFT VENTRICLE. MILD AORTIC REGURGITATION, MITRAL REGURGITATION AND TRICUSPID REGURGITATION. PACEMAKER IN RIGHT VENTRICLE. MITRAL ANNULAR CALCIFICATION. AORTIC SCLEROSIS WITH NO AORTIC STENOSIS. TECHNOLOGIST: EVELYN MORALES
[2019-05-30] MEDS: Levofloxacin 750mg IV 750 MG/150 ML BAG IV SCH (16:40)
--- NOTE | 2019-05-30 17:42 | P.PN ---
Subjective Date of Service: 05/30/19 Chief Complaint: STABLE, SLEEPY AND TALKED TODAY. MR. MORENO HAS FELT BETTER BUT HAD VOMITED DARK BROWN LAST NIGHT. HE IS ON ELIQUIS AND WE STOPPED TODAY. HE IS NOT SAYING MUCH, IS TALKING FOR HIM. HE IS TALKING NOW. HE HAS NO MORE VOMITING, OR BLEEDING. HE IS MUCH MORE AWAKE. DENIES ANY PAIN NO MORE HEMATEMESIS. HE DOES NOT HAVE ANY COMPLAINTS. IS NOT AT BEDSIDE TODAY. TALKED TO DR. JOHNSON, DR. BUNCH AND TODAY. PATIENT IS STABLE, HAD DARK BLACK STOOL TODAY. Review of Systems 10-point ROS is otherwise unremarkable General: Weakness, Malaise Neurological: Confusion, As per HPI Physical Examination - Vital Signs Temperature: 98.9 F Blood Pressure: 116/61 Pulse: 80 Respirations: 18 Pulse Ox (%): 93 - Physical Exam General: Alert, In no apparent distress HEENT: Atraumatic, PERRLA, EOMI Neck: Supple, JVD not distended Respiratory: Clear to auscultation bilaterally, Normal air movement Cardiovascular: Regular rate/rhythm, Normal S1 S2 Gastrointestinal: Tenderness (DIFFUSE MILD TENDERNESS.) Musculoskeletal: No tenderness Integumentary: No rashes Neurological: Normal speech, Normal tone, Normal affect Lymphatics: No axilla or inguinal lymphadenopathy - Studies Laboratory Data (last 24 hrs) 05/30/19 : Sodium Cancelled, Potassium Cancelled, BUN Cancelled, Creatinine Cancelled, Glucose Cancelled 05/30/19 15:54: Potassium 3.3 L 05/30/19 06:05: Sodium 138, Potassium 3.3 L, BUN 6 L, Creatinine 0.49 L, Glucose 118 H Medications List Reviewed: Yes Assessment And Plan - Current Problems (Diagnosis) (1) Sepsis Current Visit: Yes Status: Acute Plan: HE GOT ABX VANCOMYCIN AND LEVAQUIN. MOST LIKELY THE SOURCE IS E FEACLIS FROM URINE CULTURE. LEVAQUIN SHOULD BE GOOD PER CULTURE. BC2 ARE DONE. CXR NEG. NO OTHER FOCAL FINDINGS. IMPROVED. STABLE MEDS. Qualifiers: Sepsis type: sepsis due to unspecified organism Sepsis acute organ dysfunction status: without acute organ dysfunction Qualified Code(s): A41.9 - Sepsis, unspecified organism (2) CVA (cerebral vascular accident) Current Visit: Yes Status: Acute Plan: 5 CM RIGHT CEREBELLUM INFARCT. DR. BRICENO ON CASE. HE IS ALREADY ON ELIQUIS 2.5 MG BID FOR LIFETIME BEING HIGH RISK FOR DVT. PROGNOSIS IS GUARDED. HE IS NOT A SURGICAL CANDIDATE FOR ANY INVASIVE EVALUATIONS AND TREATMENT. PLAVIX 75 MG DAILY. HE HAD RECENT STROKE. (3) Non-refractory atypical absence seizures Onset Date: 03/15/18 Current Visit: No Status: Chronic Plan: DR. BRICENO AND MANY OTHER NEUROLOGISTS HAVE DONE EVAL. 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 (5) Hematemesis Current Visit: Yes Status: Acute Plan: I STARTED IV POROTONIX BID. CONSULTED DR. MCGARRY. DISCUSSED WITH . HAVE TO DC ALL ANTICOAG AND ANTIPLATELTES RISK OF BLEEDING IS HIGH. SHE UNDERSTANDS RISK OF NOT HAVING THESE AGENTS IS ANOTHER STROKE. HEMOGLOBIN DROPPED I CALLED DR. MCGARRY TO GET HIM TO DO EGD. HE HAS MW. TEAR WITH CLOT ON IT. HE PUT CLIP ON IT. HE CAN'T TAKE ANY STROKE MEDS FOR NOW. IS AWARE. SHE DOES NOT WANT TO GIVE AGENTS LIKE THAT EVER. DID NOT LIKE WHEN I ASKED ABOUT LIVING WILL. SHE SAYS SHE DOES NOT BELIEVE IN IT. SHE WILL DECIDE AT THE MOMENT IF SOMETHING HAPPENS. I TOLD HER I ASK EVERYONE WITH AGE LIKE HIS ABOUT THE WISHES THAT DOES NOT MEAN HE IS DYING. HE HAS MANY MEDICAL ISSUES. Qualifiers: Nausea presence: with nausea Qualified Code(s): K92.0 - Hematemesis (6) Cholecystitis Current Visit: Yes Status: Acute Plan: NO PAIN. SONOGRAM POS. I WILL CONSULT DR. BUNCH. HE IS ON ABD ALREADY. DR. BUNCH SAYS HE IS NOT IN A SHAPE FOR SURGERY. SYMPTOMS ARE NONSPECIFIC FOR GB. I CALLED DR. BUNCH AND IS WAITING FOR PHONE BACK. HE MAY NOT RECOVER WITHOUT CHOLECYSTECTOMY. LFT HAVE WORSENED SOME. HE HAS CHOLESTASIS. HE MAY NEED ERCP BEFORE CHOLECYSTECTOMY. DR. TORRES DOES NOT COME TO THIS HOSPITAL ANY LONGER. PREOP- HIGH RISK FOR SURGERY EF 25% AND MULTIPLE OTHER RISK FACTORS. IS AWARE. HE IS REASONABLY PAINFREE, HE WILL CONTINUE ABX BUT I TOLD THAT SEPTIC GALL BLADDER WILL RECUR AND HE WILL GET SICKER. SHE HAS OPTION OF HOSPICE AT THAT POINT. HER OTHER OPTION IS TO TAKE SECOND OPINION FROM [facility] WHERE HE HAS BEEN BEFORE. CHOLESTOSTOMY IS POSSIBLE BUT AGAIN HAS TO BE DONE AT [facility] NONE OF THE LOCAL RADIOLOGIST DO THE PROCEDURE. SHE UNDERSTANDS. ANTIBIOTICS WILL BUY SOME TIME. (7) Femur fracture Current Visit: Yes Status: Acute Plan: ORTHO HAS ELECTED NOT REPAIR HIS CONDITION IS POOR. Qualifiers: Encounter type: subsequent encounter
--- NOTE | 2019-05-30 20:31 | PN ---
Date of Progress Note: 05/30/2019 Subjective: Patient is awake, alert, tolerating his clear liquids. Denies any pain at this time. V ital signs stable, afebrile. Please note, patient was evaluated by Dr. Chapin and he is very, very h igh risk for surgery. His abdomen, there is a little bit of tenderness but there is no peritonitis i n the right upper quadrant. Assessment: 84-year-old gentleman with chronic cholecystitis, cholelithiasis, urosepsis, left hip fr acture. Recommendation: At this point as patient is eating without pain, I recommend we continue that contin ue, continue antibiotics as patient is high risk. If he does not improve, then we will have no choic e but to surgery, but at this time consideration should be given to medical management as much as pos sible as well as hospice care if patient is being that high risk. We will advance the diet to a full liquid and see how the patient does. We will check his CBC in the morning. /MODL Voice ID: [id number] Report ID: [id number]
--- NOTE | 2019-05-30 20:31 | OP ---
Date of Procedure: 05/27/2019 Surgeon: Sergio Foley MD Procedure Performed: Esophagogastroduodenoscopy. Performing Physician: Sergio Foley M.D. Indication: Upper GI bleed. Plan For Anesthesia: Monitored anesthesia care. Complexity: High due to the patient's comorbidities and high risk condition. Technique: After obtaining informed consent from the patient's spouse and explaining all the risks a nd complications, the patient was placed in the supine position with his head tilted to the left and sedation was given. The scope was advanced into the mouth and carefully guided up to the second port ion of the duodenum. There was no active bleeding that was seen, but stigmata of recent bleed were t reated. No biopsies taken due to therapeutic intervention. After the procedure completed, the scope and equipment were withdrawn and procedure terminated in a safe manner. Findings: 1.Esophagus: No gross lesion seen in the upper and mid esophagus; however, in the distal esophagus, the medium-sized La-Starkey tear was seen at the distal portion. There was a clot that was visua lized to decrease any further chances of bleeding. One hemostasis clip was successfully placed at th e site. 2.Stomach: Mild patchy erythema seen in the body and antrum. 3.Duodenal: The bulb and second portion appeared normal. Complications: None. Tolerance To Anesthesia: Good. Plan: Continue current management for IV PPI for now and switch to oral once he thoughts and can sta rt clear liquid diet from tomorrow. Management of sepsis and cholecystitis as per General Surgery. If the patient's condition does not improve, may need inpatient cholecystectomy versus possibly a cho lecystostomy to decompress the gallbladder. GI will follow as needed. US/MODL Voice ID: [id number] Report ID: [id number]
[2019-05-30] MEDS: ATORVASTATIN 40 MG TAB PO SCH (21:41)
[2019-05-30] MEDS: ACETAMINOPHEN 325 MG TABLET PO PRN (21:49)
[2019-05-31] MEDS: PANTOPRAZOLE INJ 80 MG in NA CHLORIDE 0.9% 250 ML IV SCH ×2 (00:15→11:00)
[2019-05-31 05:10] VITALS: O2SAT 94
[2019-05-31] MEDS: METOPROLOL TAR 25 MG TAB PO SCH (06:03)
[2019-05-31 06:17] LABS: Absolute Lymphocytes (CBC) 0.7 K/uL (0.7-4.9); Basophils % 0.9 % (0-1.3); Hematocrit 27.3 % (39.6-49.0); Lymphocytes % 5.6 % (15.3-44.8); MPV 7.3 fL (7.6-11.3); RBC Red Blood Cell Count 3.01 M/uL (4.33-5.43)
[2019-05-31 06:26] LABS: BUN Blood Urea Nitrogen 6 mg/dL (7-18); Bicarbonate 29 mmol/L (21-32); Glucose Level 123 mg/dL (74-106); Potassium 3.4 mmol/L (3.5-5.1); Sodium Level 137 mmol/L (136-145)
[2019-05-31] MEDS ORDERED: DIGOXIN 0.25 MG TABLET PO ONE (07:00)
[2019-05-31] MEDS: CRANBERRY FRUIT EXTRACT 200 MG CAP PO SCH (08:41)
[2019-05-31] MEDS: CYANOCOBALAMIN 1,000 MCG TAB PO SCH (08:41)
[2019-05-31] MEDS: PROMOD 30 ML DOSE PO SCH (08:42)
[2019-05-31] MEDS ORDERED: POTASSIUM CL SA 10 MEQ TAB PO ONE (09:00)
[2019-05-31] MEDS ORDERED: levoFLOXacin 500 MG TAB PO ONE (09:23)
[2019-05-31] MEDS: NA CHLORIDE 0.9% 1,000 ML IV SCH (10:00)
--- NOTE | 2019-05-31 13:03 | P.DS ---
Admission Date: 05/24/19 Discharge Date: 05/31/19 Disposition: ROUTINE DISCHARGE Discharge Condition: SERIOUS Reason for Admission: STABLE, SLEEPY AND TALKED TODAY. 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 MORENO WAS IN REHAB FOR BROKE FEMUR L SIDE THAT IS NOT REPAIRABLE. HE BECAME SEPTIC AND DEHYDRATED AND NOW IS SENT TO SECOND FLOOR. I KNOW MR. MORENO FOR LONG DURATION. HE DOES NOT COME TO OFFICE ROUTINELY. HE HAS SPENT LOT OF HIS TIME IN HOSPITALS FOR EPISODES THAT NOT ANYONE CAN EXPLAIN. HE GETS EPISODES WHERE HE QUITS TALKING AND RESPONDING BUT IS FULLY AWAKE. NEUROLOGISTS ARE NOT LABELING THIS SEIZURES. HE HAS BEEN TRIED ON DEPAKOT, GABAPENTIN WITH NO EFFECT BUT MORE SIDE EFFECTS. HIS IS VERY VERSE WITH DETAILS OF HIS HISTORY. HE WHILE IN REHAB BECAME NONVERBAL, DEHYRATED AND WBC ELEVATED UPTO 22K. I WAS NOT ASKED TO SEE HIM WHILE IN REHAB DID NOT WANT TO HAVE TOO MANY DOCTOR MAY BE TO SAVE COST. DR. BRICENO'S STAFF CALLED ME NOW WANTS ME TO TAKE CARE OF HIM ON THE ACUTE FLOOR WHERE HE IS BEING TRANSFERRED. PER HE IS MORE AWAKE THAN AM. Hospital Course: WAS TRANSFERRED FROM REHAB HERE TO ME FOR UTI, SEPSIS, LATER I FOUND THAT HE ALSO HAS CHOLECYSTITIS. MEANWHILE HE HAD HEMATEMASIS, ON EGD THERE IS A M.W. TEAR THAT WAS CLIPPED. HE IS NOT A SURGICAL CANDIDATE EF IS LOW. HE IS HIGH RISK FOR SURGERY. HE HAS A FIB ALSO. HE HAS MODERATE DEGREE OF DEMENTIA AND HE IS NOT AMBULATORY FOR LONG TIME WITH MYOPATHY. I TOLD HIS WHO IS VERY INVOLVED INHIS CARE THAT WE SHOULD PUT HIM ON HOSPICE GALL BLADDER THAT IS INFECTED WILL MAKE HIM SEPTIC. NO ONE CAN DO SURGERY ON HIM. HE HAS BEEN IN 3 HOSPITALS OVER LAST TWO MONTHS ALREADY WITH ALL ABOVE ISSUES. IN [facility] THEY ALSO DID NOT ADVISE FOR HIS ACETABULAR FRACTURE SO HE WILL BE ALWAYS BED BOUND NOW. HE IS ON DECLINING COURSE FOR A WHILE NOW AND IN MYOPINION THIS IS THE LAST LEG OF IT. IF WE DO NOT DO HOSPICE, I AM SURE HE WILL BACK IN ER AND THEY WILL DO CPR THAT I DON'T ADVISE. SHE AFTER LOT OF CONVINCING UNDERSTOOD AND WANTS HOSPICE AT HOME NOW. I HAVE ARRANGED FOR IT. Vital Signs/Physical Exam: Temp Pulse Resp BP Pulse Ox 97.3 F 103 H 20 107/60 96 05/31/19 08:00 05/31/19 08:00 05/31/19 08:00 05/31/19 08:00 05/31/19 08:00 General: Alert, Mild distress, Obese HEENT: Atraumatic, PERRLA, EOMI Neck: Supple, JVD not distended Respiratory: Clear to auscultation bilaterally, Normal air movement Cardiovascular: Regular rate/rhythm, Normal S1 S2 Gastrointestinal: Tenderness (DIFFUSE TENDERNESS.) Musculoskeletal: No tenderness Integumentary: No rashes Neurological: Normal speech, Normal tone, Normal affect Lymphatics: No axilla or inguinal lymphadenopathy Laboratory Data at Discharge: WBC 12.6 K/uL (4.3-10.9) H D 05/31/19 05:17 Hgb 9.0 g/dL (13.6-17.9) L 05/31/19 05:17 Hct 27.3 % (39.6-49.0) L 05/31/19 05:17 Plt Count 290 K/uL (152-406) 05/31/19 05:17 Sodium 137 mmol/L (136-145) 05/31/19 05:17 Potassium 3.4 mmol/L (3.5-5.1) L 05/31/19 05:17 BUN 6 mg/dL (7-18) L 05/31/19 05:17 Creatinine 0.56 mg/dL (0.55-1.3) 05/31/19 05:17 Glucose 123 mg/dL (74-106) H 05/31/19 05:17 Magnesium 1.9 mg/dL (1.8-2.4) 05/29/19 06:20 Total Bilirubin 1.2 mg/dL (0.2-1.0) H 05/29/19 06:20 AST 247 U/L (15-37) H D 05/29/19 06:20 ALT 82 U/L (12-78) H 05/29/19 06:20 Alkaline Phosphatase 191 U/L (45-117) H D 05/29/19 06:20 Home Medications: Acetaminophen [Tylenol] 325 mg PO Q4HP PRN 05/17/19 Atorvastatin Calcium [Lipitor] 40 mg PO BEDTIME 05/17/19 Cyanocobalamin (Vitamin B-12) [Vitamin B-12] 1,000 mcg PO DAILY 05/17/19 Metoprolol Tartrate 12.5 mg PO BID 05/17/19 Acetaminophen [Tylenol*] 650 mg PO Q4H PRN tab 05/31/19 levoFLOXacin [Levaquin*] 500 mg PO DAILY #7 tab 05/31/19 New Medications: levoFLOXacin [Levaquin*] 500 mg PO DAILY #7 tab Diet: Regular Activity: Bedrest
--- NOTE | 2019-05-31 13:38 | PN ---
Date of Progress Note: 05/31/2019 Mr. Lemus was seen for preop clearance by Dr. Chapin yesterday. There was a possible chance that he was going to have cholecystectomy. His echocardiogram showed an ejection fraction of 25% to 29%. An AICD was checked and there were no significant arrhythmias. Apparently, patient has become pain-gumaro e on medical therapy and for now, there is no plan for surgery. He is definitely at high risk for wilde rgery. I agree with medical treatment for now. We will be available for questions. CHELLE/FEDE Voice ID: [id number] Report ID: [id number]
[2019-05-31 14:41] VITALS: BP 141/78; TEMP 98.3
== END 2019-05-31 15:41 | disposition hospice, home (50) | DRG 871 ==
LOC: 2ND 15:00
PROVIDERS: ADMIT Internal Medicine; ATTEND Internal Medicine
PROC: 0DJ08ZZ Inspection of Upper Intestinal Tract, Via Natural or Artificial Opening Endoscopic (ICD-10-PCS; principal; 2019-05-27 09:45)
DX: A41.9 Sepsis, unspecified organism (principal); I63.9 Cerebral infarction, unspecified; G40.802 Other epilepsy, not intractable, without status epilepticus; K92.0 Hematemesis; K81.0 Acute cholecystitis; E78.5 Hyperlipidemia, unspecified; E86.0 Dehydration; G71.00 Muscular dystrophy, unspecified; I10 Essential (primary) hypertension; I25.2 Old myocardial infarction; G71.09 Other specified muscular dystrophies; R56.9 Unspecified convulsions; S72.90 Unspecified fracture of unspecified femur
CPT/HCPCS: 36415; 76700; 76857; 78226; 80048; 80076; 80202; 83605; 83735; 84132; 85014; 85018; 85025; 86850; 86900; 86901; 92610; 93005; 93306; A9537; C9113; J2001; J2405; J2704; J7030; P9016